=== PATIENT | male | born 1955 | race Caucasian/White ===

== ENCOUNTER 2022-07-10 10:56 | Inpatient (IN) | payer OTHER ==
--- OUTSIDE RECORDS SUMMARY | 2022-07-10 11:11 | XMS REPORT | Continuity of Care Document ---
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 mouth in [place] 00 :00 the Medical morning. Branch predniSONE 2021-02- No [id number] 2.5mg Take 1 [facility] 2.5 mg 0-07 12-13 tablet by ity of tablet 00:00: 00:00 mouth in [place] 00 :00 the Medical morning. Branch predniSONE 2021-02- No [id number] 2.5mg Take 1 [facility] 2.5 mg 0-07 12-13 tablet by ity of tablet 00:00: 00:00 mouth in [place] 00 :00 the Medical morning. Branch predniSONE 2021-02- No [id number] 2.5mg Take 1 [facility] 2.5 mg 0-07 12-13 tablet by ity of tablet 00:00: 00:00 mouth in [place] 00 :00 the Medical morning. Branch tiotropium 2021-02- No [id number] 2.5ug Inhale 2.5 [facility] bromide 0-07 10-07 mcg daily. ity o f (SPIRIVA 00:00: 00:00 [place] RESPIMAT) 00 :00 Medical 2.5 Branch mcg/actuati on Mist tiotropium 2021-02- No [id number] 2.5ug Inhale 2.5 [facility] bromide 0-07 10-07 mcg daily. ity o f (SPIRIVA 00:00: 00:00 [place] RESPIMAT) 00 :00 Medical 2.5 Branch mcg/actuati on Mist tiotropium 2021-02- No [id number] 2.5ug Inhale 2.5 [facility] bromide 0-07 10-07 mcg daily. ity o f (SPIRIVA 00:00: 00:00 [place] RESPIMAT) 00 :00 Medical 2.5 Branch mcg/actuati on Mist tiotropium 2021-02- No [id number] 2.5ug Inhale 2.5 [facility] bromide 0-07 10-07 mcg daily. ity o f (SPIRIVA 00:00: 00:00 [place] RESPIMAT) 00 :00 Medical 2.5 Branch mcg/actuati on Mist pantoprazol 2021- No [id number] 40mg Take 1 [facility] e 40 mg EC 7- 08- tablet by ity of tablet 00:00: 04:59 mouth in [place] 00 :00 the Medical morning Branch for 30 days. pantoprazol 2021- No [id number] 40mg Take 1 [facility] e 40 mg EC 7- 08- tablet by ity of tablet 00:00: 04:59 mouth in [place] 00 :00 the [facility] morning Branch for 30 days. pantoprazol 2021- No [id number] 40mg Take 1 [facility] e 40 mg EC 7- 08-27 tablet by ity of tablet 00:00: 04:59 mouth in [place] 00 :00 the [facility] morning Branch for 30 days. acetaminoph Yes [id number] 650mg Take 2 [facility] en 325 mg 7-26 tablets by ity of tablet 00:00: mouth [place] 00 every 6 Medical (six) Branch hours as needed for Pain (scale 4-6). acetaminoph 2022-0 Yes [id number] 650mg Take 2 [facility] en 325 mg 7-26 tablets by ity of tablet 00:00: mouth [place] 00 every 6 Medical (six) Branch hours as needed for Pain (scale 4-6). acetaminoph 2-0 Yes [id number] 650mg Take 2 [facility] en 325 mg 7-26 tablets by ity of tablet 00:00: mouth [place] 00 every 6 Medical (six) Branch hours as needed for Pain (scale 4-6). acetaminoph 2-0 Yes [id number] 650mg Take 2 [facility] en 325 mg 7-26 tablets by ity of tablet 00:00: mouth [place] 00 every 6 Medical (six) Branch hours as needed for Pain (scale 4-6). acetaminoph 2021-0 Yes [id number] 650mg Take 2 [facility] en 325 mg 7-26 tablets by ity of tablet 00:00: mouth [place] 00 every 6 Medical (six) Branch hours as needed for Pain (scale 4-6). acetaminoph 2021-0 Yes [id number] 650mg Take 2 [facility] en 325 mg 7-26 tablets by ity of tablet 00:00: mouth [place] 00 every 6 Medical (six) Branch hours as needed for Pain (scale 4-6). acetaminoph 2-0 Yes [id number] 650mg Take 2 [facility] en 325 mg 7-26 tablets by ity of tablet 00:00: mouth [place] 00 every 6 Medical (six) Branch hours as needed for Pain (scale 4-6). acetaminoph 2-0 Yes [id number] 650mg Take 2 [facility] en 325 mg 7-26 tablets by ity of tablet 00:00: mouth [place] 00 every 6 Medical (six) Branch hours as needed for Pain (scale 4-6). acetaminoph 2-0 Yes [id number] 650mg Take 2 [facility] en 325 mg 7-26 tablets by ity of tablet 00:00: mouth [place] 00 every 6 Medical (six) Branch hours as needed for Pain (scale 4-6). acetaminoph 2-0 Yes [id number] 650mg Take 2 [facility] en 325 mg 7-26 tablets by ity of tablet 00:00: mouth [place] 00 every 6 Medical (six) Branch hours as needed for Pain (scale 4-6). acetaminoph 2022-0 Yes [id number] 650mg Take 2 [facility] en 325 mg 7-26 tablets by ity of tablet 00:00: mouth [place] 00 every 6 Medical (six) Branch hours as needed for Pain (scale 4-6). acetaminoph 2-0 Yes [id number] 650mg Take 2 [facility] en 325 mg 7-26 tablets by ity of tablet 00:00: mouth [place] 00 every 6 Medical (six) Branch hours as needed for Pain (scale 4-6). acetaminoph 2021-0 Yes [id number] 650mg Take 2 [facility] en 325 mg 7-26 tablets by ity of tablet 00:00: mouth [place] 00 every 6 Medical (six) Branch hours as needed for Pain (scale 4-6). acetaminoph 2021-0 Yes [id number] 650mg Take 2 [facility] en 325 mg 7-26 tablets by ity of tablet 00:00: mouth [place] 00 every 6 Medical (six) Branch hours as needed for Pain (scale 4-6). acetaminoph 2021-0 Yes [id number] 650mg Take 2 [facility] en 325 mg 7-26 tablets by ity of tablet 00:00: mouth [place] 00 every 6 Medical (six) Branch hours as needed for Pain (scale 4-6). acetaminoph 2021-0 Yes [id number] 650mg Take 2 [facility] en 325 mg 7-26 tablets by ity of tablet 00:00: mouth [place] 00 every 6 Medical (six) Branch hours as needed for Pain (scale 4-6). acetaminoph 2021-0 Yes [id number] 650mg Take 2 [facility] en 325 mg 7-26 tablets by ity of tablet 00:00: mouth [place] 00 every 6 Medical (six) Branch hours as needed for Pain (scale 4-6). acetaminoph 2021-0 Yes [id number] 650mg Take 2 [facility] en 325 mg 7-26 tablets by ity of tablet 00:00: mouth [place] 00 every 6 Medical (six) Branch hours as needed for Pain (scale 4-6). acetaminoph 2-0 Yes [id number] 650mg Take 2 [facility] en 325 mg 7-26 tablets by ity of tablet 00:00: mouth [place] 00 every 6 Medical (six) Branch hours as needed for Pain (scale 4-6). acetaminoph 2-0 Yes [id number] 650mg Take 2 [facility] en 325 mg 7-26 tablets by ity of tablet 00:00: mouth [place] 00 every 6 Medical (six) Branch hours as needed for Pain (scale 4-6). acetaminoph 2021-0 Yes [id number] 650mg Take 2 [facility] en 325 mg 7-26 tablets by ity of tablet 00:00: mouth [place] 00 every 6 Medical (six) Branch hours as needed for Pain (scale 4-6). acetaminoph 2021-0 Yes [id number] 650mg Take 2 [facility] en 325 mg 7-26 tablets by ity of tablet 00:00: mouth [place] 00 every 6 Medical (six) Branch hours as needed for Pain (scale 4-6). acetaminoph 2021-2022- No [id number] 650mg Take 2 [facility] en 325 mg 7-26 01-06 tablets by ity of tablet 00:00: 00:00 mouth [place] 00 :00 every 6 Medical (six) Branch hours as needed for Pain (scale 4-6). acetaminoph 2022- No [id number] 650mg Take 2 [facility] en 325 mg 7-26 01-06 tablets by ity of tablet 00:00: 00:00 mouth [place] 00 :00 every 6 Medical (six) Branch hours as needed for Pain (scale 4-6). acetaminoph 2021-2022- No [id number] 650mg Take 2 [facility] en 325 mg 7-26 01-06 tablets by ity of tablet 00:00: 00:00 mouth [place] 00 :00 every 6 Medical (six) Branch hours as needed for Pain (scale 4-6). acetaminoph 2021-2022- No [id number] 650mg Take 2 [facility] en 325 mg 7-26 01-06 tablets by ity of tablet 00:00: 00:00 mouth [place] 00 :00 every 6 Medical (six) Branch hours as needed for Pain (scale 4-6). aspirin 81 2022-0 Yes 81mg Take 1 [facility] rs mg chewable 7-14 tablet by ity of tablet 00:00: mouth in [place] 00 the Medical morning. Branch aspirin 81 2022-0 Yes 81mg Take 1 [facility] rs mg chewable 7-14 tablet by ity of tablet 00:00: mouth in [place] 00 the Medical morning. Branch aspirin 81 2022-0 Yes 81mg Take 1 [facility] rs mg chewable 7-14 tablet by ity of tablet 00:00: mouth in [place] 00 the Medical morning. Branch aspirin 81 2022-0 Yes 81mg Take 1 Unive rs mg chewable 7-14 tablet by ity of tablet 00:00: mouth in [place] 00 the Medical morning. Branch aspirin 81 2022-0 Yes 81mg Take 1 [facility]ive rs mg chewable 7-14 tablet by ity of tablet 00:00: mouth in [place] 00 the Medical morning. Branch aspirin 81 2022-0 Yes 81mg Take 1 [facility] rs mg chewable 7-14 tablet by ity of tablet 00:00: mouth in [place] 00 the Medical morning. Branch aspirin 81 2022-0 Yes 81mg Take 1 [facility] rs mg chewable 7-14 tablet by ity of tablet 00:00: mouth in [place] 00 the Medical morning. Branch aspirin 81 2022-0 Yes 81mg Take 1 [facility] rs mg chewable 7-14 tablet by ity of tablet 00:00: mouth in [place] 00 the Medical morning. Branch aspirin 81 2022-0 Yes 81mg Take 1 [facility] rs mg chewable 7-14 tablet by ity of tablet 00:00: mouth in [place] 00 the Medical morning. Branch aspirin 81 2022-0 Yes 81mg Take 1 [facility] rs mg chewable 7-14 tablet by ity of tablet 00:00: mouth in [place] 00 the Medical morning. Branch aspirin 81 2022-0 Yes 81mg Take 1 [facility] rs mg chewable 7-14 tablet by ity of tablet 00:00: mouth in [place] 00 the Medical morning. Branch aspirin 81 2022-0 Yes 81mg Take 1 [facility] rs mg chewable 7-14 tablet by ity of tablet 00:00: mouth in [place] 00 the Medical morning. Branch aspirin 81 2022-0 Yes 81mg Take 1 [facility] rs mg chewable 7-14 tablet by ity of tablet 00:00: mouth in [place] 00 the Medical morning. Branch aspirin 81 2022-0 Yes 81mg Take 1 [facility] rs mg chewable 7-14 tablet by ity of tablet 00:00: mouth in [place] 00 the Medical morning. Branch aspirin 81 2022-0 Yes 81mg Take 1 [facility] rs mg chewable 7-14 tablet by ity of tablet 00:00: mouth in [place] 00 the Medical morning. Branch aspirin 81 2022-0 Yes 81mg Take 1 [facility] rs mg chewable 7-14 tablet by ity of tablet 00:00: mouth in [place] 00 the Medical morning. Branch aspirin 81 2022-0 Yes 81mg Take 1 [facility] rs mg chewable 7-14 tablet by ity of tablet 00:00: mouth in [place] 00 the Medical morning. Branch aspirin 81 2022-0 Yes 81mg Take 1 [facility] rs mg chewable 7-14 tablet by ity of tablet 00:00: mouth in [place] 00 the Medical morning. Branch aspirin 81 2022-0 Yes 81mg Take 1 [facility] rs mg chewable 7-14 tablet by ity of tablet 00:00: mouth in [place] 00 the Medical morning. Branch aspirin 81 2022-0 Yes 81mg Take 1 [facility] rs mg chewable 7-14 tablet by ity of tablet 00:00: mouth in [place] 00 the Medical morning. Branch aspirin 81 2022-0 Yes 81mg Take 1 [facility] rs mg chewable 7-14 tablet by ity of tablet 00:00: mouth in [place] 00 the Medical morning. Branch aspirin 81 2022-0 Yes 81mg Take 1 [facility] rs mg chewable 7-14 tablet by ity of tablet 00:00: mouth in [place] 00 the Medical morning. Branch aspirin 81 2022-0 Yes 81mg Take 1 [facility] rs mg chewable 7-14 tablet by ity of tablet 00:00: mouth in [place] 00 the Medical morning. Branch aspirin 81 2022-0 Yes 81mg Take 1 [facility] rs mg chewable 7-14 tablet by ity of tablet 00:00: mouth in [place] 00 the Medical morning. Branch aspirin 81 2022-0 Yes 81mg Take 1 [facility] rs mg chewable 7-14 tablet by ity of tablet 00:00: mouth in [place] 00 the Medical morning. Branch aspirin 81 2022-0 Yes 81mg Take 1 [facility] rs mg chewable 7-14 tablet by ity of tablet 00:00: mouth in [place] 00 the Medical morning. Branch aspirin 81 2022-0 Yes 81mg Take 1 [facility] rs mg chewable 7-14 tablet by ity of tablet 00:00: mouth in [place] 00 the Medical morning. Branch aspirin 81 2022-0 Yes 81mg Take 1 [facility] rs mg chewable 7-14 tablet by ity of tablet 00:00: mouth in [place] 00 the Medical morning. Branch aspirin 81 2-0 Yes 81mg Take 1 [facility] rs mg chewable 7-14 tablet by ity of tablet 00:00: mouth in [place] 00 the Medical morning. Branch aspirin 81 2022-0 Yes 81mg Take 1 [facility] rs mg chewable 7-14 tablet by ity of tablet 00:00: mouth in [place] 00 the Medical morning. Branch aspirin 81 2022-0 Yes 81mg Take 1 [facility] rs mg chewable 7-14 tablet by ity of tablet 00:00: mouth in [place] 00 the Medical morning. Branch aspirin 81 2-0 Yes 81mg Take 1 [facility] rs mg chewable 7-14 tablet by ity of tablet 00:00: mouth in [place] 00 the Medical morning. Branch atorvastati 2-0 Yes 40mg Take 1 [facility] ers n 40 mg 7-13 tablet by ity of tablet 00:00: mouth at [place] [id number] bedtime. Medical Branch metoprolol 2-0 Yes 12.5mg Take 0.5 U nivers tartrate 25 7-13 tablets by it y of mg tablet 00:00: mouth [place] 00 every 12 Medical (twelve) Branch hours. atorvastati 2-0 Yes 40mg Take 1 [facility] ers n 40 mg 7-13 tablet by ity of tablet 00:00: mouth at [place] [id number] bedtime. Medical Branch metoprolol 2-0 Yes 12.5mg Take 0.5 U nivers tartrate 25 7-13 tablets by it y of mg tablet 00:00: mouth [place] 00 every 12 Medical (twelve) Branch hours. atorvastati 2022-0 Yes 40mg Take 1 [facility] ers n 40 mg 7-13 tablet by ity of tablet 00:00: mouth at [place] [id number] bedtime. Medical Branch metoprolol 2-0 Yes 12.5mg Take 0.5 U nivers tartrate 25 7-13 tablets by it y of mg tablet 00:00: mouth [place] [id number] every 12 Medical (twelve) Branch hours. atorvastati 2022-0 Yes 40mg Take 1 [facility] ers n 40 mg 7-13 tablet by ity of tablet 00:00: mouth at [place] [id number] bedtime. Medical Branch metoprolol 2022-0 Yes 12.5mg Take 0.5 U nivers tartrate 25 7-13 tablets by it y of mg tablet 00:00: mouth [place] 00 every 12 Medical (twelve) Branch hours. atorvastati 2022-0 Yes 40mg Take 1 [facility] ers n 40 mg 7-13 tablet by ity of tablet 00:00: mouth at [place] 00 bedtime. Medical Branch metoprolol 2022-0 Yes 12.5mg Take 0.5 U nivers tartrate 25 7-13 tablets by it y of mg tablet 00:00: mouth [place] 00 every 12 Medical (twelve) Branch hours. atorvastati 2022-0 Yes 40mg Take 1 [facility] ers n 40 mg 7-13 tablet by ity of tablet 00:00: mouth at [place] 00 bedtime. Medical Branch metoprolol 2022-0 Yes 12.5mg Take 0.5 U nivers tartrate 25 7-13 tablets by it y of mg tablet 00:00: mouth [place] 00 every 12 Medical (twelve) Branch hours. atorvastati 2022-0 Yes 40mg Take 1 [facility] ers n 40 mg 7-13 tablet by ity of tablet 00:00: mouth at [place] 00 bedtime. Medical Branch metoprolol 2022-0 Yes 12.5mg Take 0.5 U nivers tartrate 25 7-13 tablets by it y of mg tablet 00:00: mouth [place] 00 every 12 Medical (twelve) Branch hours. metoprolol 2022-0 Yes 12.5mg Take 0.5 U nivers tartrate 25 7-13 tablets by it y of mg tablet 00:00: mouth [place] 00 every 12 Medical (twelve) Branch hours. metoprolol 2022-0 Yes 12.5mg Take 0.5 U nivers tartrate 25 7-13 tablets by it y of mg tablet 00:00: mouth [place] 00 every 12 Medical (twelve) Branch hours. metoprolol 2022-0 Yes 12.5mg Take 0.5 U nivers tartrate 25 7-13 tablets by it y of mg tablet 00:00: mouth [place] 00 every 12 Medical (twelve) Branch hours. metoprolol 2022-0 Yes 12.5mg Take 0.5 U nivers tartrate 25 7-13 tablets by it y of mg tablet 00:00: mouth [place] 00 every 12 Medical (twelve) Branch hours. metoprolol 2022-0 Yes 12.5mg Take 0.5 U nivers tartrate 25 7-13 tablets by it y of mg tablet 00:00: mouth [place] 00 every 12 Medical (twelve) Branch hours. metoprolol 2022-0 Yes 12.5mg Take 0.5 U nivers tartrate 25 7-13 tablets by it y of mg tablet 00:00: mouth [place] 00 every 12 Medical (twelve) Branch hours. metoprolol 2022-0 Yes 12.5mg Take 0.5 U nivers tartrate 25 7-13 tablets by it y of mg tablet 00:00: mouth [place] 00 every 12 Medical (twelve) Branch hours. metoprolol 2022-0 Yes 12.5mg Take 0.5 U nivers tartrate 25 7-13 tablets by it y of mg tablet 00:00: mouth [place] 00 every 12 Medical (twelve) Branch hours. metoprolol 2022-0 Yes 12.5mg Take 0.5 U nivers tartrate 25 7-13 tablets by it y of mg tablet 00:00: mouth [place] 00 every 12 Medical (twelve) Branch hours. metoprolol 2-0 2022- No 12.5mg Take 0.5 [facility] tartrate 25 7-13 12-13 tablets by i ty of mg tablet 00:00: 00:00 mouth [place] 00 :00 every 12 Medical (twelve) Branch hours. metoprolol 2-0 2022- No 12.5mg Take 0.5 [facility] tartrate 25 7-13 12-13 tablets by i ty of mg tablet 00:00: 00:00 mouth [place] 00 :00 every 12 Medical (twelve) Branch hours. metoprolol 2022-0 2022- No 12.5mg Take 0.5 [facility] tartrate 25 7-13 12-13 tablets by i ty of mg tablet 00:00: 00:00 mouth [place] 00 :00 every 12 Medical (twelve) Branch hours. metoprolol 2022-0 2022- No 12.5mg Take 0.5 [facility] tartrate 25 7-13 12-13 tablets by i ty of mg tablet 00:00: 00:00 mouth [place] 00 :00 every 12 Medical (twelve) Branch hours. atorvastati 2022-0 2022- No 40mg Take 1 [facility] vers n 40 mg 7-13 10-07 tablet by ity of tablet 00:00: 00:00 mouth at [place] 00 :00 bedtime. Medical Branch atorvastati 2022-0 2022- No 40mg Take 1 [facility] vers n 40 mg 09-03 tablet by ity of tablet 00:00: 00:00 mouth at [place] 00 :00 bedtime. Medical Branch ferrous 2021-0 2021- No 325mg Take 1 Un[facility] s sulfate 325 09-03 tablet by it y of mg (65 mg 00:00: 04:59 [place] 00 :00 (two) Medical tablet times Branch daily before breakfast and dinner for 30 days. ferrous 2021-0 2021- No 325mg Take 1 [facility] s sulfate 325 09-03 tablet by it y of mg (65 mg 00:00: 04:59 [place] iron[place] 00 :00 (two) Medical tablet times Branch daily before breakfast and dinner for 30 days. B Complex Yes Take by Unive rs Vitamins 6-13 mouth. ity of tablet 00:00: [place] 00 Medical Branch B Complex Yes Take by Un[facility] rs Vitamins 6-13 mouth. ity of tablet 00:00: [place] Medical Branch B Complex Yes Take by Un[facility] rs Vitamins 6-13 mouth. ity of tablet 00:00: [place] Medical Branch B Complex Yes Take by Un[facility] rs Vitamins 6-13 mouth. ity of tablet 00:00: [place] Medical Branch B Complex Yes Take by Un[facility] rs Vitamins 6-13 mouth. ity of tablet 00:00: [place] 00 Medical Branch metoprolol Yes 25mg 25 mg. Unive rs succinate 6-13 ity of XL 25 mg 24 00:00: [place] hr tablet 00 Medical Branch B Complex 0 Yes Take by Unive rs Vitamins 6-13 mouth. ity of tablet 00:00: [place] 00 Medical Branch metoprolol 0 Yes 25mg 25 mg. Unive rs succinate 6-13 ity of XL 25 mg 24 00:00: [place] hr tablet 00 Medical Branch B Complex Yes Take by Un[facility] rs Vitamins 6-13 mouth. ity of tablet 00:00: [place] 00 Medical Branch metoprolol 0 Yes 25mg 25 mg. Unive rs succinate 6-13 ity of XL 25 mg 24 00:00: [place] hr tablet 00 Medical Branch B Complex 2022-0 Yes Take by [facility] rs Vitamins 6-13 mouth. ity of tablet 00:00: [place] 00 Medical Branch metoprolol 2021-0 Yes 25mg 25 mg. Unive rs succinate 6-13 ity of XL 25 mg 24 00:00: [place] hr tablet 00 Medical Branch B Complex 2021-0 Yes Take by Un[facility] rs Vitamins 6-13 mouth. ity of tablet 00:00: [place] 00 Medical Branch metoprolol 2021-0 Yes 25mg 25 mg. Unive rs succinate 6-13 ity of XL 25 mg 24 00:00: [place] hr tablet 00 Medical Branch B Complex 2021-0 Yes Take by Un[facility] rs Vitamins 6-13 mouth. ity of tablet 00:00: [place] Medical Branch metoprolol 2021-0 Yes 25mg 25 mg. Unive rs succinate 6-13 ity of XL 25 mg 24 00:00: [place] hr tablet 00 Medical Branch B Complex 2021-0 Yes Take by [facility] rs Vitamins 6-13 mouth. ity of tablet 00:00: [place] Medical Branch metoprolol 0 Yes 25mg 25 mg. Unive rs succinate 6-13 ity of XL 25 mg 24 00:00: [place] hr tablet 00 Medical Branch B Complex 2021-0 Yes Take by Un[facility] rs Vitamins 6-13 mouth. ity of tablet 00:00: [place] [facility] Branch metoprolol 0 Yes 25mg 25 mg. Unive rs succinate 6-13 ity of XL 25 mg 24 00:00: [place] hr tablet 00 Medical Branch B Complex 2021-0 Yes Take by Unive rs Vitamins 6-13 mouth. ity of tablet 00:00: [place] Medical Branch metoprolol 2021-0 Yes 25mg 25 mg. Unive rs succinate 6-13 ity of XL 25 mg 24 00:00: [place] hr tablet 00 Medical Branch B Complex 2021-0 Yes Take by Unive rs Vitamins 6-13 mouth. ity of tablet 00:00: [place] [facility] Branch metoprolol 2021-0 Yes 25mg 25 mg. Unive rs succinate 6-13 ity of XL 25 mg 24 00:00: [place] hr tablet 00 Medical Branch B Complex 2021-0 Yes Take by Unive rs Vitamins 6-13 mouth. ity of tablet 00:00: [place] 00 Medical Branch metoprolol 2022-0 Yes 25mg 25 mg. Unive rs succinate 6-13 ity of XL 25 mg 24 00:00: [place] hr tablet 00 Medical Branch B Complex 2021-0 Yes Take by [facility] rs Vitamins 6-13 mouth. ity of tablet 00:00: [place] 00 Medical Branch metoprolol 2021-0 Yes 25mg 25 mg. Unive rs succinate 6-13 ity of XL 25 mg 24 00:00: [place] hr tablet 00 Medical Branch B Complex 2021-0 Yes Take by Un[facility] rs Vitamins 6-13 mouth. ity of tablet 00:00: [place] 00 Medical Branch metoprolol 2021-0 Yes 25mg 25 mg. Unive rs succinate 6-13 ity of XL 25 mg 24 00:00: [place] hr tablet 00 Medical Branch B Complex 2021-0 Yes Take by [facility] rs Vitamins 6-13 mouth. ity of tablet 00:00: [place] 00 Medical Branch metoprolol 2021-0 Yes 25mg 25 mg. Unive rs succinate 6-13 ity of XL 25 mg 24 00:00: [place] hr tablet 00 Medical Branch B Complex 2021-0 Yes Take by [facility] rs Vitamins 6-13 mouth. ity of tablet 00:00: [place] 00 Medical Branch metoprolol 2021-0 Yes 25mg 25 mg. Unive rs succinate 6-13 ity of XL 25 mg 24 00:00: [place] hr tablet 00 Medical Branch B Complex 2021-0 Yes Take by [facility] rs Vitamins 6-13 mouth. ity of tablet 00:00: [place] 00 Medical Branch metoprolol 2021-0 Yes 25mg 25 mg. Unive rs succinate 6-13 ity of XL 25 mg 24 00:00: [place] hr tablet 00 Medical Branch B Complex 2021-0 Yes Take by [facility] rs Vitamins 6-13 mouth. ity of tablet 00:00: [place] 00 Medical Branch metoprolol 2021-0 Yes 25mg 25 mg. Unive rs succinate 6-13 ity of XL 25 mg 24 00:00: [place] hr tablet 00 Medical Branch B Complex 2021-0 Yes Take by [facility] rs Vitamins 6-13 mouth. ity of tablet 00:00: [place] 00 Medical Branch metoprolol 2021-0 Yes 25mg 25 mg. Unive rs succinate 6-13 ity of XL 25 mg 24 00:00: [place] hr tablet 00 Medical Branch B Complex 2021-0 Yes Take by [facility] rs Vitamins 6-13 mouth. ity of tablet 00:00: [place] 00 Medical Branch metoprolol 2021-0 Yes 25mg 25 mg. Unive rs succinate 6-13 ity of XL 25 mg 24 00:00: [place] hr tablet 00 Medical Branch B Complex 2021-0 Yes Take by [facility] rs Vitamins 6-13 mouth. ity of tablet 00:00: [place] [facility] Branch metoprolol 2021-0 Yes 25mg 25 mg. Unive rs succinate 6-13 ity of XL 25 mg 24 00:00: [place] hr tablet 00 Medical Branch B Complex 2021-0 Yes Take by [facility] rs Vitamins 6-13 mouth. ity of tablet 00:00: [place] [facility] Branch metoprolol 2021-0 Yes 25mg 25 mg. Unive rs succinate 6-13 ity of XL 25 mg 24 00:00: [place] hr tablet 00 Medical Branch B Complex 2021-0 Yes Take by Un[facility] rs Vitamins 6-13 mouth. ity of tablet 00:00: [place] [facility] Branch metoprolol 2021-0 Yes 25mg 25 mg. Unive rs succinate 6-13 ity of XL 25 mg 24 00:00: [place] hr tablet 00 Medical Branch B Complex 2021-0 Yes Take by Un[facility] rs Vitamins 6-13 mouth. ity of tablet 00:00: [place] [facility] Branch metoprolol 2021-0 Yes 25mg 25 mg. Unive rs succinate 6-13 ity of XL 25 mg 24 00:00: [place] hr tablet 00 Medical Branch B Complex 2021-0 Yes Take by [facility] rs Vitamins 6-13 mouth. ity of tablet 00:00: [place] [facility] Branch metoprolol 2021-0 Yes 25mg 25 mg. Unive rs succinate 6-13 ity of XL 25 mg 24 00:00: [place] hr tablet 00 Medical Branch B Complex 2021-0 Yes Take by [facility] rs Vitamins 6-13 mouth. ity of tablet 00:00: [place] [facility] Branch metoprolol 2021-0 Yes 25mg 25 mg. Unive rs succinate 6-13 ity of XL 25 mg 24 00:00: [place] hr tablet 00 Medical Branch B Complex 2021-0 Yes Take by [facility] rs Vitamins 6-13 mouth. ity of tablet 00:00: [place] 00 Medical Branch metoprolol 2022-0 Yes 25mg 25 mg. Unive rs succinate 6-13 ity of XL 25 mg 24 00:00: [place] hr tablet 00 Medical Branch B Complex 2021-0 Yes Take by [facility] rs Vitamins 6-13 mouth. ity of tablet 00:00: [place] 00 Medical Branch metoprolol 2021-0 Yes 25mg 25 mg. Unive rs succinate 6-13 ity of XL 25 mg 24 00:00: [place] hr tablet 00 Medical Branch B Complex 2021-0 Yes Take by [facility] rs Vitamins 6-13 mouth. ity of tablet 00:00: [place] 00 Medical Branch metoprolol 2021-0 Yes 25mg 25 mg. Unive rs succinate 6-13 ity of XL 25 mg 24 00:00: [place] hr tablet 00 Medical Branch ethambutoL 2021-2022- No [id number] 2000mg Take 5 [facility] 400 mg 07-23 tablets by ity of tablet 00:00: 05:59 mouth [place] 00 :00 every Medical Wednesday, Branch Wednesday and Wednesday for 252 days. azithromyci 2022- No [id number] 500mg Take 1 [facility] n 500 mg 07-23 tablet by ity o f tablet 00:00: 05:59 mouth [place] 00 :00 every Medical Wednesday, Branch Wednesday and Wednesday for 252 days. rifAMPin 2022- No [id number] 600mg Take 2 [facility] 300 mg 07-23 capsules ity of capsule 00:00: 05:59 by mouth [place] 00 :00 every Medical Wednesday, Branch Wednesday and Wednesday for 252 days. ethambutoL 2022- No [id number] 2000mg Take 5 [facility] 400 mg 07-23 tablets by ity of tablet 00:00: 05:59 mouth [place] 00 :00 every Medical Wednesday, Branch Wednesday and Wednesday for 252 days. azithromyci 2022- No [id number] 500mg Take 1 [facility] n 500 mg 07-23 tablet by ity o f tablet 00:00: 05:59 mouth [place] 00 :00 every Medical Wednesday, Branch Wednesday and Wednesday for 252 days. rifAMPin 2022- No [id number] 600mg Take 2 [facility] 300 mg 07-23 capsules ity of capsule 00:00: 05:59 by mouth [place] 00 :00 every Medical Wednesday, Branch Wednesday and Wednesday for 252 days. ethambutoL No [id number] 2000mg Take 5 [facility] 400 mg 07-23 tablets by ity of tablet 00:00: 05:59 mouth [place] 00 :00 every Medical Wednesday, Branch Wednesday and Wednesday for 252 days. azithromyci No [id number] 500mg Take 1 [facility] n 500 mg 07-23 tablet by ity o f tablet 00:00: 05:59 mouth [place] 00 :00 every Medical Wednesday, Branch Wednesday and Wednesday for 252 days. rifAMPin 2022- No [id number] 600mg Take 2 [facility] 300 mg 07-23 capsules ity of capsule 00:00: 05:59 by mouth [place] 00 :00 every Medical Wednesday, Branch Wednesday and Wednesday for 252 days. ethambutoL 2022- No [id number] 2000mg Take 5 [facility] 400 mg 07-23 tablets by ity of tablet 00:00: 05:59 mouth [place] 00 :00 every Medical Wednesday, Branch Wednesday and Wednesday for 252 days. azithromyci 2022- No [id number] 500mg Take 1 [facility] n 500 mg 07-23 tablet by ity o f tablet 00:00: 05:59 mouth [place] 00 :00 every Medical Wednesday, Branch Wednesday and Wednesday for 252 days. rifAMPin 2022- No [id number] 600mg Take 2 [facility] 300 mg 07-23 capsules ity of capsule 00:00: 05:59 by mouth [place] 00 :00 every Medical Wednesday, Branch Wednesday and Wednesday for 252 days. ethambutoL 2022- No [id number] 2000mg Take 5 [facility] 400 mg -09 tablets by ity of tablet 00:00: 05:59 mouth [place] 00 :00 every Medical Wednesday, Branch Wednesday and Wednesday for 252 days. azithromyci 2022- No [id number] 500mg Take 1 [facility] n 500 mg 07-23 tablet by ity o f tablet 00:00: 05:59 mouth [place] 00 :00 every Medical Wednesday, Branch Wednesday and Wednesday for 252 days. rifAMPin 2022- No [id number] 600mg Take 2 [facility] 300 mg 6-04-02 capsules ity of capsule 00:00: 05:59 by mouth [place] 00 :00 every Medical Wednesday, Branch Wednesday and Wednesday for 252 days. ethambutoL 2022- No [id number] 2000mg Take 5 [facility] 400 mg 07-23 tablets by ity of tablet 00:00: 05:59 mouth [place] 00 :00 every Medical Wednesday, Branch Wednesday and Wednesday for 252 days. azithromyci 2022- No [id number] 500mg Take 1 [facility] n 500 mg 07-23 tablet by ity o f tablet 00:00: 05:59 mouth [place] 00 :00 every Medical Wednesday, Branch Wednesday and Wednesday for 252 days. rifAMPin 2022- No [id number] 600mg Take 2 [facility] 300 mg 07-23 capsules ity of capsule 00:00: 05:59 by mouth [place] 00 :00 every Medical Wednesday, Branch Wednesday and Wednesday for 252 days. ethambutoL 2022- No [id number] 2000mg Take 5 [facility] 400 mg 07-23 tablets by ity of tablet 00:00: 05:59 mouth [place] 00 :00 every Medical Wednesday, Branch Wednesday and Wednesday for 252 days. azithromyci 2022- No [id number] 500mg Take 1 [facility] n 500 mg 07-23 tablet by ity o f tablet 00:00: 05:59 mouth [place] 00 :00 every Medical Wednesday, Branch Wednesday and Wednesday for 252 days. rifAMPin 2022- No [id number] 600mg Take 2 [facility] 300 mg -04-02 capsules ity of capsule 00:00: 05:59 by mouth [place] 00 :00 every Medical Wednesday, Branch Wednesday and Wednesday for 252 days. ethambutoL 2022- No [id number] 2000mg Take 5 [facility] 400 mg 6-02 23- tablets by ity of tablet 00:00: 05:59 mouth [place] 00 :00 every Medical Wednesday, Branch Wednesday and Wednesday for 252 days. azithromyci 2022- No [id number] 500mg Take 1 [facility] n 500 mg 6-04-02 tablet by ity o f tablet 00:00: 05:59 mouth [place] 00 :00 every Medical Wednesday, Branch Wednesday and Wednesday for 252 days. ethambutoL 2022- No [id number] 2000mg Take 5 [facility] 400 mg 6-04-02 tablets by ity of tablet 00:00: 05:59 mouth [place] 00 :00 every Medical Wednesday, Branch Wednesday and Wednesday for 252 days. azithromyci 2022- No [id number] 500mg Take 1 [facility] n 500 mg 6-04-02 tablet by ity o f tablet 00:00: 05:59 mouth [place] 00 :00 every Medical Wednesday, Branch Wednesday and Wednesday for 252 days. ethambutoL 2022- No [id number] 2000mg Take 5 [facility] 400 mg 6-04-02 tablets by ity of tablet 00:00: 05:59 mouth [place] 00 :00 every Medical Wednesday, Branch Wednesday and Wednesday for 252 days. azithromyci 2022- No [id number] 500mg Take 1 [facility] n 500 mg 6-04-02 tablet by ity o f tablet 00:00: 05:59 mouth [place] 00 :00 every Medical Wednesday, Branch Wednesday and Wednesday for 252 days. ethambutoL 2022- No [id number] 2000mg Take 5 [facility] 400 mg 6-04-02 tablets by ity of tablet 00:00: 05:59 mouth [place] 00 :00 every Medical Wednesday, Branch Wednesday and Wednesday for 252 days. azithromyci 2022- No [id number] 500mg Take 1 [facility] n 500 mg 6-04-02 tablet by ity o f tablet 00:00: 05:59 mouth [place] 00 :00 every Medical Wednesday, Branch Wednesday and Wednesday for 252 days. ethambutoL 2022- No [id number] 2000mg Take 5 [facility] 400 mg 6-04-02 tablets by ity of tablet 00:00: 05:59 mouth [place] 00 :00 every Medical Wednesday, Branch Wednesday and Wednesday for 252 days. azithromyci 2022- No [id number] 500mg Take 1 [facility] n 500 mg 6-04-02 tablet by ity o f tablet 00:00: 05:59 mouth [place] 00 :00 every Medical Wednesday, Branch Wednesday and Wednesday for 252 days. ethambutoL 2022- No [id number] 2000mg Take 5 [facility] 400 mg 6-04-02 tablets by ity of tablet 00:00: 05:59 mouth [place] 00 :00 every Medical Wednesday, Branch Wednesday and Wednesday for 252 days. azithromyci 2022- No [id number] 500mg Take 1 [facility] n 500 mg 6-04-02 tablet by ity o f tablet 00:00: 05:59 mouth [place] 00 :00 every Medical Wednesday, Branch Wednesday and Wednesday for 252 days. ethambutoL 2022- No [id number] 2000mg Take 5 [facility] 400 mg 6-04-02 tablets by ity of tablet 00:00: 05:59 mouth [place] 00 :00 every Medical Wednesday, Branch Wednesday and Wednesday for 252 days. azithromyci 2022- No [id number] 500mg Take 1 [facility] n 500 mg 6-04-02 tablet by ity o f tablet 00:00: 05:59 mouth [place] 00 :00 every Medical Wednesday, Branch Wednesday and Wednesday for 252 days. ethambutoL 2022- No [id number] 2000mg Take 5 [facility] 400 mg 6-04-02 tablets by ity of tablet 00:00: 05:59 mouth [place] 00 :00 every Medical Wednesday, Branch Wednesday and Wednesday for 252 days. azithromyci 2022- No [id number] 500mg Take 1 [facility] n 500 mg 6-04-02 tablet by ity o f tablet 00:00: 05:59 mouth [place] 00 :00 every Medical Wednesday, Branch Wednesday and Wednesday for 252 days. ethambutoL 2022- No [id number] 2000mg Take 5 [facility] 400 mg 6-04-02 tablets by ity of tablet 00:00: 05:59 mouth [place] 00 :00 every Medical Wednesday, Branch Wednesday and Wednesday for 252 days. azithromyci 2022- No [id number] 500mg Take 1 [facility] n 500 mg 07-23 tablet by ity o f tablet 00:00: 05:59 mouth [place] 00 :00 every Medical Wednesday, Branch Wednesday and Wednesday for 252 days. ethambutoL 2022- No [id number] 2000mg Take 5 [facility] 400 mg 07-23 tablets by ity of tablet 00:00: 05:59 mouth [place] 00 :00 every Medical Wednesday, Branch Wednesday and Wednesday for 252 days. azithromyci No [id number] 500mg Take 1 [facility] n 500 mg 07-23 tablet by ity o f tablet 00:00: 05:59 mouth [place] 00 :00 every Medical Wednesday, Branch Wednesday and Wednesday for 252 days. ethambutoL 2022- No [id number] 2000mg Take 5 [facility] 400 mg 07-23 tablets by ity of tablet 00:00: 05:59 mouth [place] 00 :00 every Medical Wednesday, Branch Wednesday and Wednesday for 252 days. azithromyci 2022- No [id number] 500mg Take 1 [facility] n 500 mg 07-23 tablet by ity o f tablet 00:00: 05:59 mouth [place] 00 :00 every Medical Wednesday, Branch Wednesday and Wednesday for 252 days. ethambutoL 2022- No [id number] 2000mg Take 5 [facility] 400 mg 07-23 tablets by ity of tablet 00:00: 05:59 mouth [place] 00 :00 every Medical Wednesday, Branch Wednesday and Wednesday for 252 days. azithromyci 2022- No [id number] 500mg Take 1 [facility] n 500 mg 6-04-02 tablet by ity o f tablet 00:00: 05:59 mouth [place] 00 :00 every Medical Wednesday, Branch Wednesday and Wednesday for 252 days. ethambutoL 2022- No [id number] 2000mg Take 5 [facility] 400 mg 6-02 23- tablets by ity of tablet 00:00: 05:59 mouth [place] 00 :00 every Medical Wednesday, Branch Wednesday and Wednesday for 252 days. azithromyci 2022- No [id number] 500mg Take 1 [facility] n 500 mg 6-04-02 tablet by ity o f tablet 00:00: 05:59 mouth [place] 00 :00 every Medical Wednesday, Branch Wednesday and Wednesday for 252 days. ethambutoL 2022- No [id number] 2000mg Take 5 [facility] 400 mg 6-04-02 tablets by ity of tablet 00:00: 05:59 mouth [place] 00 :00 every Medical Wednesday, Branch Wednesday and Wednesday for 252 days. azithromyci 2022- No [id number] 500mg Take 1 [facility] n 500 mg 07-23 tablet by ity o f tablet 00:00: 05:59 mouth [place] 00 :00 every Medical Wednesday, Branch Wednesday and Wednesday for 252 days. ethambutoL 2022- No [id number] 2000mg Take 5 [facility] 400 mg 6-04-02 tablets by ity of tablet 00:00: 05:59 mouth [place] 00 :00 every Medical Wednesday, Branch Wednesday and Wednesday for 252 days. azithromyci 2022- No [id number] 500mg Take 1 [facility] n 500 mg 6-04-02 tablet by ity o f tablet 00:00: 05:59 mouth [place] 00 :00 every Medical Wednesday, Branch Wednesday and Wednesday for 252 days. ethambutoL 2022- No [id number] 2000mg Take 5 [facility] 400 mg 6-04-02 tablets by ity of tablet 00:00: 05:59 mouth [place] 00 :00 every Medical Wednesday, Branch Wednesday and Wednesday for 252 days. azithromyci 2022- No [id number] 500mg Take 1 [facility] n 500 mg 07-23 tablet by ity o f tablet 00:00: 05:59 mouth [place] 00 :00 every Medical Wednesday, Branch Wednesday and Wednesday for 252 days. ethambutoL 2022- No [id number] 2000mg Take 5 [facility] 400 mg -04-02 tablets by ity of tablet 00:00: 05:59 mouth [place] 00 :00 every Medical Wednesday, Branch Wednesday and Wednesday for 252 days. azithromyci 2022- No [id number] 500mg Take 1 [facility] n 500 mg 07-23 tablet by ity o f tablet 00:00: 05:59 mouth [place] 00 :00 every Medical Wednesday, Branch Wednesday and Wednesday for 252 days. ethambutoL 2022- No [id number] 2000mg Take 5 [facility] 400 mg 07-23 tablets by ity of tablet 00:00: 05:59 mouth [place] 00 :00 every Medical Wednesday, Branch Wednesday and Wednesday for 252 days. azithromyci 2022- No [id number] 500mg Take 1 [facility] n 500 mg 07-23 tablet by ity o f tablet 00:00: 05:59 mouth [place] 00 :00 every Medical Wednesday, Branch Wednesday and Wednesday for 252 days. ethambutoL 2022- No [id number] 2000mg Take 5 [facility] 400 mg 07-23 tablets by ity of tablet 00:00: 05:59 mouth [place] 00 :00 every Medical Wednesday, Branch Wednesday and Wednesday for 252 days. azithromyci 2022- No [id number] 500mg Take 1 [facility] n 500 mg 07-23 tablet by ity o f tablet 00:00: 05:59 mouth [place] 00 :00 every Medical Wednesday, Branch Wednesday and Wednesday for 252 days. rifAMPin 2021- No [id number] 600mg Take 2 [facility] 300 mg 07-23 capsules ity of capsule 00:00: 00:00 by mouth [place] 00 :00 every Medical Wednesday, Wednesday and Wednesday for days. rifAMPin 2021- No [id number] 600mg Take 2 [facility] 300 mg 07-23 capsules ity of capsule 00:00: 00:00 by mouth [place] 00 :00 every Medical Wednesday, Branch Wednesday and Wednesday for days. montelukast Yes [id number] 10mg Take 1 [facility] 10 mg 5-02 tablet by ity of tablet 00:00: mouth [place] 00 daily. [facility] montelukast 0 Yes [id number] 10mg Take 1 [facility] 10 mg 5-02 tablet by ity of tablet 00:00: mouth [place] 00 daily. [facility] montelukast Yes [id number] 10mg Take 1 [facility] 10 mg 5-02 tablet by ity of tablet 00:00: mouth [place] 00 daily. [facility] montelukast Yes [id number] 10mg Take 1 [facility] 10 mg 5-02 tablet by ity of tablet 00:00: mouth [place] 00 daily. [facility] montelukast Yes [id number] 10mg Take 1 [facility] 10 mg 5-02 tablet by ity of tablet 00:00: mouth [place] 00 daily. [facility] montelukast Yes [id number] 10mg Take 1 [facility] 10 mg 5-02 tablet by ity of tablet 00:00: mouth [place] 00 daily. [facility] montelukast Yes [id number] 10mg Take 1 [facility] 10 mg 5-02 tablet by ity of tablet 00:00: mouth [place] 00 daily. [facility] montelukast 0 Yes [id number] 10mg Take 1 [facility] 10 mg 5-02 tablet by ity of tablet 00:00: mouth [place] 00 daily. [facility] montelukast 0 Yes [id number] 10mg Take 1 [facility] 10 mg 5-02 tablet by ity of tablet 00:00: mouth [place] 00 daily. [facility] montelukast 0 Yes [id number] 10mg Take 1 [facility] 10 mg 5-02 tablet by ity of tablet 00:00: mouth [place] 00 daily. [facility] montelukast Yes [id number] 10mg Take 1 [facility] 10 mg 5-02 tablet by ity of tablet 00:00: mouth [place] 00 daily. Medical Branch montelukast Yes [id number] 10mg Take 1 [facility] 10 mg 5-02 tablet by ity of tablet 00:00: mouth [place] 00 daily. Medical Branch montelukast 2021- No [id number] 10mg Take 1 [facility] 10 mg 5-02 11-09 tablet by ity of tablet 00:00: 00:00 mouth [place] 00 :00 daily. Medical Branch montelukast 2021- No [id number] 10mg Take 1 [facility] 10 mg 5-02 -09 tablet by ity of tablet 00:00: 00:00 mouth [place] 00 :00 daily. Medical Branch predniSONE 2020-02 Yes [id number] 5mg Take 1 [facility] 5 mg tablet 2-31 tablet by ity of 00:00: mouth [place] 00 daily. Medical Branch predniSONE 2020-02 Yes [id number] 5mg Take 1 [facility] 5 mg tablet 2-31 tablet by ity of 00:00: mouth [place] 00 daily. Medical Branch predniSONE 2020-02 Yes [id number] 5mg Take 1 [facility] 5 mg tablet 2-31 tablet by ity of 00:00: mouth [place] 00 daily. Medical Branch predniSONE 2020-02 Yes [id number] 5mg Take 1 [facility] 5 mg tablet 2-31 tablet by ity of 00:00: mouth [place] 00 daily. Medical Branch predniSONE 2020-02 Yes [id number] 5mg Take 1 [facility] 5 mg tablet 2-31 tablet by ity of 00:00: mouth [place] 00 daily. Medical Branch predniSONE 2020- Yes [id number] 5mg Take 1 [facility] 5 mg tablet 2-31 tablet by ity of 00:00: mouth [place] 00 daily. Medical Branch predniSONE 2020-02 Yes [id number] 5mg Take 1 [facility] 5 mg tablet 2-31 tablet by ity of 00:00: mouth [place] 00 daily. Medical Branch predniSONE 2020-2021- No [id number] 5mg Take 1 [facility] 5 mg tablet 2-31 10-07 tablet by it y of 00:00: 00:00 mouth [place] 00 :00 daily. Medical Branch predniSONE 2020-2021- No [id number] 5mg Take 1 [facility] 5 mg tablet 2-31 10-07 tablet by it y of 00:00: 00:00 mouth [place] 00 :00 daily. Medical Branch meloxicam 2020-02 Yes [id number] TAKE ONE [facility] (Mobic) 15 1-12 TABLET BY [facility] tablet 00:00: MOUTH ONCE 00 DAILY WITH FOOD fluticasone 2020-02 Yes 1{spray Use 1 Un dharmesh propionate 0-07 } [place] in ity o f 50 00:00: each [place] mcg/actuati 00 nostril Medic al on nasal daily. Branch spray fluticasone 2020-02 Yes 1{spray Use 1 Un dharmesh propionate 0-07 } [place] in ity o f 50 00:00: each [place] mcg/actuati 00 nostril Medic al on nasal daily. Branch spray fluticasone 2020-02 Yes 1{spray Use 1 Un dharmesh propionate 0-07 } [place] in ity o f 50 00:00: each [place] mcg/actuati 00 nostril Medic al on nasal daily. Branch spray fluticasone 2020-02 Yes 1{spray Use 1 Un dharmesh propionate 0-07 } [place] in ity o f 50 00:00: each [place] mcg/actuati 00 nostril Medic al on nasal daily. Branch spray fluticasone 2020-02 Yes 1{spray Use 1 Un dharmesh propionate 0-07 } [place] in ity o f 50 00:00: each [place] mcg/actuati 00 nostril Medic al on nasal daily. Branch spray fluticasone 2020-02 Yes 1{spray Use 1 Un dharmesh propionate 0-07 } [place] in ity o f 50 00:00: each [place] mcg/actuati 00 nostril Medic al on nasal daily. Branch spray fluticasone 2020-02 Yes 1{spray Use 1 Un dharmesh propionate 0-07 } [place] in ity o f 50 00:00: each [place] mcg/actuati 00 nostril Medic al on nasal daily. Branch spray fluticasone 2020-02 Yes 1{spray Use 1 Un dharmesh propionate 0-07 } [place] in ity o f 50 00:00: each [place] mcg/actuati 00 nostril Medic al on nasal daily. Branch spray fluticasone 2020-02 Yes 1{spray Use 1 Un dharmesh propionate 0-07 } [place] in ity o f 50 00:00: each [place] mcg/actuati 00 nostril Medic al on nasal daily. Branch spray fluticasone 2020-02 Yes 1{spray Use 1 Un dharmesh propionate 0-07 } [place] in ity o f 50 00:00: each [place] mcg/actuati 00 nostril Medic al on nasal daily. Branch spray fluticasone 2020-02 Yes 1{spray Use 1 Un dharmesh propionate 0-07 } [place] in ity o f 50 00:00: each [place] mcg/actuati 00 nostril Medic al on nasal daily. Branch spray fluticasone 2020-02 Yes 1{spray Use 1 Un dharmesh propionate 0-07 } [place] in ity o f 50 00:00: each [place] mcg/actuati 00 nostril Medic al on nasal daily. Branch spray fluticasone 2020-02 Yes 1{spray Use 1 Un dharmesh propionate 0-07 } [place] in ity o f 50 00:00: each [place] mcg/actuati 00 nostril Medic al on nasal daily. Branch spray fluticasone 2020-02 Yes 1{spray Use 1 Un dharmesh propionate 0-07 } [place] in ity o f 50 00:00: each [place] mcg/actuati 00 nostril Medic al on nasal daily. Branch spray fluticasone 2020-02 Yes 1{spray Use 1 Un dharmesh propionate 0-07 } [place] in ity o f 50 00:00: each [place] mcg/actuati 00 nostril Medic al on nasal daily. Branch spray fluticasone 2020-02 Yes 1{spray Use 1 Un dharmesh propionate 0-07 } [place] in ity o f 50 00:00: each [place] mcg/actuati 00 nostril Medic al on nasal daily. Branch spray fluticasone 2020-02 Yes 1{spray Use 1 Un dharmesh propionate 0-07 } [place] in ity o f 50 00:00: each [place] mcg/actuati 00 nostril Medic al on nasal daily. Branch spray fluticasone 2020-02 Yes 1{spray Use 1 Un dharmesh propionate 0-07 } [place] in ity o f 50 00:00: each [place] mcg/actuati 00 nostril Medic al on nasal daily. Branch spray fluticasone 2020-02 Yes 1{spray Use 1 Un dharmesh propionate 0-07 } [place] in ity o f 50 00:00: each [place] mcg/actuati 00 nostril Medic al on nasal daily. Branch spray fluticasone 2020-02 Yes 1{spray Use 1 Un dharmesh propionate 0-07 } [place] in ity o f 50 00:00: each [place] mcg/actuati 00 nostril Medic al on nasal daily. Branch spray fluticasone 2020-02 Yes 1{spray Use 1 Un dharmesh propionate 0-07 } [place] in ity o f 50 00:00: each [place] mcg/actuati 00 nostril Medic al on nasal daily. Branch spray fluticasone 2020-02 Yes 1{spray Use 1 Un dharmesh propionate 0-07 } [place] in ity o f 50 00:00: each [place] mcg/actuati 00 nostril Medic al on nasal daily. Branch spray fluticasone 2020-02 Yes 1{spray Use 1 Un dharmesh propionate 0-07 } [place] in ity o f 50 00:00: each [place] mcg/actuati 00 nostril Medic al on nasal daily. Branch spray fluticasone 2020-02 Yes 1{spray Use 1 Un dharmesh propionate 0-07 } [place] in ity o f 50 00:00: each [place] mcg/actuati 00 nostril Medic al on nasal daily. Branch spray fluticasone 2020-02 Yes 1{spray Use 1 Un dharmesh propionate 0-07 } [place] in ity o f 50 00:00: each [place] mcg/actuati 00 nostril Medic al on nasal daily. Branch spray fluticasone 2020-02 Yes 1{spray Use 1 Un dharmesh propionate 0-07 } [place] in ity o f 50 00:00: each [place] mcg/actuati 00 nostril Medic al on nasal daily. Branch spray fluticasone 2020-02 Yes 1{spray Use 1 Un dharmesh propionate 0-07 } [place] in ity o f 50 00:00: each [place] mcg/actuati 00 nostril Medic al on nasal daily. Branch spray fluticasone 2020-02 Yes 1{spray Use 1 Un dharmesh propionate 0-07 } [place] in ity o f 50 00:00: each [place] mcg/actuati 00 nostril Medic al on nasal daily. Branch spray fluticasone 2020-02 Yes 1{spray Use 1 Un dharmesh propionate 0-07 } [place] in ity o f 50 00:00: each [place] mcg/actuati 00 nostril Medic al on nasal daily. Branch spray fluticasone 2020-02 Yes 1{spray Use 1 Un dharmesh propionate 0-07 } [place] in ity o f 50 00:00: each [place] mcg/actuati 00 nostril Medic al on nasal daily. Branch spray fluticasone 2020-02 Yes 1{spray Use 1 Un dharmesh propionate 0-07 } [place] in ity o f 50 00:00: each [place] mcg/actuati 00 nostril Medic al on nasal daily. Branch spray fluticasone 2020-02 Yes 1{spray Use 1 Un dharmesh propionate 0-07 } [place] in ity o f 50 00:00: each [place] mcg/actuati 00 nostril Medic al on nasal daily. Branch spray fluticasone 2020-02 Yes 1{puff} Inhale 1 [facility] propion-arianne 0-01 Puff ity of meteroL 00:00: daily. [place] ([facility] 00 Medical INHUB) Branch 250-50 mcg/dose inhalation disk fluticasone 2020-02 Yes 1{puff} Inhale 1 [facility] propion-arianne 0-01 Puff ity of meteroL 00:00: daily. [place] ([facility] 00 Medical INHUB) Branch 250-50 mcg/dose inhalation disk fluticasone 2020-02 Yes 1{puff} Inhale 1 [facility] propion-arianne 0-01 Puff ity of meteroL 00:00: daily. [place] ([facility] 00 Medical INHUB) Branch 250-50 mcg/dose inhalation disk fluticasone 2020-02 Yes 1{puff} Inhale 1 [facility] propion-arianne 0-01 Puff ity of meteroL 00:00: daily. [place] ([facility] 00 Medical INHUB) Branch 250-50 mcg/dose inhalation disk fluticasone 2020-02 Yes 1{puff} Inhale 1 [facility] propion-arianne 0-01 Puff ity of meteroL 00:00: daily. [place] ([facility] 00 Medical INHUB) Branch 250-50 mcg/dose inhalation disk fluticasone 2020-02 Yes 1{puff} Inhale 1 [facility] propion-arianne 0-01 Puff ity of meteroL 00:00: daily. [place] ([facility] 00 Medical INHUB) Branch 250-50 mcg/dose inhalation disk fluticasone 2020-02 Yes 1{puff} Inhale 1 [facility] propion-arianne 0-01 Puff ity of meteroL 00:00: daily. [place] [facility] 250-50 mcg/dose inhalation disk fluticasone 2020-02 Yes 1{puff} Inhale 1 [facility] propion-arianne 0-01 Puff ity of meteroL 00:00: daily. [place] [facility] Branch 250-50 mcg/dose inhalation disk fluticasone 2020-02 Yes 1{puff} Inhale 1 [facility] propion-arianne 0-01 Puff ity of meteroL 00:00: daily. [place] [facility] Branch 250-50 mcg/dose inhalation disk fluticasone 2020-02 Yes 1{puff} Inhale 1 [facility] propion-arianne 0-01 Puff ity of meteroL 00:00: daily. [place] [facility] Branch 250-50 mcg/dose inhalation disk fluticasone 2020-02 Yes 1{puff} Inhale 1 [facility] propion-arianne 0-01 Puff ity of meteroL 00:00: daily. [place] ([facility] Branch 250-50 mcg/dose inhalation disk fluticasone 2020-02 Yes 1{puff} Inhale 1 [facility] propion-arianne 0-01 Puff ity of meteroL 00:00: daily. [place] [facility] Branch 250-50 mcg/dose inhalation disk fluticasone 2020-02 Yes 1{puff} Inhale 1 [facility] propion-arianne 0-01 Puff ity of meteroL 00:00: daily. [place] [facility] Branch 250-50 mcg/dose inhalation disk fluticasone 2020-02 Yes 1{puff} Inhale 1 [facility] propion-arianne 0-01 Puff ity of meteroL 00:00: daily. [place] [facility] Branch 250-50 mcg/dose inhalation disk fluticasone 2020-02 Yes 1{puff} Inhale 1 [facility] propion-arianne 0-01 Puff ity of meteroL 00:00: daily. [place] ([facility] 00 Medical INHUB) Branch 250-50 mcg/dose inhalation disk fluticasone 2020-02 Yes 1{puff} Inhale 1 [facility] propion-arianne 0-01 Puff ity of meteroL 00:00: daily. [place] ([facility] 00 Medical INHUB) Branch 250-50 mcg/dose inhalation disk fluticasone 2020-02 Yes 1{puff} Inhale 1 [facility] propion-arianne 0-01 Puff ity of meteroL 00:00: daily. [place] 250-50 00 Medical mcg/dose Branch inhalation disk fluticasone 2020-02 Yes 1{puff} Inhale 1 [facility] propion-arianne 0-01 Puff ity of meteroL 00:00: daily. [place] [address] 00 Medical mcg/dose Branch inhalation disk fluticasone 2020-02 Yes 1{puff} Inhale 1 [facility] propion-arianne 0-01 Puff ity of meteroL 00:00: daily. [place] [address] 00 Medical mcg/dose Branch inhalation disk fluticasone 2020-02 Yes 1{puff} Inhale 1 [facility] propion-arianne 0-01 Puff ity of meteroL 00:00: daily. [place] [address] 00 Medical mcg/dose Branch inhalation disk fluticasone 2020-02 Yes 1{puff} Inhale 1 [facility] propion-arianne 0-01 Puff ity of meteroL 00:00: daily. [place] 250-50 00 Medical mcg/dose Branch inhalation disk fluticasone 2020-02 Yes 1{puff} Inhale 1 [facility] propion-arianne 0-01 Puff ity of meteroL 00:00: daily. [place] 250-50 00 Medical mcg/dose Branch inhalation disk fluticasone 2020-023- No 1{puff} Inhale 1 [facility] propion-arianne 0-01 01-06 Puff ity of meteroL 00:00: 00:00 daily. [place] 250-50 00 :00 Medical mcg/dose Branch inhalation disk fluticasone 2020-023- No 1{puff} Inhale 1 [facility] propion-arianne 0-01 01-06 Puff ity of meteroL 00:00: 00:00 daily. [place] 250-50 00 :00 Medical mcg/dose Branch inhalation disk fluticasone 2020-02- No 1{puff} Inhale 1 [facility] propion-arianne 0- 01-06 Puff ity of meteroL 00:00: 00:00 daily. [place] 250-50 00 :00 Medical mcg/dose Branch inhalation disk fluticasone 2020-02- No 1{puff} Inhale 1 [facility] propion-arianne 0- 01-06 Puff ity of meteroL 00:00: 00:00 daily. [place] [address] 00 :00 Medical mcg/dose Branch inhalation disk meloxicam 2020- No [id number] TAKE 1 UT (Mobic) 15 11-19 11-12 TABLET BY [facility] MG tablet 00:00: 00:00 MOUTH ONCE 00 :00 DAILY WITH A MEAL tiotropium Yes [id number] 2.5ug Inhale 2.5 Univers bromide 9-27 mcg daily. ity of (SPIRIVA 00:00: [place] RESPIMAT) Medical 2.5 Branch mcg/actuati on Mist tiotropium Yes [id number] 2.5ug Inhale 2.5 Univers bromide 9-27 mcg daily. ity of (SPIRIVA 00:00: [place] RESPIMAT) Medical 2.5 Branch mcg/actuati on Mist tiotropium Yes [id number] 2.5ug Inhale 2.5 Univers bromide 9-27 mcg daily. ity of (SPIRIVA 00:00: [place] RESPIMAT) Medical 2.5 Branch mcg/actuati on Mist tiotropium Yes [id number] 2.5ug Inhale 2.5 Univers bromide 9-27 mcg daily. ity of (SPIRIVA 00:00: [place] RESPIMAT) Medical 2.5 Branch mcg/actuati on Mist tiotropium Yes [id number] 2.5ug Inhale 2.5 Univers bromide 9-27 mcg daily. ity of (SPIRIVA 00:00: [place] RESPIMAT) 00 Medical 2.5 Branch mcg/actuati on Mist tiotropium Yes [id number] 2.5ug Inhale 2.5 Univers bromide 9-27 mcg daily. ity of (SPIRIVA 00:00: [place] RESPIMAT) 00 Medical 2.5 Branch mcg/actuati on Mist tiotropium Yes [id number] 2.5ug Inhale 2.5 Univers bromide 9-27 mcg daily. ity of (SPIRIVA 00:00: [place] RESPIMAT) 00 Medical 2.5 Branch mcg/actuati on Mist tiotropium 2021- No [id number] 2.5ug Inhale 2.5 Univers bromide 9-27 10-07 mcg daily. ity o f (SPIRIVA 00:00: 00:00 [place] RESPIMAT) 00 :00 Medical 2.5 Branch mcg/actuati on Mist tiotropium 2021- No [id number] 2.5ug Inhale 2.5 Univers bromide 9-27 10-07 mcg daily. ity o f (SPIRIVA 00:00: 00:00 [place] RESPIMAT) 00 :00 Medical 2.5 Branch mcg/actuati on Mist HYDROcodone HYDROcodone 2018-02 Yes LUPILLO TAKE 1 UT -Acetaminop -Acetaminop 1-22 ROCKY TABLET [facility] hen 10-325 hen 10-325 00:00: M.D. EVERY 4 TO ans MG Oral MG Oral 00 6 HOURS Tablet Tablet NEEDED FOR PAIN. Meloxicam Meloxicam 2018-02 Yes LUPILLO TAKE 1 U T 15 MG Oral 15 MG Oral 1-15 ROCKY TABLET Physici Tablet Tablet 00:00: M.D. DAILY ans 00 NEEDED. Aspirin 81 2018-02 Yes 81 mg = 1 Me moria MG Enteric 1-14 tab, PO, l Coated 15:12: Daily, # Mukesh Tablet 00 90 tab, 3 Refill(s), Pharmacy: [facility] #[id number] Acetaminoph 2018-02 Yes 1 tab, PO, Memoria en 325 MG / 1-14 Q4H, PRN l Hydrocodone 15:12: for pain, H ermann Bitartrate 00 X 7 day, # 5 MG Oral 30 tab, 0 Tablet Refill(s), [Red Jacket given to 325] patient pregabalin 2018-02 Yes 100 mg = 1 M emoria 100 mg oral 1-14 cap, PO, l capsule 15:12: Q8Hnow, # Su nn 00 60 cap, 0 Refill(s) meloxicam 2018-02 Yes 15 mg = 1 Mem oria 15 mg oral 1-14 tab, PO, l tablet 15:12: Daily, # [place] 00 30 tab, 0 Refill(s), Pharmacy: [facility] #[id number] Aspirin 81 2018-02 Yes 81 mg = 1 Me moria MG Enteric 1-14 tab, PO, l Coated 15:12: Daily, # Mukesh Tablet 00 90 tab, 3 Refill(s), Pharmacy: [facility] #[id number] Acetaminoph 2018-02 Yes 1 tab, PO, Memoria en 325 MG / -14 Q4H, PRN l Hydrocodone 15:12: for pain, H ermann Bitartrate 00 X 7 day, # 5 MG Oral 30 tab, 0 Tablet Refill(s), [Red [place]et given to 5/325] patient pregabalin 2018-02 Yes 100 mg = 1 M emoria 100 mg oral 1-14 cap, PO, l capsule 15:12: Q8Hnow, # Su nn 00 60 cap, 0 Refill(s) meloxicam 2018-02 Yes 15 mg = 1 Mem oria 15 mg oral 1-14 tab, PO, l tablet 15:12: Daily, # Mukesh 00 30 tab, 0 Refill(s), Pharmacy: [facility] #[id number] Aspirin 81 2018-02 Yes 81 mg = 1 Me moria MG Enteric 1-14 tab, PO, l Coated 15:12: Daily, # [place] Tablet 00 90 tab, 3 Refill(s), Pharmacy: [facility] #[id number] Acetaminoph 2018-02 Yes 1 tab, PO, Memoria en 325 MG / -14 Q4H, PRN l Hydrocodone 15:12: for pain, H ermann Bitartrate 00 X 7 day, # 5 MG Oral 30 tab, 0 Tablet Refill(s), [Red [place]et given to 5/325] patient pregabalin 2018-02 Yes 100 mg = 1 M emoria 100 mg oral 1-14 cap, PO, l capsule 15:12: Q8Hnow, # Su nn 00 60 cap, 0 Refill(s) meloxicam 2018-02 Yes 15 mg = 1 Mem oria 15 mg oral 1-14 tab, PO, l tablet 15:12: Daily, # [place] 00 30 tab, 0 Refill(s), Pharmacy: [facility] #[id number] Aspirin 81 2018-02 Yes 81 mg = 1 Me moria MG Enteric 1-14 tab, PO, l Coated 15:12: Daily, # [place] Tablet 00 90 tab, 3 Refill(s), Pharmacy: [facility] cy #[id number] Acetaminoph 2018-02 Yes 1 tab, PO, Memoria en 325 MG / 1-14 Q4H, PRN l Hydrocodone 15:12: for pain, H ermann Bitartrate 00 X 7 day, # 5 MG Oral 30 tab, 0 Tablet Refill(s), [Red [place]et given to 5/325] patient pregabalin 2018-02 Yes 100 mg = 1 M emoria 100 mg oral 1-14 cap, PO, l capsule 15:12: Q8Hnow, # Su nn 00 60 cap, 0 Refill(s) meloxicam 2018-02 Yes 15 mg = 1 Mem oria 15 mg oral 1-14 tab, PO, l tablet 15:12: Daily, # [place] 00 30 tab, 0 Refill(s), Pharmacy: [facility] cy #[id number] Aspirin 81 2018-02 Yes 81 mg = 1 Me moria MG Enteric 1-14 tab, PO, l Coated 15:12: Daily, # Mukesh Tablet 00 90 tab, 3 Refill(s), Pharmacy: [facility] cy #[id number] Acetaminoph 2018-02 Yes 1 tab, PO, Memoria en 325 MG / 1-14 Q4H, PRN l Hydrocodone 15:12: for pain, H ermann Bitartrate 00 X 7 day, # 5 MG Oral 30 tab, 0 Tablet Refill(s), [Red Jacket given to 5325] patient pregabalin 2018-02 Yes 100 mg = 1 M emoria 100 mg oral 1-14 cap, PO, l capsule 15:12: Q8Hnow, # Su nn 00 60 cap, 0 Refill(s) meloxicam 2018-02 Yes 15 mg = 1 Mem oria 15 mg oral 1-14 tab, PO, l tablet 15:12: Daily, # Mukesh 00 30 tab, 0 Refill(s), Pharmacy: [facility] cy #[id number] remove 2018-02 No Notes: Memoria patch 1-14 Remove old l 15:00: patch [place] 00 before applicatio n of new patch. Fluticasone 2018-02 No Notes: Angelo igor propionate 1-14 (Same as: l 0.05 15:00: Flonase) Mukesh MG/ACTUAT 00 Metered Dose Nasal [place] [Flonase] Prednisone 2018-02 No Notes: Memor ia 1-14 Take with l 15:00: food. Mukesh 00 remove 2018-02 No Notes: Memoria patch 1-14 Remove old l 15:00: patch [place] 00 before applicatio n of new patch. Fluticasone 2018-02 No Notes: Angelo igor propionate 1-14 (Same as: l 0.05 15:00: Flonase) Mukesh MG/ACTUAT 00 Metered Dose Nasal [place] [Flonase] Prednisone 2018-02 No Notes: Memor ia 1-14 Take with l 15:00: food. Mukesh 00 remove 2018-02 No Notes: Memoria patch 1-14 Remove old l 15:00: patch Mukesh 00 before applicatio n of new patch. Fluticasone 2018-02 No Notes: Angelo igor propionate 1-14 (Same as: l 0.05 15:00: Flonase) [place] MG/ACTUAT 00 Metered Dose Nasal [place] [Flonase] Prednisone 2018-02 No Notes: Memor ia 1-14 Take with l 15:00: food. Mukesh 00 remove 2018-02 No Notes: Memoria patch 1-14 Remove old l 15:00: patch [place] 00 before applicatio n of new patch. Fluticasone 2018-02 No Notes: Angelo igor propionate 1-14 (Same as: l 0.05 15:00: Flonase) [place] MG/ACTUAT 00 Metered Dose Nasal [place] [Flonase] Prednisone 2018-02 No Notes: Memor ia 1-14 Take with l 15:00: food. Mukesh 00 remove 2018-02 No Notes: Memoria patch 1-14 Remove old l 15:00: patch Muk[place] 00 before applicatio n of new patch. Fluticasone 2018-02 No Notes: Angelo igor propionate 1-14 (Same as: l 0.05 15:00: Flonase) [place] MG/ACTUAT 00 Metered Dose Nasal [place] [Flonase] Prednisone 2018-02 No Notes: Memor ia 1-14 Take with l 15:00: food. Mukesh 00 Singulair 2018-02 No Notes: Memori a 1-14 (Same l 03:00: as:Singula [place] 00 ir) Singulair 2018-02 No Notes: Memori a 1-14 (Same l 03:00: as:Singula Mukesh 00 ir) Singulair 2018-02 No Notes: Memori a 1-14 (Same l 03:00: as:Singula [place] 00 ir) Singulair 2018-02 No Notes: Memori a 1-14 (Same l 03:00: as:Singula [place] 00 ir) Singulair 2018-02 No Notes: Memori a 1-14 (Same l 03:00: as:Singula Mukesh 00 ir) Dulera 200 2018-02 No 2 puff, Angelo igor mcg-5 03-06 Route: l mcg/inh 23:00: INHALER, Martin n inhalation 00 Drug Form: aerosol AERO, Dosing Weight 86.364, kg, BID, Start date: 01/04/19 17:00:00 REHABILITATOR, Duration: 30 day, Stop date: 02/03/19 9:00:00 REHABILITATOR mometasone/ 2018-02 No mometasone Memoria formoterol 03-06 /formotero l (Dulera) 23:00: l (Dulera) Her villarreal 200/5 mcg 00 200/5 mcg, 2 puff, Drug form: MISC, Route: INHALER, BID, 01/04/19 17:00:00 REHABILITATOR, Duration: 30 day, Stop date: 02/03/19 9:00:00 REHABILITATOR, 0 Aspirin 325 2018-02 No 325 mg, Mem oria MG Enteric 03-06 Route: PO, l Coated 23:00: Drug form: Su nn Tablet 00 ECTAB, BID, Dosing Weight 86.364, kg, Start date: 01/04/19 17:00:00 REHABILITATOR, Duration: 30 day, Stop date: 02/03/19 9:00:00 REHABILITATOR Dulera 200 2018-02 No 2 puff, Angelo igor mcg-5 03-06 Route: l mcg/inh 23:00: INHALER, Martin n inhalation 00 Drug Form: aerosol AERO, Dosing Weight 86.364, kg, BID, Start date: 01/04/19 17:00:00 REHABILITATOR, Duration: 30 day, Stop date: 02/03/19 9:00:00 REHABILITATOR mometasone/ 2018- No mometasone Memoria formoterol 1-13 /formotero l (Dulera) 23:00: l (Dulera) Her villarreal 200/5 mcg 00 200/5 mcg, 2 puff, Drug form: MISC, Route: INHALER, BID, 01/04/19 17:00:00 REHABILITATOR, Duration: 30 day, Stop date: 02/03/19 9:00:00 REHABILITATOR, 0 Aspirin 325 2018- No 325 mg, Mem oria MG Enteric 03-06 Route: PO, l Coated 23:00: Drug form: Su nn Tablet 00 ECTAB, BID, Dosing Weight 86.364, kg, Start date: 01/04/19 17:00:00 REHABILITATOR, Duration: 30 day, Stop date: 02/03/19 9:00:00 REHABILITATOR Dulera 200 2018-02 No 2 puff, Angelo igor mcg-5 03-06 Route: l mcg/inh 23:00: INHALER, [place] n inhalation 00 Drug Form: aerosol AERO, Dosing Weight 86.364, kg, BID, Start date: 01/04/19 17:00:00 REHABILITATOR, Duration: 30 day, Stop date: 02/03/19 9:00:00 REHABILITATOR mometasone/ 2018-02 No mometasone Memoria formoterol 1-13 /formotero l (Dulera) 23:00: l (Dulera) Her villarreal 200/5 mcg 00 200/5 mcg, 2 puff, Drug form: MISC, Route: INHALER, BID, 01/04/19 17:00:00 REHABILITATOR, Duration: 30 day, Stop date: 02/03/19 9:00:00 REHABILITATOR, 0 Aspirin 325 2018- No 325 mg, Mem oria MG Enteric 03-06 Route: PO, l Coated 23:00: Drug form: Su nn Tablet 00 ECTAB, BID, Dosing Weight 86.364, kg, Start date: 01/04/19 17:00:00 REHABILITATOR, Duration: 30 day, Stop date: 02/03/19 9:00:00 REHABILITATOR Dulera 200 2018- No 2 puff, Angelo igor mcg-5 - Route: l mcg/inh 23:00: INHALER, [place] n inhalation 00 Drug Form: aerosol AERO, Dosing Weight 86.364, kg, BID, Start date: 01/04/19 17:00:00 REHABILITATOR, Duration: 30 day, Stop date: 02/03/19 9:00:00 REHABILITATOR mometasone/ 2018- No mometasone Memoria formoterol 1-13 /formotero l (Dulera) 23:00: l (Dulera) Her villarreal 200/5 mcg 00 200/5 mcg, 2 puff, Drug form: MISC, Route: INHALER, BID, 01/04/19 17:00:00 REHABILITATOR, Duration: 30 day, Stop date: 02/03/19 9:00:00 REHABILITATOR, 0 Aspirin 325 2018- No 325 mg, Mem oria MG Enteric 03-06 Route: PO, l Coated 23:00: Drug form: Su nn Tablet 00 ECTAB, BID, Dosing Weight 86.364, kg, Start date: 01/04/19 17:00:00 REHABILITATOR, Duration: 30 day, Stop date: 02/03/19 9:00:00 REHABILITATOR Dulera 200 2018- No 2 puff, Angelo igor mcg-5 03-06 Route: l mcg/inh 23:00: INHALER, [place] n inhalation 00 Drug Form: aerosol AERO, Dosing Weight 86.364, kg, BID, Start date: 01/04/19 17:00:00 REHABILITATOR, Duration: 30 day, Stop date: 02/03/19 9:00:00 REHABILITATOR mometasone/ 2018-02 No mometasone Memoria formoterol 1-13 /formotero l (Dulera) 23:00: l (Dulera) Her villarreal 200/5 mcg 00 200/5 mcg, 2 puff, Drug form: MISC, Route: INHALER, BID, 01/04/19 17:00:00 REHABILITATOR, Duration: 30 day, Stop date: 02/03/19 9:00:00 REHABILITATOR, 0 Aspirin 325 2018- No 325 mg, Mem oria MG Enteric 03-06 Route: PO, l Coated 23:00: Drug form: Su nn Tablet 00 ECTAB, BID, Dosing Weight 86.364, kg, Start date: 01/04/19 17:00:00 REHABILITATOR, Duration: 30 day, Stop date: 02/03/19 9:00:00 REHABILITATOR Clindamycin 2019-1 No 600 mg, 50 Memoria 1-13 mL, Route: l 20:30: IVPB, Drug Mukesh 00 form: INJ, Q6H, Dosing Weight 86.364, kg, Start date: 01/04/19 14:30:00 REHABILITATOR, Duration: 3 doses or times, Stop date: 01/05/19 2:30:00 REHABILITATOR, ABX Indication : Surgical Prophylaxi s, 0 Clindamycin 2019-1 No 600 mg, 50 Memoria 1-13 mL, Route: l 20:30: IVPB, Drug Mukesh 00 form: INJ, Q6H, Dosing Weight 86.364, kg, Start date: 01/04/19 14:30:00 REHABILITATOR, Duration: 3 doses or times, Stop date: 01/05/19 2:30:00 REHABILITATOR, ABX Indication : Surgical Prophylaxi s, 0 Clindamycin 2019-1 No 600 mg, 50 Memoria 1-13 mL, Route: l 20:30: IVPB, Drug [place] 00 form: INJ, Q6H, Dosing Weight 86.364, kg, Start date: 01/04/19 14:30:00 REHABILITATOR, Duration: 3 doses or times, Stop date: 01/05/19 2:30:00 REHABILITATOR, ABX Indication : Surgical Prophylaxi s, 0 Clindamycin 2019-1 No 600 mg, 50 Memoria 1-13 mL, Route: l 20:30: IVPB, Drug [place] 00 form: INJ, Q6H, Dosing Weight 86.364, kg, Start date: 01/04/19 14:30:00 REHABILITATOR, Duration: 3 doses or times, Stop date: 01/05/19 2:30:00 REHABILITATOR, ABX Indication : Surgical Prophylaxi s, 0 Clindamycin 2019-1 No 600 mg, 50 Memoria 1-13 mL, Route: l 20:30: IVPB, Drug [place] 00 form: INJ, Q6H, Dosing Weight 86.364, kg, Start date: 01/04/19 14:30:00 REHABILITATOR, Duration: 3 doses or times, Stop date: 01/05/19 2:30:00 REHABILITATOR, ABX Indication : Surgical Prophylaxi s, 0 Aspirin 2018-02 No Notes: (Do Angelo igor 1-13 Not Crush) l 20:00: Do not [place] 00 crush or chew. Acetaminoph 2018-02 No Notes: Max Memoria en 1-13 acetaminop l 20:00: hen 4000 [place] 00 mg/day (4 gm/day). (Same as: Tylenol Extra Strength) pregabalin 2018-02 No Notes: Memor ia 1-13 (Same as: l 20:00: Lyrica) [place] 00 Aspirin 2018-02 No Notes: (Do Angelo igor 1-13 Not Crush) l 20:00: Do not Mukesh 00 crush or chew. Acetaminoph 2018-02 No Notes: Max Memoria en 1-13 acetaminop l 20:00: hen 4000 Mukesh 00 mg/day (4 gm/day). (Same as: Tylenol Extra Strength) pregabalin 2018-02 No Notes: Memor ia 1-13 (Same as: l 20:00: Lyrica) [place] 00 Aspirin 2018-02 No Notes: (Do Angelo igor 1-13 Not Crush) l 20:00: Do not Mukesh 00 crush or chew. Acetaminoph 2018-02 No Notes: Max Memoria en 1-13 acetaminop l 20:00: hen 4000 [place] 00 mg/day (4 gm/day). (Same as: Tylenol Extra Strength) pregabalin 2018-02 No Notes: Memor ia 1-13 (Same as: l 20:00: Lyrica) Mukesh 00 Aspirin 2018-02 No Notes: (Do Angelo igor 1-13 Not Crush) l 20:00: Do not Mukesh 00 crush or chew. Acetaminoph 2018-02 No Notes: Max Memoria en 1-13 acetaminop l 20:00: hen 4000 Mukesh 00 mg/day (4 gm/day). (Same as: Tylenol Extra Strength) pregabalin 2018-02 No Notes: Memor ia 1-13 (Same as: l 20:00: Lyrica) Mukesh 00 Aspirin 2018-02 No Notes: (Do Angelo igor 1-13 Not Crush) l 20:00: Do not Mukesh 00 crush or chew. Acetaminoph 2018-02 No Notes: Max Memoria en - acetaminop l 20:00: hen 4000 Mukesh 00 mg/day (4 gm/day). (Same as: Tylenol Extra Strength) pregabalin 2018-02 No Notes: Memor ia 1-13 (Same as: l 20:00: Lyrica) [place] Oxycodone 2018-02 No Notes: Memori a Hydrochlori 1-13 (Same as: l de 5 MG 17:46: Roxicodone Herm nicolas Oral Tablet 00 ) Morphine 2018-02 No Notes: Memoria -13 (Same l 17:46: as:MORPhin Mukesh 00 e Sulfate) Methocarbam 2018-02 No Notes: Angelo igor ol -13 (Same l 17:46: as:Robaxin [place] 00 ) Ondansetron 2018-02 No Notes: Angelo igor 1-13 (Same as: l 17:46: Zofran) [place] 00 MEDICATION WASTE Product Size: 4 mg Product Wasted: ___ mg Diphenhydra 2018-02 No Notes: Angelo igor mine 1-13 (Same as: l 17:46: Benadryl) [place] Oxycodone 2018-02 No Notes: Memori a Hydrochlori 1-13 (Same as: l de 5 MG 17:46: Roxicodone Herm nicolas Oral Tablet 00 ) Morphine 2018-02 No Notes: Memoria -13 (Same l 17:46: as:MORPhin [place] 00 e Sulfate) Methocarbam 2018-02 No Notes: Angelo igor ol 1-13 (Same l 17:46: as:Robaxin Mukesh 00 ) Ondansetron 2018-02 No Notes: Angelo igor 1-13 (Same as: l 17:46: Zofran) Mukesh 00 MEDICATION WASTE Product Size: 4 mg Product Wasted: ___ mg Diphenhydra 2018-02 No Notes: Angelo igor mine 1-13 (Same as: l 17:46: Benadryl) Mukesh 00 Oxycodone 2018-02 No Notes: Memori a Hydrochlori 1-13 (Same as: l de 5 MG 17:46: Roxicodone Herm nicolas Oral Tablet 00 ) Morphine 2018-02 No Notes: Memoria 1-13 (Same l 17:46: as:MORPhin Mukesh 00 e Sulfate) Methocarbam 2018-02 No Notes: Angelo igor ol 1-13 (Same l 17:46: as:Robaxin [place] 00 ) Ondansetron 2018-02 No Notes: Angelo igor 1-13 (Same as: l 17:46: Zofran) Mukesh 00 MEDICATION WASTE Product Size: 4 mg Product Wasted: ___ mg Diphenhydra 2018-02 No Notes: Angelo igor mine 1-13 (Same as: l 17:46: Benadryl) Mukesh 00 Oxycodone 2018-02 No Notes: Memori a Hydrochlori 1-13 (Same as: l de 5 MG 17:46: Roxicodone Herm nicolas Oral Tablet ) Morphine 2018-02 No Notes: Memoria 1-13 (Same l 17:46: as:MORPhin Mukesh 00 e Sulfate) Methocarbam 2018-02 No Notes: Angelo igor ol 1-13 (Same l 17:46: as:Robaxin [place] 00 ) Ondansetron 2018-02 No Notes: Angelo igor 1-13 (Same as: l 17:46: Zofran) Mukesh 00 MEDICATION WASTE Product Size: 4 mg Product Wasted: ___ mg Diphenhydra 2018-02 No Notes: Angelo igor mine 1-13 (Same as: l 17:46: Benadryl) Mukesh 00 Oxycodone 2018-02 No Notes: Memori a Hydrochlori 1-13 (Same as: l de 5 MG 17:46: Roxicodone Herm nicolas Oral Tablet ) Morphine 2018-02 No Notes: Memoria 1-13 (Same l 17:46: as:MORPhin Mukesh 00 e Sulfate) Methocarbam 2018-02 No Notes: Angelo igor ol 1-13 (Same l 17:46: as:Robaxin [place] 00 ) Ondansetron 2018-02 No Notes: Angelo igor 1-13 (Same as: l 17:46: Zofran) [place] 00 MEDICATION WASTE Product Size: 4 mg Product Wasted: ___ mg Diphenhydra 2018-02 No Notes: Angelo igor mine 1-13 (Same as: l 17:46: Benadryl) ondansetron 2018-02 No Route: IV, Memoria (ANES) 1- Drug form: l 16:38: INJ, ONCE, Stop date: 01/04/19 10:38:00 REHABILITATOR ondansetron 2018-02 No Route: IV, Memoria (ANES) 1- Drug form: l 16:38: INJ, ONCE, Stop date: 01/04/19 10:38:00 REHABILITATOR ondansetron 2018-02 No Route: IV, Memoria (ANES) 1- Drug form: l 16:38: INJ, ONCE, Stop date: 01/04/19 10:38:00 REHABILITATOR ondansetron 2018-02 No Route: IV, Memoria (ANES) 1- Drug form: l 16:38: INJ, ONCE, Stop date: 01/04/19 10:38:00 REHABILITATOR ondansetron 2018-02 No Route: IV, Memoria (ANES) 1- Drug form: l 16:38: INJ, ONCE, Stop date: 01/04/19 10:38:00 REHABILITATOR 02/23 NS 2018-02 No 1,000 mL, Memori a 1,000 mL 03-06 Rate: 75 l 16:07: ml/hr, Infuse over: 13.3 hr, Route: IV, Dosing Weight 86.364 kg, Total Volume: 1,000, Start date: 01/04/19 10:07:00 REHABILITATOR, Duration: 30 day, Stop date: 02/03/19 10:06:00 REHABILITATOR, 2.09, m2, 0 02/23 NS 2018-02 No 1,000 mL, Memori a 1,000 mL 03-06 Rate: 75 l 16:07: ml/hr, [place] 00 Infuse over: 13.3 hr, Route: IV, Dosing Weight 86.364 kg, Total Volume: 1,000, Start date: 01/04/19 10:07:00 REHABILITATOR, Duration: 30 day, Stop date: 02/03/19 10:06:00 REHABILITATOR, 2.09, m2, 0 2 NS 2018-02 No 1,000 mL, Memori a 1,000 mL 1-13 Rate: 75 l 16:07: ml/hr, Mukesh 00 Infuse over: 13.3 hr, Route: IV, Dosing Weight 86.364 kg, Total Volume: 1,000, Start date: 01/04/19 10:07:00 REHABILITATOR, Duration: 30 day, Stop date: 02/03/19 10:06:00 REHABILITATOR, 2.09, m2, 0 1/2 NS 2018-02 No 1,000 mL, Memori a 1,000 mL 1-13 Rate: 75 l 16:07: ml/hr, [place] 00 Infuse over: 13.3 hr, Route: IV, Dosing Weight 86.364 kg, Total Volume: 1,000, Start date: 01/04/19 10:07:00 REHABILITATOR, Duration: 30 day, Stop date: 02/03/19 10:06:00 REHABILITATOR, 2.09, m2, 0 1/2 NS 2018-02 No 1,000 mL, Memori a 1,000 mL 1-13 Rate: 75 l 16:07: ml/hr, Mukesh 00 Infuse over: 13.3 hr, Route: IV, Dosing Weight 86.364 kg, Total Volume: 1,000, Start date: 01/04/19 10:07:00 REHABILITATOR, Duration: 30 day, Stop date: 02/03/19 10:06:00 REHABILITATOR, 2.09, m2, 0 lidocaine 2018-02 No Route: IV, Me moria (ANES) 1-13 Drug form: l 15:10: INJ, ONCE, Stop date: 01/04/19 9:10:00 REHABILITATOR fentaNYL 2018- No Route: IV, Mem oria (ANES) 1-13 Drug form: l 15:10: INJ, ONCE, Stop date: 01/04/19 9:10:00 REHABILITATOR propofol 2019- No Route: IV, Mem oria (ANES) 1-13 Drug form: l 15:10: INJ, ONCE, Stop date: 01/04/19 9:10:00 REHABILITATOR lidocaine 2018- No Route: IV, Me moria (ANES) 1-13 Drug form: l 15:10: INJ, ONCE, Stop date: 01/04/19 9:10:00 REHABILITATOR fentaNYL 2018 No Route: IV, Mem oria (ANES) 1-13 Drug form: l 15:10: INJ, ONCE, Stop date: 01/04/19 9:10:00 REHABILITATOR propofol 2018-02 No Route: IV, Mem oria (ANES) 1-13 Drug form: l 15:10: INJ, ONCE, Stop date: 01/04/19 9:10:00 REHABILITATOR lidocaine 2018- No Route: IV, Me moria (ANES) 1-13 Drug form: l 15:10: INJ, ONCE, Stop date: 01/04/19 9:10:00 REHABILITATOR fentaNYL 2018-02 No Route: IV, Mem oria (ANES) 1-13 Drug form: l 15:10: INJ, ONCE, Stop date: 01/04/19 9:10:00 REHABILITATOR propofol 2018-02 No Route: IV, Mem oria (ANES) 1-13 Drug form: l 15:10: INJ, ONCE, Stop date: 01/04/19 9:10:00 REHABILITATOR lidocaine 2018-02 No Route: IV, Me moria (ANES) 1-13 Drug form: l 15:10: INJ, ONCE, Stop date: 01/04/19 9:10:00 REHABILITATOR fentaNYL 2018- No Route: IV, Mem oria (ANES) 1-13 Drug form: l 15:10: INJ, ONCE, Stop date: 01/04/19 9:10:00 REHABILITATOR propofol 2018- No Route: IV, Mem oria (ANES) 1-13 Drug form: l 15:10: INJ, ONCE, Stop date: 01/04/19 9:10:00 REHABILITATOR lidocaine 2018-02 No Route: IV, Me moria (ANES) 1-13 Drug form: l 15:10: INJ, ONCE, Stop date: 01/04/19 9:10:00 REHABILITATOR fentaNYL 2018- No Route: IV, Mem oria (ANES) 1-13 Drug form: l 15:10: INJ, ONCE, Stop date: 01/04/19 9:10:00 REHABILITATOR propofol 2018- No Route: IV, Mem oria (ANES) 1-13 Drug form: l 15:10: INJ, ONCE, Mukesh 00 Stop date: 01/04/19 9:10:00 REHABILITATOR dexamethaso 2018-02 No Route: IV, Memoria ne (ANES) 1-13 Drug form: l 15:00: INJ, ONCE, Mukesh Stop date: 01/04/19 9:00:00 REHABILITATOR dexamethaso 2018-02 No Route: IV, Memoria ne (ANES) 1-13 Drug form: l 15:00: INJ, ONCE, Mukesh 00 Stop date: 01/04/19 9:00:00 REHABILITATOR dexamethaso 2018-02 No Route: IV, Memoria ne (ANES) 1-13 Drug form: l 15:00: INJ, ONCE, Mukesh 00 Stop date: 01/04/19 9:00:00 REHABILITATOR dexamethaso 2018-02 No Route: IV, Memoria ne (ANES) 1-13 Drug form: l 15:00: INJ, ONCE, Stop date: 01/04/19 9:00:00 REHABILITATOR dexamethaso 2018-02 No Route: IV, Memoria ne (ANES) 1-13 Drug form: l 15:00: INJ, ONCE, [place] 00 Stop date: 01/04/19 9:00:00 REHABILITATOR Hydralazine 2018-02 No Notes: Angelo igor 1-13 (Same as: l 14:40: Apresoline ) Push over 5 minutes Morphine 2018-02 No Notes: Memoria 1-13 (Same l 14:40: as:MORPhin e Sulfate) Oxycodone 2018-02 No Notes: Memori a Hydrochlori -13 (Same as: l de 5 MG 14:40: Roxicodone Herm nicolas Oral Tablet ) Hydromorpho 2018-02 No Notes: Angelo igor ne 1-13 Same as l 14:40: Dilaudid Flumazenil 2018-02 No Notes: Memor ia 1-13 (Same as: l 14:40: Romazicon) Naloxone 2018-02 No Notes: Memoria 1-13 Same as l 14:40: Narcan Albuterol 2018-02 No Notes: SEE Me moria 0.83 MG/ML -13 RT l Inhalant 14:40: DOCUMENTAT Her villarreal Solution 00 ION (Same as: Proventil) Diphenhydra 2018-02 No Notes: Angelo igor mine 1-13 (Same as: l 14:40: Benadryl) [place] 00 Ondansetron 2018-02 No Notes: Angelo igor 1-13 (Same as: l 14:40: Zofran) Mukesh 00 MEDICATION WASTE Product Size: 4 mg Product Wasted: ___ mg Hydralazine 2018-02 No Notes: Angelo igor 1-13 (Same as: l 14:40: Apresoline [place] 00 ) Push over 5 minutes Morphine 2018-02 No Notes: Memoria 1-13 (Same l 14:40: as:MORPhin Mukesh 00 e Sulfate) Oxycodone 2018-02 No Notes: Memori a Hydrochlori -13 (Same as: l de 5 MG 14:40: Roxicodone Herm nicolas Oral Tablet 00 ) Hydromorpho 2018-02 No Notes: Angelo igor ne 1- Same as l 14:40: Dilaudid Mukesh 00 Flumazenil 2018-02 No Notes: Memor ia 1-13 (Same as: l 14:40: Romazicon) [place] 00 Naloxone 2018-02 No Notes: Memoria 1-13 Same as l 14:40: Narcan [place] 00 Albuterol 2018-02 No Notes: SEE Me moria 0.83 MG/ML -13 RT l Inhalant 14:40: DOCUMENTAT Her villarreal Solution 00 ION (Same as: Proventil) Diphenhydra 2018-02 No Notes: Angelo igor mine 1-13 (Same as: l 14:40: Benadryl) [place] 00 Ondansetron 2018-02 No Notes: Angelo igor 1-13 (Same as: l 14:40: Zofran) Mukesh 00 MEDICATION WASTE Product Size: 4 mg Product Wasted: ___ mg Hydralazine 2018-02 No Notes: Angelo igor 1-13 (Same as: l 14:40: Apresoline [place] 00 ) Push over 5 minutes Morphine 2018-02 No Notes: Memoria 1-13 (Same l 14:40: as:MORPhin Mukesh 00 e Sulfate) Oxycodone 2018-02 No Notes: Memori a Hydrochlori 1-13 (Same as: l de 5 MG 14:40: Roxicodone Herm nicolas Oral Tablet 00 ) Hydromorpho 2018-02 No Notes: Angelo igor ne 1-13 Same as l 14:40: Dilaudid Mukesh 00 Flumazenil 2018-02 No Notes: Memor ia 1-13 (Same as: l 14:40: Romazicon) [place] 00 Naloxone 2018-02 No Notes: Memoria 1-13 Same as l 14:40: Narcan Mukesh 00 Albuterol 2018-02 No Notes: SEE Me moria 0.83 MG/ML 1-13 RT l Inhalant 14:40: DOCUMENTAT Her villarreal Solution 00 ION (Same as: Proventil) Diphenhydra 2018-02 No Notes: Angelo igor mine 1-13 (Same as: l 14:40: Benadryl) [place] 00 Ondansetron 2018-02 No Notes: Angelo igor 1-13 (Same as: l 14:40: Zofran) [place] 00 MEDICATION WASTE Product Size: 4 mg Product Wasted: ___ mg Hydralazine 2018-02 No Notes: Angelo igor 1-13 (Same as: l 14:40: Apresoline [place] 00 ) Push over 5 minutes Morphine 2018-02 No Notes: Memoria 1-13 (Same l 14:40: as:MORPhin Mukesh 00 e Sulfate) Oxycodone 2018-02 No Notes: Memori a Hydrochlori 1-13 (Same as: l de 5 MG 14:40: Roxicodone Herm nicolas Oral Tablet 00 ) Hydromorpho 2018-02 No Notes: Angelo igor ne 1-13 Same as l 14:40: Dilaudid [place] 00 Flumazenil 2018-02 No Notes: Memor ia 1-13 (Same as: l 14:40: Romazicon) [place] 00 Naloxone 2018-02 No Notes: Memoria 1-13 Same as l 14:40: Narcan [place] 00 Albuterol 2018-02 No Notes: SEE Me moria 0.83 MG/ML 1-13 RT l Inhalant 14:40: DOCUMENTAT Her villarreal Solution 00 ION (Same as: Proventil) Diphenhydra 2018-02 No Notes: Angelo igor mine 1-13 (Same as: l 14:40: Benadryl) Mukesh Ondansetron 2018-02 No Notes: Angelo igor 1-13 (Same as: l 14:40: Zofran) [place] MEDICATION WASTE Product Size: 4 mg Product Wasted: ___ mg Hydralazine 2018-02 No Notes: Angelo igor 1-13 (Same as: l 14:40: Apresoline [place] ) Push over 5 minutes Morphine 2018-02 No Notes: Memoria 1-13 (Same l 14:40: as:MORPhin [place] e Sulfate) Oxycodone 2018-02 No Notes: Memori a Hydrochlori - (Same as: l de 5 MG 14:40: Roxicodone Herm nicolas Oral Tablet ) Hydromorpho 2018-02 No Notes: Angelo igor ne 1- Same as l 14:40: Dilaudid [place] Flumazenil 2018-02 No Notes: Memor ia -13 (Same as: l 14:40: Romazicon) [place] 00 Naloxone 2018-02 No Notes: Memoria 1-13 Same as l 14:40: Narcan [place] Albuterol 2018-02 No Notes: SEE Me moria 0.83 MG/ML - RT l Inhalant 14:40: DOCUMENTAT Her villarreal Solution 00 ION (Same as: Proventil) Diphenhydra 2018-02 No Notes: Angelo gior mine 1-13 (Same as: l 14:40: Benadryl) Mukesh 00 Ondansetron 2018-02 No Notes: Angelo igor 1-13 (Same as: l 14:40: Zofran) [place] MEDICATION WASTE Product Size: 4 mg Product Wasted: ___ mg clindamycin 2018-02 No Route: IV, Memoria (ANES) 150 1-13 Drug form: l mg 14:27: INJ, Start date: 01/04/19 8:27:00 REHABILITATOR, Stop date: 01/04/19 9:27:00 REHABILITATOR clindamycin 2018-02 No Route: IV, Memoria (ANES) 150 1-13 Drug form: l mg 14:27: INJ, Start date: 01/04/19 8:27:00 REHABILITATOR, Stop date: 01/04/19 9:27:00 REHABILITATOR clindamycin 2019 No Route: IV, Memoria (ANES) 150 1-13 Drug form: l mg 14:27: INJ, Start [place] date: 01/04/19 8:27:00 REHABILITATOR, Stop date: 01/04/19 9:27:00 REHABILITATOR clindamycin 2019 No Route: IV, Memoria (ANES) 150 1-13 Drug form: l mg 14:27: INJ, Start [place] date: 01/04/19 8:27:00 REHABILITATOR, Stop date: 01/04/19 9:27:00 REHABILITATOR clindamycin 2019 No Route: IV, Memoria (ANES) 150 1-13 Drug form: l mg 14:27: INJ, Start Mukesh date: 01/04/19 8:27:00 REHABILITATOR, Stop date: 01/04/19 9:27:00 REHABILITATOR tranexamic 2018-02 No Route: IV, M emoria acid (ANES) 1-13 Drug form: l 100 mg 14:26: INJ, Start Su date: 01/04/19 8:26:00 REHABILITATOR, Stop date: 01/04/19 9:26:00 REHABILITATOR tranexamic 2018-02 No Route: IV, M emoria acid (ANES) 1-13 Drug form: l 100 mg 14:26: INJ, Start Su date: 01/04/19 8:26:00 REHABILITATOR, Stop date: 01/04/19 9:26:00 REHABILITATOR tranexamic 2018-02 No Route: IV, M emoria acid (ANES) 1-13 Drug form: l 100 mg 14:26: INJ, Start Su date: 01/04/19 8:26:00 REHABILITATOR, Stop date: 01/04/19 9:26:00 REHABILITATOR tranexamic 2018-02 No Route: IV, M emoria acid (ANES) 1-13 Drug form: l 100 mg 14:26: INJ, Start Su date: 01/04/19 8:26:00 REHABILITATOR, Stop date: 01/04/19 9:26:00 REHABILITATOR tranexamic 2018-02 No Route: IV, M emoria acid (ANES) 1-13 Drug form: l 100 mg 14:26: INJ, Start Su date: 01/04/19 8:26:00 REHABILITATOR, Stop date: 01/04/19 9:26:00 REHABILITATOR propofol 2019 No Route: IV, Mem oria (ANES) 10 03-06 Drug form: l mg 14:23: INJ, Start date: 01/04/19 8:23:00 REHABILITATOR, Stop date: 01/04/19 9:23:00 REHABILITATOR propofol 2018-02 No Route: IV, Mem oria (ANES) 10 03-06 Drug form: l mg 14:23: INJ, Start date: 01/04/19 8:23:00 REHABILITATOR, Stop date: 01/04/19 9:23:00 REHABILITATOR propofol 2019 No Route: IV, Mem oria (ANES) 10 03-06 Drug form: l mg 14:23: INJ, Start date: 01/04/19 8:23:00 REHABILITATOR, Stop date: 01/04/19 9:23:00 REHABILITATOR propofol 2019 No Route: IV, Mem oria (ANES) 10 03-06 Drug form: l mg 14:23: INJ, Start date: 01/04/19 8:23:00 REHABILITATOR, Stop date: 01/04/19 9:23:00 REHABILITATOR propofol 2019- No Route: IV, Mem oria (ANES) 10 03-06 Drug form: l mg 14:23: INJ, Start date: 01/04/19 8:23:00 REHABILITATOR, Stop date: 01/04/19 9:23:00 REHABILITATOR Lactated 2018-02 No Route: IV, Mem oria Ringers 1-13 Total l Injection 14:15: Volume: Su nn IV (ANES) 00 1,000, 1000 mL Start date: 01/04/19 8:15:00 REHABILITATOR, Stop date: 01/04/19 9:15:00 REHABILITATOR Lactated 2018-02 No Route: IV, Mem oria Ringers 1-13 Total l Injection 14:15: Volume: Su nn IV (ANES) 00 1,000, 1000 mL Start date: 01/04/19 8:15:00 REHABILITATOR, Stop date: 01/04/19 9:15:00 REHABILITATOR Lactated 2018-02 No Route: IV, Mem oria Ringers 1-13 Total l Injection 14:15: Volume: Su nn IV (ANES) 00 1,000, 1000 mL Start date: 01/04/19 8:15:00 REHABILITATOR, Stop date: 01/04/19 9:15:00 REHABILITATOR Lactated 2018-02 No Route: IV, Mem oria Ringers 1-13 Total l Injection 14:15: Volume: Su nn IV (ANES) 00 1,000, 1000 mL Start date: 01/04/19 8:15:00 REHABILITATOR, Stop date: 01/04/19 9:15:00 REHABILITATOR Lactated 2018-02 No Route: IV, Mem oria Ringers 1-13 Total l Injection 14:15: Volume: Su nn IV (ANES) 00 1,000, 1000 mL Start date: 01/04/19 8:15:00 REHABILITATOR, Stop date: 01/04/19 9:15:00 REHABILITATOR Acetaminoph 2018-02 No Notes: Angelo igor en 1-13 Infuse l 14:00: over 15 Mukesh 00 minutes Do not exceed 4gm/day of acetaminop hen MEDICATION WASTE Product Size: 1000 mg Product Wasted: ___ mg 72 HR 2018-02 No Notes: Memoria Scopolamine 1-13 Change l 0.0139 14:00: patch [place] MG/HR 00 every 72 Transdermal hours Patch (Same as: Transderm- Scop) celecoxib 2018-02 No Notes: Memori a 1-13 NSAID. l 14:00: Please Mukesh check indication . Not for seizure. (Same As: CeleBREX) oxyCODONE 2018-02 No Notes: Do Mem oria 10 mg 1-13 not crush l extended 14:00: or chew. Su nn release 00 (Same as: OxyContin) Clindamycin 2018-02 No 900 mg, 50 Memoria 1-13 mL, Route: l 14:00: IVPB, Drug [place] 00 form: INJ, ONCALL, Dosing Weight 85.938, kg, Start date: 01/04/19 8:00:00 REHABILITATOR, Duration: 1 doses or times, Stop date: 01/04/19 15:00:00 REHABILITATOR, ABX Indication : Surgical Prophylaxi s, 0 Acetaminoph 2018-02 No Notes: Angelo igor en 1-13 Infuse l 14:00: over 15 [place] 00 minutes Do not exceed 4gm/day of acetaminop hen MEDICATION WASTE Product Size: 1000 mg Product Wasted: ___ mg 72 HR 2018-02 No Notes: Memoria Scopolamine 1-13 Change l 0.0139 14:00: patch Mukesh MG/HR 00 every 72 Transdermal hours Patch (Same as: Transderm- Scop) celecoxib 2018-02 No Notes: Memori a 1-13 NSAID. l 14:00: Please [place] 00 check indication . Not for seizure. (Same As: CeleBREX) oxyCODONE 2018-02 No Notes: Do Mem oria 10 mg 1-13 not crush l extended 14:00: or chew. Su nn release 00 (Same as: OxyContin) Clindamycin 2018-02 No 900 mg, 50 Memoria 1-13 mL, Route: l 14:00: IVPB, Drug form: INJ, ONCALL, Dosing Weight 85.938, kg, Start date: 01/04/19 8:00:00 REHABILITATOR, Duration: 1 doses or times, Stop date: 01/04/19 15:00:00 REHABILITATOR, ABX Indication : Surgical Prophylaxi s, 0 Acetaminoph 2018-02 No Notes: Angelo igor en 1-13 Infuse l 14:00: over 15 Mukesh 00 minutes Do not exceed 4gm/day of acetaminop hen MEDICATION WASTE Product Size: 1000 mg Product Wasted: ___ mg 72 HR 2018-02 No Notes: Memoria Scopolamine 1-13 Change l 0.0139 14:00: patch Mukesh MG/HR 00 every 72 Transdermal hours Patch (Same as: Transderm- Scop) celecoxib 2018-02 No Notes: Memori a 1-13 NSAID. l 14:00: Please [place] 00 check indication . Not for seizure. (Same As: CeleBREX) oxyCODONE 2018-02 No Notes: Do Mem oria 10 mg 1-13 not crush l extended 14:00: or chew. Su nn release 00 (Same as: OxyContin) Clindamycin 2018-02 No 900 mg, 50 Memoria 1-13 mL, Route: l 14:00: IVPB, Drug [place] 00 form: INJ, ONCALL, Dosing Weight 85.938, kg, Start date: 01/04/19 8:00:00 REHABILITATOR, Duration: 1 doses or times, Stop date: 01/04/19 15:00:00 REHABILITATOR, ABX Indication : Surgical Prophylaxi s, 0 Acetaminoph 2018-02 No Notes: Angelo igor en 1-13 Infuse l 14:00: over 15 [place] 00 minutes Do not exceed 4gm/day of acetaminop hen MEDICATION WASTE Product Size: 1000 mg Product Wasted: ___ mg 72 HR 2018-02 No Notes: Memoria Scopolamine 1-13 Change l 0.0139 14:00: patch Mukesh MG/HR 00 every 72 Transdermal hours Patch (Same as: Transderm- Scop) celecoxib 2018-02 No Notes: Memori a 1-13 NSAID. l 14:00: Please Mukesh 00 check indication . Not for seizure. (Same As: CeleBREX) oxyCODONE 2018-02 No Notes: Do Mem oria 10 mg 1-13 not crush l extended 14:00: or chew. Su nn release 00 (Same as: OxyContin) Clindamycin 2018-02 No 900 mg, 50 Memoria 1-13 mL, Route: l 14:00: IVPB, Drug form: INJ, ONCALL, Dosing Weight 85.938, kg, Start date: 01/04/19 8:00:00 REHABILITATOR, Duration: 1 doses or times, Stop date: 01/04/19 15:00:00 REHABILITATOR, ABX Indication : Surgical Prophylaxi s, 0 Acetaminoph 2018-02 No Notes: Angelo igor en 1-13 Infuse l 14:00: over 15 Mukesh 00 minutes Do not exceed 4gm/day of acetaminop hen MEDICATION WASTE Product Size: 1000 mg Product Wasted: ___ mg 72 HR 2018-02 No Notes: Memoria Scopolamine 1-13 Change l 0.0139 14:00: patch Mukesh MG/HR 00 every 72 Transdermal hours Patch (Same as: Transderm- Scop) celecoxib 2018-02 No Notes: Memori a 1-13 NSAID. l 14:00: Please [place] 00 check indication . Not for seizure. (Same As: CeleBREX) oxyCODONE 2018-02 No Notes: Do Mem oria 10 mg -13 not crush l extended 14:00: or chew. Su nn release (Same as: OxyContin) Clindamycin 2018-02 No 900 mg, 50 Memoria 1-13 mL, Route: l 14:00: IVPB, Drug form: INJ, ONCALL, Dosing Weight 85.938, kg, Start date: 01/04/19 8:00:00 REHABILITATOR, Duration: 1 doses or times, Stop date: 01/04/19 15:00:00 REHABILITATOR, ABX Indication : Surgical Prophylaxi s, 0 Lactated 2018-02 No 1,000 mL, Angelo igor Ringers IV 1-13 Rate: 40 l 1,000 mL 13:14: ml/hr, Mukesh 00 Infuse over: 25 hr, Route: IV, Dosing Weight 85.938 kg, Total Volume: 1,000, Start date: 01/04/19 7:14:00 REHABILITATOR, Duration: 30 day, Stop date: 02/03/19 7:13:00 REHABILITATOR, 2.07, m2, 0 Lactated 2018-02 No 1,000 mL, Angelo igor Ringers IV 1-13 Rate: 40 l 1,000 mL 13:14: ml/hr, Mukesh 00 Infuse over: 25 hr, Route: IV, Dosing Weight 85.938 kg, Total Volume: 1,000, Start date: 01/04/19 7:14:00 REHABILITATOR, Duration: 30 day, Stop date: 02/03/19 7:13:00 REHABILITATOR, 2.07, m2, 0 Lactated 2018-02 No 1,000 mL, Angelo igor Ringers IV 1-13 Rate: 40 l 1,000 mL 13:14: ml/hr, [place] 00 Infuse over: 25 hr, Route: IV, Dosing Weight 85.938 kg, Total Volume: 1,000, Start date: 01/04/19 7:14:00 REHABILITATOR, Duration: 30 day, Stop date: 02/03/19 7:13:00 REHABILITATOR, 2.07, m2, 0 Lactated 2018-02 No 1,000 mL, Angelo igor Ringers IV 1-13 Rate: 40 l 1,000 mL 13:14: ml/hr, [place] 00 Infuse over: 25 hr, Route: IV, Dosing Weight 85.938 kg, Total Volume: 1,000, Start date: 01/04/19 7:14:00 REHABILITATOR, Duration: 30 day, Stop date: 02/03/19 7:13:00 REHABILITATOR, 2.07, m2, 0 Lactated 2018-02 No 1,000 mL, Angelo igor Ringers IV 1-13 Rate: 40 l 1,000 mL 13:14: ml/hr, Mukesh 00 Infuse over: 25 hr, Route: IV, Dosing Weight 85.938 kg, Total Volume: 1,000, Start date: 01/04/19 7:14:00 REHABILITATOR, Duration: 30 day, Stop date: 02/03/19 7:13:00 REHABILITATOR, 2.07, m2, 0 Hydroxyzine 2018-02 No Notes: Angelo igor 1-13 (Same as: l 13:13: Vistaril) [place] Dexamethaso 2018-02 No Notes: Angelo igor ne - Concentrat l 13:13: ion: Mukesh 00 4mg/ml Hydroxyzine 2018-02 No Notes: Angelo igor 1-13 (Same as: l 13:13: Vistaril) Mukesh Dexamethaso 2018-02 No Notes: Angelo igor ne - Concentrat l 13:13: ion: [place] 00 4mg/ml Hydroxyzine 2018-02 No Notes: Angelo igor 1-13 (Same as: l 13:13: Vistaril) [place]esh Dexamethaso 2018-02 No Notes: Angelo igor ne 1-13 Concentrat l 13:13: ion: [place] 00 4mg/ml Hydroxyzine 2018-02 No Notes: Angelo igor 1-13 (Same as: l 13:13: Vistaril) [place] Dexamethaso 2018-02 No Notes: Angelo igor ne 1-13 Concentrat l 13:13: ion: Mukesh 00 4mg/ml Hydroxyzine 2018-02 No Notes: Angelo igor 1-13 (Same as: l 13:13: Vistaril) [place] Dexamethaso 2018-02 No Notes: Angelo igor ne 1-13 Concentrat l 13:13: ion: [place] 00 4mg/ml ropivacaine 2018-02 No Notes: Angelo igor 1-13 NOT FOR l 12:00: IV use Mukesh 00 Each mL contains: Ropivacain e 2.46 mg, Epinephrin e 0.005 mg, Clonidine 0.0008 mg and Ketorolac 0.3 mg in Sodium Chloride vancomycin 2018-02 No Notes: Memor ia + Sodium 1-13 TIME l Chloride 12:00: CRITICAL Su nn 0.9% IV 250 00 MEDICATION mL (Same As: Vancocin) For adult patients only: Round to nearest 250 mg per Medical Staff approval polymyxin B 2018-02 No Notes: Angelo igor sulfate + -13 (Same as: l Sodium 12:00: Polymyxin Martin n Chloride 00 B Sulfate) 0.9% IV 250 mL ropivacaine 2018-02 No Notes: Angelo igor 03-06 NOT FOR l 12:00: IV use [place] 00 Each mL contains: Ropivacain e 2.46 mg, Epinephrin e 0.005 mg, Clonidine 0.0008 mg and Ketorolac 0.3 mg in Sodium Chloride vancomycin 2018-02 No Notes: Memor ia + Sodium -13 TIME l Chloride 12:00: CRITICAL Su nn 0.9% IV 250 00 MEDICATION mL (Same As: Vancocin) For adult patients only: Round to nearest 250 mg per Medical Staff approval polymyxin B 2018-02 No Notes: Angelo igor sulfate + -13 (Same as: l Sodium 12:00: Polymyxin [place] n Chloride 00 B Sulfate) 0.9% IV 250 mL ropivacaine 2018-02 No Notes: Angelo igor -13 NOT FOR l 12:00: IV use [place] 00 Each mL contains: Ropivacain e 2.46 mg, Epinephrin e 0.005 mg, Clonidine 0.0008 mg and Ketorolac 0.3 mg in Sodium Chloride vancomycin 2018-02 No Notes: Memor ia + Sodium 1-13 TIME l Chloride 12:00: CRITICAL Su nn 0.9% IV 250 00 MEDICATION mL (Same As: Vancocin) For adult patients only: Round to nearest 250 mg per Medical Staff approval polymyxin B 2018-02 No Notes: Angelo igor sulfate + 1-13 (Same as: l Sodium 12:00: Polymyxin [place] n Chloride 00 B Sulfate) 0.9% IV 250 mL ropivacaine 2018-02 No Notes: Angelo igor 1-13 NOT FOR l 12:00: IV use Mukesh 00 Each mL contains: Ropivacain e 2.46 mg, Epinephrin e 0.005 mg, Clonidine 0.0008 mg and Ketorolac 0.3 mg in Sodium Chloride vancomycin 2018-02 No Notes: Memor ia + Sodium 1-13 TIME l Chloride 12:00: CRITICAL Su nn 0.9% IV 250 00 MEDICATION mL (Same As: Vancocin) For adult patients only: Round to nearest 250 mg per Medical Staff approval polymyxin B 2018-02 No Notes: Angelo igor sulfate + -13 (Same as: l Sodium 12:00: Polymyxin [place] Chloride 00 B Sulfate) 0.9% IV 250 mL ropivacaine 2018-02 No Notes: Angelo igor 03-06 NOT FOR l 12:00: IV use [place] 00 Each mL contains: Ropivacain e 2.46 mg, Epinephrin e 0.005 mg, Clonidine 0.0008 mg and Ketorolac 0.3 mg in Sodium Chloride vancomycin 2018-02 No Notes: Memor ia + Sodium -13 TIME l Chloride 12:00: CRITICAL Su nn 0.9% IV 250 00 MEDICATION mL (Same As: Vancocin) For adult patients only: Round to nearest 250 mg per Medical Staff approval polymyxin B 2018-02 No Notes: Angelo igor sulfate + -13 (Same as: l Sodium 12:00: Polymyxin [place] n Chloride 00 B Sulfate) 0.9% IV 250 mL meloxicam 2018-02 No 15 mg = 1 Mem oria 15 mg oral 1-04 tab, PO, l tablet 18:56: Daily, # Mukesh 00 30 tab, 0 Refill(s) meloxicam 2018-02 No 15 mg = 1 Mem oria 15 mg oral 1-04 tab, PO, l tablet 18:56: Daily, # [place] 00 30 tab, 0 Refill(s) meloxicam 2018-02 No 15 mg = 1 Mem oria 15 mg oral 1-04 tab, PO, l tablet 18:56: Daily, # [place] 00 30 tab, 0 Refill(s) meloxicam 2018-02 No 15 mg = 1 Mem oria 15 mg oral 1-04 tab, PO, l tablet 18:56: Daily, # Mukesh 00 30 tab, 0 Refill(s) meloxicam 2018-02 No 15 mg = 1 Mem oria 15 mg oral 1-04 tab, PO, l tablet 18:56: Daily, # [place] 00 30 tab, 0 Refill(s) Acetaminoph 2018-02 No 325 mg = 1 Memoria en 325 MG 1-04 tab, PO, l Oral Tablet 18:55: Q4H, PRN [place] [Tylenol] 00 Pain, # 60 tab, 0 Refill(s) Acetaminoph 2018-02 No 325 mg = 1 Memoria en 325 MG 1-04 tab, PO, l Oral Tablet 18:55: Q4H, PRN [place] [Tylenol] 00 Pain, # 60 tab, 0 Refill(s) Acetaminoph 2018-02 No 325 mg = 1 Memoria en 325 MG 1-04 tab, PO, l Oral Tablet 18:55: Q4H, PRN [place] [Tylenol] 00 Pain, # 60 tab, 0 Refill(s) Acetaminoph 2018-02 No 325 mg = 1 Memoria en 325 MG 1-04 tab, PO, l Oral Tablet 18:55: Q4H, PRN [place] [Tylenol] 00 Pain, # 60 tab, 0 Refill(s) Acetaminoph 2018-02 No 325 mg = 1 Memoria en 325 MG 1-04 tab, PO, l Oral Tablet 18:55: Q4H, PRN [place] [Tylenol] 00 Pain, # 60 tab, 0 Refill(s) Budesonide 2018-02 Yes NASAL Memori a 1-04 RINSE l 18:54: 1MG/2ML Mukesh 00 (SALT/DIST ILLED WATER), 0 Refill(s) Budesonide 2018-02 Yes NASAL Memori a 1-04 RINSE l 18:54: 1MG/2ML [place] 00 (SALT/DIST ILLED WATER), 0 Refill(s) Budesonide 2018-02 Yes NASAL Memori a 1-04 RINSE l 18:54: 1MG/2ML [place] 00 (SALT/DIST ILLED WATER), 0 Refill(s) Budesonide 2018-02 Yes NASAL Memori a 1-04 RINSE l 18:54: 1MG/2ML [place] 00 (SALT/DIST ILLED WATER), 0 Refill(s) Budesonide 2018-02 Yes NASAL Memori a 1-04 RINSE l 18:54: 1MG/2ML [place] 00 (SALT/DIST ILLED WATER), 0 Refill(s) 1 ML 2018-02 Yes SUB-Q, Memoria benralizuma 1-04 q4wk, 0 l b 30 MG/ML 18:52: Refill(s) [place] Prefilled 00 Syringe [Fasenra] 1 ML 2018-02 Yes SUB-Q, Memoria benralizuma 1-04 q4wk, 0 l b 30 MG/ML 18:52: Refill(s) [place] Prefilled 00 Syringe [Fasenra] 1 ML 2018-02 Yes SUB-Q, Memoria benralizuma 1-04 q4wk, 0 l b 30 MG/ML 18:52: Refill(s) [place] Prefilled 00 Syringe [Fasenra] 1 ML 2018-02 Yes SUB-Q, Memoria benralizuma 1-04 q4wk, 0 l b 30 MG/ML 18:52: Refill(s) He r[place] Prefilled 00 Syringe [Fasenra] 1 ML 2018-02 Yes SUB-Q, Memoria benralizuma 1-04 q4wk, 0 l b 30 MG/ML 18:52: Refill(s) [place] Prefilled 00 Syringe [Fasenra] predniSONE 2018-02 Yes 10 mg = 1 Me moria 10 mg oral 1-04 tab, PO, l tablet 18:51: Daily, # [place] 00 30 tab, 0 Refill(s) predniSONE 2018-02 Yes 10 mg = 1 Me moria 10 mg oral 1-04 tab, PO, l tablet 18:51: Daily, # [place] 00 30 tab, 0 Refill(s) predniSONE 2018-02 Yes 10 mg = 1 Me moria 10 mg oral 1-04 tab, PO, l tablet 18:51: Daily, # [place] 00 30 tab, 0 Refill(s) predniSONE 2018-02 Yes 10 mg = 1 Me moria 10 mg oral 1-04 tab, PO, l tablet 18:51: Daily, # Mukesh 00 30 tab, 0 Refill(s) predniSONE 2018-02 Yes 10 mg = 1 Me moria 10 mg oral 1-04 tab, PO, l tablet 18:51: Daily, # [place] 00 30 tab, 0 Refill(s) Pennsaid 2 Pennsaid 2 Yes LUPILLO Apply 2 UT % SOLN % SOLN 9-24 ROCKY pumps to [facility] 00:00: M.D. affected ans 00 area BID.: [id number] GM pump BTL.; refill 2 Meloxicam Meloxicam Yes ELMER QD TAKE 1 UT 15 MG Oral 15 MG Oral 9-05 SIRMAN TABLET [facility] Tablet Tablet 00:00: P.A. DAILY WITH ans 00 FOOD. traMADol traMADol Yes LUPILLO Q6H TAKE 1 UT HCl - 50 MG HCl - 50 MG 7-24 ROCKY TABLET [facility] Oral Tablet Oral Tablet 00:00: M.D. EVERY 6 ans 00 HOURS NEEDED. traMADol traMADol Yes ELMER 1 TAKE 1 UT HCl - 50 MG HCl - 50 MG 7-09 SIRMAN TABLET [facility] Oral Tablet Oral Tablet 00:00: P.A. EVERY 6 ans 00 HOURS NEEDED FOR PAIN. Cyclobenzap Cyclobenzap Yes LUPILLO TAKE 1 UT rine HCl - rine HCl - 7-03 ROCKY TABLET AT [facility] 5 MG Oral 5 MG Oral 00:00: M.D. BEDTIME ans Tablet Tablet 00 NEEDED. remove No Notes: Memoria patch 6- Remove old l 19:07: patch [place] 00 before applicatio n of new patch. remove No Notes: Memoria patch 6-27 Remove old l 19:07: patch [place] 00 before applicatio n of new patch. remove No Notes: Memoria patch 6-27 Remove old l 19:07: patch [place] 00 before applicatio n of new patch. remove No Notes: Memoria patch 6-27 Remove old l 19:07: patch [place] 00 before applicatio n of new patch. remove No Notes: Memoria patch 6-27 Remove old l 19:07: patch [place] 00 before applicatio n of new patch. Prednisone No Notes: Memor ia 6-27 Take with l 14:00: food. [place] 00 Fluticasone No Notes: Angelo igor propionate 6-27 (Same as: l 0.05 14:00: Flonase) Mukesh MG/ACTUAT 00 Metered Dose Nasal [place] [Flonase] Prednisone No Notes: Memor ia 6-27 Take with l 14:00: food. Mukesh 00 Fluticasone No Notes: Angelo igor propionate 6-27 (Same as: l 0.05 14:00: Flonase) Mukesh MG/ACTUAT 00 Metered Dose Nasal [place] [Flonase] Prednisone No Notes: Memor ia 6-27 Take with l 14:00: food. [place] 00 Fluticasone No Notes: Angelo igor propionate 6-27 (Same as: l 0.05 14:00: Flonase) Mukesh MG/ACTUAT 00 Metered Dose Nasal [place] [Flonase] Prednisone No Notes: Memor ia 6-27 Take with l 14:00: food. [place] Fluticasone No Notes: Angelo igor propionate 6-27 (Same as: l 0.05 14:00: Flonase) [place] MG/ACTUAT 00 Metered Dose Nasal [place] [Flonase] Prednisone No Notes: Memor ia 6-27 Take with l 14:00: food. [place] 00 Fluticasone No Notes: Angelo igor propionate 6-27 (Same as: l 0.05 14:00: Flonase) [place] MG/ACTUAT 00 Metered Dose Nasal [place] [Flonase] Vancomycin No 2001 mg: Me moria 6-27 infuse l 04:00: over 2.5 [place]esh 00 hours For adult patients only: Round to nearest 250 mg per Medical Staff approval MEDICATION WASTE Product Size: 1000 mg Product Wasted: ___ mg Vancomycin No 2001 mg: Me moria 6-27 infuse l 04:00: over 2.5 [place] 00 hours For adult patients only: Round to nearest 250 mg per Medical Staff approval MEDICATION WASTE Product Size: 1000 mg Product Wasted: ___ mg Vancomycin 2019-0 No 2001 mg: Me moria 6-27 infuse l 04:00: over 2.5 [place] 00 hours For adult patients only: Round to nearest 250 mg per Medical Staff approval MEDICATION WASTE Product Size: 1000 mg Product Wasted: ___ mg Vancomycin 2019- No 2001 mg: Me moria 6-27 infuse l 04:00: over 2.5 [place] 00 hours For adult patients only: Round to nearest 250 mg per Medical Staff approval MEDICATION WASTE Product Size: 1000 mg Product Wasted: ___ mg Vancomycin 2019- No 2001 mg: Me moria 6-27 infuse l 04:00: over 2.5 [place] 00 hours For adult patients only: Round to nearest 250 mg per Medical Staff approval MEDICATION WASTE Product Size: 1000 mg Product Wasted: ___ mg Singulair No Notes: Memori a 6-27 (Same l 02:00: as: ir) celecoxib No Notes: Memori a 6-27 NSAID. l 02:00: Please [place] 00 check indication . Not for seizure. (Same As: CeleBREX) Singulair No Notes: Memori a 6-27 (Same l 02:00: as: [place] 00 ir) celecoxib No Notes: Memori a 6-27 NSAID. l 02:00: Please [place] 00 check indication . Not for seizure. (Same As: CeleBREX) Singulair No Notes: Memori a 6-27 (Same l 02:00: as:Singula [place] 00 ir) celecoxib No Notes: Memori a 6-27 NSAID. l 02:00: Please [place] 00 check indication . Not for seizure. (Same As: CeleBREX) Singulair No Notes: Memori a 6-27 (Same l 02:00: as:Singula [place] 00 ir) celecoxib 0 No Notes: Memori a 6-27 NSAID. l 02:00: Please [place] 00 check indication . Not for seizure. (Same As: CeleBREX) Singulair No Notes: Memori a 6-27 (Same l 02:00: as:Singula [place] 00 ir) celecoxib 0 No Notes: Memori a 6-27 NSAID. l 02:00: Please Mukesh 00 check indication . Not for seizure. (Same As: CeleBREX) Pulmicort No Notes: Memori a Respules 6-27 (Same As: l 01:00: Pulmicort) [place] 00 Aspirin 325 No Notes: (Do Memoria MG Enteric 6-27 Not Crush) l Coated 01:00: Do not [place] Tablet 00 crush or chew. Pulmicort No Notes: Memori a Respules 6-27 (Same As: l 01:00: Pulmicort) Mukesh 00 Aspirin 325 No Notes: (Do Memoria MG Enteric 6-27 Not Crush) l Coated 01:00: Do not Mukesh Tablet 00 crush or chew. Pulmicort No Notes: Memori a Respules 6-27 (Same As: l 01:00: Pulmicort) [place] 00 Aspirin 325 No Notes: (Do Memoria MG Enteric 6-27 Not Crush) l Coated 01:00: Do not Mukesh Tablet 00 crush or chew. Pulmicort No Notes: Memori a Respules 6-27 (Same As: l 01:00: Pulmicort) Mukesh 00 Aspirin 325 No Notes: (Do Memoria MG Enteric 6-27 Not Crush) l Coated 01:00: Do not [place] Tablet 00 crush or chew. Pulmicort No Notes: Memori a Respules 6-27 (Same As: l 01:00: Pulmicort) [place] 00 Aspirin 325 No Notes: (Do Memoria MG Enteric 6-27 Not Crush) l Coated 01:00: Do not [place] Tablet 00 crush or chew. albuterol No Notes: SEE Me moria 6-27 RT l 00:00: DOCUMENTAT [place] 00 ION (Same as: Proventil) albuterol No Notes: SEE Me moria 6-27 RT l 00:00: DOCUMENTAT [place] 00 ION (Same as: Proventil) albuterol No Notes: SEE Me moria 6-27 RT l 00:00: DOCUMENTAT Mukesh 00 ION (Same as: Proventil) albuterol No Notes: SEE Me moria 6-27 RT l 00:00: DOCUMENTAT Mukesh 00 ION (Same as: Proventil) albuterol No Notes: SEE Me moria 6-27 RT l 00:00: DOCUMENTAT Mukesh 00 ION (Same as: Proventil) Acetaminoph No Notes: Max Memoria en 6-26 acetaminop l 23:00: hen 4000 Mukesh 00 mg/day (4 gm/day). (Same as: Tylenol Extra Strength) Acetaminoph No Notes: Max Memoria en 6-26 acetaminop l 23:00: hen 4000 Mukesh 00 mg/day (4 gm/day). (Same as: Tylenol Extra Strength) Acetaminoph No Notes: Max Memoria en 6-26 acetaminop l 23:00: hen 4000 Mukesh 00 mg/day (4 gm/day). (Same as: Tylenol Extra Strength) Acetaminoph No Notes: Max Memoria en 6-26 acetaminop l 23:00: hen 4000 [place] 00 mg/day (4 gm/day). (Same as: Tylenol Extra Strength) Acetaminoph No Notes: Max Memoria en 6-26 acetaminop l 23:00: hen 4000 [place] 00 mg/day (4 gm/day). (Same as: Tylenol Extra Strength) Dulera 200 No 2 puff, Angelo igor mcg-5 - Route: l mcg/inh 22:00: INHALER, Martin n inhalation 00 Drug Form: aerosol AERO, Dosing Weight 91.08, kg, BID, Start date: 08/17/18 17:00:00 CDT, Duration: 30 day, Stop date: 09/16/18 9:00:00 CDT pregabalin No Notes: Memor ia 6-26 (Same as: l 22:00: Lyrica) Mukesh 00 Dulera 200 No 2 puff, Angelo igor mcg-5 -26 Route: l mcg/inh 22:00: INHALER, Martin n inhalation 00 Drug Form: aerosol AERO, Dosing Weight 91.08, kg, BID, Start date: 08/17/18 17:00:00 CDT, Duration: 30 day, Stop date: 09/16/18 9:00:00 CDT pregabalin 2018-0 No Notes: Memor ia 6-26 (Same as: l 22:00: Lyrica) Dulera 200 No 2 puff, Angelo igor mcg-5 6- Route: l mcg/inh 22:00: INHALER, Martin n inhalation 00 Drug Form: aerosol AERO, Dosing Weight 91.08, kg, BID, Start date: 08/17/18 17:00:00 CDT, Duration: 30 day, Stop date: 09/16/18 9:00:00 CDT pregabalin 0 No Notes: Memor ia 6-26 (Same as: l 22:00: Lyrica) Dulera 200 No 2 puff, Angelo igor mcg-5 6- Route: l mcg/inh 22:00: INHALER, Martin n inhalation 00 Drug Form: aerosol AERO, Dosing Weight 91.08, kg, BID, Start date: 08/17/18 17:00:00 CDT, Duration: 30 day, Stop date: 09/16/18 9:00:00 CDT pregabalin 0 No Notes: Memor ia 6-26 (Same as: l 22:00: Lyrica) Dul[place] 200 No 2 puff, Angelo igor mcg-5 - Route: l mcg/inh 22:00: INHALER, Martin n inhalation 00 Drug Form: aerosol AERO, Dosing Weight 91.08, kg, BID, Start date: 08/17/18 17:00:00 CDT, Duration: 30 day, Stop date: 09/16/18 9:00:00 CDT pregabalin 0 No Notes: Memor ia 6-26 (Same as: l 22:00: Lyrica) Diphenhydra No Notes: Angelo igor mine 6-26 (Same as: l 21:37: Benadryl) Morphine No Notes: Memoria 6-26 (Same l 21:37: as:MORPhin e Sulfate) Ondansetron No Notes: Angelo igor 6-26 (Same as: l 21:37: Zofran) Mukesh 00 MEDICATION WASTE Product Size: 4 mg Product Wasted: ___ mg Methocarbam No Notes: Angelo igor ol 6-26 (Same l 21:37: as:Robaxin Mukesh 00 ) Oxycodone No Notes: Memori a Hydrochlori 6-26 (Same as: l de 5 MG 21:37: Roxicodone Herm nicolas Oral Tablet ) Diphenhydra No Notes: Angelo igor mine 6-26 (Same as: l 21:37: Benadryl) [place] Morphine No Notes: Memoria 6-26 (Same l 21:37: as:MORPhin [place] 00 e Sulfate) Ondansetron No Notes: Angelo igor 6-26 (Same as: l 21:37: Zofran) Mukesh 00 MEDICATION WASTE Product Size: 4 mg Product Wasted: ___ mg Methocarbam No Notes: Angelo igor ol 6-26 (Same l 21:37: as:Robaxin Mukesh ) Oxycodone No Notes: Memori a Hydrochlori 6-26 (Same as: l de 5 MG 21:37: Roxicodone Herm nicolas Oral Tablet ) Diphenhydra No Notes: Angelo igor mine 6-26 (Same as: l 21:37: Benadryl) [place] Morphine No Notes: Memoria 6-26 (Same l 21:37: as:MORPhin Mukesh 00 e Sulfate) Ondansetron No Notes: Angelo igor 6-26 (Same as: l 21:37: Zofran) Mukesh 00 MEDICATION WASTE Product Size: 4 mg Product Wasted: ___ mg Methocarbam No Notes: Angelo igor ol 6-26 (Same l 21:37: as:Robaxin Mukesh 00 ) Oxycodone No Notes: Memori a Hydrochlori 6-26 (Same as: l de 5 MG 21:37: Roxicodone Herm nicolas Oral Tablet ) Diphenhydra No Notes: Angelo igor mine 6-26 (Same as: l 21:37: Benadryl) [place] 00 Morphine No Notes: Memoria 6-26 (Same l 21:37: as:MORPhin [place] 00 e Sulfate) Ondansetron No Notes: Angelo igor 6-26 (Same as: l 21:37: Zofran) Mukesh 00 MEDICATION WASTE Product Size: 4 mg Product Wasted: ___ mg Methocarbam No Notes: Angelo igor ol 6-26 (Same l 21:37: as:Robaxin [place] ) Oxycodone No Notes: Memori a Hydrochlori 6-26 (Same as: l de 5 MG 21:37: Roxicodone Herm nicolas Oral Tablet ) Diphenhydra No Notes: Angelo igor mine 6-26 (Same as: l 21:37: Benadryl) [place] Morphine No Notes: Memoria 6-26 (Same l 21:37: as:MORPhin Mukesh 00 e Sulfate) Ondansetron No Notes: Angelo igor 6-26 (Same as: l 21:37: Zofran) Mukesh 00 MEDICATION WASTE Product Size: 4 mg Product Wasted: ___ mg Methocarbam No Notes: Angelo igor ol 6-26 (Same l 21:37: as:Robaxin Mukesh ) Oxycodone No Notes: Memori a Hydrochlori 6-26 (Same as: l de 5 MG 21:37: Roxicodone Herm nicolas Oral Tablet ) 02/23 NS No 1,000 mL, Memori a 1,000 mL 6-26 Rate: 75 l 20:09: ml/hr, Mukesh 00 Infuse over: 13.3 hr, Route: IV, Dosing Weight 91.08 kg, Total Volume: 1,000, Start date: 08/17/18 15:09:00 CDT, Duration: 30 day, Stop date: 09/16/18 15:08:00 CDT, 2.14, m2, 0 02/23 NS No 1,000 mL, Memori a 1,000 mL 6-26 Rate: 75 l 20:09: ml/hr, Infuse over: 13.3 hr, Route: IV, Dosing Weight 91.08 kg, Total Volume: 1,000, Start date: 08/17/18 15:09:00 CDT, Duration: 30 day, Stop date: 09/16/18 15:08:00 CDT, 2.14, m2, 0 1/2 NS 2019-0 No 1,000 mL, Memori a 1,000 mL 6-26 Rate: 75 l 20:09: ml/hr, [place] 00 Infuse over: 13.3 hr, Route: IV, Dosing Weight 91.08 kg, Total Volume: 1,000, Start date: 08/17/18 15:09:00 CDT, Duration: 30 day, Stop date: 09/16/18 15:08:00 CDT, 2.14, m2, 0 1/2 NS 2019-0 No 1,000 mL, Memori a 1,000 mL 6-26 Rate: 75 l 20:09: ml/hr, Mukesh 00 Infuse over: 13.3 hr, Route: IV, Dosing Weight 91.08 kg, Total Volume: 1,000, Start date: 08/17/18 15:09:00 CDT, Duration: 30 day, Stop date: 09/16/18 15:08:00 CDT, 2.14, m2, 0 1/2 NS 2019-0 No 1,000 mL, Memori a 1,000 mL 6-26 Rate: 75 l 20:09: ml/hr, Infuse over: 13.3 hr, Route: IV, Dosing Weight 91.08 kg, Total Volume: 1,000, Start date: 08/17/18 15:09:00 CDT, Duration: 30 day, Stop date: 09/16/18 15:08:00 CDT, 2.14, m2, 0 Ondansetron No Notes: Angelo igor 08-17 (Same as: l 19:55: Zofran) MEDICATION WASTE Product Size: 4 mg Product Wasted: ___ mg Hydromorpho No Notes: Angelo igor ne 08-17 Same as l 19:55: Dilaudid Flumazenil 0 No Notes: Memor ia 6- (Same as: l 19:55: Romazicon) Mukesh Naloxone 2018- No Notes: Memoria 6- Same as l 19:55: Narcan Mukesh Ondansetron No Notes: Angelo igor 6- (Same as: l 19:55: Zofran) Mueksh 00 MEDICATION WASTE Product Size: 4 mg Product Wasted: ___ mg Hydromorpho 2019- No Notes: Angelo igor ne 6- Same as l 19:55: Dilaudid [place] Flumazenil No Notes: Memor ia 6- (Same as: l 19:55: Romazicon) [place] Naloxone No Notes: Memoria 6 Same as l 19:55: Narcan Mukesh Ondansetron No Notes: Angelo igor 6- (Same as: l 19:55: Zofran) Mukesh 00 MEDICATION WASTE Product Size: 4 mg Product Wasted: ___ mg Hydromorpho 2019- No Notes: Angelo igor ne 6- Same as l 19:55: Dilaudid Mukesh Flumazenil No Notes: Memor ia 6- (Same as: l 19:55: Romazicon) Mukesh Naloxone 2018- No Notes: Memoria 6 Same as l 19:55: Narcan [place] Ondansetron No Notes: Angelo igor 6-26 (Same as: l 19:55: Zofran) [place] 00 MEDICATION WASTE Product Size: 4 mg Product Wasted: ___ mg Hydromorpho 2019- No Notes: Angelo igor ne 6- Same as l 19:55: Dilaudid [place] Flumazenil 2019- No Notes: Memor ia 6- (Same as: l 19:55: Romazicon) Mukesh Naloxone No Notes: Memoria 6- Same as l 19:55: Narcan [place] Ondansetron No Notes: Angelo igor 6-26 (Same as: l 19:55: Zofran) [place] 00 MEDICATION WASTE Product Size: 4 mg Product Wasted: ___ mg Hydromorpho No Notes: Angelo igor ne 08-17 Same as l 19:55: Dilaudid Flumazenil No Notes: Memor ia 08-17 (Same as: l 19:55: Romazicon) Naloxone No Notes: Memoria 08-17 Same as l 19:55: Narcan ondansetron No Route: IV, Memoria (ANES) 08-17 Drug form: l 19:31: INJ, ONCE, Stop date: 08/17/18 14:31:00 CDT fentaNYL No Route: IV, Mem oria (ANES) 08-17 Drug form: l 19:31: INJ, ONCE, Stop date: 08/17/18 14:31:00 CDT ondansetron No Route: IV, Memoria (ANES) 08-17 Drug form: l 19:31: INJ, ONCE, Stop date: 08/17/18 14:31:00 CDT fentaNYL 0 No Route: IV, Mem oria (ANES) 08-17 Drug form: l 19:31: INJ, ONCE, Stop date: 08/17/18 14:31:00 CDT ondansetron 0 No Route: IV, Memoria (ANES) 08-17 Drug form: l 19:31: INJ, ONCE, Stop date: 08/17/18 14:31:00 CDT fentaNYL 0 No Route: IV, Mem oria (ANES) 08-17 Drug form: l 19:31: INJ, ONCE, Stop date: 08/17/18 14:31:00 CDT ondansetron 0 No Route: IV, Memoria (ANES) 08-17 Drug form: l 19:31: INJ, ONCE, Stop date: 08/17/18 14:31:00 CDT fentaNYL 0 No Route: IV, Mem oria (ANES) 08-17 Drug form: l 19:31: INJ, ONCE, Stop date: 08/17/18 14:31:00 CDT ondansetron 2018-0 No Route: IV, Memoria (ANES) 08-17 Drug form: l 19:31: INJ, ONCE, [place] Stop date: 08/17/18 14:31:00 CDT fentaNYL 2018-0 No Route: IV, Mem oria (ANES) 08-17 Drug form: l 19:31: INJ, ONCE, Mukesh 00 Stop date: 08/17/18 14:31:00 CDT midazolam 2019-0 No Route: IV, Me moria (ANES) 08-17 Drug form: l 17:56: SOLN, Mukesh ONCE, Stop date: 08/17/18 12:56:00 CDT dexamethaso 2018-0 No Route: IV, Memoria ne (ANES) 08-17 Drug form: l 17:56: INJ, ONCE, [place] 00 Stop date: 08/17/18 12:56:00 CDT propofol 2019-0 No Route: IV, Mem oria (ANES) 08-17 Drug form: l 17:56: INJ, ONCE, Stop date: 08/17/18 12:56:00 CDT lidocaine 2019-0 No Route: IV, Me moria (ANES) 08-17 Drug form: l 17:56: INJ, ONCE, Mukesh 00 Stop date: 08/17/18 12:56:00 CDT midazolam 2019-0 No Route: IV, Me moria (ANES) 08-17 Drug form: l 17:56: SOLN, [place] ONCE, Stop date: 08/17/18 12:56:00 CDT dexamethaso 2018-0 No Route: IV, Memoria ne (ANES) 08-17 Drug form: l 17:56: INJ, ONCE, Mukesh 00 Stop date: 08/17/18 12:56:00 CDT propofol 2019-0 No Route: IV, Mem oria (ANES) - Drug form: l 17:56: INJ, ONCE, [place] 00 Stop date: 08/17/18 12:56:00 CDT lidocaine 2019-0 No Route: IV, Me moria (ANES) 08-17 Drug form: l 17:56: INJ, ONCE, Mukesh 00 Stop date: 08/17/18 12:56:00 CDT midazolam 2019-0 No Route: IV, Me moria (ANES) 6- Drug form: l 17:56: SOLN, Mukesh ONCE, Stop date: 08/17/18 12:56:00 CDT dexamethaso 2019-0 No Route: IV, Memoria ne (ANES) 08-17 Drug form: l 17:56: INJ, ONCE, Mukesh 00 Stop date: 08/17/18 12:56:00 CDT propofol 2019-0 No Route: IV, Mem oria (ANES) 08-17 Drug form: l 17:56: INJ, ONCE, Stop date: 08/17/18 12:56:00 CDT lidocaine 2019-0 No Route: IV, Me moria (ANES) 6- Drug form: l 17:56: INJ, ONCE, Stop date: 08/17/18 12:56:00 CDT midazolam 2019-0 No Route: IV, Me moria (ANES) 08-17 Drug form: l 17:56: SOLN, Mukesh ONCE, Stop date: 08/17/18 12:56:00 CDT dexamethaso 2019-0 No Route: IV, Memoria ne (ANES) - Drug form: l 17:56: INJ, ONCE, Stop date: 08/17/18 12:56:00 CDT propofol 2019-0 No Route: IV, Mem oria (ANES) 08-17 Drug form: l 17:56: INJ, ONCE, Stop date: 08/17/18 12:56:00 CDT lidocaine 2019-0 No Route: IV, Me moria (ANES) 08-17 Drug form: l 17:56: INJ, ONCE, Mukesh 00 Stop date: 08/17/18 12:56:00 CDT midazolam 2019-0 No Route: IV, Me moria (ANES) 6- Drug form: l 17:56: SOLN, [place] ONCE, Stop date: 08/17/18 12:56:00 CDT dexamethaso 2019-0 No Route: IV, Memoria ne (ANES) - Drug form: l 17:56: INJ, ONCE, Mukesh 00 Stop date: 08/17/18 12:56:00 CDT propofol 2019-0 No Route: IV, Mem oria (ANES) 6-26 Drug form: l 17:56: INJ, ONCE, Stop date: 08/17/18 12:56:00 CDT lidocaine 2019-0 No Route: IV, Me moria (ANES) 6-26 Drug form: l 17:56: INJ, ONCE, Stop date: 08/17/18 12:56:00 CDT tranexamic 2019-0 No Route: IV, M emoria acid (ANES) 6-26 Drug form: l 100 mg 17:20: INJ, Start date: 08/17/18 12:20:00 CDT, Stop date: 08/17/18 13:20:00 CDT tranexamic 2019-0 No Route: IV, M emoria acid (ANES) 6-26 Drug form: l 100 mg 17:20: INJ, date: 08/17/18 12:20:00 CDT, Stop date: 08/17/18 13:20:00 CDT tranexamic 2019-0 No Route: IV, M emoria acid (ANES) 6-26 Drug form: l 100 mg 17:20: INJ, Start date: 08/17/18 12:20:00 CDT, Stop date: 08/17/18 13:20:00 CDT tranexamic 2019-0 No Route: IV, M emoria acid (ANES) 6-26 Drug form: l 100 mg 17:20: INJ, Start date: 08/17/18 12:20:00 CDT, Stop date: 08/17/18 13:20:00 CDT tranexamic 2019-0 No Route: IV, M emoria acid (ANES) 6-26 Drug form: l 100 mg 17:20: INJ, Start date: 08/17/18 12:20:00 CDT, Stop date: 08/17/18 13:20:00 CDT propofol 2019-0 No Route: IV, Mem oria (ANES) 10 - Drug form: l mg 17:13: INJ, Start date: 08/17/18 12:13:00 CDT, Stop date: 08/17/18 13:13:00 CDT propofol 2019-0 No Route: IV, Mem oria (ANES) 10 08-17 Drug form: l mg 17:13: INJ, date: 08/17/18 12:13:00 CDT, Stop date: 08/17/18 13:13:00 CDT propofol 2019-0 No Route: IV, Mem oria (ANES) 10 08-17 Drug form: l mg 17:13: INJ, date: 08/17/18 12:13:00 CDT, Stop date: 08/17/18 13:13:00 CDT propofol 2019-0 No Route: IV, Mem oria (ANES) 10 08-17 Drug form: l mg 17:13: INJ, date: 08/17/18 12:13:00 CDT, Stop date: 08/17/18 13:13:00 CDT propofol 2019-0 No Route: IV, Mem oria (ANES) 10 08-17 Drug form: l mg 17:13: INJ, date: 08/17/18 12:13:00 CDT, Stop date: 08/17/18 13:13:00 CDT clindamycin 2018-0 No Route: IV, Memoria (ANES) 150 08-17 Drug form: l mg 17:12: INJ, date: 08/17/18 12:12:00 CDT, Stop date: 08/17/18 13:12:00 CDT clindamycin 2019-0 No Route: IV, Memoria (ANES) 150 08-17 Drug form: l mg 17:12: INJ, date: 08/17/18 12:12:00 CDT, Stop date: 08/17/18 13:12:00 CDT clindamycin 2018-0 No Route: IV, Memoria (ANES) 150 08-17 Drug form: l mg 17:12: INJ, date: 08/17/18 12:12:00 CDT, Stop date: 08/17/18 13:12:00 CDT clindamycin 2019-0 No Route: IV, Memoria (ANES) 150 08-17 Drug form: l mg 17:12: INJ, Start date: 08/17/18 12:12:00 CDT, Stop date: 08/17/18 13:12:00 CDT clindamycin 2019-0 No Route: IV, Memoria (ANES) 150 08-17 Drug form: l mg 17:12: INJ, Start date: 08/17/18 12:12:00 CDT, Stop date: 08/17/18 13:12:00 CDT Lactated 2019-0 No Route: IV, Mem oria Ringers 6-26 Total l Injection 17:07: Volume: Su nn IV (ANES) 00 1,000, 1000 mL Start date: 08/17/18 12:07:00 CDT, Stop date: 08/17/18 13:07:00 CDT Lactated 2019-0 No Route: IV, Mem oria Ringers 6-26 Total l Injection 17:07: Volume: Su nn IV (ANES) 00 1,000, 1000 mL Start date: 08/17/18 12:07:00 CDT, Stop date: 08/17/18 13:07:00 CDT Lactated 2019-0 No Route: IV, Mem oria Ringers 6-26 Total l Injection 17:07: Volume: Su nn IV (ANES) 00 1,000, 1000 mL Start date: 08/17/18 12:07:00 CDT, Stop date: 08/17/18 13:07:00 CDT Lactated 2019-0 No Route: IV, Mem oria Ringers 6-26 Total l Injection 17:07: Volume: Su nn IV (ANES) 00 1,000, 1000 mL Start date: 08/17/18 12:07:00 CDT, Stop date: 08/17/18 13:07:00 CDT Lactated 2019-0 No Route: IV, Mem oria Ringers 6-26 Total l Injection 17:07: Volume: Su nn IV (ANES) 00 1,000, 1000 mL Start date: 08/17/18 12:07:00 CDT, Stop date: 08/17/18 13:07:00 CDT Zofran 2018-0 No Notes: Memoria 6-26 (Same as: l 14:00: Zofran Mukesh 00 ODT) Zofran No Notes: Memoria 6- (Same as: l 14:00: Zofran [place] 00 ODT) Zofran No Notes: Memoria 6-26 (Same as: l 14:00: Zofran Mukesh 00 ODT) Zofran No Notes: Memoria 6- (Same as: l 14:00: Zofran [place] 00 ODT) Zofran No Notes: Memoria 6- (Same as: l 14:00: Zofran [place] 00 ODT) Lactated 2018-0 No 1,000 mL, Angelo igor Ringers IV 08-17 Rate: 40 l 1,000 mL 13:20: ml/hr, Mukesh 00 Infuse over: 25 hr, Route: IV, Dosing Weight 90.625 kg, Total Volume: 1,000, Start date: 08/17/18 8:20:00 CDT, Duration: 30 day, Stop date: 09/16/18 8:19:00 CDT, 2.13, m2, 0 Lactated 2018-0 No 1,000 mL, Angelo igor Ringers IV 08-17 Rate: 40 l 1,000 mL 13:20: ml/hr, Mukesh 00 Infuse over: 25 hr, Route: IV, Dosing Weight 90.625 kg, Total Volume: 1,000, Start date: 08/17/18 8:20:00 CDT, Duration: 30 day, Stop date: 09/16/18 8:19:00 CDT, 2.13, m2, 0 Lactated 2018-0 No 1,000 mL, Angelo igor Ringers IV 08-17 Rate: 40 l 1,000 mL 13:20: ml/hr, [place] 00 Infuse over: 25 hr, Route: IV, Dosing Weight 90.625 kg, Total Volume: 1,000, Start date: 08/17/18 8:20:00 CDT, Duration: 30 day, Stop date: 09/16/18 8:19:00 CDT, 2.13, m2, 0 Lactated 2018-0 No 1,000 mL, Angelo igor Ringers IV 08-17 Rate: 40 l 1,000 mL 13:20: ml/hr, [place] 00 Infuse over: 25 hr, Route: IV, Dosing Weight 90.625 kg, Total Volume: 1,000, Start date: 08/17/18 8:20:00 CDT, Duration: 30 day, Stop date: 09/16/18 8:19:00 CDT, 2.13, m2, 0 Lactated No 1,000 mL, Angelo igor Ringers IV 08-17 Rate: 40 l 1,000 mL 13:20: ml/hr, [place] Infuse over: 25 hr, Route: IV, Dosing Weight 90.625 kg, Total Volume: 1,000, Start date: 08/17/18 8:20:00 CDT, Duration: 30 day, Stop date: 09/16/18 8:19:00 CDT, 2.13, m2, 0 polymyxin B No Notes: Angelo igor sulfate + 6-26 (Same as: l Sodium 11:00: Polymyxin Martin n Chloride 00 B Sulfate) 0.9% IV 250 mL vancomycin No Notes: Memor ia + Sodium 6-26 TIME l Chloride 11:00: CRITICAL Su nn 0.9% IV 250 00 MEDICATION mL (Same As: Vancocin) For adult patients only: Round to nearest 250 mg per Medical Staff approval ropivacaine No Notes: Angelo igor 6-26 NOT FOR l 11:00: IV use [place] 00 Each mL contains: Ropivacain e 2.46 mg, Epinephrin e 0.005 mg, Clonidine 0.0008 mg and Ketorolac 0.3 mg in Sodium Chloride polymyxin B No Notes: Angelo igor sulfate + 6-26 (Same as: l Sodium 11:00: Polymyxin Martin n Chloride 00 B Sulfate) 0.9% IV 250 mL vancomycin No Notes: Memor ia + Sodium 6-26 TIME l Chloride 11:00: CRITICAL Su nn 0.9% IV 250 00 MEDICATION mL (Same As: Vancocin) For adult patients only: Round to nearest 250 mg per Medical Staff approval ropivacaine No Notes: Angelo igor 6-26 NOT FOR l 11:00: IV use [place] 00 Each mL contains: Ropivacain e 2.46 mg, Epinephrin e 0.005 mg, Clonidine 0.0008 mg and Ketorolac 0.3 mg in Sodium Chloride polymyxin B No Notes: Angelo igor sulfate + 6-26 (Same as: l Sodium 11:00: Polymyxin Martin n Chloride 00 B Sulfate) 0.9% IV 250 mL vancomycin No Notes: Memor ia + Sodium 6-26 TIME l Chloride 11:00: CRITICAL Su nn 0.9% IV 250 00 MEDICATION mL (Same As: Vancocin) For adult patients only: Round to nearest 250 mg per Medical Staff approval ropivacaine No Notes: Angelo igor 6-26 NOT FOR l 11:00: IV use Mukesh 00 Each mL contains: Ropivacain e 2.46 mg, Epinephrin e 0.005 mg, Clonidine 0.0008 mg and Ketorolac 0.3 mg in Sodium Chloride polymyxin B No Notes: Angelo igor sulfate + 6-26 (Same as: l Sodium 11:00: Polymyxin [place] n Chloride 00 B Sulfate) 0.9% IV 250 mL vancomycin No Notes: Memor ia + Sodium 6-26 TIME l Chloride 11:00: CRITICAL Su nn 0.9% IV 250 00 MEDICATION mL (Same As: Vancocin) For adult patients only: Round to nearest 250 mg per Medical Staff approval ropivacaine No Notes: Angelo igor 6-26 NOT FOR l 11:00: IV use Mukesh 00 Each mL contains: Ropivacain e 2.46 mg, Epinephrin e 0.005 mg, Clonidine 0.0008 mg and Ketorolac 0.3 mg in Sodium Chloride polymyxin B No Notes: Angelo igor sulfate + 6-26 (Same as: l Sodium 11:00: Polymyxin [place] n Chloride 00 B Sulfate) 0.9% IV 250 mL vancomycin No Notes: Memor ia + Sodium 6-26 TIME l Chloride 11:00: CRITICAL Su nn 0.9% IV 250 00 MEDICATION mL (Same As: Vancocin) For adult patients only: Round to nearest 250 mg per Medical Staff approval ropivacaine No Notes: Angelo igor 6-26 NOT FOR l 11:00: IV use [place] 00 Each mL contains: Ropivacain e 2.46 mg, Epinephrin e 0.005 mg, Clonidine 0.0008 mg and Ketorolac 0.3 mg in Sodium Chloride OxyCONTIN 0 No Notes: Do Mem oria 6-25 not crush l 20:00: or chew. [place] 00 (Same as: OxyContin) clindamycin No 900 mg, 50 Memoria 6-25 mL, Route: l 20:00: IVPB, Drug form: INJ, ONCALL, Dosing Weight 90.625, kg, Start date: 08/16/18 15:00:00 CDT, Duration: 1 doses or times, Stop date: 08/18/18 0:00:00 CDT, ABX Indication : Surgical Prophylaxi s CeleBREX No Notes: Memoria 6-25 NSAID. l 20:00: Please Mukesh 00 check indication . Not for seizure. (Same As: CeleBREX) OxyCONTIN No Notes: Do Mem oria 6-25 not crush l 20:00: or chew. Mukesh 00 (Same as: OxyContin) clindamycin No 900 mg, 50 Memoria 6-25 mL, Route: l 20:00: IVPB, Drug form: INJ, ONCALL, Dosing Weight 90.625, kg, Start date: 08/16/18 15:00:00 CDT, Duration: 1 doses or times, Stop date: 08/18/18 0:00:00 CDT, ABX Indication : Surgical Prophylaxi s CeleBREX 0 No Notes: [facility] 6-25 NSAID. l 20:00: Please [place] 00 check indication . Not for seizure. (Same As: CeleBREX) OxyCONTIN 0 No Notes: Do Mem oria 6-25 not crush l 20:00: or chew. Mukesh 00 (Same as: OxyContin) clindamycin 0 No 900 mg, 50 Memoria 6-25 mL, Route: l 20:00: IVPB, Drug Mukesh 00 form: INJ, ONCALL, Dosing Weight 90.625, kg, Start date: 08/16/18 15:00:00 CDT, Duration: 1 doses or times, Stop date: 08/18/18 0:00:00 CDT, ABX Indication : Surgical Prophylaxi s CeleBREX No Notes: [facility] 6-25 NSAID. l 20:00: Please Mukesh 00 check indication . Not for seizure. (Same As: CeleBREX) OxyCONTIN No Notes: Do Mem oria 6-25 not crush l 20:00: or chew. (Same as: OxyContin) clindamycin No 900 mg, 50 Memoria 6-25 mL, Route: l 20:00: IVPB, Drug [place] 00 form: INJ, ONCALL, Dosing Weight 90.625, kg, Start date: 08/16/18 15:00:00 CDT, Duration: 1 doses or times, Stop date: 08/18/18 0:00:00 CDT, ABX Indication : Surgical Prophylaxi s CeleBREX No Notes: [facility] 6-25 NSAID. l 20:00: Please [place] 00 check indication . Not for seizure. (Same As: CeleBREX) OxyCONTIN No Notes: Do Mem oria 6-25 not crush l 20:00: or chew. (Same as: OxyContin) clindamycin No 900 mg, 50 Mem[facility] 6-25 mL, Route: l 20:00: IVPB, Drug form: INJ, ONCALL, Dosing Weight 90.625, kg, Start date: 08/16/18 15:00:00 CDT, Duration: 1 doses or times, Stop date: 08/18/18 0:00:00 CDT, ABX Indication : Surgical Prophylaxi s CeleBREX No Notes: [facility] 6-25 NSAID. l 20:00: Please [place] 00 check indication . Not for seizure. (Same As: CeleBREX) remove No Notes: [facility] patch 6-25 Remove old l 16:10: patch [place] 00 before applicatio n of new patch. remove No Notes: [facility] patch 6-25 Remove old l 16:10: patch [place] 00 before applicatio n of new patch. remove No Notes: [facility] patch 6-25 Remove old l 16:10: patch [place] 00 before applicatio n of new patch. remove No Notes: [facility] patch 6-25 Remove old l 16:10: patch [place] 00 before applicatio n of new patch. remove No Notes: [facility] patch 6-25 Remove old l 16:10: patch [place] 00 before applicatio n of new patch. Aspirin 81 Aspirin 81 Yes [place] 1 TAB PO UT MG Oral MG Oral 6-25 SIRMAN BID FOR 4 Ph ysici Tablet Tablet 00:00: P.A. WEEKS ans Delayed Delayed 00 AFTER Release Release SURGERY; QTY:56 X TABLET DELAYED RELEASE; QTY: 56 TABLET DELAYED RELEASE Gabapentin Gabapentin Yes [place] Q0.3333D TAKE 1 UT 100 MG Oral 100 MG Oral 6-25 SIRMAN CAPSULE 3 Physici Capsule Capsule 00:00: P.A. TIMES ans 00 DAILY. HYDROcodone HYDROcodone Yes [place]O 1 TAKE 1 UT -Acetaminop -Acetaminop 6-25 ROCKY TABLET Physici hen 10-325 hen 10-325 00:00: M.D. EVERY 6 ans MG Oral MG Oral 00 HOURS Tablet Tablet NEEDED FOR PAIN. HYDROcodone HYDROcodone Yes [place] 1 TAKE 1 UT -Acetaminop -Acetaminop 6-25 ROCKY TABLET Physici hen 10-325 hen 10-325 00:00: M.D. EVERY 6 ans MG Oral MG Oral 00 HOURS Tablet Tablet NEEDED FOR PAIN. Aspirin 81 Aspirin 81 Yes LUPILLO 1 TAB PO UT MG Oral MG Oral 6-25 ROCKY BID FOR 4 P hysici Tablet Tablet 00:00: M.D. WEEKS ans Delayed Delayed 00 AFTER Release Release SURGERY; QTY:56 X TABLET DELAYED RELEASE; QTY: 56 TABLET DELAYED RELEASE Gabapentin Gabapentin Yes LUPILLO Q0.5D TAKE 1 UT 100 MG Oral 100 MG Oral 6-25 ROCKY CAPSULE Physici Capsule Capsule 00:00: M.D. TWICE ans 00 DAILY. Clindamycin No 900 mg, 50 Memoria 6-24 mL, Route: l 16:00: IVPB, Drug form: INJ, ONCALL, Dosing Weight 90.625, kg, Start date: 08/15/18 11:00:00 CDT, Duration: 1 doses or times, Stop date: 08/15/18 16:00:00 CDT, ABX Indication : Surgical Prophylaxi s 72 HR No Notes: Memoria Scopolamine 6-24 Change l 0.0139 16:00: patch Mukesh MG/HR 00 every 72 Transdermal hours Patch (Same as: Transderm- Scop) celecoxib No Notes: Memori a 6-24 NSAID. l 16:00: Please [place] 00 check indication . Not for seizure. (Same As: CeleBREX) Oxycodone No Notes: Do Mem oria 6-24 not crush l 16:00: or chew. Mukesh 00 (Same as: OxyContin) Clindamycin No 900 mg, 50 Memoria 6-24 mL, Route: l 16:00: IVPB, Drug Mukesh 00 form: INJ, ONCALL, Dosing Weight 90.625, kg, Start date: 08/15/18 11:00:00 CDT, Duration: 1 doses or times, Stop date: 08/15/18 16:00:00 CDT, ABX Indication : Surgical Prophylaxi s 72 HR No Notes: Memoria Scopolamine 6-24 Change l 0.0139 16:00: patch [place] MG/HR 00 every 72 Transdermal hours Patch (Same as: Transderm- Scop) celecoxib No Notes: Memori a 6-24 NSAID. l 16:00: Please Mukesh 00 check indication . Not for seizure. (Same As: CeleBREX) Oxycodone No Notes: Do Mem oria 6-24 not crush l 16:00: or chew. Mukesh 00 (Same as: OxyContin) Clindamycin No 900 mg, 50 Memoria 6-24 mL, Route: l 16:00: IVPB, Drug Mukesh 00 form: INJ, ONCALL, Dosing Weight 90.625, kg, Start date: 08/15/18 11:00:00 CDT, Duration: 1 doses or times, Stop date: 08/15/18 16:00:00 CDT, ABX Indication : Surgical Prophylaxi s 72 HR No Notes: Memoria Scopolamine 6-24 Change l 0.0139 16:00: patch [place] MG/HR 00 every 72 Transdermal hours Patch (Same as: Transderm- Scop) celecoxib No Notes: Memori a 6-24 NSAID. l 16:00: Please Mukesh 00 check indication . Not for seizure. (Same As: CeleBREX) Oxycodone No Notes: Do Mem oria 6-24 not crush l 16:00: or chew. [place] 00 (Same as: OxyContin) Clindamycin No 900 mg, 50 Memoria 6-24 mL, Route: l 16:00: IVPB, Drug form: INJ, ONCALL, Dosing Weight 90.625, kg, Start date: 08/15/18 11:00:00 CDT, Duration: 1 doses or times, Stop date: 08/15/18 16:00:00 CDT, ABX Indication : Surgical Prophylaxi s 72 HR No Notes: Memoria Scopolamine 6-24 Change l 0.0139 16:00: patch Mukesh MG/HR 00 every 72 Transdermal hours Patch (Same as: Transderm- Scop) celecoxib No Notes: Memori a 6-24 NSAID. l 16:00: Please Mukesh 00 check indication . Not for seizure. (Same As: CeleBREX) Oxycodone No Notes: Do Mem oria 6-24 not crush l 16:00: or chew. (Same as: OxyContin) Clindamycin No 900 mg, 50 Memoria 6-24 mL, Route: l 16:00: IVPB, Drug form: INJ, ONCALL, Dosing Weight 90.625, kg, Start date: 08/15/18 11:00:00 CDT, Duration: 1 doses or times, Stop date: 08/15/18 16:00:00 CDT, ABX Indication : Surgical Prophylaxi s 72 HR No Notes: Memoria Scopolamine 6-24 Change l 0.0139 16:00: patch Mukesh MG/HR 00 every 72 Transdermal hours Patch (Same as: Transderm- Scop) celecoxib No Notes: Memori a 6-24 NSAID. l 16:00: Please [place] 00 check indication . Not for seizure. (Same As: CeleBREX) Oxycodone No Notes: Do Mem oria 6-24 not crush l 16:00: or chew. Mukesh 00 (Same as: OxyContin) Hydroxyzine No Notes: Angelo igor 6-24 (Same as: l 15:57: Vistaril) [place] 00 Zofran No Notes: Memoria 6-24 (Same as: l 15:57: Zofran) [place] 00 MEDICATION WASTE Product Size: 4 mg Product Wasted: ___ mg Dexamethaso No Notes: Angelo igor ne 6-24 Concentrat l 15:57: ion: [place] 00 4mg/ml Ofirmev No Notes: Memoria 6-24 Infuse l 15:57: over 15 [place] 00 minutes Do not exceed 4gm/day of acetaminop hen MEDICATION WASTE Product Size: 1000 mg Product Wasted: ___ mg Hydroxyzine No Notes: Angelo igor 6-24 (Same as: l 15:57: Vistaril) [place] 00 Zofran No Notes: Memoria 6-24 (Same as: l 15:57: Zofran) Mukesh 00 MEDICATION WASTE Product Size: 4 mg Product Wasted: ___ mg Dexamethaso No Notes: Angelo igor ne 6-24 Concentrat l 15:57: ion: Mukesh 00 4mg/ml Ofirmev No Notes: Memoria 6-24 Infuse l 15:57: over 15 Mukesh 00 minutes Do not exceed 4gm/day of acetaminop hen MEDICATION WASTE Product Size: 1000 mg Product Wasted: ___ mg Hydroxyzine No Notes: Angelo igor 6-24 (Same as: l 15:57: Vistaril) Mukesh Zofran No Notes: Memoria 6-24 (Same as: l 15:57: Zofran) [place] 00 MEDICATION WASTE Product Size: 4 mg Product Wasted: ___ mg Dexamethaso 2018- No Notes: Angelo igor ne 6-24 Concentrat l 15:57: ion: Mukesh 00 4mg/ml Ofirmev No Notes: Memoria 6-24 Infuse l 15:57: over 15 Mukesh 00 minutes Do not exceed 4gm/day of acetaminop hen MEDICATION WASTE Product Size: 1000 mg Product Wasted: ___ mg Hydroxyzine No Notes: Angelo igor 6-24 (Same as: l 15:57: Vistaril) [place] Zofran No Notes: Memoria 6-24 (Same as: l 15:57: Zofran) [place] 00 MEDICATION WASTE Product Size: 4 mg Product Wasted: ___ mg Dexamethaso No Notes: Angelo igor ne 6-24 Concentrat l 15:57: ion: Mukesh 00 4mg/ml Ofirmev No Notes: Memoria 6-24 Infuse l 15:57: over 15 [place] 00 minutes Do not exceed 4gm/day of acetaminop hen MEDICATION WASTE Product Size: 1000 mg Product Wasted: ___ mg Hydroxyzine No Notes: Angelo igor 6-24 (Same as: l 15:57: Vistaril) [place] Zofran No Notes: Memoria 6-24 (Same as: l 15:57: Zofran) [place] 00 MEDICATION WASTE Product Size: 4 mg Product Wasted: ___ mg Dexamethaso No Notes: Angelo igor ne 6-24 Concentrat l 15:57: ion: Mukesh 00 4mg/ml Ofirmev No Notes: Memoria 6-24 Infuse l 15:57: over 15 [place] 00 minutes Do not exceed 4gm/day of acetaminop hen MEDICATION WASTE Product Size: 1000 mg Product Wasted: ___ mg 1 ML No SUB-Q, Memoria benralizuma 6-17 q4wk, 0 l b 30 MG/ML 15:27: Refill(s) [place] r[place] Prefilled 00 Syringe [Fasenra] 1 ML No SUB-Q, Memoria benralizuma 6-17 q4wk, 0 l b 30 MG/ML 15:27: Refill(s) [place] Prefilled 00 Syringe [Fasenra] 1 ML No SUB-Q, Memoria benralizuma 6-17 q4wk, 0 l b 30 MG/ML 15:27: Refill(s) [place] r[place] Prefilled 00 Syringe [Fasenra] 1 ML No SUB-Q, Memoria benralizuma 6-17 q4wk, 0 l b 30 MG/ML 15:27: Refill(s) [place] [facility] Prefilled 00 Syringe [Fasenra] 1 ML No SUB-Q, Memoria benralizuma 6-17 q4wk, 0 l b 30 MG/ML 15:27: Refill(s) [place] Prefilled 00 Syringe [Fasenra] predniSONE No 10 mg = 1 Me moria 10 mg oral 6-17 tab, PO, l tablet 15:26: Daily, # [place] 00 30 tab, 3 Refill(s) Fluticasone Yes 1 spray, Me moria propionate 6-17 NASAL, l 0.05 15:26: Daily, # [place] MG/ACTUAT 00 16 gm, 0 Metered Refill(s) Dose Nasal [place] [Flonase] predniSONE No 10 mg = 1 Me moria 10 mg oral 6-17 tab, PO, l tablet 15:26: Daily, # Mukesh 00 30 tab, 3 Refill(s) Fluticasone Yes 1 spray, Me moria propionate 6-17 NASAL, l 0.05 15:26: Daily, # [place] MG/ACTUAT 00 16 gm, 0 Metered Refill(s) Dose Nasal [place] [Flonase] predniSONE No 10 mg = 1 Me moria 10 mg oral 6-17 tab, PO, l tablet 15:26: Daily, # Mukesh 00 30 tab, 3 Refill(s) Fluticasone Yes 1 spray, Me moria propionate 6-17 NASAL, l 0.05 15:26: Daily, # [place] MG/ACTUAT 00 16 gm, 0 Metered Refill(s) Dose Nasal [place] [Flonase] predniSONE No 10 mg = 1 Me moria 10 mg oral 6-17 tab, PO, l tablet 15:26: Daily, # Mukesh 00 30 tab, 3 Refill(s) Fluticasone 2019 Yes 1 spray, Me moria propionate 6-17 NASAL, l 0.05 15:26: Daily, # [place] MG/ACTUAT 00 16 gm, 0 Metered Refill(s) Dose Nasal [place] [Flonase] predniSONE No 10 mg = 1 Me moria 10 mg oral 6-17 tab, PO, l tablet 15:26: Daily, # [place] 00 30 tab, 3 Refill(s) Fluticasone Yes 1 spray, Me moria propionate 6-17 NASAL, l 0.05 15:26: Daily, # Mukesh MG/ACTUAT 00 16 gm, 0 Metered Refill(s) Dose Nasal [place] [Flonase] montelukast Yes See Memori a 10 MG Oral 6-17 Instructio l Tablet 15:25: ns, 1 tab [place] n [Singulair] 00 PO Bedtime, 0 Refill(s) Dulera 200 Yes 2 puff, Angelo igor mcg-5 6-17 INHALER, l mcg/inh 15:25: BID, # 1 Martin n inhalation 00 ea, 3 aerosol Refill(s) montelukast Yes See Memori a 10 MG Oral 6-17 Instructio l Tablet 15:25: ns, 1 tab [place] [Singulair] 00 PO Bedtime, 0 Refill(s) Dulera 200 Yes 2 puff, Angelo igor mcg-5 6-17 INHALER, l mcg/inh 15:25: BID, # 1 [place] n inhalation 00 ea, 3 aerosol Refill(s) montelukast Yes See Memori a 10 MG Oral 6-17 Instructio l Tablet 15:25: ns, 1 tab [place] [Singulair] 00 PO Bedtime, 0 Refill(s) Dulera 200 Yes 2 puff, Angelo igor mcg-5 6-17 INHALER, l mcg/inh 15:25: BID, # 1 [place] n inhalation 00 ea, 3 aerosol Refill(s) montelukast Yes See Memori a 10 MG Oral 6-17 Instructio l Tablet 15:25: ns, 1 tab [place] [Singulair] 00 PO Bedtime, 0 Refill(s) Dulera 200 Yes 2 puff, Angelo igor mcg-5 6-17 INHALER, l mcg/inh 15:25: BID, # 1 [place] n inhalation 00 ea, 3 aerosol Refill(s) montelukast Yes See Memori a 10 MG Oral 6-17 Instructio l Tablet 15:25: ns, 1 tab [place] n [Singulair] 00 PO Bedtime, 0 Refill(s) Dulera 200 Yes 2 puff, Angelo igor mcg-5 6-17 INHALER, l mcg/inh 15:25: BID, # 1 [place] n inhalation 00 ea, 3 aerosol Refill(s) Dulera Dulera Yes [place] 200-5 200-5 Physici MCG/ACT MCG/ACT ans Inhalation Inhalation Aerosol Aerosol Singulair Singulair Yes [place] 10 MG Oral 10 MG Oral Phy sici Tablet Tablet ans predniSONE predniSONE Yes UT 2.5 MG Oral 2.5 MG Oral P hysici Tablet Tablet ans Flonase Flonase Yes [place] Allergy Allergy Physici Relief 50 Relief 50 ans MCG/ACT MCG/ACT Nasal Nasal Suspension Suspension Budesonide Budesonide Yes [place] 0.5 MG/2ML 0.5 MG/2ML Phy sici Inhalation Inhalation ans Suspension Suspension Fasenra 30 Fasenra 30 Yes [place] MG/ML MG/ML Physici Subcutaneou Subcutaneou a ns s Solution s Solution Prefilled Prefilled Syringe Syringe Vitamin Vitamin Yes [place] B-12 1000 B-12 1000 Physi ci MCG Oral MCG Oral ans Tablet Tablet Immunizations Ordered Immunization Filled Immunization Date Status Commen ts Source Name Name SARS-COV-2 COVID-19 2021-02-03 Completed [facility] PFIZER VACCINE 00:00:00 [facility] SARS-COV-2 COVID-19 2021-02-03 Completed [facility] of PFIZER VACCINE 00:00:00 [facility] SARS-COV-2 COVID-19 2021-02-03 Completed [facility] of PFIZER VACCINE 00:00:00 [facility] SARS-COV-2 COVID-19 2021-02-03 Completed [facility] of PFIZER VACCINE 00:00:00 [facility] SARS-COV-2 COVID-19 2021-02-03 Completed [facility] of PFIZER VACCINE 00:00:00 [facility] SARS-COV-2 COVID-19 2021-02-03 Completed [facility] of PFIZER VACCINE 00:00:00 [facility] SARS-COV-2 COVID-19 2021-02-03 Completed [facility] of PFIZER VACCINE 00:00:00 [facility] SARS-COV-2 COVID-19 2021-02-03 Completed [facility] of PFIZER VACCINE 00:00:00 [facility] SARS-COV-2 COVID-19 2021-02-03 Completed [facility]ive [facility] of PFIZER VACCINE 00:00:00 [facility] SARS-COV-2 COVID-19 2021-02-03 Completed [facility] of PFIZER VACCINE 00:00:00 [facility] SARS-COV-2 COVID-19 2021-02-03 Completed [facility] of PFIZER VACCINE 00:00:00 [facility] SARS-COV-2 COVID-19 2021-02-03 Completed [facility] of PFIZER VACCINE 00:00:00 [facility] SARS-COV-2 COVID-19 2021-02-03 Completed [facility] of PFIZER VACCINE 00:00:00 [facility] SARS-COV-2 COVID-19 2021-02-03 Completed [facility]ive [facility] of PFIZER VACCINE 00:00:00 [facility] SARS-COV-2 COVID-19 2021-02-03 Completed [facility] of PFIZER VACCINE 00:00:00 [facility] SARS-COV-2 COVID-19 2021-02-03 Completed [facility] of PFIZER VACCINE 00:00:00 [facility] SARS-COV-2 COVID-19 2021-02-03 Completed [facility] of PFIZER VACCINE 00:00:00 [facility] SARS-COV-2 COVID-19 2021-02-03 Completed [facility] of PFIZER VACCINE 00:00:00 [facility] SARS-COV-2 COVID-19 2021-02-03 Completed [facility] of PFIZER VACCINE 00:00:00 [facility] SARS-COV-2 COVID-19 2021-02-03 Completed [facility]ive [facility] of PFIZER VACCINE 00:00:00 [facility] SARS-COV-2 COVID-19 2021-02-03 Completed [facility] of PFIZER VACCINE 00:00:00 [facility] SARS-COV-2 COVID-19 2021-02-03 Completed [facility] of PFIZER VACCINE 00:00:00 [facility] SARS-COV-2 COVID-19 2021-02-03 Completed [facility] of PFIZER VACCINE 00:00:00 [facility] SARS-COV-2 COVID-19 2021-02-03 Completed [facility] of PFIZER VACCINE 00:00:00 [facility] SARS-COV-2 COVID-19 2021-02-03 Completed [facility] of PFIZER VACCINE 00:00:00 [facility] SARS-COV-2 COVID-19 2021-02-03 Completed [facility] of PFIZER VACCINE 00:00:00 [facility] SARS-COV-2 COVID-19 2021-02-03 Completed [facility]ive [facility] of PFIZER VACCINE 00:00:00 [facility] SARS-COV-2 COVID-19 2021-02-03 Completed [facility] of PFIZER VACCINE 00:00:00 [facility] SARS-COV-2 COVID-19 2021-02-03 Completed [facility]ive [facility] of PFIZER VACCINE 00:00:00 [facility] SARS-COV-2 COVID-19 2021-02-03 Completed [facility] of PFIZER VACCINE 00:00:00 [facility] SARS-COV-2 COVID-19 2021-02-03 Completed [facility] of PFIZER VACCINE 00:00:00 [facility] SARS-COV-2 COVID-19 2021-02-03 Completed [facility] of PFIZER VACCINE 00:00:00 [facility] Pfizer-BioNTech 2020-05-01 Completed [facility] COVID-19 Vacc 30 18:40:00 MCG/0.3ML Intramuscular Suspension SARS-COV-2 COVID-19 2020-05-01 Completed [facility] of PFIZER VACCINE 00:00:00 [facility] SARS-COV-2 COVID-19 2020-05-01 Completed [facility] of PFIZER VACCINE 00:00:00 [facility] SARS-COV-2 COVID-19 2020-05-01 Completed [facility] PFIZER VACCINE 00:00:00 [facility] SARS-COV-2 COVID-19 2020-05-01 Completed [facility] of PFIZER VACCINE 00:00:00 [facility] SARS-COV-2 COVID-19 2020-05-01 Completed [facility] of PFIZER VACCINE 00:00:00 [facility] SARS-COV-2 COVID-19 2020-05-01 Completed [facility]ive [facility] of PFIZER VACCINE 00:00:00 [facility] SARS-COV-2 COVID-19 2020-05-01 Completed [facility] of PFIZER VACCINE 00:00:00 [facility] SARS-COV-2 COVID-19 2020-05-01 Completed [facility] of PFIZER VACCINE 00:00:00 [facility] SARS-COV-2 COVID-19 2020-05-01 Completed [facility] of PFIZER VACCINE 00:00:00 [facility] SARS-COV-2 COVID-19 2020-05-01 Completed [facility]ive [facility] of PFIZER VACCINE 00:00:00 [facility] SARS-COV-2 COVID-19 2020-05-01 Completed [facility] of PFIZER VACCINE 00:00:00 [facility] SARS-COV-2 COVID-19 2020-05-01 Completed [facility] of PFIZER VACCINE 00:00:00 [facility] SARS-COV-2 COVID-19 2020-05-01 Completed [facility] of PFIZER VACCINE 00:00:00 [facility] SARS-COV-2 COVID-19 2020-05-01 Completed [facility] of PFIZER VACCINE 00:00:00 [facility] SARS-COV-2 COVID-19 2020-05-01 Completed [facility] of PFIZER VACCINE 00:00:00 [facility] SARS-COV-2 COVID-19 2020-05-01 Completed [facility] of PFIZER VACCINE 00:00:00 [facility] SARS-COV-2 COVID-19 2020-05-01 Completed [facility] of PFIZER VACCINE 00:00:00 [facility] SARS-COV-2 COVID-19 2020-05-01 Completed [facility] of PFIZER VACCINE 00:00:00 [facility] SARS-COV-2 COVID-19 2020-05-01 Completed [facility] of PFIZER VACCINE 00:00:00 [facility] SARS-COV-2 COVID-19 2020-05-01 Completed [facility]ive [facility] of PFIZER VACCINE 00:00:00 [facility] SARS-COV-2 COVID-19 2020-05-01 Completed [facility] of PFIZER VACCINE 00:00:00 [facility] SARS-COV-2 COVID-19 2020-05-01 Completed [facility] of PFIZER VACCINE 00:00:00 [facility] SARS-COV-2 COVID-19 2020-05-01 Completed [facility] of PFIZER VACCINE 00:00:00 [facility] SARS-COV-2 COVID-19 2020-05-01 Completed [facility] of PFIZER VACCINE 00:00:00 [facility] SARS-COV-2 COVID-19 2020-05-01 Completed [facility] of PFIZER VACCINE 00:00:00 [facility] SARS-COV-2 COVID-19 2020-05-01 Completed [facility] of PFIZER VACCINE 00:00:00 [facility] SARS-COV-2 COVID-19 2020-05-01 Completed [facility] of PFIZER VACCINE 00:00:00 [facility] SARS-COV-2 COVID-19 2020-05-01 Completed [facility] of PFIZER VACCINE 00:00:00 [facility] SARS-COV-2 COVID-19 2020-05-01 Completed [facility]ive [facility] of PFIZER VACCINE 00:00:00 [facility] SARS-COV-2 COVID-19 2020-05-01 Completed [facility] of PFIZER VACCINE 00:00:00 [facility] SARS-COV-2 COVID-19 2020-05-01 Completed [facility] of PFIZER VACCINE 00:00:00 [facility] SARS-COV-2 COVID-19 2020-05-01 Completed [facility] of PFIZER VACCINE 00:00:00 [facility] Pfizer-BioNTech 2020-04-04 Completed [facility] COVID-19 Vacc 30 11:30:00 MCG/0.3ML Intramuscular Suspension SARS-COV-2 COVID-19 2020-04-04 Completed [facility] PFIZER VACCINE 00:00:00 [facility] SARS-COV-2 COVID-19 2020-04-04 Completed [facility] of PFIZER VACCINE 00:00:00 [facility] SARS-COV-2 COVID-19 2020-04-04 Completed [facility] of PFIZER VACCINE 00:00:00 [facility] SARS-COV-2 COVID-19 2020-04-04 Completed [facility] of PFIZER VACCINE 00:00:00 [facility] SARS-COV-2 COVID-19 2020-04-04 Completed [facility] of PFIZER VACCINE 00:00:00 [facility] SARS-COV-2 COVID-19 2020-04-04 Completed [facility] of PFIZER VACCINE 00:00:00 [facility] SARS-COV-2 COVID-19 2020-04-04 Completed [facility] of PFIZER VACCINE 00:00:00 [facility] SARS-COV-2 COVID-19 2020-04-04 Completed [facility] of PFIZER VACCINE 00:00:00 [facility] SARS-COV-2 COVID-19 2020-04-04 Completed [facility] of PFIZER VACCINE 00:00:00 [facility] SARS-COV-2 COVID-19 2020-04-04 Completed [facility] of PFIZER VACCINE 00:00:00 [facility] SARS-COV-2 COVID-19 2020-04-04 Completed [facility] of PFIZER VACCINE 00:00:00 [facility] SARS-COV-2 COVID-19 2020-04-04 Completed [facility] of PFIZER VACCINE 00:00:00 [facility] SARS-COV-2 COVID-19 2020-04-04 Completed [facility] of PFIZER VACCINE 00:00:00 [facility] SARS-COV-2 COVID-19 2020-04-04 Completed [facility] of PFIZER VACCINE 00:00:00 [facility] SARS-COV-2 COVID-19 2020-04-04 Completed [facility] of PFIZER VACCINE 00:00:00 [facility] SARS-COV-2 COVID-19 2020-04-04 Completed [facility] of PFIZER VACCINE 00:00:00 [facility] SARS-COV-2 COVID-19 2020-04-04 Completed [facility] of PFIZER VACCINE 00:00:00 [facility] SARS-COV-2 COVID-19 2020-04-04 Completed [facility]ive [facility] of PFIZER VACCINE 00:00:00 [facility] SARS-COV-2 COVID-19 2020-04-04 Completed [facility] of PFIZER VACCINE 00:00:00 [facility] SARS-COV-2 COVID-19 2020-04-04 Completed [facility] of PFIZER VACCINE 00:00:00 [facility] SARS-COV-2 COVID-19 2020-04-04 Completed [facility]ive [facility] of PFIZER VACCINE 00:00:00 [facility] SARS-COV-2 COVID-19 2020-04-04 Completed [facility]ive [facility] of PFIZER VACCINE 00:00:00 [facility] SARS-COV-2 COVID-19 2020-04-04 Completed [facility]ive [facility] of PFIZER VACCINE 00:00:00 [facility] SARS-COV-2 COVID-19 2020-04-04 Completed [facility] of PFIZER VACCINE 00:00:00 [facility] SARS-COV-2 COVID-19 2020-04-04 Completed Unive [facility] of PFIZER VACCINE 00:00:00 [facility] SARS-COV-2 COVID-19 2020-04-04 Completed Unive [facility] of PFIZER VACCINE 00:00:00 [facility] SARS-COV-2 COVID-19 2020-04-04 Completed [facility]ive [facility] of PFIZER VACCINE 00:00:00 [facility] SARS-COV-2 COVID-19 2020-04-04 Completed [facility]ive [facility] of PFIZER VACCINE 00:00:00 [facility] SARS-COV-2 COVID-19 2020-04-04 Completed [facility] of PFIZER VACCINE 00:00:00 [facility] SARS-COV-2 COVID-19 2020-04-04 Completed [facility] of PFIZER VACCINE 00:00:00 [facility] SARS-COV-2 COVID-19 2020-04-04 Completed [facility] of PFIZER VACCINE 00:00:00 [facility] SARS-COV-2 COVID-19 2020-04-04 Completed [facility] of PFIZER VACCINE 00:00:00 [facility] Vital Signs Vital Name Observation Time Observation Value Comments Source Systolic blood 2022-05-05 124 mm[Hg] [facility] pressure 18:13:00 [facility] Diastolic blood 2022-05-05 69 mm[Hg] [facility] f pressure 18:13:00 [facility] Heart rate 2022-05-05 70 /min University [facility] 18:13:00 [facility] Body temperature 2022-05-05 36.61 Sylvia University of 18:13:00 [facility] Respiratory rate 2022-05-05 18 /min [facility] 18:13:00 [facility] Body height 2022-05-05 177.8 cm University of 18:13:00 [facility] Body weight 2022-05-05 76.522 kg University of 18:13:00 [facility] BMI 2022-05-05 24.21 kg/m2 University of 18:13:00 [facility] Oxygen saturation 2022-05-05 96 /min [facility] in Arterial blood 18:13:00 [place] [facility] Systolic blood 2022-02-27 125 mm[Hg] [facility] pressure 14:12:00 [facility] Diastolic blood 2022-02-27 73 mm[Hg] University o f pressure 14:12:00 [facility] Heart rate 2022-02-27 64 /min [facility] 14:12:00 [facility] Body temperature 2022-02-27 36.28 Sylvia University [facility] 14:12:00 [facility] Respiratory rate 2022-02-27 18 /min [facility] 14:12:00 [facility] Body height 2022-02-27 177.8 cm University [facility] 14:12:00 [facility] Body weight 2022-02-27 75.297 kg University of 14:12:00 [facility] BMI 2022-02-27 23.82 kg/m2 University [facility] 14:12:00 [facility] Oxygen saturation 2022-02-27 98 /min [facility] in Arterial blood 14:12:00 [place] [facility] Systolic blood 2022-02-03 132 mm[Hg] [facility] pressure 19:23:00 [facility] Diastolic blood 2022-02-03 72 mm[Hg] University o f pressure 19:23:00 [facility] Heart rate 2022-02-03 65 /min [facility] 19:23:00 [facility] Body temperature 2022-02-03 36.33 Sylvia [facility] 19:23:00 [facility] Respiratory rate 2022-02-03 18 /min [facility] 19:23:00 [facility] Body height 2022-02-03 177.8 cm [facility] 19:23:00 [facility] Body weight 2022-02-03 72.576 kg University of 19:23:00 [facility] BMI 2022-02-03 22.96 kg/m2 University of 19:23:00 [facility] Oxygen saturation 2022-02-03 98 /min University of in Arterial blood 19:23:00 [facility] Alice christiano by Pulse oximetry Branch Systolic blood 2021-11-28 119 mm[Hg] University of pressure 13:48:00 [facility] Diastolic blood 2021-11-28 73 mm[Hg] University o f pressure 13:48:00 [facility] Heart rate 2021-11-28 77 /min University of 13:48:00 [facility] Body temperature 2021-11-28 37.11 Sylvia University of 13:48:00 [facility] Respiratory rate 2021-11-28 18 /min University of 13:48:00 [facility] Body height 2021-11-28 177.8 cm University of 13:48:00 [facility] Body weight 2021-11-28 75.297 kg University of 13:48:00 [facility] BMI 2021-11-28 23.82 kg/m2 University of 13:48:00 [facility] Oxygen saturation 2021-11-28 97 /min University of in Arterial blood 13:48:00 [facility] Alice christiano by Pulse oximetry Branch Systolic blood 2021-11-25 132 mm[Hg] University of pressure 18:31:00 [place] [facility] Diastolic blood 2021-11-25 74 mm[Hg] University o f pressure 18:31:00 [facility] Heart rate 2021-11-25 78 /min University of 18:31:00 [facility] Body temperature 2021-11-25 36.78 Sylvia University of 18:31:00 [facility] Respiratory rate 2021-11-25 18 /min University of 18:31:00 [facility] Body height 2021-11-25 177.8 cm University of 18:31:00 [facility] Body weight 2021-11-25 75.569 kg University of 18:31:00 [facility] BMI 2021-11-25 23.90 kg/m2 University of 18:31:00 [facility] Oxygen saturation 2021-11-25 97 /min [facility] in Arterial blood 18:31:00 [facility] by Pulse oximetry [place] Systolic blood 2021-09-25 109 mm[Hg] University of pressure 19:36:00 [facility] Diastolic blood 2021-09-25 68 mm[Hg] University o f pressure 19:36:00 [facility] Heart rate 2021-09-25 90 /min University 19:36:00 [facility] Body temperature 2021-09-25 36.5 Sylvia University of 19:36:00 [facility] Respiratory rate 2021-09-25 18 /min University 19:36:00 [facility] Body height 2021-09-25 177.8 cm [facility] 19:36:00 [facility] Body weight 2021-09-25 73.165 kg University 19:36:00 [facility] BMI 2021-09-25 23.14 kg/m2 University 19:36:00 [facility] Temperature Oral 2019-01-05 98.5 F [facility]mann (F) 13:10:00 Heart Rate 2019-01-05 [facility] 13:10:00 Respitory Rate 2019-01-05 [facility]olas 13:10:00 Systolic (mm Hg) 2019-01-05 [facility] rmann 13:10:00 Diastolic (mm Hg) 2019-01-05 [facility] ermann 13:10:00 Temperature Oral 2019-01-05 97.9 F [facility] rmann (F) 09:55:00 Heart Rate 2019-01-05 [facility] 09:55:00 Respitory Rate 2019-01-05 [facility] nicolas 09:55:00 Temperature Oral 2019-01-05 98 F [facility] rmann (F) 05:30:00 Heart Rate 2019-01-05 [facility] 05:30:00 Respitory Rate 2019-01-05 [facility] nicolas 05:30:00 Systolic (mm Hg) 2019-01-05 [facility] rmann 05:30:00 Diastolic (mm Hg) 2019-01-05 [facility] ermann 05:30:00 Systolic (mm Hg) 2019-01-05 [facility] rmann 01:35:00 Diastolic (mm Hg) 2019-01-05 [facility] ermann 01:35:00 Height 2019-01-04 179.07 cm [facility] 13:19:00 Weight 2019-01-04 [facility] 13:19:00 BMI Calculated 2019-01-04 [facility]olas 13:19:00 Heart Rate 2018-08-18 [facility] 16:59:00 Respitory Rate 2018-08-18 [facility] nicolas 16:59:00 Systolic (mm Hg) 2018-08-18 [facility] 16:59:00 Diastolic (mm Hg) 2018-08-18 [facility] ermann 16:59:00 Temperature Oral 2018-08-18 97.8 F [facility] (F) 16:59:00 Respitory Rate 2018-08-18 [facility] nicolas 13:07:00 Temperature Oral 2018-08-18 98 F [facility] Larry rmann (F) 13:07:00 Heart Rate 2018-08-18 Julian Mckeonan n 13:07:00 Systolic (mm Hg) 2018-08-18 [facility] 13:07:00 Diastolic (mm Hg) 2018-08-18 [facility] H ermann 13:07:00 Temperature Oral 2018-08-18 97.6 F [facility] Larry rmann (F) 09:25:00 Systolic (mm Hg) 2018-08-18 [facility] 09:25:00 Diastolic (mm Hg) 2018-08-18 [facility] ermann 09:25:00 Respitory Rate 2018-08-18 [facility] nicolas 09:25:00 Heart Rate 2018-08-18 Julian Mckeonan n 09:25:00 Height 2018-08-17 177.8 cm [facility] 13:40:00 Weight 2018-08-17 [facility] 13:40:00 BMI Calculated 2018-08-17 [facility] 13:40:00 Height 2018-07-20 70 [in_us] [facility] 10:50:00 Weight 2018-07-20 195 [lb_av] [facility] 10:50:00 Body Mass Index 2018-07-20 27.98 kg/m2 [facility] Calculated 10:50:00 BP Systolic 2017-05-27 135 mm[Hg] Location: LUE; [facility] 07:58:00 Position: Sitting BP Diastolic 2017-05-27 79 mm[Hg] Location: LUE; [facility] 07:58:00 Position: Sitting Height 2017-05-27 70 [in_us] [facility] 07:58:00 Weight 2017-05-27 193.4 [lb_av] [facility] 07:58:00 Body Mass Index 2017-05-27 27.75 kg/m2 [facility] Calculated 07:58:00 Temperature 2017-05-27 97.4 [degF] Method: Oral [facility] 07:58:00 Heart Rate 2017-05-27 64 /min [facility] 07:58:00 Respiration Rate 2017-05-27 14 /min [facility] 07:58:00 Procedures Procedure Date / Time Performing Clinician Source Performed REFERRAL- 2022-06-25 05:01:00 Doctor Unassigned, No [facility] REQUEST/RESPONSE Name Medical Branch US PELVIS LIMITED 2022-06-05 19:26:37 Obi-Yair Cloud [facility] Medical Branch REFERRAL- 2022-01-09 06:01:00 Doctor Unassigned, No [facility] REQUEST/RESPONSE Name Medical Branch AUTHORIZATION FOR 2021-10-16 05:01:00 Doctor Unassigned, No [facility] RELEASE OF PHI Name Medical Branch DIRECTIVE TO PHYSICIAN 2021-09-30 05:01:00 Doctor Unassigned, No [facility] Name Medical Branch [U] [facility] KNEE [facility] 2019-04-28 00:00:00 [facility] [id number] [U] X[facility] KNEE [facility] 2019-02-27 00:00:00 [facility] 79535 [U] XRAY KNEE [facility] 2019-02-23 00:00:00 [facility] 12219 [U] XRAY KNEE [facility] 2019-01-17 00:00:00 [facility] [id number] Post Op Promis 29 Survey 2019-01-11 00:00:00 [facility] MR Knee wo contrast 2018-12-14 00:00:00 [facility] 05379 Post Op Promis 29 Survey 2018-09-22 00:00:00 [facility] [U] XRAY KNEE 3 [facility] LEFT 2018-08-30 00:00:00 [facility] 86049 [U] XRAY KNEE [facility] LEFT 2018-08-26 00:00:00 [facility] 12220 Total knee replacement 2018-08-17 05:00:00 Lynette Mayorga MR Knee wo contrast 2018-07-27 00:00:00 [facility] 50663 [U] XRAY KNEE 3 VWS LEFT 2018-07-19 00:00:00 [facility] 10560 MRI Spine thoracic w/wo 2017-05-27 00:00:00 [facility] contrast 77112 MRI Spine lumbar w/wo 2017-05-27 00:00:00 [facility] contrast 45248 Polypectomy 2011-02-22 00:00:00 [facility] Her villarreal Hernia repair 1972-02-23 00:00:00 [facility] Arthroscopy of knee [facility] Her villarreal History of Tonsillectomy [facility] History of Ventral [facility] hernia repair History of Sinus surgery [facility] Plan of Care Planned Activity Planned Date Details Comments Source Diagnostic Test Pending 2019-02-24 00:00:00 [U] XRAY KNEE 3 VWS [facility] RIGHT 08307 [code = 29906] Diagnostic Test Pending 2018-12-14 00:00:00 MR Knee wo contrast [facility] 78658 [code = 65478] Encounters Start End Encounter Admission Attending Care Care Encounter Source Date/Time Date/Time Type Type Clinicians Facility Department ID 2021-08-27 Inpatient R LICK, [facility] [id number] Univers 06:38:00 ity [facility] 2021-08-11 Inpatient R LICK, [facility] [id number] Univers 10:09:18 ity [facility] 2021-07-25 Inpatient R LICK, [facility] [id number] Univers 14:15:29 ity [facility] 2021 Inpatient R LICK, [facility] [id number] Univers 09:33:35 ity [facility] 2021-06-02 Inpatient LICK, [facility] [id number] Univers 17:18:11 ity [facility] 2022-06-25 2022-06-25 Orders Doctor MAN 1.2.840.114 [id number] Univers 00:00:00 00:00:00 Only Unassigned, JACE 350.1.13.10 ity of [place] [facility] 4.2.7.2.686 [place] [id number] [address] 2022-06-05 2022-06-05 Outpatient R RADIOLOGY [facility] [id number] Univers 13:09:34 23:59:00 ity of [facility] 2022-06-05 2022-06-05 Hospital Radiology UNIVERSIT 1.2.840.114 [id number] Univers 13:09:34 23:59:00 Encounter Y HEALTH 350.1.13.10 it[place] of [place] [id number] [facility] [address] [place] 2022-05-11 2022-05-11 Telephone Candie Cannon UNIVERSIT 1.2.840.11 [id number] Univers 00:00:00 00:00:00 Y HEALTH 350.1.13.10 i ty [place] [id number] [facility] [address] [place] 2022-05-05 2022-05-05 Office Candie Cannon UNIVERSIT 1.2.840.114 [id number] Univers 13:30:00 14:00:00 Visit Darcy Mike Y HEALTH 350.1.13.10 ity of [place] [id number] [place] 852509 [place] 2022-05-05 2022-05-05 Outpatient R RASHID [facility] [id number] Univers 13:30:00 13:30:00 MAY ity of [facility] 2022-04-28 2022-04-28 Outpatient R JEFF CABEZAS [facility] [id number] Univers 10:00:00 10:00:00 [facility]22-[facility]-27 2022-02-27 Office Fellow, Pulmonary UNIVERSIT 1.2.84 0.114 [id number] Univers 08:00:00 08:30:00 Visit Carosn Hutson P Y HEALTH 350.1.13.10 ity of [place] [id number] [place] 852504 [place] 2022-02-27 2022-02-27 Outpatient R CARSON HUTSON [facility] [id number] Univers 08:00:00 08:00:00 CARSON HUTSON i ty [facility] 2022-02-18 2022-02-18 Refill Brandi, [facility] 1.2.814.503 [id number] Univers 00:00:00 00:00:00 [facility] 350.1.13.10 ity of [facility] [place] [id number] [address] 2022-02-18 2022-02-[address] [facility] 1.2.067.856 [id number] Univers 00:00:00 00:00:00 [facility] HEALTH 350.1.13.10 ity of [facility] [place] [id number] [address] 2022-02-06 2022-02-06 Patient Candie Cannon UNIVERSIT 1.2.840.114 [id number] Univers 00:00:00 00:00:00 [facility] 350.1.13.10 ity [place] [id number] [address] 2022-02-03 2022-02-03 Office Candie Cannon UNIVERS 1.2.840.114 [id number] Univers 13:30:00 14:00:00 Visit Uriel Raygoza [facility] 350.1.13.10 ity of [place] [id number] [address] 2022-02-03 2022-02-03 Outpatient Tong RAYGOZA [facility] [id number] Univers 13:30:00 13:30:00 URIEL corona [facility] 2022-01-13 2022-01-13 Harvest Manager Carie, [facility] 1.2.8 40.114 [id number] Univers 10:30:00 10:45:00 Visit Tom Smalls 350.1.13.10 ity of [facility] [place] [phone] [address] 2022-01-13 2022-01-13 Outpatient Tong SMALLS [facility] [id number] Univers 10:30:00 10:30:00 TOM ity of [facility] 2022-01-12 2022-01-12 Hospital OSCAR Smalls 1.2.840.114 [id number] Univers 08:26:00 23:59:00 Encounter Tom Hooker 350.1.13.10 ity of BUILDING 4.2.7.2.686 [place] [id number] [place] [address] Branch 2022-01-12 2022-01-12 [facility] [id number] Univers 00:00:00 23:59:00 TOM ity [facility] 2022-01-09 2022-01-09 Orders Doctor MAGDA 1.2.840.114 [id number] Univers 00:00:00 00:00:00 Only Unassigned, JACE 350.1.13.10 ity of [place] [facility] 4.2.7.2.686 [place] [id number] [place] [address] Branch 2021-12-31 2021-12-31 Refill SAM PazIT 1.2.849.771 [id number] Univers 00:00:00 00:00:00 Liang Y HEALTH 350.1.13.10 ity of [place] [id number] [place] 852504 [place] 2021-12-16 2021-12-16 Patient Brandi [facility] 1.2.840.114 [id number] Univers 00:00:00 00:00:00 [facility] 350.1.13.10 ity of [place] [id number] [place] [address] Branch OFFICE BUILDING 2021-12-11 2021-12-11 Patient Rashid UNIVERSIT 1.2.840.114 [id number] Univers 00:00:00 00:00:00 Secure Msg Darcy Y HEALTH 350.1.13.10 ity of CL[place] [id number] [place] 852509 [place] 2021-12-05 2021-12-05 Telephone SAM PazIT 1.2.840.114 [id number] Univers 00:00:00 00:00:00 [facility] HEALTH 350.1.13.10 ity of [place] [id number] [place] 852504 [place] 2021-12-02 2021-12-02 Outpatient R JEFF CABEZAS [facility] [id number] Univers 10:24:35 23:59:00 JEFF CABEZAS ity [facility] 2021-12-02 2021-12-02 [facility] Jocelynn, UNIVERSIT 1.2.840.114 [id number] Univers 10:24:35 23:59:00 Encounter [facility] HEALTH 350.1.13.10 ity of CL[place] [id number] [facility] [address] [place] 2021-11-28 2021-11-28 Office Fellow, Pulmonary UNIVERSIT 1.2.84 0.114 [id number] Univers 09:00:00 09:00:00 Visit Carson Hutson HEALTH 350.1.13.10 ity of [place] [id number] [place] 852504 [place] 2021-11-28 2021-11-28 Outpatient R CARSON HUTSON [facility] [id number] Univers 09:00:00 08:52:41 CARSON HUTSON i ty [facility] 2021-11-25 2021-11-25 Office Candie Cannon UNIVERSIT 1.2.840.114 [id number] Univers 13:30:00 14:00:00 Visit Caio Amado [facility] 350.1.13.10 ity of CL[place] [id number] [facility] [address] [place] 2021-11-25 2021-11-25 Outpatient R [facility] [id number] Univers 13:30:00 13:30:00 ity of [facility] 2021-11-25 2021-11-25 [facility] [id number] Univers 13:30:00 13:30:00 [facility] 2021-10-16 2021-10-16 Orders Doctor MAGDA 1.2.840.114 [id number] Univers 00:00:00 00:00:00 Only Unassigned, JACE 350.1.13.10 ity of [place] [facility] 4.2.7.2.686 [place] [phone] [facility] [address] [place] 2021-10-07 2021-10-07 Telephone MAGDA [place] 1.2.840.114 [id number] Univers 00:00:00 00:00:00 Tamela JACE 350.1.13.10 it y of [facility] [place].2.[place] [id number] [facility] 037 Branch 2021-09-30 2021-09-30 Orders Doctor MAGDA 1.2.840.114 [id number] Univers 00:00:00 00:00:00 Only Unassigned, JACE 350.1.13.10 ity of [place] [facility] 4.2.7.2.686 [place] [phone] [facility] [address] [place] 2021-09-25 2021-09-25 Outpatient R BUDDY HAYWARD [facility] [id number] Univers 14:45:00 15:01:03 ity of [facility] 2021-09-25 2021-09-25 Office Buddy Hayward 1.2.840.114 [id number] Univers 14:45:00 15:01:03 Visit Y HEALTH 350.1.13.10 i ty of [place] [id number] [facility] 185 Branch 2021-09-25 2021-09-25 Outpatient R BUDDY HAYWARD [facility] [id number] Univers 14:45:00 15:01:03 ity of [facility] 2021-09-17 2021-09-17 Transition JOE Scott 1.2.840.114 [id number] Univers 00:00:00 00:00:00 of Care Ashleyangela YAO 350.1.13.10 i ty of [place] [id number] [facility] [address] Branch 2021-09-05 2021-09-16 Inpatient X BUDDY HAYWARD [facility] [place] [id number] Univers 21:52:00 17:15:00 ity of [facility] 2021-09-05 2021-09-16 [facility] Yoel Law 1.2.8 40.114 [id number] Univers 21:52:00 17:15:00 Encounter Buddy Hayward 350.1.13.10 ity of [facility] 4.2.7.2.686 [place] [id number] [facility] [address] [place] 2021-09-05 2021-09-16 Inpatient X BUDDY HAYWARD [facility] [place] [id number] Univers 21:52:00 17:15:00 ity of [facility] 2021-09-12 2021-09-12 Travel 1.2.840.1 1.2.060.912 [id number] Univers 00:00:00 00:00:00 65259.1.1 350.1.13.10 ity of 3.104.2.7 4.[place].3.698 [place] .3.563885 084.8 Medica l .8 [place] 2021-09-05 2021-09-05 Inpatient X BUDDY HAYWARD [facility] [place] [id number] Univers 21:52:00 21:52:00 ity of [facility] 2021-09-05 2021-09-05 Travel 1.2.840.1 1.2.752.230 [id number] Univers 00:00:00 00:00:00 39310.1.1 350.1.13.10 ity of 3.104.2.7 4.2.7.3.698 [place] .3.136948 084.8 Medica l .8 Branch 2021-09-04 2021-09-04 Transition JOE Barajas 1.2.840.114 [id number] Univers 00:00:00 00:00:00 of Care Rose YAO 350.1.13.10 it y of [place].2.[place] [id number] [facility] 403 Branch 2021-09-04 2021-09-04 Transition Karl, 1.2.840.4 [id number] Univers 00:00:00 00:00:00 of Care Rose B 36302.1.1 ity of 3.104.2.7 [place] .3.871904 Medica l .8 Branch 2021-08-27 2021-09-03 Inpatient R BUDDY HAYWARD [facility] [id number] Univers 06:38:00 18:25:00 ity of [facility] 2021-08-27 2021-09-03 Hospital Almaz Buddy SOLANO 1.2.840.114 [id number] Univers 06:38:00 18:25:00 Encounter JACE 350.1.13.10 ity of HOSPITAL 4.2.7.2.686 [place] [id number] [facility] [address] [place] 2021-08-27 2021-09-03 [facility] Almaz Buddy 1.2.840.9 [id number] Univers 06:38:00 18:25:00 Encounter 44754.1.1 it y of 3.104.2.7 [place] .3.945046 Medica l .8 [place] 2021-08-27 2021-09-03 Inpatient R BUDDY HAYWARD [facility] [id number] Univers 06:38:00 18:25:00 ity of [facility] 2021-09-03 2021-09-03 Travel 1.2.840.1 1.2.731.663 [id number] Univers 00:00:00 00:00:00 83759.1.1 350.1.13.10 ity of 3.104.2.7 4.2.7.3.698 [place] .3.930910 084.8 Medica l .8 Branch 2021-08-27 2021-08-27 Anesthesia Caryl Lowe 1.2.840.1 [id number] Univers 09:16:00 16:15:00 Event Silvina Scott 29048.1.1 ity of 3.104.2.7 [place] .3.033420 Medica l .8 Branch 2021-08-27 2021-08-27 Surgery Romeallyssa Buddy SOLANO 1.2.840.114 [id number] Univers 08:00:00 15:00:00 JACE 350.1.13.10 it y of HOSPITAL 4.2.7.2.686 [place] [id number] [facility] 103 Branch 2021-08-27 2021-08-27 Surgery Buddy Hayward 1.2.840.9 [id number] Univers 08:00:00 15:00:00 90814.1.1 ity of 3.104.2.7 [place] .3.244821 Medica l .8 Branch 2021-08-27 2021-08-27 Orders Doctor MAGDA 1.2.840.114 [id number] Univers 00:00:00 00:00:00 Only Unassigned, JACE 350.1.13.10 ity of [place] HOSPITAL 4.2.7.2.686 [place] [id number] [facility] 009 Branch 2021-08-27 2021-08-27 Orders Doctor 1.2.840.5 [id number] [facility] Univers 00:00:00 00:00:00 Only Unassigned, 71625.1.1 ity of [place] 3.104.2.7 [place] .3.489797 Medica l .8 Branch 2021-08-20 2021-08-20 Travel 1.2.840.1 1.2.571.828 [id number] Univers 00:00:00 00:00:00 76298.1.1 350.1.13.10 ity of 3.104.2.7 4.2.7.3.698 [place] .3.935560 084.8 Medica l .8 Branch 2021-08-19 2021-08-19 Office Candie Cannon UNIVERSIT 1.2.840.114 [id number] Univers 14:00:00 14:30:00 Visit Jeff Cabezas [facility] 350.1.13.10 ity of CLIN[place] 4[place] [id number] [facility] 089 Branch 2021-08-19 2021-08-19 Outpatient R JEFF CABEZAS [facility] [id number] Univers 14:00:00 14:00:00 JEFF CABEZAS ity [facility] 2021-08-19 2021-08-19 Outpatient R JEFF CABEZAS [facility] [id number] Univers 14:00:00 14:00:00 JEFF CABEZAS [facility] 2021-08-19 2021-08-19 Candie Lopez UNIVERSIT 1.2.840.114 [id number] Univers 00:00:00 00:00:00 (Out) Y HEALTH 350.1.13.10 i ty of [facility] 4.2.7.2.[place] [id number] [facility] christiano [address] [place] 2021-08-19 2021-08-19 Candie Lopez 1.2.840.4 [id number] Univers 00:00:00 00:00:00 (Out) 68291.1.1 ity of 3.104.2.7 [place] .3.228656 Medica l .8 [place] 2021-08-17 2021-08-17 Travel 1.2.840.1 1.2.620.270 [id number] Univers 00:00:00 00:00:00 21066.1.1 350.1.13.10 ity of 3.104.2.7 4.2.7.3.698 [place] .3.125433 084.8 Medica l .8 [place] 2021-08-13 2021-08-13 Office [place], UNIVERSIT 1.2.352.556 [id number] Univers 10:00:00 12:53:55 Visit Donte Y 350.1.13.10 i ty of [facility] 4.2.7.2.686 [place] BANK [id number] [facility] christiano BLDG. 136 Branch 2021-08-13 2021-08-13 Outpatient R [place] [facility] [id number] Univers 10:00:00 12:53:55 DONTE ity o f [facility] 2021-08-13 2021-08-13 Office [place], 1.2.840.8 [id number] Univers 10:00:00 12:53:55 Visit Donte 29329.1.1 ity of 3.104.2.7 [place] .3.567406 Medica l .8 Branch 2021-08-13 2021-08-13 Outpatient Tong GOLDEN, [facility] [id number] Univers 10:00:00 10:00:00 DONTE itdesean o f [facility] 2021-08-13 2021-08-13 Travel 1.2.840.1 1.2.171.961 [id number] Univers 00:00:00 00:00:00 34522.1.1 350.1.13.10 ity of 3.104.2.7 4.2.7.3.698 [place] .3.883704 084.8 Medica l .8 [place] 2021-08-12 2021-08-12 Telephone [facility] 1.2.840.114 [id number] Univers 00:00:00 00:00:00 [facility] 350.1.13.10 i ty of CLINICS 4[place] [id number] [facility] [address] 2021-08-12 2021-08-12 Telephone [place], 1.2.840.1 [id number] Univers 00:00:00 00:00:00 Adrian 88527.1.1 ity of 3.104.2.7 [place] .3.092115 Medica l .8 [place] 2021-08-11 2021-08-11 Travel 1.2.840.1 1.2.819.792 [id number] Univers 00:00:00 00:00:00 81322.1.1 350.1.13.10 ity of 3.104.2.7 4.2.7.3.698 [place] .3.457098 084.8 Medica l .8 Branch 2021-08-05 2021-08-05 Travel 1.2.840.1 1.2.723.613 [id number] Univers 00:00:00 00:00:00 85915.1.1 350.1.13.10 ity of 3.104.2.7 4.[place]7.3.698 [place] .3.687317 084.8 Medica l .8 Branch 2021-07-27 2021-07-27 Anesthesia Shabot, 1.2.840.9 [id number] Univers 23:59:59 23:59:59 Event Olga 96466.1.1 ity of 3.104.2.7 [place] .3.763907 Medica l .8 Branch 2021-07-25 2021-07-25 Case MAGDA Love 1.2.840.114 [id number] Univers 00:00:00 00:00:00 Management Sandy MCCORMICK 350.1.13.10 ity of HOSPITAL 4.2.7.2.686 [place] as [phone] [facility] 037 Branch 2021-07-25 2021-07-25 Patient Douglas, 1.2.840.1 [id number] Univers 00:00:00 00:00:00 Secure Msg Sandy Chen 17729.1.1 ity of 3.104.2.7 [place] .3.670177 Medica l .8 Branch 2021-07-25 2021-07-25 Case Douglsa, 1.2.840.6 [id number] Univers 00:00:00 00:00:00 Management Sandy Chen 08809.1.1 ity of 3.104.2.7 [place] .3.628370 Medica l .8 Branch 2021-07-23 2021-07-23 Office Adrian Cartwright [facility] 1.2.840.1 14 [id number] Univers 09:30:00 10:30:00 Visit Sanjuana Olmstead [facility] 350.1.13.10 ity of [place] 4[place] [id number] [facility] [facility] 089 Branch 2021-07-23 2021-07-23 Office Sanjuana Olmstead 1.2.840.8 [id number] Univers 09:30:00 10:30:00 Visit Adrian Cartwright 06043.1.1 ity of 3.104.2.7 [place] .3.384811 Medica l .8 Branch 2021-07-23 2021-07-23 Outpatient R TANABE, [facility] [id number] Univers 09:30:00 09:30:00 SANJUANA corona [facility] 2021-07-23 2021-07-23 Outpatient Tong OLMSTEAD [facility] [id number] Univers 09:30:00 09:30:00 SANJUANA corona [facility] 2021-07-23 2021-07-23 Outpatient Tong OLMSTEAD [facility] [id number] Univers 09:30:00 09:30:00 SANJUANA corona [facility] 2021-07-23 2021-07-[address] [facility] 1.2.840.114 [id number] Univers 00:00:00 00:00:00 (Out) Adrian Y HEALTH 350.1.13.10 i ty of [place] [id number] 852509 [place] 2021-07-23 2021-07-23 Letter Chay, 1.2.840.7 [id number] Univers 00:00:00 00:00:00 (Out) Adrian 09808.1.1 ity of 3.104.2.7 [place] .3.055906 Medica l .8 [place] 2021-07-22 2021-07-22 Tony Camacho UNIVERSIT 1.2.840.114 [id number] Univers 00:00:00 00:00:00 Y HEALTH 350.1.13.10 i ty of [place] [id number] [place] 852504 [place] 2021-07-22 2021-07-22 Tony Camacho 1.2.840.3 [id number] Univers 00:00:00 00:00:00 99229.1.1 ity of 3.104.2.7 [place] .3.180355 Medica l .8 [place] 2021-07-22 2021-07-22 Travel 1.2.840.1 1.2.734.337 [id number] [id number] Univers 00:00:00 00:00:00 00092.1.1 350.1.13.10 ity of 3.104.2.7 4.2.7.3.698 [place] .3.295743 084.8 Medica l .8 Branch 2021-07-17 2021-07-17 Patient Dada, SAMIT 1.2.269.731 [id number] [id number] Univers 00:00:00 00:00:00 Secure g Samantha [facility] 350.1.13.10 ity of CL[place]ICS 4.[place] [id number] [facility] 084 Branch 2021-07-17 2021-07-17 Case MAGDA Love 1.2.840.114 [id number] Univers 00:00:00 00:00:00 Management Sandy Gustavo MCCORMICK 350.1.13.10 ity of HOSPITAL 4.2.7.2.686 [place] [id number] [facility] 037 Branch 2021-07-17 2021-07-17 Patient Dada, 1.2.840.7 [id number] Univers 00:00:00 00:00:00 Secure Msg Singh 57248.1.1 i ty of 3.104.2.7 [place] .3.240223 Medica l .8 Branch 2021-07-17 2021-07-17 Case Douglas, 1.2.840.8 [id number] Univers 00:00:00 00:00:00 Management Sandy Gustavo 34322.1.1 ity of 3.104.2.7 [place] .3.386600 Medica l .8 Branch 2021-07-16 2021-07-16 Case MAGDA Perez 1.2.840.114 [id number] Univers 00:00:00 00:00:00 Management Alfredo JACE 350.1.13.10 ity of HOSPITAL 4.2.7.2.686 [place] [id number] [facility] 048 Branch 2021-07-16 2021-07-16 Case Ana 1.2.840.7 [id number] Univers 00:00:00 00:00:00 Management Lisanh 94527.1.1 i ty of 3.104.2.7 [place] .3.173375 Medica l .8 Branch 2021-07-15 2021-07-15 Patient [place], 1.2.840.4 [id number] 959 Univers 00:00:00 00:00:00 Secure Msg Sandy Chen 85397.1.1 ity of 3.104.2.7 [place] .3.673040 Medica l .8 [place] 2021-07-11 2021-07-11 Outpatient R [facility] [id number] Univers 14:14:08 23:59:00 LISSETH ity [facility] 2021-07-11 2021-07-11 [facility], UNIVERSIT 1.2.840.114 [id number] Univers 13:30:00 23:59:00 Encounter Lisseth HEALTH 350.1.13.10 ity of [place] [id number] [facility] 807 [place] 2021-07-11 2021-07-11 [facility], 1.2.840.5 [id number] Univers 13:30:00 23:59:00 Encounter Lisseth 52314.1.1 it y of 3.104.2.7 [place] .3.013474 Medica l .8 [place] 2021-07-11 2021-07-11 Outpatient R [facility] [id number] Univers 09:48:56 13:29:00 SANDY corona [facility] 2021-07-11 2021-07-11 Outpatient R [facility] [id number] Univers 09:48:56 13:29:00 SANDY itdesean [facility] 2021-07-11 2021-07-11 [facility], UNIVERSIT 1.2.840.114 [id number] Univers 08:00:00 13:29:00 Encounter Sandy Chen HEALTH 350.1.13.10 ity of [place] 4.[place] [id number] [facility] 803 [place] 2021-07-11 2021-07-11 [facility], 1.2.840.5 [id number] Univers 08:00:00 13:29:00 Encounter Sandy Chen 05483.1.1 ity of 3.104.2.7 [place] .3.716949 Medica l .8 [place] 2021-07-11 2021-07-11 Travel 1.2.840.1 1.2.828.495 [id number] Univers 00:00:00 00:00:00 87164.1.1 350.1.13.10 ity of 3.104.2.7 4.2.7.3.698 [place] .3.500237 084.8 Medica l .8 [place] 2021-07-08 2021-07-08 Telemedici Zahida Cisneros 1.2.840.1 [id number] Univers 14:00:00 15:00:00 ne Visit 05377.1.1 ity of 3.104.2.7 [place] .3.681240 Medica l .8 [place] 2021-07-08 2021-07-08 Outpatient ZAHIDA YOUNG [facility] [id number] Univers 14:00:00 14:00:00 ity of [facility] 2021-07-08 2021-07-08 Outpatient ZAHIDA YOUNG [facility] [id number] Univers 14:00:00 14:00:00 ity of [facility] 2021-07-08 2021-07-08 Travel 1.2.840.1 1.2.845.750 [id number] Univers 00:00:00 00:00:00 42451.1.1 350.1.13.10 ity of 3.104.2.7 4.2.7.3.698 [place] .3.855620 084.8 Medica l .8 [place] 2021-07-03 2021-07-03 MAGDA Tsang 1.2.840.114 [id number] Univers 00:00:00 00:00:00 Management Sandy MCCORMICK 350.1.13.10 ity of [facility] 4.2.7.2.686 [place] [id number] [address] 2021-07-03 2021-07-03 Pedro Love 1.2.840.5 [id number] Univers 00:00:00 00:00:00 Management Sandy Gustavo 95385.1.1 ity of 3.104.2.7 [place] .3.984747 Medica l .8 Branch 2021-07-02 2021-07-02 Outpatient R [facility]ADELYN [facility] [id number] Univers 06:49:00 12:02:00 DERICK ity of [facility] 2021-07-02 2021-07-02 [facility] RUSS Joshi 1.2.840.114 [id number] Univers 06:49:00 12:02:00 Encounter Derick JACE 350.1.13.[address] [facility] 4.2.7.2.686 [place] [id number] [facility] 840 [place] 2021-07-02 2021-07-02 [facility], 1.2.840.2 [id number] Univers 06:49:00 12:02:00 Encounter Derick 12700.1.[address] [facility] 3.104.2.7 [place] .3.834226 Medica l .8 Branch 2021-07-02 2021-07-02 Surgery RUSS Joshi 1.2.840.114 [id number] Univers 09:00:00 10:00:00 Derick JACE 350.1.13.[address] [facility] 4.2.7.2.686 [place] [id number] [facility] 840 [place] 2021-07-02 2021-07-02 Surgery [facility] 1.2.840.8 [id number] 905 Univers 09:00:00 10:00:[address] [facility] 3.104.2.7 [place] .3.528951 Medica l .8 Branch 2021-07-02 2021-07-02 Orders Doctor MAGDA 1.2.840.114 [id number] Univers 00:00:00 00:00:00 Only Unassigned, JACE 350.1.13.10 ity of [place] [facility] 4.2.7.2.686 [place] as 136.7607493 [facility] 009 Branch 2021-07-02 2021-07-02 Orders Doctor 1.2.840.4 [id number] Univers 00:00:00 00:00:00 Only Unassigned, 44671.1.1 ity of [place] 3.104.2.7 [place] .3.870468 Medica l .8 Branch 2021-07-02 2021-07-02 Travel 1.2.840.1 1.2.892.658 [id number] [id number] Univers 00:00:00 00:00:00 29408.1.1 350.1.13.10 ity of 3.104.2.7 4.2.7.3.698 [place] .3.663911 084.8 Medica l .8 Branch 2021-06-30 2021-06-30 Multidisci OSCAR Jones 1.2.840.114 [id number] Univers 00:00:00 00:00:00 plinary Omar H 350.1.13.10 it y of Conference BUILDING 4.2.7.2.686 [place] [id number] [facility] 080 Branch 2021-06-30 2021-06-30 Multidisci Rischadiane, 1.2.840.3 [id number] Univers 00:00:00 00:00:00 plalban Nelson 13241.1.1 ity of Conference 3.104.2.7 [place] .3.372954 Medica l .8 Branch 2021-06-30 2021-06-30 Patient Parish, 1.2.840.4 [id number] Univers 00:00:00 00:00:00 Secure Msg Sandy Chen 09953.1.1 ity of 3.104.2.7 [place] .3.640200 Medica l .8 Branch 2021-06-27 2021-06-27 Outpatient R [facility] [id number] Univers 11:00:00 11:00:00 ity of [facility] 2021-06-25 2021-06-25 Harvest Manager Derick Joshi 1.2.840.0 [id number] Univers 10:15:00 11:14:[address] [facility] 56599.1.1 ity of 3.104.2.7 [place] .3.981689 Medica l .8 [place] 2021-06-25 2021-06-[address] [facility] UNIVERSIT 1.2.840.114 [id number] Univers 10:15:00 10:30:00 Visit RavinderstuartDerick [facility] 350.1.13 .10 ity of CL[place] [id number] [address] 2021-06-25 2021-06-25 Outpatient R MADELYN, [facility] [id number] Univers 10:15:00 10:15:00 DERICK ity of [facility] 2021-06-25 2021-06-25 Letter Madelyn UNIVERSIT 1.2.372.978 [id number] Univers 00:00:00 00:00:00 (Out) [facility] 350.1.13.[address] [facility] CL[place]ICS 4.2.[place] 138.5306096 [address] 2021-06-25 2021-06-25 Letter Madelyn UNIVERSIT 1.2.840.495 [id number] Univers 00:00:00 00:00:00 (Out) [facility] HEALTH 350.1.13.[address] [facility] CL[place]ICS 4.2.7.2.[place] [id number] [address] 2021-06-25 2021-06-25 Lakisha Joshi 1.2.840.9 [id number] 956 Univers 00:00:00 00:00:00 (Out) Derick 74128.1.1 ity of [place] 3.104.2.7 [place] .3.734646 Medica l .8 Branch 2021-06-25 2021-06-25 Lakisha Joshi 1.2.840.6 [id number] 865 Univers 00:00:00 00:00:00 (Out) Derick 15724.1.1 ity of [place] 3.104.2.7 [place] .3.483296 Medica l .8 Branch 2021-06-23 2021-06-23 Refill Dada, UNIVERSIT 1.2.873.759 [id number] Univers 00:00:00 00:00:00 Salik Y HEALTH 350.1.13.10 i ty of CL[place] 4.2.[place].2.[place] [id number] [place] [address] Branch 2021-06-23 2021-06-23 Refill Dada, 1.2.840.6 [id number] 913 Univers 00:00:00 00:00:00 Salik 11790.1.1 ity of 3.104.2.7 [place] .3.969334 Medica l .8 Branch 2021-06-22 2021-06-22 Anesthesia Charanjitshaiwilliam, 1.2.840.3 [id number] Univers 23:59:59 23:59:59 Event Olga 99281.1.1 ity of 3.104.2.7 [place] .3.711296 Medica l .8 [place] 2021-06-21 2021-06-21 Patient Brandi, UNIVERSIT 1.2.019.058 [id number] 0755 Univers 00:00:00 00:00:00 Secure Msg Liang Y HEALTH 350.1.13.10 ity of [facility] CL[place]ICS 4.2.[place].2.[place] 301.5243250 [address] 2021-06-21 2021-06-21 Patient Sima, UNIVERSIT 1.2.425.965 [id number] 2988 Univers 00:00:00 00:00:00 Secure Msg Caryl Y HEALTH 350.1.13.10 ity of [place] 4[place] [id number] [address] 2021-06-21 2021-06-21 Patient Sima, 1.2.840.8 [id number] 988 Univers 00:00:00 00:00:00 Secure Msg Caryl 55995.1.1 i ty of 3.104.2.7 [place] .3.737297 Medica l .8 [place] 2021-06-21 2021-06-21 Patient Brandi, 1.2.840.7 [id number] 755 Univers 00:00:00 00:00:00 Secure Msg Liang 18517.1.1 ity of [place] 3.104.2.7 [place] .3.698951 Medica l .8 [place] 2021-06-20 2021-06-20 Case MAGDA Perez 1.2.840.114 [id number] Univers 00:00:00 00:00:00 Management Alfredo MCCORMICK 350.1.13.10 ity of HOSPITAL 4.2.7.2.686 [place] [id number] [facility] 048 [place] 2021-06-20 2021-06-20 Orders Doctor MAGDA 1.2.840.114 [id number] Univers 00:00:00 00:00:00 Only Unassigned, JACE 350.1.13.10 ity of [place] [facility] 4.2.7.2.686 [place] [id number] [facility] 009 [place] 2021-06-20 2021-06-20 Orders Doctor 1.2.840.4 [id number] Univers 00:00:00 00:00:00 Only Unassigned, 49015.1.1 ity of [place] 3.104.2.7 [place] .3.346603 Medica l .8 [place] 2021-06-20 2021-06-20 Case Ana, 1.2.840.0 [id number] 691 Univers 00:00:00 00:00:00 Management Alfredo 72538.1.1 i ty of 3.104.2.7 [place] .3.978908 Medica l .8 [place] 2021-06-16 2021-06-16 Telephone MAGDA Love 1.2.157.701 [id number] [id number] Univers 00:00:00 00:00:00 Sandy MCCORMICK 350.1.13.10 ity of HOSPITAL 4.2.7.2.686 [place] [phone] [facility] 037 [place] 2021-06-16 2021-06-16 Telephone Shantal .2.840.6 [id number] Univers 00:00:00 00:00:00 Sandy Chen 06363.1.1 it y of 3.104.2.7 [place] .3.525117 Medica l .8 Branch 2021-06-11 2021-06-11 [facility], UNIVERSIT 1.2.840.114 [id number] Univers 08:30:34 23:59:00 Encounter [facility] Y HEALTH 350.1.13.10 ity of [place] 4.2.[place] [id number] [address] 2021-06-11 2021-06-11 Outpatient R [facility] [id number] Univers 08:30:18 23:59:00 [facility] o f [facility] 2021-06-11 2021-06-11 [facility] 1.2.840.114 [id number] Univers 08:30:18 23:59:00 Encounter [facility] HEALTH 350.1.13.10 ity of [place] CL[place] 4.2.[place].2.[place] [id number] [address] 2021-06-11 2021-06-11 Outpatient R [facility] [id number] Univers 00:00:00 00:00:00 [facility] f [facility] 2021-06-09 2021-06-09 Orders Doctor MAGDA 1.2.840.114 [id number] Univers 00:00:00 00:00:00 Only Unassigned, JACE 350.1.13.10 ity of [place] [facility] 4.2.7.2.686 [place] as [phone] [facility] 009 Branch 2021-06-03 2021-06-03 Telephone Health system 1.2.193.545 [id number] [id number] Univers 00:00:00 00:00:00 Derick HEALTH 350.1.13.10 it y of [place]2.[place].2.[place] [phone] [facility] [place] 059 Branch OFFICE BUILDING 2021-06-03 2021-06-03 Orders Doctor MAGDA 1.2.840.114 [id number] Univers 00:00:00 00:00:00 Only Unassigned, JACE 350.1.13.10 ity of [place] [facility] 4.2.7.2.686 [place] as [id number] [facility] 009 Branch 2021-06-02 2021-06-02 MAGDA Tsang 1.2.840.114 [id number] Univers 00:00:00 00:00:00 Management Sandy MCCORMICK 350.1.13.10 ity of HOSPITAL 4.2.7.2.686 [place] [phone] [facility] 037 Branch 2021-05-30 2021-05-30 Office Fellow, Pulmonary UNIVERSIT 1.2.84 0.114 [id number] Univers 10:00:00 10:30:00 Visit Liang Paz [facility] Y HEALTH 350.1. 13.10 ity of CL[place] 4.2.7.2.[place] [id number] [facility] 084 Branch 2021-05-30 2021-05-30 Outpatient R BRANDI [facility] [id number] Univers 10:00:00 10:00:00 [facility] narinderdesean o [facility] 2021-05-30 2021-05-30 Outpatient R BRANDI [facility] [id number] Univers 10:00:00 10:00:00 [facility] cj o [facility] 2021-05-30 2021-05-30 Outpatient R BRANDI [facility] [id number] Univers 10:00:00 10:00:00 [facility] corona o [facility] 2021-05-30 2021-05-30 Letter Fellow, UNIVERSIT 1.2.402.164 [id number] Univers 00:00:00 00:00:00 (Out) Pulmonary Y HEALTH 350.1.13.10 ity of CL[place] 4.2.[place].2.[place] 103.7522610 [facility] 084 Branch 2021-05-29 2021-05-29 Office Buddy Hayward UNIVERSIT 1.2.840.114 [id number] Univers 13:15:00 13:30:00 Visit Y HEALTH 350.1.13.10 i ty of CL[place] 4[place].2.[place] [id number] [facility] 185 Branch 2021-05-29 2021-05-29 Outpatient R BUDDY HAYWARD [facility] [id number] Univers 13:15:00 13:15:00 ity of [facility] 2021-05-28 2021-05-28 Patient Dada, UNIVERSIT 1.2.321.815 [id number] Univers 00:00:00 00:00:00 Secure Msg Saliallyssa Y HEALTH 350.1.13.10 ity of [place] 4[place] [id number] [address] 2021-05-28 2021-05-28 Patient Dada, UNIVERSIT 1.2.582.759 [id number] 7525 Univers 00:00:00 00:00:00 Secure Msg Samantha Y HEALTH 350.1.13.10 ity of [place] [id number] [address] 2021-05-27 2021-05-27 Out[facility] 10 [id number] Univers 11:14:00 17:45:00 ABDIAZIZ SWANSON i [facility] 2021-05-27 2021-05-27 Outpatient R KELSI SWANSONMNClarice [facility] 10 [id number] Univers 11:14:00 17:45:00 ABDIAZIZ SWANSON i [facility] 2021-05-27 2021-05-27 [facility] RUSS Swanson 1.2.840.114 [id number] Univers 11:14:00 17:45:00 Encounter Abdiaziz MCCORMICK 350.1.13.10 ity [facility] 4.2.7.2.686 [place] [phone] [facility] 104 Branch 2021-05-27 2021-05-27 Surgery RUSS Swanson 1.2.840.114 [id number] Univers 13:32:00 15:21:00 Shiwan JACE 350.1.13.10 it y of [facility] 4.2.7.2.686 [place] 669.2102215 [facility] 103 Branch 2021-05-27 2021-05-27 Orders Doctor MAN 1.2.840.114 [id number] Univers 00:00:00 00:00:00 Only Unassigned, JACE 350.1.13.10 ity of [place] [facility] 4.2.7.2.686 [place] as [id number] [facility] 009 Branch 2021-05-23 2021-05-23 Outpatient R RADIOLOGY [facility] [id number] Univers 12:32:26 23:59:00 ity of [facility] 2021-05-23 2021-05-23 Outpatient R RADIOLOGY [facility] [id number] Univers 12:32:26 23:59:00 ity of [facility] 2021-05-23 2021-05-23 Hospital Radiology UNIVERSIT 1.2.840.114 [id number] Univers 12:32:26 23:59:00 Encounter Y HEALTH 350.1.13.10 ity of CL[place] 4[place] [id number] [facility] 800 Branch 2021-05-23 2021-05-23 Telephone [facility] 1.2.840.114 [id number] Univers 00:00:00 00:00:00 Eea HEALTH 350.1.13.10 it y of [place].2.[place] [phone] [facility] 059 Branch OFFICE BUILDING 2021-05-22 2021-05-22 Patient Brandi, UNIVERSIT 1.2.224.679 [id number] Univers 00:00:00 00:00:00 Secure Msg Liang Y HEALTH 350.1.13.10 ity of [place] CLINICS 4.2.7.2.[place] [id number] [facility] 084 Branch 2021-05-21 2021-05-21 Outpatient R [facility] [id number] Univers 09:40:28 23:59:00 EESHA ity of [facility] 2021-05-21 2021-05-21 [facility] 1.2.904.188 [id number] 7316 Univers 09:40:28 23:59:00 Encounter Eea HEALTH 350.1.13.10 ity of [place] [id number] [facility] [place] 842 Branch OFFICE BUILDING 2021-05-21 2021-05-21 [facility] 1.2.840.114 [id number] Univers 00:00:00 00:00:00 (Out) Eesha HEALTH 350.1.13.10 it y of [place].2.[place] [phone] [facility] [place] 842 Branch OFFICE BUILDING 2021-05-19 2021-05-19 Case MAGDA Garland 1.2.840.114 [id number] Univers 00:00:00 00:00:00 Management Samantha DOWELLY 350.1.13.10 ity of [facility] 4.2.7.2.686 [place] [id number] [facility] 048 Branch 2021-05-17 2021-05-[address] [facility] 1.2.109.517 [id number] [id number] Univers 00:00:00 00:00:00 Mohamed Y HEALTH 350.1.13.10 i ty of CLINICS 4.2.7.2.[place] [id number] [facility] 084 Branch 2021-05-15 2021-05-15 Out[facility] [id number] Univers 09:48:14 23:59:00 EESHA ity of [facility] 2021-05-15 2021-05-15 [facility] Anette [facility] 1.2.840.114 [id number] Univers 09:48:14 23:59:00 Encounter Eegianluca Esparza HEALTH 350.1.13.10 ity of [facility] 4.2.7.2.[place] [id number] [facility] 801 Branch 2021-05-14 2021-05-14 [facility] 1.2.840.114 [id number] Univers 00:00:00 00:00:00 Secure Msg Jerry GARCÍA 350.1.13.10 ity of [facility] 4.2.7.2.[place] [id number] [facility] 144 Branch 2021-05-13 2021-05-13 Patient Dada [facility] 1.2.840.114 [id number] Univers 00:00:00 00:00:00 Secure Msg Salik MULTISPEC 350.1.13.10 ity of [place].2.[place].2.[place] CENTER [id number] [address] DIABETES CLINIC 2021-05-13 2021-05-13 Patient Dada [facility] 1.2.840.114 [id number] Univers 00:00:00 00:00:00 Secure Msg Samantha MULTISPEC 350.1.13.10 ity of [place]2.7.2.[place] C[place] [id number] [address] DIABETES CLINIC 2021-05-13 2021-05-13 Patient Anette [facility] 1.2.840.114 [id number] Univers 00:00:00 00:00:00 Secure Msg Eesha HEALTH 350.1.13.10 ity of [place].2.[place] [id number] [place] [address] [place] OFFICE BUILDING 2021-05-12 2021-05-12 Outpatient R ALEKSANDR [facility] [id number] Univers 09:30:00 09:30:00 [facility] 2021-05-12 2021-05-12 [facility] [id number] Univers 09:30:00 09:30:00 [facility] 2021-05-08 2021-05-08 Harvest Manager Draw, [facility] [id number] Univers 10:15:00 10:30:00 Visit Gulshan Cheemacharanjit HEALTH 350.1.13.10 [place] [phone] [facility] [place] [address] OFFICE BUILDING 2021-05-08 2021-05-08 Outpatient R ANETTE [facility] [id number] Univers 09:00:00 09:39:43 EEA ity [facility] 2021-05-08 2021-05-08 Outpatient R ANETTE [facility] [id number] Univers 09:00:00 09:39:43 [facility] 2021-05-08 2021-05-08 Office Anette [facility] [id number] Univers 09:00:00 09:39:43 Visit [facility] HEALTH 350.1.13.10 it [place] [phone] [place] [id number] OFFICE BUILDING 2021-05-08 2021-05-08 [facility] [id number] Univers 09:00:00 09:39:43 EEA ity [facility] 2021-04-25 2021-04-25 Harvest Manager Testing, [facility] Pulmonary Func tion UNIVERSIT [id number] Univers 08:00:00 09:00:00 Visit DejahrubyLis parhamLiangxiomara Drewstephanie HEALTH 350.1. 13.10 it[place] [phone] [address] 2021-04-25 2021-04-25 Outpatient R BRANDI [facility] [id number] Univers 08:00:00 08:00:00 [facility] barcenasy o f [facility] 2021-04-25 2021-04-25 Orders Ana UNIVERSIT [id number] Univers 00:00:00 00:00:00 [facility] HEALTH 350.1.13.10 i ty [place] [phone] [address] 2021-04-21 2021-04-21 Outpatient R YINKA KISER [facility] [id number] Univers 14:30:00 14:30:00 YINKA KISER ity [facility] 2021-04-20 2021-04-20 Case Ana UNIVERSIT [id number] Univers 00:00:00 00:00:00 Management Mohanh Esparza HEALTH 350.1.13.10 [place] [phone] [address] 2021-04-18 2021-04-18 Office Fellow, Pulmonary UNIVERSIT 1.2.84 [id number] [id number] Univers 09:30:00 10:00:00 Visit Liang Paz [facility] Y HEALTH 350.1. 13.10 it[place] [id number] [facility] [address] 2021-04-18 2021-04-18 Outpatient R BRANDI [facility] [id number] Univers 09:30:00 09:30:00 [facility] moy [facility] 2021-04-18 2021-04-18 [facility] [id number] Univers 09:30:00 09:30:00 [facility] 2021-04-18 2021-04-18 [facility] [id number] Univers 09:30:00 09:30:00 [facility] 2021-04-16 2021-04-16 Patient Dada UNIVERSIT [id number] Univers 00:00:00 00:00:00 [facility] 350.1.13.10 [place] [phone] [address] 2021-04-14 2021-04-14 [facility] [id number] Univers 10:17:41 23:59:00 [facility] conde [facility] 2021-04-14 2021-04-14 [facility] [id number] Univers 10:17:41 23:59:00 [facility] it[facility] o [facility] 2021-04-14 2021-04-14 Hospital Brandi, UNIVERSIT 1.2.840.114 [id number] Univers 10:17:41 23:59:00 Encounter Liang Y HEALTH 350.1.13.10 ity of [place] [id number] [facility] [address] 2021-04-14 2021-04-14 Tony Yun UNIVERSIT 1.2.840.114 [id number] Univers 00:00:00 00:00:00 Management Y HEALTH 350.1.13.10 [place] [id number] [facility] [address] 2021-04-08 2021-04-08 Patient SAM PazIT 1.2.223.335 [id number] Univers 00:00:00 00:00:00 Secure Msg Liang Y HEALTH 350.1.13.10 it[place] [id number] [address] 2021-03-31 2021-03-31 [facility] [id number] Univers 13:35:21 23:59:00 [facility] o [facility] 2021-03-31 2021-03-31 Outpatient R DEJAHRUBYClariceUN[facility] [id number] Univers 13:35:21 23:59:00 [facility] itdesean o f [facility] 2021-03-31 2021-03-31 Hospital Brandi, UNIVERSIT 1.2.840.114 [id number] Univers 13:35:21 23:59:00 Encounter Liang Y HEALTH 350.1.13.10 it[place] [phone] [facility] [address] 2021-03-24 2021-03-24 Orders Doctor MAGDA 1.2.840.114 [id number] Univers 00:00:00 00:00:00 Only Unassigned, JACE 350.1.13.10 ity of [place] [facility] 4.2.7.2.686 [place] [id number] [facility] [address] 2021-03-21 2021-03-21 Telephone Tony Echavarria UNIVERSIT 1.2.840.11 [id number] Univers 00:00:00 00:00:00 Y HEALTH 350.1.13.10 i [id number] [place] [id number] [place] 2021-02-21 2021-02-21 Outpatient R [facility]HR[facility]ARD[facility] [id number] Univers 09:00:00 09:32:10 LISAMMED ity o f [facility] 2021-02-21 2021-02-21 Office Tony Echavarria [facility] 1.2.840.114 [id number] Univers 09:00:00 09:32:10 Visit Liang Paz Y HEALTH 350.1. 13.10 it[place] [phone] [facility] [address] 2021-02-07 2021-02-07 Orders Doctor MAGDA 1.2.840.114 [id number] Univers 00:00:00 00:00:00 Only Unassigned, JACE 350.1.13.10 ity of [place] [facility] 4.2.7.2.686 [place] [id number] [facility] [address] 2021-01-02 2021-01-02 Refill KAVON Hidalgo [facility] 1.2.840.114 [id number] [place] 00:00:00 00:00:00 Lupillo ORTHO AND 350.1.13.58 Health SPINE 9.2.7.2.686 MEDICAL [id number] [address] [address] 2020-12-10 2020-12-10 Office SAM Thomas 1.2.840.114 [id number] Univers 14:15:00 14:30:00 Visit Jerry Esparza 350.1.13.10 it y of NATIONAL 4.2.7.2.686 [place] BANK [phone] [facility] BLDG. [address] 2020-12-10 2020-12-10 Outpatient R MARTHA [facility] [id number] Univers 14:15:00 14:15:00 JERRY ity of [facility] 2020-12-10 2020-12-10 Outpatient [facility] [id number] Univers 14:15:00 14:15:00 JERRY ity [facility] 2020-12-10 2020-12-10 Office SAM Thomas 1.2.840.114 [id number] Univers 13:43:58 13:58:58 Visit Jerry Y 350.1.13.10 it y of NATIONAL 4.2.7.2.686 [place] BANK [id number] [facility] BLDG. [address] 2020-11-28 2020-11-[address] [facility] 1.2.541.909 [id number] Univers 00:00:00 00:00:00 [facility] HEALTH 350.1.13.10 i [place] [id number] [address] 2020-11-28 2020-11-[address] [facility] 1.2.840.114 [id number] Univers 00:00:00 00:00:00 [facility] 350.1.13.10 i [place] [id number] [address] 2020-11-28 2020-11-[address] [facility] 1.2.733.786 [id number] Univers 00:00:00 00:00:00 Secure Msg [facility] HEALTH 350.1.13.10 ity [place] [id number] [address] 2020-11-22 2020-11-22 Outpatient Tong PAZ [facility] [id number] Univers 00:00:00 00:00:00 [facility] 2020-11-22 2020-11-22 Outpatient Tong PAZ [facility] [id number] Univers 00:00:00 00:00:00 [facility] o [facility] 2020-11-22 2020-11-22 Outpatient Tong PAZ [facility] [id number] Univers 00:00:00 00:00:00 [facility] 2020-11-22 2020-11-22 Outpatient Tong PAZ [facility] [id number] Univers 00:00:00 00:00:00 [facility] o [facility] 2020-11-19 2020-11-19 Patient Doctor MAN 1.2.840.114 [id number] Univers 00:00:00 00:00:00 Secure Msg Unassigned, JACE 350.1.13.10 ity of [place] [facility] 4.2.7.2.686 [place] [id number] [facility] [address] 2020-11-18 2020-11-18 [facility] 1.2.401.674 [id number] Univers 00:00:00 00:00:00 Salik Y HEALTH 350.1.13.10 i ty [place] [id number] [facility] [address] 2020-11-18 2020-11-18 [facility] 1.2.479.725 [id number] Univers 00:00:00 00:00:00 Salik Y HEALTH 350.1.13.10 i ty [place] [id number] [facility] [address] 2020-11-15 2020-11-15 [facility] 1.2.840.114 [id number] Univers 10:55:45 23:59:00 Encounter Liang Y HEALTH 350.1.13.10 ity of [place] [id number] [facility] [address] 2020-11-15 2020-11-[address] [facility] UNIVERSIT 1.2.840.114 [id number] Univers 10:34:21 10:49:21 Visit Lis Pazammed [place] Y HEALTH 350.1. 13.10 ity of CL[place] [id number] [facility] [address] 2020-11-15 2020-11-15 Office Dada [facility] 1.2.840.114 [id number] Univers 08:56:17 09:56:17 Visit Liang Paz [place] Y HEALTH 350.1. 13.10 ity of [place] [id number] [facility] [address] 2020-11-15 2020-11-15 Outpatient R BRANDI [facility] [id number] Univers 09:30:00 09:30:00 LIANG conde f [facility] 2020-11-15 2020-11-15 Outpatient R BRANDI, [facility] [id number] Univers 09:30:00 09:30:00 LIANG moy [facility] 2020-05-01 2020-05-01 Appointmen CO19, [facility] [id number] [place] 10:30:00 10:30:00 t; CO19, NURSE-COOLE P hysici NURSE-COOL Y ans EY 2020-04-04 2020-04-04 Appointmen CO19, [facility] [id number] [place] 11:30:00 11:30:00 t; CO19, NURSE-COOLE P hysici NURSE-COOL Y ans EY 2019-08-04 2019-08-04 Alanis HIDALGO [facility] Orthopedics [id number] [place] 11:45:00 11:45:00 t; Paulie WESLEY [facility] Mukesh HIDALGO M.D. [facility] 2019-07-28 2019-07-28 Alanis HIDALGO [facility] [id number] [place] 11:45:00 11:45:00 t; Paulie WESLEY dre Adams M.D. 2019-04-28 2019-04-28 Alanis HIDALGO [facility] Orthopedics [id number] [place] 11:45:00 11:45:00 t; Paulie WESLEY Trauma Erasto Adams dre WESLEY M.D. [facility] 2019-02-27 2019-02-27 Alanis HIDALGO [facility] Orthopedics 61 [id number] [place] 12:45:00 12:45:00 t; Paulie WESLEY - [facility] dre HIDALGO M.D. 2019-01-17 2019-01-17 Alanis CARD [facility] Orthopedics [id number] [place] 09:00:00 09:00:00 t; ELMER CARD, Trauma P junior PAYNE [facility] ans P.ASania [facility] 2019-01-04 2019-01-05 [facility] [id number] [facility] 17:04:00 16:52:00 Outpatient r [place] 01 l Orthopedic [facility] nn and Spine [facility] 2019-01-04 2019-01-04 Outpatient [facility] [id number] 11:04:00 11:04:00 Orthop e dic and [facility]ine Hospita l 2019-01-04 2019-01-04 KAVON Peters [facility] [id number] [place] 10:00:00 10:00:00 t; Paulie WESLEY ans ERIC, M.D. 2018-12-09 2018-12-09 Alanis HIDALGO [facility] Orthopedics 57 [id number] [place] 11:15:00 11:15:00 t; Paulie WESLEY Trauma Erasto Sinha M.D. [facility] 2018-11-24 2018-11-25 [facility] [id number] Mem[place] 15:23:00 04:59:00 Services r Outpatient 00 l Imaging [facility] 2018-11-15 2018-11-15 Alanis HIDALGO [facility] Orthopedics [id number] [place] 13:00:00 13:00:00 t; [facility] SEWELL [facility] 2018-10-27 2018-10-27 KAVON Elkins [facility] [id number] [place] 13:00:00 13:00:00 t; ELMER CARD, Trauma P hysici ELMER, P[facility] P.ASania [facility] 2018-09-27 2018-09-27 Alanis HIDALGO [facility] Orthopedics 55 [id number] [place] 15:30:00 15:30:00 t; [facility] 2018-08-30 2018-08-30 KAVON Elkins [facility] [id number] [place] 09:45:00 09:45:00 t; ELMER CARD, Trauma P hysici ELMER, P.A. [facility] P.ASania [facility] 2018-08-17 2018-08-18 [facility] [id number] [place] 09:55:00 18:50:00 Outpatient [facility] 00 l Orthopedic [facility] nn [facility] 2018-08-17 2018-08-17 Alanis HIDALGO [facility] Orthopedics 54 [id number] [place] 10:00:00 10:00:00 t; [facility] 2018-08-17 2018-08-17 Outpatient [facility] [id number] 04:55:00 04:55:00 Orthop e dic and Spine Hospita l 2018-07-19 2018-07-19 Alanis HIDALGO [facility] Orthopedics 53 [id number] [place] 15:00:00 15:00:00 t; [facility] 2017-05-27 2017-05-27 KAVON Koroma [facility] 38 [id number] [place] 08:00:00 08:00:00 t; Paulie ZIEGLER dre Prasad M.D. Results Test Description Test Time Test Comments Results Result Sourc e Comments [U] XRAY KNEE 3 2019-08-04 [facility] VWS RIGHT [id number] 11:17:00 acquired, not reported on this accession number. [U] XRAY KNEE 3 2019-02-27 [facility] [place] [facility] VWS RIGHT [id number] 12:19:00 acquired, not reported on this accession number. Post Op Promis 29 Survey 2019-02-07 09:46:10 Test Item Value Reference Range Interpretation Comme nts Pain Interference: (test code = Pain Interference:) 61.4 1 N Pain Intensity: (test code = Pain Intensity:) 45.7 1 N Physical Function: (test code = Physical Function:) 34.1 1 N Satisfaction Role: (test code = Satisfaction Role:) 41.2 1 N [facility]BfxqzvbllbRTSFJNCWIS2927-90-91 16:48:00 Test Item Value Reference Range Interpretation Comments Segs (test code = Segs) 74.7 45.0-75.0 [facility] HospitalIaeuuehAQSACBSKCK6363-91-59 16:48:00 Test Item Value Reference Range Interpretation Comments Lymphocytes (test code = Lymphocytes) 19.4 20.0-40.0 [facility] HospitalMikdhgaPNLEHDZGJU1491-53-16 16:48:00 Test Item Value Reference Range Interpretation Comments Monocytes (test code = Monocytes) 5.8 2.0-12.0 [facility] HospitalSezfjfuAHDDAEVYTT0822-20-84 16:48:00 Test Item Value Reference Range Interpretation Comments Basophils (test code = 0.1 See_Comment [Aut omated message] The Basophils) system which ge nerated this result tra nsmitted reference range : <=1.0. The reference r paddy was not used to int erpret this result as normal/abnormal . [facility] HospitalCnimsbtVEHWNRUKPC5556-10-98 16:48:00 Test Item Value Reference Range Interpretation Comments Neutrophils # (test code = Neutrophils 3.5 1.5-8.1 #) [facility] HospitalGwzbkklHNMIDKOUNX5532-93-04 16:48:00 Test Item Value Reference Range Interpretation Comments Lymphocytes # (test code = Lymphocytes 0.9 1.0-5.5 #) [facility] HospitalOddivnbCJKZXQRNFB5540-84-70 16:48:00 Test Item Value Reference Range Interpretation Comments Monocytes # (test code 0.3 See_Comment [Aut omated message] The = Monocytes #) system which generated this result tra nsmitted reference range : <=0.8. The reference r paddy was not used to int erpret this result as normal/abnormal . [facility] HospitalRhopnyaCJGLVBEVAI6646-96-18 16:48:00 Test Item Value Reference Range Interpretation Comments WBC (test code = WBC) 4.7 3.7-10.4 [facility] HospitalGwcfilaVWNKCTHTMZ2657-48-42 16:48:00 Test Item Value Reference Range Interpretation Comments RBC (test code = RBC) 5.24 4.70-6.10 [facility] HospitalQywwxheCSCEMWOCAK3772-22-06 16:48:00 Test Item Value Reference Range Interpretation Comments Hgb (test code = Hgb) 15.1 14.0-18.0 [facility] HospitalZhsppepNYPWRURVWM8912-00-94 16:48:00 Test Item Value Reference Range Interpretation Comments Hct (test code = Hct) 46.0 42.0-54.0 [facility] HospitalJxvafeiFQJOMMYISY3711-93-32 16:48:00 Test Item Value Reference Range Interpretation Comments MCV (test code = MCV) 87.7 80.0-94.0 [facility] HospitalQnaycopEAMDXAMHTW0104-84-40 16:48:00 Test Item Value Reference Range Interpretation Comments MCH (test code = MCH) 28.8 pg 27.0-31.0 [facility] HospitalOhztqibEMWMRDCETW6039-99-20 16:48:00 Test Item Value Reference Range Interpretation Comments MCHC (test code = MCHC) 32.9 32.0-36.0 [facility] HospitalYhakuabDNYMHUAXBU5320-87-74 16:48:00 Test Item Value Reference Range Interpretation Comments RDW (test code = RDW) 16.2 11.5-14.5 [facility] HospitalDqscbadYPRKNXJNNV7581-09-35 16:48:00 Test Item Value Reference Range Interpretation Comments Platelet (test code = Platelet) 227 133-450 [facility] HospitalTyppcukYKVBXDKRZR3584-43-34 16:48:00 Test Item Value Reference Range Interpretation Comments MPV (test code = MPV) 9.7 7.4-10.4 [facility]2019-11-07 16:48:00 Test Item Value Reference Range Interpretation Comments Albumin Lvl (test code = Albumin Lvl) 3.9 3.5-5.0 [facility]2019-11-07 16:48:00 Test Item Value Reference Range Interpretation Comments Glucose Lvl (test code = Glucose Lvl) 101 70-99 [facility]2019-11-07 16:48:00 Test Item Value Reference Range Interpretation Comments BUN (test code = BUN) 12 7-22 [facility]2019-11-07 16:48:00 Test Item Value Reference Range Interpretation Comments Creatinine Lvl (test code = Creatinine 1.07 0.50-1.40 Lvl) [facility]2019-11-07 16:48:00 Test Item Value Reference Range Interpretation Comments Sodium Lvl (test code = Sodium Lvl) 141 135-145 [facility]2019-11-07 16:48:00 Test Item Value Reference Range Interpretation Comments Potassium Lvl (test code = Potassium 4.5 3.5-5.1 Lvl) [facility]2019-11-07 16:48:00 Test Item Value Reference Range Interpretation Comments Chloride Lvl (test code = Chloride Lvl) 105 95-109 [facility]2019-11-07 16:48:00 Test Item Value Reference Range Interpretation Comments CO2 (test code = CO2) 28 24-32 [facility]2019-11-07 16:48:00 Test Item Value Reference Range Interpretation Comments Calcium Lvl (test code = Calcium Lvl) 9.5 8.5-10.5 [facility]2019-11-07 16:48:00 Test Item Value Reference Range Interpretation Comments eGFR (test code = eGFR) 73 [facility]2019-11-07 16:48:00 Test Item Value Reference Range Interpretation Comments AGAP (test code = AGAP) 12.5 10.0-20.0 [facility] HospitalVfjhexrOESPILYQUD3478-14-58 16:48:00 Test Item Value Reference Range Interpretation Comments Segs (test code = Segs) 74.7 45.0-75.0 [facility] HospitalLsmrxjjQJDLDNSCFU0701-05-86 16:48:00 Test Item Value Reference Range Interpretation Comments Lymphocytes (test code = Lymphocytes) 19.4 20.0-40.0 [facility] HospitalDjppjwcICFQJNYCFG7251-61-17 16:48:00 Test Item Value Reference Range Interpretation Comments Monocytes (test code = Monocytes) 5.8 2.0-12.0 [facility] HospitalFdmtjojQYEXTDRQPB2827-42-11 16:48:00 Test Item Value Reference Range Interpretation Comments Basophils (test code = 0.1 See_Comment [Aut omated message] The Basophils) system which ge nerated this result tra nsmitted reference range : <=1.0. The reference r paddy was not used to int erpret this result as normal/abnormal . [facility] HospitalEwqfuioLVZLXOMDYZ0537-91-01 16:48:00 Test Item Value Reference Range Interpretation Comments Neutrophils # (test code = Neutrophils 3.5 1.5-8.1 #) [facility] HospitalXocnbukGUCQHNWZKR2865-36-18 16:48:00 Test Item Value Reference Range Interpretation Comments Lymphocytes # (test code = Lymphocytes 0.9 1.0-5.5 #) [facility] HospitalCijstolLTAVSGAKNF5969-39-82 16:48:00 Test Item Value Reference Range Interpretation Comments Monocytes # (test code 0.3 See_Comment [Aut omated message] The = Monocytes #) system which generated this result tra nsmitted reference range : <=0.8. The reference r paddy was not used to int erpret this result as normal/abnormal . [address]11-07 16:48:00 Test Item Value Reference Range Interpretation Comments WBC (test code = WBC) 4.7 3.7-10.4 [facility] HospitalWzsvntkRSSETTOLAF1167-08-58 16:48:00 Test Item Value Reference Range Interpretation Comments RBC (test code = RBC) 5.24 4.70-6.10 [facility] HospitalTceoyyhKCDLQABKMU7591-41-11 16:48:00 Test Item Value Reference Range Interpretation Comments Hgb (test code = Hgb) 15.1 14.0-18.0 [facility] HospitalIuwopabGNMWGUZFQX1877-66-49 16:48:00 Test Item Value Reference Range Interpretation Comments Hct (test code = Hct) 46.0 42.0-54.0 [facility] HospitalFtdcqkxAJCJWKNROS4891-58-53 16:48:00 Test Item Value Reference Range Interpretation Comments MCV (test code = MCV) 87.7 80.0-94.0 [facility] HospitalWdrthjmVQESMGRDDR1211-33-83 16:48:00 Test Item Value Reference Range Interpretation Comments MCH (test code = MCH) 28.8 pg 27.0-31.0 [facility] HospitalXhcrvrsERNUJYHCID8659-44-52 16:48:00 Test Item Value Reference Range Interpretation Comments MCHC (test code = MCHC) 32.9 32.0-36.0 [facility] HospitalCacpccgMPRQDQDMYA5076-57-21 16:48:00 Test Item Value Reference Range Interpretation Comments RDW (test code = RDW) 16.2 11.5-14.5 [facility] HospitalLpyhdirIKFMTXNLCK1941-40-96 16:48:00 Test Item Value Reference Range Interpretation Comments Platelet (test code = Platelet) 227 133-450 [facility] HospitalQolcqqvPQSNSPDWAD2477-28-68 16:48:00 Test Item Value Reference Range Interpretation Comments MPV (test code = MPV) 9.7 7.4-10.4 [facility]2019-11-07 16:48:00 Test Item Value Reference Range Interpretation Comments Albumin Lvl (test code = Albumin Lvl) 3.9 3.5-5.0 [facility]2019-11-07 16:48:00 Test Item Value Reference Range Interpretation Comments Glucose Lvl (test code = Glucose Lvl) 101 70-99 [facility]2019-11-07 16:48:00 Test Item Value Reference Range Interpretation Comments BUN (test code = BUN) 12 7-22 [facility]2019-11-07 16:48:00 Test Item Value Reference Range Interpretation Comments Creatinine Lvl (test code = Creatinine 1.07 0.50-1.40 Lvl) [facility]2019-11-07 16:48:00 Test Item Value Reference Range Interpretation Comments Sodium Lvl (test code = Sodium Lvl) 141 135-145 [facility]2019-11-07 16:48:00 Test Item Value Reference Range Interpretation Comments Potassium Lvl (test code = Potassium 4.5 3.5-5.1 Lvl) [facility]2019-11-07 16:48:00 Test Item Value Reference Range Interpretation Comments Chloride Lvl (test code = Chloride Lvl) 105 95-109 [facility]2019-11-07 16:48:00 Test Item Value Reference Range Interpretation Comments CO2 (test code = CO2) 28 24-32 [facility]2019-11-07 16:48:00 Test Item Value Reference Range Interpretation Comments Calcium Lvl (test code = Calcium Lvl) 9.5 8.5-10.5 [facility]2019-11-07 16:48:00 Test Item Value Reference Range Interpretation Comments eGFR (test code = eGFR) 73 [facility]2019-11-07 16:48:00 Test Item Value Reference Range Interpretation Comments AGAP (test code = AGAP) 12.5 10.0-20.0 [facility] HospitalBtwpszrBDZHVLJFEG7079-72-42 16:48:00 Test Item Value Reference Range Interpretation Comments Segs (test code = Segs) 74.7 45.0-75.0 [facility] HospitalExmufdbATTRBQEIYQ9485-23-07 16:48:00 Test Item Value Reference Range Interpretation Comments Lymphocytes (test code = Lymphocytes) 19.4 20.0-40.0 [facility] HospitalYkgmttuLDRGXNEETL8546-66-26 16:48:00 Test Item Value Reference Range Interpretation Comments Monocytes (test code = Monocytes) 5.8 2.0-12.0 [place] 441999-11-07 16:48:00 Test Item Value Reference Range Interpretation Comments Basophils (test code = 0.1 See_Comment [Aut omated message] The Basophils) system which ge nerated this result tra nsmitted reference range : <=1.0. The reference r paddy was not used to int erpret this result as normal/abnormal . [facility] HospitalNuwmghdCLEQYZMGBS7554-88-51 16:48:00 Test Item Value Reference Range Interpretation Comments Neutrophils # (test code = Neutrophils 3.5 1.5-8.1 #) [facility] HospitalPopsxhsUNWBYQCBIO9382-61-69 16:48:00 Test Item Value Reference Range Interpretation Comments Lymphocytes # (test code = Lymphocytes 0.9 1.0-5.5 #) [facility] HospitalBmflxwqMRJPZKOAGP7902-90-98 16:48:00 Test Item Value Reference Range Interpretation Comments Monocytes # (test code 0.3 See_Comment [Aut omated message] The = Monocytes #) system which generated this result tra nsmitted reference range : <=0.8. The reference r paddy was not used to int erpret this result as normal/abnormal . [facility] HospitalIfuvoejZZRAATPFTH8856-02-33 16:48:00 Test Item Value Reference Range Interpretation Comments WBC (test code = WBC) 4.7 3.7-10.4 [facility] HospitalEsqwfejHUYDQMYXUB5225-61-74 16:48:00 Test Item Value Reference Range Interpretation Comments RBC (test code = RBC) 5.24 4.70-6.10 [facility] HospitalVnjiypbRYYUMIKMDX9074-21-81 16:48:00 Test Item Value Reference Range Interpretation Comments Hgb (test code = Hgb) 15.1 14.0-18.0 [facility] HospitalNaugwzvNFZZZFOFHY3523-81-53 16:48:00 Test Item Value Reference Range Interpretation Comments Hct (test code = Hct) 46.0 42.0-54.0 [facility] HospitalSrysfmtZTLEVSWADB0306-11-65 16:48:00 Test Item Value Reference Range Interpretation Comments MCV (test code = MCV) 87.7 80.0-94.0 [facility] HospitalUiatcjvQTMEFHYRVQ2687-16-19 16:48:00 Test Item Value Reference Range Interpretation Comments MCH (test code = MCH) 28.8 pg 27.0-31.0 [facility] HospitalYtdgiywEROKDQTNJJ1045-88-57 16:48:00 Test Item Value Reference Range Interpretation Comments MCHC (test code = MCHC) 32.9 32.0-36.0 [facility] HospitalXkwhmcrVUGDQIGZZC2310-84-15 16:48:00 Test Item Value Reference Range Interpretation Comments RDW (test code = RDW) 16.2 11.5-14.5 [facility] HospitalHajcpnpCAYRNLXRZL8281-85-62 16:48:00 Test Item Value Reference Range Interpretation Comments Platelet (test code = Platelet) 227 133-450 [facility] HospitalJpoxtemKWRUAWLRHK2685-99-43 16:48:00 Test Item Value Reference Range Interpretation Comments MPV (test code = MPV) 9.7 7.4-10.4 [facility]2019-11-07 16:48:00 Test Item Value Reference Range Interpretation Comments Albumin Lvl (test code = Albumin Lvl) 3.9 3.5-5.0 [facility]2019-11-07 16:48:00 Test Item Value Reference Range Interpretation Comments Glucose Lvl (test code = Glucose Lvl) 101 70-99 [facility]2019-11-07 16:48:00 Test Item Value Reference Range Interpretation Comments BUN (test code = BUN) 12 7-22 [facility]2019-11-07 16:48:00 Test Item Value Reference Range Interpretation Comments Creatinine Lvl (test code = Creatinine 1.07 0.50-1.40 Lvl) [facility]2019-11-07 16:48:00 Test Item Value Reference Range Interpretation Comments Sodium Lvl (test code = Sodium Lvl) 141 135-145 [facility]2019-11-07 16:48:00 Test Item Value Reference Range Interpretation Comments Potassium Lvl (test code = Potassium 4.5 3.5-5.1 Lvl) [facility]2019-11-07 16:48:00 Test Item Value Reference Range Interpretation Comments Chloride Lvl (test code = Chloride Lvl) 105 95-109 [facility]2019-11-07 16:48:00 Test Item Value Reference Range Interpretation Comments CO2 (test code = CO2) 28 24-32 [facility]2019-11-07 16:48:00 Test Item Value Reference Range Interpretation Comments Calcium Lvl (test code = Calcium Lvl) 9.5 8.5-10.5 [facility]2019-11-07 16:48:00 Test Item Value Reference Range Interpretation Comments eGFR (test code = eGFR) 73 [facility]2019-11-07 16:48:00 Test Item Value Reference Range Interpretation Comments AGAP (test code = AGAP) 12.5 10.0-20.0 [facility]jpfmzGAJYCSCADL3692-15-65 16:48:00 Test Item Value Reference Range Interpretation Comments Segs (test code = Segs) 74.7 45.0-75.0 [facility] HospitalHjftbddSLFCOIHNMC0378-28-45 16:48:00 Test Item Value Reference Range Interpretation Comments Lymphocytes (test code = Lymphocytes) 19.4 20.0-40.0 [facility] HospitalAzdlhjoIXIWXFELJE3612-34-31 16:48:00 Test Item Value Reference Range Interpretation Comments Monocytes (test code = Monocytes) 5.8 2.0-12.0 [facility] HospitalNgthzyjIDBQGAXYLU9949-42-04 16:48:00 Test Item Value Reference Range Interpretation Comments Basophils (test code = 0.1 See_Comment [Aut omated message] The Basophils) system which ge nerated this result tra nsmitted reference range : <=1.0. The reference r paddy was not used to int erpret this result as normal/abnormal . [facility] HospitalBidafyvCWTWPOQYRE8244-66-09 16:48:00 Test Item Value Reference Range Interpretation Comments Neutrophils # (test code = Neutrophils 3.5 1.5-8.1 #) [facility] HospitalZoppnyyEICLQBGVLD3973-54-76 16:48:00 Test Item Value Reference Range Interpretation Comments Lymphocytes # (test code = Lymphocytes 0.9 1.0-5.5 #) [facility] HospitalCzafgbpULDHEWDEXT0625-97-72 16:48:00 Test Item Value Reference Range Interpretation Comments Monocytes # (test code 0.3 See_Comment [Aut omated message] The = Monocytes #) system which generated this result tra nsmitted reference range : <=0.8. The reference r paddy was not used to int erpret this result as normal/abnormal . [facility] HospitalOprqxxgNXJIOMBQVZ1910-79-98 16:48:00 Test Item Value Reference Range Interpretation Comments WBC (test code = WBC) 4.7 3.7-10.4 [facility] HospitalJcoqppgYKICJGCPNK0230-45-03 16:48:00 Test Item Value Reference Range Interpretation Comments RBC (test code = RBC) 5.24 4.70-6.10 [facility] HospitalWbjfqokEMTGHVUVHA8450-83-65 16:48:00 Test Item Value Reference Range Interpretation Comments Hgb (test code = Hgb) 15.1 14.0-18.0 [facility] HospitalHjtkcerMCCNHKYNQP1968-34-56 16:48:00 Test Item Value Reference Range Interpretation Comments Hct (test code = Hct) 46.0 42.0-54.0 [facility] HospitalPzsifelQBOFWXDHNO2946-56-98 16:48:00 Test Item Value Reference Range Interpretation Comments MCV (test code = MCV) 87.7 80.0-94.0 [facility] HospitalNkctybjKRBDANTPUF5647-95-11 16:48:00 Test Item Value Reference Range Interpretation Comments MCH (test code = MCH) 28.8 pg 27.0-31.0 [facility] HospitalKrugsdhQCAWGZCHPL8486-86-46 16:48:00 Test Item Value Reference Range Interpretation Comments MCHC (test code = MCHC) 32.9 32.0-36.0 [facility] HospitalYfhsgggGKSISXUXEY1706-54-65 16:48:00 Test Item Value Reference Range Interpretation Comments RDW (test code = RDW) 16.2 11.5-14.5 [facility] HospitalKnvjwtwHTTQKZOFQU4505-65-17 16:48:00 Test Item Value Reference Range Interpretation Comments Platelet (test code = Platelet) 227 133-450 [facility] HospitalUwalfbbSJQANSHUJE9014-08-45 16:48:00 Test Item Value Reference Range Interpretation Comments MPV (test code = MPV) 9.7 7.4-10.4 [facility]2019-11-07 16:48:00 Test Item Value Reference Range Interpretation Comments Albumin Lvl (test code = Albumin Lvl) 3.9 3.5-5.0 [facility]2019-11-07 16:48:00 Test Item Value Reference Range Interpretation Comments Glucose Lvl (test code = Glucose Lvl) 101 70-99 [facility]2019-11-07 16:48:00 Test Item Value Reference Range Interpretation Comments BUN (test code = BUN) 12 7-22 [facility]2019-11-07 16:48:00 Test Item Value Reference Range Interpretation Comments Creatinine Lvl (test code = Creatinine 1.07 0.50-1.40 Lvl) [facility]2019-11-07 16:48:00 Test Item Value Reference Range Interpretation Comments Sodium Lvl (test code = Sodium Lvl) 141 135-145 [facility]2019-11-07 16:48:00 Test Item Value Reference Range Interpretation Comments Potassium Lvl (test code = Potassium 4.5 3.5-5.1 Lvl) [facility]2019-11-07 16:48:00 Test Item Value Reference Range Interpretation Comments Chloride Lvl (test code = Chloride Lvl) 105 95-109 [place] 192509-11-07 16:48:00 Test Item Value Reference Range Interpretation Comments CO2 (test code = CO2) 28 24-32 [place] 192509-11-07 16:48:00 Test Item Value Reference Range Interpretation Comments Calcium Lvl (test code = Calcium Lvl) 9.5 8.5-10.5 [facility]2019-11-07 16:48:00 Test Item Value Reference Range Interpretation Comments eGFR (test code = eGFR) 73 [facility]2019-11-07 16:48:00 Test Item Value Reference Range Interpretation Comments AGAP (test code = AGAP) 12.5 10.0-20.0 [place] [address]1999-11-07 16:48:00 Test Item Value Reference Range Interpretation Comments Segs (test code = Segs) 74.7 45.0-75.0 [facility] HospitalLseotuqYMPIKNTOIL2217-22-49 16:48:00 Test Item Value Reference Range Interpretation Comments Lymphocytes (test code = Lymphocytes) 19.4 20.0-40.0 [place] [address]1999-11-07 16:48:00 Test Item Value Reference Range Interpretation Comments Monocytes (test code = Monocytes) 5.8 2.0-12.0 [place] [address]1999-11-07 16:48:00 Test Item Value Reference Range Interpretation Comments Basophils (test code = 0.1 See_Comment [Aut omated message] The Basophils) system which ge nerated this result tra nsmitted reference range : <=1.0. The reference r paddy was not used to int erpret this result as normal/abnormal . [place] [address]1999-11-07 16:48:00 Test Item Value Reference Range Interpretation Comments Neutrophils # (test code = Neutrophils 3.5 1.5-8.1 #) [facility] HospitalSgdbkjlWNLHZSJWXE0428-94-03 16:48:00 Test Item Value Reference Range Interpretation Comments Lymphocytes # (test code = Lymphocytes 0.9 1.0-5.5 #) [facility] HospitalYvotudvZLFETUTYOR4759-73-35 16:48:00 Test Item Value Reference Range Interpretation Comments Monocytes # (test code 0.3 See_Comment [Aut omated message] The = Monocytes #) system which generated this result tra nsmitted reference range : <=0.8. The reference r paddy was not used to int erpret this result as normal/abnormal . [facility] HospitalIjpquyqMXXTFCPNFF7829-49-65 16:48:00 Test Item Value Reference Range Interpretation Comments WBC (test code = WBC) 4.7 3.7-10.4 [facility] HospitalQprovojBCSRTECATV1681-87-21 16:48:00 Test Item Value Reference Range Interpretation Comments RBC (test code = RBC) 5.24 4.70-6.10 [facility] HospitalYxebjqdILCPCQXAZC3039-21-27 16:48:00 Test Item Value Reference Range Interpretation Comments Hgb (test code = Hgb) 15.1 14.0-18.0 [facility] HospitalZhhovedTBXDKHFPND1207-97-15 16:48:00 Test Item Value Reference Range Interpretation Comments Hct (test code = Hct) 46.0 42.0-54.0 [facility] HospitalUvtxhjyIBTIHBOQMS8924-52-65 16:48:00 Test Item Value Reference Range Interpretation Comments MCV (test code = MCV) 87.7 80.0-94.0 [facility] HospitalXxbxsjwCTWUIVMVHU7847-19-31 16:48:00 Test Item Value Reference Range Interpretation Comments MCH (test code = MCH) 28.8 pg 27.0-31.0 [facility] HospitalOovnareLTXPDXUDOV1691-50-54 16:48:00 Test Item Value Reference Range Interpretation Comments MCHC (test code = MCHC) 32.9 32.0-36.0 [facility] HospitalKvvjnflTIPALJSDVO3176-67-39 16:48:00 Test Item Value Reference Range Interpretation Comments RDW (test code = RDW) 16.2 11.5-14.5 [facility] HospitalYffoioxSUNUFJFMML2850-67-55 16:48:00 Test Item Value Reference Range Interpretation Comments Platelet (test code = Platelet) 227 133-450 [facility] HospitalWyvzoavXEBDEOFEPL6013-77-94 16:48:00 Test Item Value Reference Range Interpretation Comments MPV (test code = MPV) 9.7 7.4-10.4 [facility]2019-11-07 16:48:00 Test Item Value Reference Range Interpretation Comments Albumin Lvl (test code = Albumin Lvl) 3.9 3.5-5.0 [facility]2019-11-07 16:48:00 Test Item Value Reference Range Interpretation Comments Glucose Lvl (test code = Glucose Lvl) 101 70-99 [facility]2019-11-07 16:48:00 Test Item Value Reference Range Interpretation Comments BUN (test code = BUN) 12 7-22 [facility]2019-11-07 16:48:00 Test Item Value Reference Range Interpretation Comments Creatinine Lvl (test code = Creatinine 1.07 0.50-1.40 Lvl) [facility]2019-11-07 16:48:00 Test Item Value Reference Range Interpretation Comments Sodium Lvl (test code = Sodium Lvl) 141 135-145 [facility]2019-11-07 16:48:00 Test Item Value Reference Range Interpretation Comments Potassium Lvl (test code = Potassium 4.5 3.5-5.1 Lvl) [facility]2019-11-07 16:48:00 Test Item Value Reference Range Interpretation Comments Chloride Lvl (test code = Chloride Lvl) 105 95-109 [facility]2019-11-07 16:48:00 Test Item Value Reference Range Interpretation Comments CO2 (test code = CO2) 28 24-32 [facility]2019-11-07 16:48:00 Test Item Value Reference Range Interpretation Comments Calcium Lvl (test code = Calcium Lvl) 9.5 8.5-10.5 [facility]2019-11-07 16:48:00 Test Item Value Reference Range Interpretation Comments eGFR (test code = eGFR) 73 [facility]2019-11-07 16:48:00 Test Item Value Reference Range Interpretation Comments AGAP (test code = AGAP) 12.5 10.0-20.0 [facility][U] XR KNEE 3 VWS [id number] 08:17:00Images acquired, not reported on this accession number.[facility][U] XRAY KNEE 3 VWS LEFT [id number] 12:52:00Images acquired, not reported on this accession number. [facility][U] XRAY KNEE 3 VWS LEFT [id number] 09:02:00Images acquired, not reported on this accession number.[facility] 2018-10-17 09:15:05 Test Item Value Reference Range Interpretation Comments Pain Interference: (test code = Pain 66.9 1 N Interference:) Pain Intensity: (test code = Pain 53.7 1 N Intensity:) Physical Function: (test code = 30.7 1 N Physical Function:) Satisfaction Role: (test code = 38.1 1 N Satisfaction Role:) [facility][U] XRAY KNEE 3 VWS LEFT [id number] 08:25:00Images acquired, not reported on this accession number.[facility]2019-06-18 13:31:00 Test Item Value Reference Range Interpretation Comments Albumin Lvl (test code = Albumin Lvl) 3.7 3.5-5.0 [facility]2019-06-18 13:31:00 Test Item Value Reference Range Interpretation Comments eGFR (test code = eGFR) 71 [facility]2019-06-18 13:31:00 Test Item Value Reference Range Interpretation Comments CO2 (test code = CO2) 28 24-32 [facility]2019-06-18 13:31:00 Test Item Value Reference Range Interpretation Comments Glucose Lvl (test code = Glucose Lvl) 87 70-99 [facility]2019-06-18 13:31:00 Test Item Value Reference Range Interpretation Comments BUN (test code = BUN) 14 7-22 [facility]2019-06-18 13:31:00 Test Item Value Reference Range Interpretation Comments Creatinine Lvl (test code = Creatinine 1.10 0.50-1.40 Lvl) [facility]2019-06-18 13:31:00 Test Item Value Reference Range Interpretation Comments Calcium Lvl (test code = Calcium Lvl) 8.9 8.5-10.5 [facility]2019-06-18 13:31:00 Test Item Value Reference Range Interpretation Comments Potassium Lvl (test code = Potassium 3.8 3.5-5.1 Lvl) [facility]2019-06-18 13:31:00 Test Item Value Reference Range Interpretation Comments Chloride Lvl (test code = Chloride Lvl) 105 95-109 [facility]2019-06-18 13:31:00 Test Item Value Reference Range Interpretation Comments Sodium Lvl (test code = Sodium Lvl) 139 135-145 [facility]2019-06-18 13:31:00 Test Item Value Reference Range Interpretation Comments AGAP (test code = AGAP) 9.8 10.0-20.0 [facility] HospitalCehnczvQWCGXZGYUL7702-04-02 13:31:00 Test Item Value Reference Range Interpretation Comments MPV (test code = MPV) 10.3 7.4-10.4 [facility] HospitalVaiovcoXIIHEOSGOJ9845-91-42 13:31:00 Test Item Value Reference Range Interpretation Comments RDW (test code = RDW) 13.8 11.5-14.5 [facility] HospitalEyozqokJSLUSNGKMV6553-30-88 13:31:00 Test Item Value Reference Range Interpretation Comments Platelet (test code = Platelet) 196 133-450 [facility] HospitalXctjewpDCQOQMXWGF9697-47-55 13:31:00 Test Item Value Reference Range Interpretation Comments MCHC (test code = MCHC) 33.5 32.0-36.0 [facility] HospitalLvlosqhHRIFDYRTLI9518-94-75 13:31:00 Test Item Value Reference Range Interpretation Comments MCV (test code = MCV) 91.9 80.0-94.0 [facility] HospitalQacvpefJMPRDHBMWN8787-15-64 13:31:00 Test Item Value Reference Range Interpretation Comments MCH (test code = MCH) 30.8 pg 27.0-31.0 [facility] HospitalKxdryuuLASXGFVYNH2097-64-58 13:31:00 Test Item Value Reference Range Interpretation Comments Hct (test code = Hct) 44.7 42.0-54.0 [facility] HospitalVquzelnCPDOICTXJH7513-95-35 13:31:00 Test Item Value Reference Range Interpretation Comments Hgb (test code = Hgb) 15.0 14.0-18.0 [facility] HospitalNcccexzRNZMXQDDTS5299-69-58 13:31:00 Test Item Value Reference Range Interpretation Comments RBC (test code = RBC) 4.87 4.70-6.10 [facility] HospitalEltqhjcEXQYHBDEFX7606-88-05 13:31:00 Test Item Value Reference Range Interpretation Comments WBC (test code = WBC) 6.6 3.7-10.4 [facility] HospitalFzhwcfrTRTPXDUDDS2869-88-33 13:31:00 Test Item Value Reference Range Interpretation Comments Monocytes # (test code 0.4 See_Comment [Aut omated message] The = Monocytes #) system which generated this result tra nsmitted reference range : <=0.8. The reference r paddy was not used to int erpret this result as normal/abnormal . [facility] HospitalQqdfypbBRGYEHUKHQ6656-72-50 13:31:00 Test Item Value Reference Range Interpretation Comments Monocytes (test code = Monocytes) 6.2 2.0-12.0 [facility] HospitalFcujktuITGCOCEFOI3086-56-72 13:31:00 Test Item Value Reference Range Interpretation Comments Lymphocytes (test code = Lymphocytes) 14.7 20.0-40.0 [facility] HospitalHuzodxyPRSFYKUZTH3083-05-55 13:31:00 Test Item Value Reference Range Interpretation Comments Segs (test code = Segs) 78.9 45.0-75.0 [facility] HospitalIxffinfQZJRYHJHOB9551-54-64 13:31:00 Test Item Value Reference Range Interpretation Comments Neutrophils # (test code = Neutrophils 5.2 1.5-8.1 #) [facility] HospitalNznmsjoMGBSCHGSYR6578-62-53 13:31:00 Test Item Value Reference Range Interpretation Comments Lymphocytes # (test code = Lymphocytes 1.0 1.0-5.5 #) [facility] HospitalYecixxuLSBMEGGNTC3983-17-29 13:31:00 Test Item Value Reference Range Interpretation Comments Basophils (test code = 0.2 See_Comment [Aut omated message] The Basophils) system which ge nerated this result tra nsmitted reference range : <=1.0. The reference r paddy was not used to int erpret this result as normal/abnormal . [facility]2019-06-18 13:31:00 Test Item Value Reference Range Interpretation Comments Albumin Lvl (test code = Albumin Lvl) 3.7 3.5-5.0 [facility]2019-06-18 13:31:00 Test Item Value Reference Range Interpretation Comments eGFR (test code = eGFR) 71 [facility]2019-06-18 13:31:00 Test Item Value Reference Range Interpretation Comments CO2 (test code = CO2) 28 24-32 [facility]2019-06-18 13:31:00 Test Item Value Reference Range Interpretation Comments Glucose Lvl (test code = Glucose Lvl) 87 70-99 [facility]2019-06-18 13:31:00 Test Item Value Reference Range Interpretation Comments BUN (test code = BUN) 14 7-22 [facility]2019-06-18 13:31:00 Test Item Value Reference Range Interpretation Comments Creatinine Lvl (test code = Creatinine 1.10 0.50-1.40 Lvl) [facility]2019-06-18 13:31:00 Test Item Value Reference Range Interpretation Comments Calcium Lvl (test code = Calcium Lvl) 8.9 8.5-10.5 [facility]2019-06-18 13:31:00 Test Item Value Reference Range Interpretation Comments Potassium Lvl (test code = Potassium 3.8 3.5-5.1 Lvl) [facility]2019-06-18 13:31:00 Test Item Value Reference Range Interpretation Comments Chloride Lvl (test code = Chloride Lvl) 105 95-109 [facility]2019-06-18 13:31:00 Test Item Value Reference Range Interpretation Comments Sodium Lvl (test code = Sodium Lvl) 139 135-145 [facility]2019-06-18 13:31:00 Test Item Value Reference Range Interpretation Comments AGAP (test code = AGAP) 9.8 10.0-20.0 [facility] HospitalXozjdotKAWXCYCELN1563-31-45 13:31:00 Test Item Value Reference Range Interpretation Comments MPV (test code = MPV) 10.3 7.4-10.4 [facility] HospitalTkzwjcmCBTTVZNTVT9690-33-68 13:31:00 Test Item Value Reference Range Interpretation Comments RDW (test code = RDW) 13.8 11.5-14.5 [facility] HospitalBbxuitkKUUDRUPSZK1343-26-10 13:31:00 Test Item Value Reference Range Interpretation Comments Platelet (test code = Platelet) 196 133-450 [facility] HospitalOczeodqYWWHABKYWO2251-09-55 13:31:00 Test Item Value Reference Range Interpretation Comments MCHC (test code = MCHC) 33.5 32.0-36.0 [facility] HospitalXtjipawRLBQBLSDAS5200-90-47 13:31:00 Test Item Value Reference Range Interpretation Comments MCV (test code = MCV) 91.9 80.0-94.0 [place] [address]1999-06-18 13:31:00 Test Item Value Reference Range Interpretation Comments MCH (test code = MCH) 30.8 pg 27.0-31.0 [facility] HospitalMnsjsdnIMBZHZRHPZ8769-70-24 13:31:00 Test Item Value Reference Range Interpretation Comments Hct (test code = Hct) 44.7 42.0-54.0 [facility] HospitalYdrqxarOWKDYMEAUY8851-62-63 13:31:00 Test Item Value Reference Range Interpretation Comments Hgb (test code = Hgb) 15.0 14.0-18.0 [facility] HospitalCocxbvgDEAJIRMNNG4441-93-13 13:31:00 Test Item Value Reference Range Interpretation Comments RBC (test code = RBC) 4.87 4.70-6.10 [facility] HospitalBwbmwluUHBMVGFWLY6163-39-08 13:31:00 Test Item Value Reference Range Interpretation Comments WBC (test code = WBC) 6.6 3.7-10.4 [facility] HospitalFfpyngmFADFSLCZRY3692-93-46 13:31:00 Test Item Value Reference Range Interpretation Comments Monocytes # (test code 0.4 See_Comment [Aut omated message] The = Monocytes #) system which generated this result tra nsmitted reference range : <=0.8. The reference r paddy was not used to int erpret this result as normal/abnormal . [facility] HospitalShmpwudETYNAMULPN1897-14-03 13:31:00 Test Item Value Reference Range Interpretation Comments Monocytes (test code = Monocytes) 6.2 2.0-12.0 [facility] HospitalRgwjdrnSCRCHZTYHJ5904-61-92 13:31:00 Test Item Value Reference Range Interpretation Comments Lymphocytes (test code = Lymphocytes) 14.7 20.0-40.0 [facility] HospitalJxjdwznZKCOFZXFDE4054-91-56 13:31:00 Test Item Value Reference Range Interpretation Comments Segs (test code = Segs) 78.9 45.0-75.0 [facility] HospitalFixqyyrEVNZIZTGSS7428-58-40 13:31:00 Test Item Value Reference Range Interpretation Comments Neutrophils # (test code = Neutrophils 5.2 1.5-8.1 #) [facility] HospitalXexnrkgALGNGMJAGI3183-58-38 13:31:00 Test Item Value Reference Range Interpretation Comments Lymphocytes # (test code = Lymphocytes 1.0 1.0-5.5 #) [facility] HospitalRixewixDROMHNZEZS8190-05-67 13:31:00 Test Item Value Reference Range Interpretation Comments Basophils (test code = 0.2 See_Comment [Aut omated message] The Basophils) system which ge nerated this result tra nsmitted reference range : <=1.0. The reference r paddy was not used to int erpret this result as normal/abnormal . [facility]2019-06-18 13:31:00 Test Item Value Reference Range Interpretation Comments Albumin Lvl (test code = Albumin Lvl) 3.7 3.5-5.0 [facility]2019-06-18 13:31:00 Test Item Value Reference Range Interpretation Comments eGFR (test code = eGFR) 71 [facility]2019-06-18 13:31:00 Test Item Value Reference Range Interpretation Comments CO2 (test code = CO2) 28 24-32 [facility]2019-06-18 13:31:00 Test Item Value Reference Range Interpretation Comments Glucose Lvl (test code = Glucose Lvl) 87 70-99 [facility]2019-06-18 13:31:00 Test Item Value Reference Range Interpretation Comments BUN (test code = BUN) 14 7-22 [facility]2019-06-18 13:31:00 Test Item Value Reference Range Interpretation Comments Creatinine Lvl (test code = Creatinine 1.10 0.50-1.40 Lvl) [facility]2019-06-18 13:31:00 Test Item Value Reference Range Interpretation Comments Calcium Lvl (test code = Calcium Lvl) 8.9 8.5-10.5 [facility]2019-06-18 13:31:00 Test Item Value Reference Range Interpretation Comments Potassium Lvl (test code = Potassium 3.8 3.5-5.1 Lvl) [facility]2019-06-18 13:31:00 Test Item Value Reference Range Interpretation Comments Chloride Lvl (test code = Chloride Lvl) 105 95-109 [facility]2019-06-18 13:31:00 Test Item Value Reference Range Interpretation Comments Sodium Lvl (test code = Sodium Lvl) 139 135-145 [facility]2019-06-18 13:31:00 Test Item Value Reference Range Interpretation Comments AGAP (test code = AGAP) 9.8 10.0-20.0 [facility] HospitalCnqafulVRNEHHZZNU4433-20-65 13:31:00 Test Item Value Reference Range Interpretation Comments MPV (test code = MPV) 10.3 7.4-10.4 [facility] HospitalQryjohnGOUGHFVJWV7477-27-23 13:31:00 Test Item Value Reference Range Interpretation Comments RDW (test code = RDW) 13.8 11.5-14.5 [facility] HospitalZarqlpgUBDDADPWZZ8076-12-56 13:31:00 Test Item Value Reference Range Interpretation Comments Platelet (test code = Platelet) 196 133-450 [facility] HospitalPaskrcwSFXZVJPYDL4590-41-63 13:31:00 Test Item Value Reference Range Interpretation Comments MCHC (test code = MCHC) 33.5 32.0-36.0 [facility] HospitalHupygtxBIHDMFCDZS5585-69-50 13:31:00 Test Item Value Reference Range Interpretation Comments MCV (test code = MCV) 91.9 80.0-94.0 [facility] HospitalDyejdrfPGSSVEWVRH8275-39-74 13:31:00 Test Item Value Reference Range Interpretation Comments MCH (test code = MCH) 30.8 pg 27.0-31.0 [facility] HospitalQlstzquGPLFWSQPQW4689-69-79 13:31:00 Test Item Value Reference Range Interpretation Comments Hct (test code = Hct) 44.7 42.0-54.0 [facility] HospitalPoxdzbsFJMNDGSSQA4270-29-44 13:31:00 Test Item Value Reference Range Interpretation Comments Hgb (test code = Hgb) 15.0 14.0-18.0 [facility] HospitalLugkklrPWOMQVTVEC8264-09-22 13:31:00 Test Item Value Reference Range Interpretation Comments RBC (test code = RBC) 4.87 4.70-6.10 [facility]AqchupzJMAJGJXSPE5756-21-05 13:31:00 Test Item Value Reference Range Interpretation Comments WBC (test code = WBC) 6.6 3.7-10.4 [facility] HospitalZcmwjlbZQBUNQPJQI6480-45-48 13:31:00 Test Item Value Reference Range Interpretation Comments Monocytes # (test code 0.4 See_Comment [Aut omated message] The = Monocytes #) system which generated this result tra nsmitted reference range : <=0.8. The reference r paddy was not used to int erpret this result as normal/abnormal . [facility] HospitalCdagdleNFSCPRFJTS1802-18-26 13:31:00 Test Item Value Reference Range Interpretation Comments Monocytes (test code = Monocytes) 6.2 2.0-12.0 [facility] HospitalYjnvujhZTFMXVAWJX1768-68-98 13:31:00 Test Item Value Reference Range Interpretation Comments Lymphocytes (test code = Lymphocytes) 14.7 20.0-40.0 [facility] Hospit[id number] 13:31:00 Test Item Value Reference Range Interpretation Comments Segs (test code = Segs) 78.9 45.0-75.0 [facility] HospitalQbozobdOABICNKRST7050-62-26 13:31:00 Test Item Value Reference Range Interpretation Comments Neutrophils # (test code = Neutrophils 5.2 1.5-8.1 #) [facility] HospitalDleemyjAIGBIMQEHY7776-38-76 13:31:00 Test Item Value Reference Range Interpretation Comments Lymphocytes # (test code = Lymphocytes 1.0 1.0-5.5 #) [facility] HospitalJymoifjYXAFFRKPQB2052-29-06 13:31:00 Test Item Value Reference Range Interpretation Comments Basophils (test code = 0.2 See_Comment [Aut omated message] The Basophils) system which ge nerated this result tra nsmitted reference range : <=1.0. The reference r paddy was not used to int erpret this result as normal/abnormal . [facility]2019-06-18 13:31:00 Test Item Value Reference Range Interpretation Comments Albumin Lvl (test code = Albumin Lvl) 3.7 3.5-5.0 [facility]2019-06-18 13:31:00 Test Item Value Reference Range Interpretation Comments eGFR (test code = eGFR) 71 [facility]2019-06-18 13:31:00 Test Item Value Reference Range Interpretation Comments CO2 (test code = CO2) 28 24-32 [facility]2019-06-18 13:31:00 Test Item Value Reference Range Interpretation Comments Glucose Lvl (test code = Glucose Lvl) 87 70-99 [facility]2019-06-18 13:31:00 Test Item Value Reference Range Interpretation Comments BUN (test code = BUN) 14 7-22 [facility]2019-06-18 13:31:00 Test Item Value Reference Range Interpretation Comments Creatinine Lvl (test code = Creatinine 1.10 0.50-1.40 Lvl) [place] 192509-06-18 13:31:00 Test Item Value Reference Range Interpretation Comments Calcium Lvl (test code = Calcium Lvl) 8.9 8.5-10.5 [facility]2019-06-18 13:31:00 Test Item Value Reference Range Interpretation Comments Potassium Lvl (test code = Potassium 3.8 3.5-5.1 Lvl) [facility]2019-06-18 13:31:00 Test Item Value Reference Range Interpretation Comments Chloride Lvl (test code = Chloride Lvl) 105 95-109 [facility]2019-06-18 13:31:00 Test Item Value Reference Range Interpretation Comments Sodium Lvl (test code = Sodium Lvl) 139 135-145 [facility]2019-06-18 13:31:00 Test Item Value Reference Range Interpretation Comments AGAP (test code = AGAP) 9.8 10.0-20.0 [facility] HospitalWbdmvoaJEHMRAAQYS6109-53-50 13:31:00 Test Item Value Reference Range Interpretation Comments MPV (test code = MPV) 10.3 7.4-10.4 [facility] HospitalLzkzsrtZZZUAEHGSL4273-01-09 13:31:00 Test Item Value Reference Range Interpretation Comments RDW (test code = RDW) 13.8 11.5-14.5 [facility] HospitalUzjcgttEHZKBGMTNJ0321-35-18 13:31:00 Test Item Value Reference Range Interpretation Comments Platelet (test code = Platelet) 196 133-450 [facility] HospitalIgifcbcGTLYMEPEZO8426-90-86 13:31:00 Test Item Value Reference Range Interpretation Comments MCHC (test code = MCHC) 33.5 32.0-36.0 [facility] HospitalJneithpAJTAVEVEWR8715-12-93 13:31:00 Test Item Value Reference Range Interpretation Comments MCV (test code = MCV) 91.9 80.0-94.0 [facility] HospitalKhzrvspBEPAREVAVY7952-21-81 13:31:00 Test Item Value Reference Range Interpretation Comments MCH (test code = MCH) 30.8 pg 27.0-31.0 [facility] HospitalMclskoyIURXMHRQFZ5043-97-85 13:31:00 Test Item Value Reference Range Interpretation Comments Hct (test code = Hct) 44.7 42.0-54.0 [facility] HospitalZsxfipjUXCMIRSZYQ2809-69-25 13:31:00 Test Item Value Reference Range Interpretation Comments Hgb (test code = Hgb) 15.0 14.0-18.0 [facility] HospitalSfvnfnxGHNPYUUKMA4816-13-00 13:31:00 Test Item Value Reference Range Interpretation Comments RBC (test code = RBC) 4.87 4.70-6.10 [facility] HospitalToebwcjESFEXQYECA6705-97-27 13:31:00 Test Item Value Reference Range Interpretation Comments WBC (test code = WBC) 6.6 3.7-10.4 [facility] HospitalBpsvukaRBEKFLEBFR0127-55-38 13:31:00 Test Item Value Reference Range Interpretation Comments Monocytes # (test code 0.4 See_Comment [Aut omated message] The = Monocytes #) system which generated this result tra nsmitted reference range : <=0.8. The reference r paddy was not used to int erpret this result as normal/abnormal . [facility] HospitalSmewmyvQYARUOYLIG0546-62-20 13:31:00 Test Item Value Reference Range Interpretation Comments Monocytes (test code = Monocytes) 6.2 2.0-12.0 [facility] HospitalIsohijnGMRXNMVRJY1744-35-81 13:31:00 Test Item Value Reference Range Interpretation Comments Lymphocytes (test code = Lymphocytes) 14.7 20.0-40.0 [facility] HospitalRcgrziyOFQGBAMZQI9213-69-62 13:31:00 Test Item Value Reference Range Interpretation Comments Segs (test code = Segs) 78.9 45.0-75.0 [facility] HospitalUyzuvxeXJAKKHPRXS5371-92-86 13:31:00 Test Item Value Reference Range Interpretation Comments Neutrophils # (test code = Neutrophils 5.2 1.5-8.1 #) [facility] HospitalBbxbleoJVGJTRYFHM9039-64-21 13:31:00 Test Item Value Reference Range Interpretation Comments Lymphocytes # (test code = Lymphocytes 1.0 1.0-5.5 #) [facility] HospitalKskjqfzDCOQBWFXWN2837-10-67 13:31:00 Test Item Value Reference Range Interpretation Comments Basophils (test code = 0.2 See_Comment [Aut omated message] The Basophils) system which ge nerated this result tra nsmitted reference range : <=1.0. The reference r paddy was not used to int erpret this result as normal/abnormal . [facility]2019-06-18 13:31:00 Test Item Value Reference Range Interpretation Comments Albumin Lvl (test code = Albumin Lvl) 3.7 3.5-5.0 [facility]2019-06-18 13:31:00 Test Item Value Reference Range Interpretation Comments eGFR (test code = eGFR) 71 [facility]2019-06-18 13:31:00 Test Item Value Reference Range Interpretation Comments CO2 (test code = CO2) 28 24-32 [facility]2019-06-18 13:31:00 Test Item Value Reference Range Interpretation Comments Glucose Lvl (test code = Glucose Lvl) 87 70-99 [facility]2019-06-18 13:31:00 Test Item Value Reference Range Interpretation Comments BUN (test code = BUN) 14 7-22 [facility]2019-06-18 13:31:00 Test Item Value Reference Range Interpretation Comments Creatinine Lvl (test code = Creatinine 1.10 0.50-1.40 Lvl) [facility]2019-06-18 13:31:00 Test Item Value Reference Range Interpretation Comments Calcium Lvl (test code = Calcium Lvl) 8.9 8.5-10.5 [facility]2019-06-18 13:31:00 Test Item Value Reference Range Interpretation Comments Potassium Lvl (test code = Potassium 3.8 3.5-5.1 Lvl) [facility]2019-06-18 13:31:00 Test Item Value Reference Range Interpretation Comments Chloride Lvl (test code = Chloride Lvl) 105 95-109 [facility]2019-06-18 13:31:00 Test Item Value Reference Range Interpretation Comments Sodium Lvl (test code = Sodium Lvl) 139 135-145 [facility]2019-06-18 13:31:00 Test Item Value Reference Range Interpretation Comments AGAP (test code = AGAP) 9.8 10.0-20.0 [facility] HospitalEzyqphcITIFFVAPBB2002-79-35 13:31:00 Test Item Value Reference Range Interpretation Comments MPV (test code = MPV) 10.3 7.4-10.4 [facility] HospitalJrclfawAYZIUBWNFX9627-60-91 13:31:00 Test Item Value Reference Range Interpretation Comments RDW (test code = RDW) 13.8 11.5-14.5 [facility] HospitalYapwftjLFQXSPLFNP3263-53-22 13:31:00 Test Item Value Reference Range Interpretation Comments Platelet (test code = Platelet) 196 133-450 [facility] HospitalIbtxgubXABALLPDIX4388-94-78 13:31:00 Test Item Value Reference Range Interpretation Comments MCHC (test code = MCHC) 33.5 32.0-36.0 [facility] HospitalXdyfvhdMUKQMLXLRV8093-10-75 13:31:00 Test Item Value Reference Range Interpretation Comments MCV (test code = MCV) 91.9 80.0-94.0 [facility] HospitalTchxgfdHVERBGHKAX7516-71-31 13:31:00 Test Item Value Reference Range Interpretation Comments MCH (test code = MCH) 30.8 pg 27.0-31.0 [facility] HospitalGyjkidpHJEUDGZZYN7508-75-75 13:31:00 Test Item Value Reference Range Interpretation Comments Hct (test code = Hct) 44.7 42.0-54.0 [facility] HospitalAiwonrwITQAPITIGR7176-79-76 13:31:00 Test Item Value Reference Range Interpretation Comments Hgb (test code = Hgb) 15.0 14.0-18.0 [facility] HospitalUvvrknnIHARWLMFOC5418-39-61 13:31:00 Test Item Value Reference Range Interpretation Comments RBC (test code = RBC) 4.87 4.70-6.10 [facility] HospitalUdxywpcKEZTPNBIKQ3774-44-39 13:31:00 Test Item Value Reference Range Interpretation Comments WBC (test code = WBC) 6.6 3.7-10.4 [facility] HospitalPyjilgtFCUCTLCMRI2442-04-28 13:31:00 Test Item Value Reference Range Interpretation Comments Monocytes # (test code 0.4 See_Comment [Aut omated message] The = Monocytes #) system which generated this result tra nsmitted reference range : <=0.8. The reference r paddy was not used to int erpret this result as normal/abnormal . [facility] HospitalYeuzcofSMJLVOEHJJ5368-67-95 13:31:00 Test Item Value Reference Range Interpretation Comments Monocytes (test code = Monocytes) 6.2 2.0-12.0 [facility] HospitalXmhtwuiYRZGLTRDOD9004-05-23 13:31:00 Test Item Value Reference Range Interpretation Comments Lymphocytes (test code = Lymphocytes) 14.7 20.0-40.0 [facility] HospitalBibeclfIVAXVFCMKE4421-41-85 13:31:00 Test Item Value Reference Range Interpretation Comments Segs (test code = Segs) 78.9 45.0-75.0 [facility] HospitalYjkdhrjFTRPPMVMRI6510-21-43 13:31:00 Test Item Value Reference Range Interpretation Comments Neutrophils # (test code = Neutrophils 5.2 1.5-8.1 #) [facility] HospitalJrmkuouGESYOEFUPO9372-01-58 13:31:00 Test Item Value Reference Range Interpretation Comments Lymphocytes # (test code = Lymphocytes 1.0 1.0-5.5 #) [facility] HospitalLanacftOCAEELFJHI2341-29-85 13:31:00 Test Item Value Reference Range Interpretation Comments Basophils (test code = 0.2 See_Comment [Aut omated message] The Basophils) system which ge nerated this result tra nsmitted reference range : <=1.0. The reference r paddy was not used to int erpret this result as normal/abnormal . [facility] 2 views [[id number]]2018-07-30 09:42:59CLINICAL INDICATION: M25.562 Pain in left kneeFINDINGS:COMPARISON: NoneAP views of the left lower extremity were performed according to the [employer] protocol, for surgical planning.Technical examination only.MRI KNEE JNT LT WO CONTRAST 2018-07-28 17:41:11Addendum created at 08/01/2018 3:20:43 PM:Additional sequences of the left knee were performed according to the [employer] protocol, for surgical planning.Addendum by: Tong Sharma MDCLINICAL INDICATION: M25.562 Pain in left kneeMODALITY: Siemens Skyra 3.0 Lesley MRITECHNIQUE: Multiplanar multisequence MRI of the left knee was performed .IMPRESSION:1. Degeneration and tear of medial meniscus.2. Severe medial compartment osteoarthritis.3. 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 Small joint effusion.5. Popliteal cyst.6. Small fluid collection within the pes anserine bu rsa.7. Matter loose body.FINDINGS:COMPARISON: none MENISCI: The lateral meniscus is intact. Moderateto severe diffuse degeneration of the posterior horn and body segment of medial meniscus is present.The body segment is moderately attenuated. An ill-defined tear, fraying and fibrillation of the central third of the medial meniscus posterior horn is present.CRUCIATE LIGAMENTS: Anterior and posteriorcruciate ligaments are intact.COLLATERAL LIGAMENTS: Medial and lateral collateral ligaments are intact.OSSEOUS STRUCTURES AND CARTILAGINOUS SURFACES: No fractures or destructive osseous lesions are seen. Mild medial and minimal lateral osteophytosis is present. Full-thickness cartilage loss involves weightbearing and nonweightbearing aspects of the medial femoral condyle, with mild associated subchondral marrow edema. Full-thickness cartilage loss involves the medial tibial plateau, without associated pathological marrow signal alteration. High-grade chondral not seen.PATELLOFEMORAL COMPARTMENT: Pat ellofemoral alignment is normal. Grade 4 chondromalacia grade 3 to 4 chondromalacia involves the midsuperior patellar ridge. High-grade trochlear groove chondromalacia is not seen.MISCELLANEOUS FINDINGS: Small joint effusion is present. Popliteal cyst is present, 2.3 cm axial diameter and approximately 5 cm in craniocaudal dimension. Small fluid collection localizes to the pes anserine bursa. 11 mm diameter loose body is evident adjacent to the posterior margin of distal posterior cruciate ligament.[U] XRAY KNEE 3 VWS LEFT [id number] 2018-07-19 12:02:00Images acquired, not reported on this accession number.[facility] CERVICAL WO/WCLINICAL INDICATION: G37.9 Demyelinating disease of central nervous system, unspecified MODALITY: ACR accredited Cytoguidee II 1.5 Lesley MRITECHNIQUE: Multiplanar SE and FSE evaluation of the cervical region was performed without contrast enhancement. Multiplanar T1 sequences were then performed following intravenous administration of 9.0 ml gadolinium.IMPRESSION:1. Normal cervical lordosis and alignment.2. At C5-6 there is 3 mm spondylitic protrusion which effaces ventral cord. No significant cord compression. There is mild canal stenosis with moderate bilateral foraminal stenosis.3. At C4-5 and C6-7 there are 1 mm diffuse protrusions with patent canal and patent foramen.4. Multilevel facet arthrosis.5. Normal cervical spinal cord.6. No pathologic enhancement following contrast administration.FIND INGS:COMPARISON: noneThere is normal cervical lordosis and alignment.Vertebral heights are well maintained without fracture or destructive osseous lesion.Discs are mildly degenerated from C3-4 - C6-7.The prevertebral soft tissues are normal.The craniocervical junction is normal without mass or Chiari m alformation.The cervical spinal cord is intrinsically normal. There is no significant compression. There are no demyelinating lesions or myelitis. No pathologic enhancement seen following contrast administration.FINDINGS AT SPECIFIC LEVELS:C2-C3: No abnormalities.C3-C4: Central canal and foramen are pa tent. Facet joints are mildly degenerated. Minimal disc degeneration is present.C4-C5: Disc is minimally degenerated. 1 mm diffuse posterior protrusion is present. Patent canal and foramen noted with normal cord. Mild bilateral uncinate joint and facet joint arthrosis is seen.C5-C6: There is reductionof disc height with nuclear dehydration and spondylosis. There is 3 mm diffuse spondylitic protrusion which abuts ventral cord. There is no significant cord compression although there is mild central canal stenosis. There is moderate - moderately severe bilateral foraminal stenosis, relatively symmetric. Uncinate joints and facet joints are mildly degenerated.C6-C7: Disc height is mildly reduced. 1 mm diffuse protrusion is present. Canal and cord are normal. Foramen are patent. Uncinate joints and facet joints are mildly degenerated.C7-T1: No focal abnormalities.MRI BRAIN WO/WCLINICAL INDICATION: G37.9 Demyelinating disease of central nervous system, unspecifiedMODALITY: ACRaccredited Cytoguidee II 1.5 Lesley MRITECHNIQUE: Multiplanar SE, FSE and inversion recovery pulse sequ ences of the brain were performed without contrast enhancement. Diffusion weighted imaging was utilized. IV contrast, 9.0 ml gadolinium are injected IV and post-contrast T1 axial and coronal images obtained.IMPRESSION:1. There are no intracranial abnormalities prior to and following contrast administration.2. No evidence of intracranial demyelinating disease.3. Pansinusitis.FINDINGS:COMPARISON: noneThere are no significant intracranial white matter lesions. No evidence of intracranial demyelinatingdisease.There are no acute infarcts or hemorrhages. There is no acute restriction on diffusion sequences.There are no intracranial or extra-axial masses. There is no hydrocephalous.Sella and parasellarstructures are normal. Central skull base is intact. The craniocervical junction is normal without mass or Chiari malformation.The brainstem, midbrain and cerebellum are normal. Bilateral internal auditory canals are normal and symmetric.Normal flow voids are seen intracranially in carotid and vertebrobasilar arteries. The dural venous sinuses are patent.The calvarium is intact.There is moderate mucosal thickening throughout frontal, ethmoid, sphenoid and maxillary sinuses. CT of the sinuses may be useful for further evaluation.There is no pathologic intracranial enhancement.MRI LUMBAR WOCLINICAL INDICATION: M48.07 Spinal stenosis, lumbosacral region ,paresthesias from waist down.MODALITY: [facility] accredited Cytoguidee II 1.5 Lesley MRITECHNIQUE: Multiplanar multi sequence MRI examination of the lumbar spine was performed.IMPRESSION:1. Five lumbar vertebra present with mild mid lumbar dextroscoliosis.2. No destructive osseous lesions.3. Mild to moderate degeneration of all lumbar discs.4. At L3-4 there is 3 mm diffuse posterior protrusion with borderline canal size. There is moderate bilateral foraminal/lateral recess stenosis.5. At L4-5 there is 3-4 mm diffuse posterior spondylitic protrusion, eccentric to the right. In addition, 5 mm disc herniation extends inferior to the disc space into the right foramen/lateral recess. There is mild canal stenosis. There is severe right and moderately severe left foraminal/lateral recess stenosis.6. Mild right foraminal narrowing is present at L5-S1, especially proximally, predominately due to vertebral endplate spondylosis and right facet jointhypertrophy.7. Multilevel hypertrophic facet arthrosis.FINDINGS:COMPARISON: noneGeneral observations: There are five lumbar vertebra. Lordosis is intact. The numbering system is depicted below. There is mild mid lumbar dextroscoliosis.There is mild - moderate loss of disc height with nuclear dehydration and spondylosis at each visualized lumbar level.There are no fractures or destructive osseous lesions.Paraspinous and prevertebral soft tissues are normal.Conus medullaris and cauda equina are normal. Conus terminates at L1.FINDINGS AT SPECIFIC LEVELS:L5-S1: Disc height is mildly reduced. There is nuclear dehydration. Central canal is patent. Right foramen is mildly narrowed due to spondylosis of vertebral endplate and hypertrophic right facet joint. Left foramen is patent. Moderate facet arthrosis present bilaterally.L4-L5: There is moderate loss of disc height with nuclear dehydration and spondylosis. There is 3 mm - 4 mm diffuse posterior spondylitic protrusion, eccentric to the right. In addition there is a 5 mm right paracentral/lateral recess disc herniation with annular tear. There is mild central canal stenosis. There is severe right and moderately severe left foraminal and lateral recess stenosis. Facet joints are moderately severe with mild ligamentum flavum hypertrophy.L3-L4: Disc height is mildly reduced with nuclear dehydration. There is spondylosis. There is 3 mm diffuse posterior spondylitic protrusion borderline size of central canal. There is moderate bilateral foraminal/lateral recess stenosis. Moderate facet arthrosis is present bilaterally with mild ligamentum flavum hypertrophy.L2-L3: Disc height is mildly reduced with nuclear dehydration and spondylosis. There is 2 mm - 3 mm diffuse posterior spondylitic protrusion, extending into both neural foramen. Central canal is patent. There is mild right and moderate left foraminal/lateral recess stenosis. Facet joints are moderately hypertrophic and degenerated with mild ligamentum flavum.L1-L2: There is mild loss of discheight with nuclear dehydration and spondylosis. Posteriorly, there is 2 mm diffuse posterior protrusion with patent canal and mild symmetric foraminal narrowing. Facet joints are moderately degenerated. Lumbar numbering system is depicted above.MRI THORACIC WO/WCLINICAL INDICATION: M48.04 Spinal stenosis, thoracic region, paresthesias of lower extremities.MODALITY: ACR accredited Cytoguidee II 1.5 Lesley MRITECHNIQUE: Multiplanar SE and FSE evaluation of the thoracic region was performed without contrast enhancement. Postcontrast imaging was performed following 9.5 ml of intravenous Gadolinium.IMPRESSION:1. Normal thoracic spinal cord prior to and following contrast administration.2. Normal preservation of vertebral height and disc height throughout the thoracic column.3. At T8-9 there is a 4 mm left paracentral/foraminal disc herniation with annular tear. There is narrowed left neural foramen.4. Mild facet osteoarthritis from T8-9 - T12-L1.FINDINGS:COMPARISON: noneThere is normal thoracic kyphosis and alignment.Disc heights are well maintained. There areno focal abnormalities from T1-2 - T7-8At T8-9 there is a 4 mm left paracentral/left foraminal disc h erniation with annular tear, causing moderate narrowing of the left neural foramen. Central canal and right foramen are patent.No focal abnormalities at the levels of T9-10 through T12-L1.Vertebral body heights are well maintained. There are no fractures or destructive osseous lesions. There is no pathologic bone marrow signal intensity. There are no paraspinous or prevertebral soft tissue masses. There are no pleural effusions.The thoracic spinal cord is normal without intramedullary, intradural orextradural lesion. There is no pathologic signal intensity in the thoracic spinal cord. No evidence of syrinx. Conus medullaris and cauda equina are normal. Conus terminates at T12-L1 and has a normal appearance.Following intravenous contrast administration, there is no pathologic enhancement in the thoracic cord, meninges, bones or soft tissues.
[2022-07-10 11:29] LABS: Absolute Lymphocytes (CBC) 0.6 K/uL (0.7-4.9); Hematocrit 42.2 % (39.6-49.0); Lymphocytes % 5.1 % (15.3-44.8); MCV 89.2 fL (80-100); MPV 9.1 fL (7.6-11.3); RBC Red Blood Cell Count 4.74 M/uL (4.33-5.43)
[2022-07-10] MEDS ORDERED: FAMOTIDINE 20 MG/2 ML VIAL IV ONE (11:31)
[2022-07-10] MEDS ORDERED: ONDANSETRON 4 MG/2 ML VIAL ONE ×2 (11:31→15:44)
[2022-07-10] MEDS ORDERED: NA CHLORIDE 0.9% 500 ML ONE (11:31)
[2022-07-10] MEDS ORDERED: MORPHINE 4 MG/ML SYR ONE (11:31)
[2022-07-10 11:35] LABS: Protime INR 1.05
[2022-07-10 11:49] LABS: Albumin 4.1 g/dL (3.4-5.0); Bilirubin Direct 0.2 mg/dL (0-0.2); Bilirubin Indirect, Calculated 0.9 mg/dL (0.2-0.8); Bilirubin Total 1.1 mg/dL (0.2-1.0); Potassium 3.5 mEq/L (3.5-5.1); Protein, Total 7.8 g/dL (6.4-8.2); Troponin High Sensitivity 13.7 pg/mL (<58.9)
[2022-07-10 11:55] LABS: Specific Gravity 1.013 (1.005-1.030); Urine Bilirubin NEGATIVE (Negative); Urine Blood Negative (Negative); Urine Clarity Clear (Clear); Urine Color Light-Yellow (Yellow); Urine Glucose NEGATIVE (Negative); Urine Protein NEGATIVE (Negative); Urine Urobilinogen Normal (Normal); Urine pH 7.5 (5.0-7.0)
--- NOTE | 2022-07-10 12:02 | RAD REPORT ---
EXAM DESCRIPTION: Mauro Single View07/10/2022 11:47 am CLINICAL HISTORY: ABDOMINAL DISTENTION COMPARISON: No comparisons TECHNIQUE: Portable AP view of the chest. FINDINGS: The lungs are clear. Mild left basilar atelectasis. No pneumothorax or effusion. The cardi omediastinal contours are unremarkable. IMPRESSION: No acute cardiopulmonary process.
--- NOTE | 2022-07-10 12:30 | RAD REPORT ---
EXAM DESCRIPTION: CT - Abdomen Pelvis W Contrast - 07/10/2022 12:05 pm CLINICAL HISTORY: ABD PAIN COMPARISON: Abdomen Pelvis W Contrast dated 01/11/2020 TECHNIQUE: Thin cut axial CT imaging of the abdomen and pelvis was performed following intravenous a dministration of 100 mL Isovue 300. Multiplanar reformats were generated and reviewed. All CT scans are performed using dose optimization technique as appropriate and may include automated exposure control or mA/KV adjustment according to patient size. FINDINGS: Small airspace opacities bilaterally more confluent on the right, suggest atelectasis or e austin airspace disease. The liver, spleen, and pancreas show no suspicious findings. Gallbladder and biliary tree are also wi thout suspicious finding. Symmetric renal function is seen with no hydronephrosis or suspicious renal mass. Distension of the appendix with mucosal hyperenhancement and adjacent fat stranding. Inflammatory fat stranding extends to the insert the appendix and adjacent cecal wall, as well as short segments of t he adjacent distal ileum. No periappendiceal Left fluid collections. No evidence of free air or free fluid. No hernia, mass or bulky lymphadenopat hy. The urinary bladder is without significant finding. No suspicious bony findings. IMPRESSION: Findings no acute appendicitis, with adjacent inflammatory changes of the cecum and braydon cent distal ileal loops. No evidence of other complications. Small airspace opacities bilaterally more confluent on the right, suggest atelectasis or early airspa ce disease. The findings were communicated to Toni Kilgore on 07/10/2022 at 12:26 hours.
--- NOTE | 2022-07-10 13:04 | EDPHYS ---
Physician Documentation [facility] Name: Ran Morrow Age: 67 yrs Sex: Male : 1955 Arrival Date: 07/10/2022 Time: 10:56 Bed 6 Private MD: LEOBARDO Physician Paolo Vilchis HPI: 07/10 11:34 This 67 yrs old Male presents to ER via Ambulatory with complaints of matthew Abdominal Pain, Nausea/Vomiting. 11:34 The patient presents to the emergency department with nausea, vomiting, that is matthew intermittent. Onset: The symptoms/episode began/occurred just prior to arrival, this morning. 11:35 The patient presents with abdominal pain right lower quadrant. Onset: The matthew symptoms/episode began/occurred just prior to arrival, this morning. Possible causes: unknown. The symptoms are aggravated by nothing. The symptoms are alleviated by nothing. Associated signs and symptoms: The patient has no apparent associated signs or symptoms. The symptoms radiate to the right flank. Associated signs and symptoms: Pertinent positives: nausea and vomiting. Modifying factors: The symptoms are alleviated by nothing, the symptoms are aggravated by nothing. Historical: - Allergies: 11:08 PENICILLINS; hb - Home Meds: 11:08 fluticasone furoate 27.5 mcg/actuation intranasal spray, suspension daily [Active]; hb aspirin 81 mg Oral capsule daily [Active]; metoprolol succinate 25 mg oral Tablet, Extended Release 24 hr daily [Active]; sulindac 150 mg Oral tablet 2 tab 2 times per day [Active]; Advair Diskus 100-50 mcg/dose Inhl Blister, With Inhalation Device 2 times per day [Active]; montelukast 10 mg oral tablet every evening [Active]; Zithromax 500 mg oral tablet every Wednesday, Wednesday, and Wednesday [Active]; ethambutol 400 mg oral tablet 5 tabs Every MWF [Active]; - PMHx: 11:08 Hypertensive disorder; hb - PSHx: 11:08 Aortic Valve Replacement; Knee Replacement - Bilateral; Tonsillectomy; Hernia Repair x hb 2; - Immunization history:: Adult Immunizations up to date. - Social history:: Smoking status: Patient denies any tobacco usage or history of. - Family history:: not pertinent. ROS: 11:35 Constitutional: Negative for fever, chills, and weight loss, Eyes: Negative for injury, matthew pain, redness, and discharge, ENT: Negative for injury, pain, and discharge, Neck: Negative for injury, pain, and swelling, Cardiovascular: Negative for chest pain, palpitations, and edema, Respiratory: Negative for shortness of breath, cough, wheezing, and pleuritic chest pain, Back: Negative for injury and pain, : Negative for injury, bleeding, discharge, and swelling, MS/Extremity: Negative for injury and deformity, Skin: Negative for injury, rash, and discoloration, Neuro: Negative for headache, weakness, numbness, tingling, and seizure, Psych: Negative for depression, anxiety, suicide ideation, homicidal ideation, and hallucinations, Allergy/Immunology: Negative for hives, rash, and allergies, Endocrine: Negative for neck swelling, polydipsia, polyuria, polyphagia, and marked weight changes, Hematologic/Lymphatic: Negative for swollen nodes, abnormal bleeding, and unusual bruising. 11:35 Abdomen/GI: Positive for abdominal pain, nausea and vomiting, of the right lower quadrant. Exam: 11:35 Constitutional: This is a well developed, well nourished patient who is awake, alert, matthew and in no acute distress. Head/Face: Normocephalic, atraumatic. Eyes: Pupils equal round and reactive to light, extra-ocular motions intact. Lids and lashes normal. Conjunctiva and sclera are non-icteric and not injected. Cornea within normal limits. Periorbital areas with no swelling, redness, or edema. ENT: Nares patent. No nasal discharge, no septal abnormalities noted. Tympanic membranes are normal and external auditory canals are clear. Oropharynx with no redness, swelling, or masses, exudates, or evidence of obstruction, uvula midline. Mucous membranes moist. Neck: Trachea midline, no thyromegaly or masses palpated, and no cervical lymphadenopathy. Supple, full range of motion without nuchal rigidity, or vertebral point tenderness. No Meningismus. Chest/axilla: Normal chest wall appearance and motion. Nontender with no deformity. No lesions are appreciated. Cardiovascular: Regular rate and rhythm with a normal S1 and S2. No gallops, murmurs, or rubs. Normal PMI, no JVD. No pulse deficits. Respiratory: Lungs have equal breath sounds bilaterally, clear to auscultation and percussion. No rales, rhonchi or wheezes noted. No increased work of breathing, no retractions or nasal flaring. Back: No spinal tenderness. No costovertebral tenderness. Full range of motion. Male : Normal genitalia with no discharge or lesions. Skin: Warm, dry with normal turgor. Normal color with no rashes, no lesions, and no evidence of cellulitis. MS/ Extremity: Pulses equal, no cyanosis. Neurovascular intact. Full, normal range of motion. Neuro: Awake and alert, GCS 15, oriented to person, place, time, and situation. Cranial nerves II-XII grossly intact. Motor strength 5/5 in all extremities. Sensory grossly intact. Cerebellar exam normal. Normal gait. Psych: Awake, alert, with orientation to person, place and time. Behavior, mood, and affect are within normal limits. 11:35 Cardiovascular: Rate: normal, actual rate is 76 bpm, Rhythm: regular, Pulses: no pulse deficits are appreciated, Heart sounds: normal, Edema: is not appreciated, JVD: is not appreciated. 11:35 ECG was reviewed by the Attending Physician. 11:35 Abdomen/GI: Inspection: Bowel sounds: normal, Palpation: moderate abdominal tenderness, in the right lower quadrant, Liver: no appreciated palpable abnormalities, Hernia: not appreciated. Vital Signs: 11:07 BP 133 / 70; Pulse 80; Resp 16; Temp 98.9(O); Pulse Ox 97% on R/A; Weight 75.75 kg; hb Height 5 ft. 10 in. ; Pain 10/10; 13:00 BP 114 / 79; Pulse 87; Resp 18; Pulse Ox 100% on R/A; ph 14:03 BP 114 / 79; Pulse 86; Resp 18; Temp 101(O); Pulse Ox 100% on R/A; ph 14:58 BP 136 / 66; Pulse 84; Resp 18; Temp 101.8(O); Pulse Ox 98% on R/A; ph 11:07 Body Mass Index 23.96 (75.75 kg, 177.8 cm) hb 11:07 Pain Scale: Adult hb MDM: 11:02 Patient medically screened. matthew 11:40 Differential diagnosis: Nonspecific abd pain, pancreatitis, viral gastroenteritis, matthew gastroenteritis, diverticulitis, gastritis, non-specific abd pain, Pyelonephritis, Ureterolithiasis, urinary tract infection. Data reviewed: vital signs, nurses notes, lab test result(s), EKG, radiologic studies, CT scan, plain films. Consideration of Admission/Observation Escalation of care including admission/observation considered. I considered the following discharge prescriptions or medication management in the emergency department Medications were administered in the Emergency Department. See MAR. Test considered but Not performed: Ultrasound no renal usg. Care significantly affected by the following chronic conditions: Hypertension. 07/10 11:04 Order name: Basic Metabolic Panel; Complete Time: 12:54 [facility] 07/10 11:04 Order name: CBC with Diff; Complete Time: 11:49 [facility] 07/10 11:04 Order name: LFT's; Complete Time: 12:54 [facility] 07/10 11:04 Order name: Magnesium; Complete Time: 12:54 [facility] 07/10 11:04 Order name: NT PRO-BNP; Complete Time: 12:54 [facility] 07/10 11:04 Order name: PT-INR; Complete Time: 11:49 07/10 11:04 Order name: Troponin HS; Complete Time: 12:54 [facility] 07/10 11:04 Order name: Urinalysis w/ reflexes; Complete Time: 12:54 [facility] 07/10 11:04 Order name: Lipase; Complete Time: 12:54 [facility] 07/10 11:04 Order name: XRAY Chest (1 view); Complete Time: 12:54 [facility] 07/10 11:04 Order name: CT Abd/Pelvis - IV Contrast Only; Complete Time: 12:54 [facility] 07/10 11:04 Order name: EKG; Complete Time: 11:05 07/10 11:04 Order name: Cardiac monitoring; Complete Time: 11:04 [facility] 07/10 11:04 Order name: EKG - Nurse/Tech; Complete Time: 11:32 [facility] 07/10 11:04 Order name: IV Saline Lock; Complete Time: 11:32 07/10 11:04 Order name: Labs collected and sent; Complete Time: 11:32 [facility] 07/10 11:04 Order name: O2 Per Protocol; Complete Time: 11:04 07/10 11:04 Order name: O2 Sat Monitoring; Complete Time: 11:07/10 13:09 Order name: NPO; Complete Time: 13:38 [facility] EC:35 Rate is 76 beats/min. Rhythm is regular. QRS [place] is Normal. QRS interval is normal. QT matthew interval is normal. No Q waves. T waves are Normal. No ST changes noted. Clinical impression: NSR w/ Non-specific ST/T Changes and No evidence of ischemia. Interpreted by me. Reviewed by me. Administered Medications: 11:36 Drug: NS 0.9% IV 500 ml Route: IV; Rate: bolus; Site: right antecubital; ph 12:12 Follow up: Response: No adverse reaction; IV Status: Completed infusion; IV Intake: ph 500ml 11:36 Drug: Ondansetron IVP 4 mg Route: IVP; Site: right antecubital; ph 12:12 Follow up: Response: No adverse reaction ph 11:36 Drug: Famotidine IVP 20 mg Route: IVP; Site: right antecubital; ph 12:12 Follow up: Response: No adverse reaction ph 11:36 Drug: morphine IVP or IV 4 mg Route: IVP; Infused Over: 4 mins; Site: right antecubital;ph 12:12 Follow up: Response: No adverse reaction; Pain is decreased; RASS: Drowsy (-1) ph 14:03 Drug: NS 0.9% IV 1000 ml Route: IV; Rate: 125 ml/hr; Site: right antecubital; ph 14:21 Follow up: IV Status: Infusion continued upon admission ph 14:03 Drug: metroNIDAZOLE IVPB 500 mg Volume: 100 ml; Route: IVPB; Rate: 200 ml/hr; Infused ph Over: 30 mins; Site: left antecubital; 14:40 Follow up: Response: No adverse reaction; IV Status: Completed infusion ph 14:21 Drug: cefOXitin IVPB 2 grams Route: IVPB; Infused Over: 30 mins; Site: right ph antecubital; 14:59 Follow up: Response: No adverse reaction; IV Status: Completed infusion ph 14:21 Drug: Acetaminophen PO 1000 mg Route: PO; ph 14:58 Follow up: Response: No adverse reaction ph Disposition Summary: 07/10/22 13:04 Hospitalization Ordered Hospitalization Status: Observation matthew Provider: Sushil Amaya cha Location: Telemetry/MedSurg (observation) matthew Condition: Fair matthew Problem: new matthew Symptoms: have improved matthew Bed/Room Type: Standard matthew Room Assignment: matthew Diagnosis - Abdominal tenderness matthew - Vomiting matthew - Acute appendicitis with localized peritonitis matthew Forms: - Medication Reconciliation Form matthew - SBAR form matthew Signatures: Dispatcher [employer] EDPaolo Marcos MD MD cha Hall, Patricia, RN RN Coreen Ordonez RN RN
--- NOTE | 2022-07-10 13:04 | ER ---
Nurse's Notes [facility] Name: Ran Morrow Age: 67 yrs Sex: Male : 1955 Arrival Date: 07/10/2022 Time: 10:56 Bed 6 Private MD: Diagnosis: Abdominal tenderness;Vomiting;Acute appendicitis with localized peritonitis Presentation: 07/10 11:07 Chief complaint: RLQ pain and N/V since this morning. Coronavirus screen: Client hb presents with at least one sign or symptom that may indicate coronavirus-19. Provider contacted for isolation considerations. Ebola Screen: No symptoms or risks identified at this time. Initial Sepsis Screen: Does the patient meet any 2 criteria? No. Patient's initial sepsis screen is negative. Does the patient have a suspected source of infection? No. Patient's initial sepsis screen is negative. Risk Assessment: Do you want to hurt yourself or someone else? Patient reports no desire to harm self or others. Onset of symptoms was July 10, 2022. 11:07 Method Of Arrival: Ambulatory hb 11:07 Acuity: KINZA 3 hb Historical: - Allergies: 11:08 PENICILLINS; hb - Home Meds: 11:08 fluticasone furoate 27.5 mcg/actuation intranasal spray, suspension daily [Active]; hb aspirin 81 mg Oral capsule daily [Active]; metoprolol succinate 25 mg oral Tablet, Extended Release 24 hr daily [Active]; sulindac 150 mg Oral tablet 2 tab 2 times per day [Active]; Advair Diskus 100-50 mcg/dose Inhl Blister, With Inhalation Device 2 times per day [Active]; montelukast 10 mg oral tablet every evening [Active]; Zithromax 500 mg oral tablet every Wednesday, Wednesday, and Wednesday [Active]; ethambutol 400 mg oral tablet 5 tabs Every MWF [Active]; - PMHx: 11:08 Hypertensive disorder; hb - PSHx: 11:08 Aortic Valve Replacement; Knee Replacement - Bilateral; Tonsillectomy; Hernia Repair x hb 2; - Immunization history:: Adult Immunizations up to date. - Social history:: Smoking status: Patient denies any tobacco usage or history of. - Family history:: not pertinent. Screenin:32 [facility] ED Fall Risk Assessment (Adult) History of falling in the last 3 months, mb9 including since admission No falls in past 3 months (0 pts) Confusion or Disorientation No (0 pts) Intoxicated or Sedated No (0 pts) Impaired Gait No (0 pts) Mobility Assist Device Used No (0 pt) Altered Elimination No (0 pt) Score/Fall Risk Level 0 - 2 = Low Risk Oriented to surroundings, Maintained a safe environment, Educated pt \T\ family on fall prevention, incl call for assistance when getting out of bed. Abuse screen: Denies threats or abuse. Nutritional screening: No deficits noted. Tuberculosis screening: No symptoms or risk factors identified. Assessment: 11:24 General: Appears uncomfortable, Behavior is appropriate for age. Pain: Complains of mb9 pain in RLQ Pain does not radiate. Pain currently is 10 out of 10 on a pain scale. Quality of pain is described as throbbing. Neuro: Damon Agitation-Sedation Scale (RASS): 0 - Alert and Calm Level of Consciousness is awake, alert, obeys commands, Oriented to person, place, time, situation, Appropriate for age. Cardiovascular: Patient's skin is warm and dry. Rhythm is regular. Respiratory: Airway is patent Respiratory effort is even, unlabored, Respiratory pattern is regular, symmetrical. GI: Abdomen is flat, non-distended, Bowel sounds present X 4 quads. Abd is soft Abdomen is tender to palpation in right lower quadrant Reports nausea, vomiting, since this morning. Derm: Skin is pink, warm \T\ dry. Musculoskeletal: Range of motion: intact in all extremities. 14:57 Reassessment: Patient appears in no apparent distress at this time. Patient and/or ph family updated on plan of care and expected duration. Pain level reassessed. Patient is alert, oriented x 3, equal unlabored respirations, skin warm/dry/pink. Pt taken to OR via wheelchair. Vital Signs: 11:07 BP 133 / 70; Pulse 80; Resp 16; Temp 98.9(O); Pulse Ox 97% on R/A; Weight 75.75 kg; hb Height 5 ft. 10 in. ; Pain 10/10; 13:00 BP 114 / 79; Pulse 87; Resp 18; Pulse Ox 100% on R/A; ph 14:03 BP 114 / 79; Pulse 86; Resp 18; Temp 101(O); Pulse Ox 100% on R/A; ph 14:58 BP 136 / 66; Pulse 84; Resp 18; Temp 101.8(O); Pulse Ox 98% on R/A; ph 11:07 Body Mass Index 23.96 (75.75 kg, 177.8 cm) hb 11:07 Pain Scale: Adult hb ED Course: 10:58 Patient arrived in ED. rg4 11:02 Paolo Vilchis MD is Attending Physician. matthew 11:08 Triage completed. hb 11:20 EKG done, by ED staff, reviewed by Paolo Vilchis MD. mb9 11:22 Shana Menendez, RN is Primary Nurse. ph 11:24 Arm band placed on. mb9 11:30 Radiology exam delayed due to lab results not completed at this time. (BUN/Creatinine) [id number] IV insertion attempt and/or patient not having appropriate IV at this time. 11:33 Placed in gown. Bed in low position. Call light in reach. Side rails up X 1. Client mb9 placed on continuous cardiac and pulse oximetry monitoring. NIBP monitoring applied. air sampling and monitoring on. 11:37 Initial lab(s) drawn, by me, held in ED. Urine collected: clean catch specimen, clear. ph Inserted saline lock: 22 gauge in right antecubital area, using aseptic technique. Blood collected. 11:37 Urinalysis w/ reflexes Sent. ph 11:48 XRAY Chest (1 view) In Process Unspecified. EDMS 12:07 CT Abd/Pelvis - IV Contrast Only In Process Unspecified. EDMS 13:03 Sushil Amaya is Hospitalizing Provider. matthew 14:04 No provider procedures requiring assistance completed. Patient admitted, IV remains in ph place. Administered Medications: 11:36 Drug: NS 0.9% IV 500 ml Route: IV; Rate: bolus; Site: right antecubital; ph 12:12 Follow up: Response: No adverse reaction; IV Status: Completed infusion; IV Intake: ph 500ml 11:36 Drug: Ondansetron IVP 4 mg Route: IVP; Site: right antecubital; ph 12:12 Follow up: Response: No adverse reaction ph 11:36 Drug: Famotidine IVP 20 mg Route: IVP; Site: right antecubital; ph 12:12 Follow up: Response: No adverse reaction ph 11:36 Drug: morphine IVP or IV 4 mg Route: IVP; Infused Over: 4 mins; Site: right antecubital;ph 12:12 Follow up: Response: No adverse reaction; Pain is decreased; RASS: Drowsy (-1) ph 14:03 Drug: NS 0.9% IV 1000 ml Route: IV; Rate: 125 ml/hr; Site: right antecubital; ph 14:21 Follow up: IV Status: Infusion continued upon admission ph 14:03 Drug: metroNIDAZOLE IVPB 500 mg Volume: 100 ml; Route: IVPB; Rate: 200 ml/hr; Infused ph Over: 30 mins; Site: left antecubital; 14:40 Follow up: Response: No adverse reaction; IV Status: Completed infusion ph 14:21 Drug: cefOXitin IVPB 2 grams Route: IVPB; Infused Over: 30 mins; Site: right ph antecubital; 14:59 Follow up: Response: No adverse reaction; IV Status: Completed infusion ph 14:21 Drug: Acetaminophen PO 1000 mg Route: PO; ph 14:58 Follow up: Response: No adverse reaction ph Medication: 11:31 VIS not applicable for this client. mb9 Intake: 12:12 IV: 500ml; Total: 500ml. ph Outcome: 13:04 Decision to Hospitalize by Provider. [facility] 14:57 Admitted to OR accompanied by nurse, via wheelchair, with chart. jl7 14:57 Condition: stable 14:57 Discharge instructions given to patient, family, Instructed on the need for admit, Demonstrated understanding of instructions. 14:58 Patient left the ED. jl7 Signatures: Dispatcher [employer] EDPaolo Marcos MD MD cha Hall, Patricia RN JOVANNY Coreen Vicente, RN Isaura Hernandez rg4 Kenney Benavidez RN RN jl7 [facility] Prerna Saavedra RN RN mb9
[2022-07-10] MEDS ORDERED: CEFOXITIN SODIUM 1 GM/VIAL ONE (13:47)
[2022-07-10] MEDS ORDERED: NA CHLORIDE 0.9% 100 ML ONE (13:48)
[2022-07-10] MEDS ORDERED: METRONIDAZOLE 500mg IVPB 500 MG/100 ML BAG IV ONE (13:48)
[2022-07-10] MEDS ORDERED: ACETAMINOPHEN 500 MG TAB ONE (14:18)
[2022-07-10] MEDS ORDERED: Ringers Lactate 1,000 ML IV ONE (15:13)
[2022-07-10] MEDS ORDERED: ALBUTEROL 2.5 MG/3 ML NEB SOL ONE (15:39)
[2022-07-10] MEDS ORDERED: FENTANYL CITR 100 MCG/2 ML ONE (15:42)
[2022-07-10] MEDS ORDERED: MIDAZOLAM HCL 2 MG/2 ML INJ ONE (15:43)
[2022-07-10] MEDS ORDERED: LIDOCAINE 2% MPF 5 ML VIAL ONE (15:43)
[2022-07-10] MEDS ORDERED: propofoL 200 MG/20 ML VIAL IV ONE (15:43)
[2022-07-10] MEDS ORDERED: BUPIVACAINE 0.5% PF 10 ML VIAL ONE (15:47)
[2022-07-10] MEDS ORDERED: GLYCOPYRROLATE 0.2 MG/ML SYR ONE ×2 (15:48→15:49)
[2022-07-10] MEDS ORDERED: ROCURONIUM 50 MG/5 ML VIAL IV ONE (15:48)
[2022-07-10] MEDS ORDERED: NEOSTIGMINE 1 MG/ML -10 ML VIAL ONE (15:52)
[2022-07-10] MEDS ORDERED: Phenylephrine HCl 10 MG/ML 1 ML VIAL ONE (16:17)
[2022-07-10] MEDS ORDERED: EPHEDRINE SULF 50 MG/ML VIAL ONE (16:21)
[2022-07-10] MEDS ORDERED: MORPHINE 2 MG/ML SYR IV PRN (16:46)
--- NOTE | 2022-07-10 17:00 | P.OP ---
Date of Service: 07/10/22 Preop diagnosis: Acute appendicitis Postop diagnosis: Acute suppurative appendicitis Procedure performed: Laparoscopic appendectomy Surgeon: Micah Hu MD Drug Purchaser: None Estimated blood loss: Minimal Specimen: Appendix Findings: As above Anesthesia: General Complications: None Drains: None Fluids and blood products: Nonapplicable Disposition: Recovery room Operative note: Patient brought to the OR and placed in the supine position. General anesthesia begun. Patient prepped and draped in the usual sterile fashion. Marcaine 0.5% infiltrated locally. 15 blade used to make a 1 cm supraumbilical midline incision. Subcutaneous tissue divided. Fascia identified and divided. #1 Vicryl stay suture placed. Peritoneal cavity entered with sharp and blunt dissection. 12 mm trocar placed into the peritoneal cavity under direct vision. Pneumoperitoneum established. Two 5 mm trocars placed. 1 trocar placed in the suprapubic region and the other 1 in the left lower quadrant. Laparoscopy revealed acute suppurative appendicitis. There is secondary inflammation towards the cecum as well as the terminal ileum. There was some straw-colored fluid in the pelvis which was aspirated. Endo FEDERICO's stapling device was used sequentially to divide the mesoappendix as well as the base of the appendix on the cecum. Endo Catch bag used to retrieve the appendix via the umbilicus. Right lower quadrant irrigated effluent clear no evidence of bleeding or bowel injury appreciated. Pelvis irrigated as well. Clear effluent present. All trocars removed under direct vision. Stay sutures tied to each other to reapproximate the fascial defect. Subcutaneous wounds irrigated and bleeding controlled with cautery. 0 chromic used to approximate subcutaneous tissue. Monroe used to close skin. Sterile dressing applied and patient awakened. Patient taken to recovery room in good general condition. CC:
[2022-07-10] MEDS: HYDROMORPHONE HCL 1 MG/ML INJ IV PRN ×2 (17:18→17:28)
--- NOTE | 2022-07-10 17:56 | P.HP ---
Certification for Inpatient Patient admitted to: Inpatient With expected LOS: >2 Midnights Practitioner: I am a practitioner with admitting privileges, knowledge of patient current condition, hospital course, and medical plan of care. Services: Services provided to patient in accordance with Admission requirements found in Title 42 Section 412.3 of the Code of Federal Regulations Patient History Date of Service: 07/10/22 Reason for admission: Abdominal pain History of Present Illness: 67-year-old gentleman with a history of aortic valve replacement, asthma, history of pulmonary MAC presented to the emergency department due to sudden onset abdominal pain which started in the epigastrium and moved to the right lower quadrant, associated with vomiting. Patient vomited 4 times. No fever, no diarrhea. Pain became severe and patient presented to the ED where CT scan demonstrated acute appendicitis with inflamed cecum. General surgery Dr. Hu was contacted who recommended emergent surgery. Patient admitted for further management. Allergies Penicillins Allergy (Verified 07/10/22 15:25) Rash - Past Medical/Surgical History -: Asthma -: Pulmonary MAC -: Aortic valve replaced -: Knee surgeries - Family History Mother -: Stroke Father -: Heart disease - Social History Smoking Status: Never smoker Alcohol use: No CD- Drugs: No Place of Residence: Home Review of Systems Other: Except as documented, all other systems reviewed and negative. Physical Examination - Vital Signs Temperature: 99.4 F Blood Pressure: 108/51 Pulse: 80 Respirations: 16 - Physical Exam General: In no apparent distress, Other (Drowsy) HEENT: Atraumatic, PERRLA, Mucous membr. moist/pink, Sclerae nonicteric Neck: Supple, JVD not distended Respiratory: Clear to auscultation bilaterally, Normal air movement Cardiovascular: No edema, Normal pulses, Normal S1 S2, No murmurs Capillary refill: <2 Seconds Gastrointestinal: Normal bowel sounds, Soft and benign, Other (Dressed trocar wounds) Musculoskeletal: No swelling, No tenderness Integumentary: No rashes, No cyanosis Neurological: Normal speech, Normal strength at 5/5 x4 extr, Cranial nerves 3-12 intact Lymphatics: No axilla or inguinal lymphadenopathy - Studies Laboratory Data (last 24 hrs) 07/10/22 11:15: PT 11.5, INR 1.05 07/10/22 11:15: WBC 12.40 H, Hgb 13.7, Hct 42.2, Plt Count 212 07/10/22 11:15: Sodium 138, Potassium 3.5, BUN 12, Creatinine 1.06, Glucose 117 H, Magnesium 2.0, Total Bilirubin 1.1 H, AST 22, ALT 26, Alkaline Phosphatase 97, Lipase 36 Assessment and Plan - Problems (Diagnosis) (1) Acute appendicitis Current Visit: Yes Status: Acute (2) Asthma Current Visit: Yes Status: Acute (3) Pulmonary Mycobacterium avium complex (MAC) infection Current Visit: Yes Status: Acute - Plan Patient seen by surgery Dr. Hu and emergent laparoscopic appendectomy performed. Patient found to have acute suppurative appendicitis. Patient admitted to the medical floor after surgery. Noted allergy to penicillin. Blood cultures obtained. IV Cipro and Flagyl Pain medications as needed. Clear liquid diet per surgery Bronchodilators as needed. Continue Zithromax and ethambutol for pulmonary MAC. Continue Singulair for asthma. Monitor CBC to follow leukocytosis. Monitor and optimize electrolytes. - Advance Directives Does patient have a Living Will: No Does patient have a Durable POA for Healthcare: No
[2022-07-10] MEDS: AZITHROMYCIN 250 MG TAB PO SCH (19:56)
[2022-07-10] MEDS: NA CHLORIDE 0.9% 1,000 ML IV SCH (19:56)
[2022-07-10] MEDS: CIPROFLOXACIN 400mg IV 400 MG/200 ML BAG IV SCH (19:56)
--- NOTE | 2022-07-10 20:19 | PREOPCON ---
Date of Consultation: 07/10/2022 Reason For Consultation: Abdominal pain. History Of Present Illness: The patient is a 67-year-old gentleman who awoke with periumbilical abdo caitlin pain localizing to the right lower quadrant associated with nausea, vomiting, and subjective fe olena. The patient denies any diarrhea or constipation. No blood in his stool. No dysuria or hematur ia. No sore throat, runny nose, cough, headaches, or dizziness. No chest pain. Review of Systems: Otherwise unremarkable. Past Medical History: History of hypertension and aortic valve disease. Past Surgical History: Knee replacement, aortic valve replacement last year which was bovine. He is not on any blood thinners. Hernia surgeries. Allergies: INCLUDE PENICILLIN. Social History: The patient does not smoke or drink. Family History: Significant for heart disease and stroke. Physical Examination: Vital Signs: Stable. His temperature was 100.4. General: He is awake, alert, and oriented x3. Head and Neck: Cranial nerves 2 through 12 are grossly within normal limits. No neck masses. No JV D. Throat clear. Neck supple. Chest: Clear. Heart: S1 and S2. Abdomen: Soft, nondistended. Positive bowel sounds. Positive right lower quadrant tenderness with rebound. No rigidity. Extremities: Adequately perfused. Nontender. Neuro: Nonfocal. Diagnostic Data: White count is 12.4 with a left shift. INR is 1.05. Electrolytes reviewed essenti ally unremarkable. CT of the abdomen and pelvis is discussed with Dr. Del Castillo, radiologist. The patie nt has acute appendicitis with secondary inflammation to the ileum and cecum area near the inflamed a ppendix. Assessment: Acute appendicitis. Plan: Admit, n.p.o., IV fluid, IV antibiotics. To the OR for laparoscopic appendectomy, possible op en. The patient understands the risks, benefits, and alternatives and agrees to procedure. /MODL Voice ID: [id number] Report ID: [id number]
[2022-07-10] MEDS: DULERA 100/5 (MOMETASONE/FORMOTEROL) INHALER IH SCH (21:20)
[2022-07-10] MEDS: ETHAMBUTOL HCL 400 MG TAB PO SCH (21:20)
[2022-07-10] MEDS: MONTELUKAST 10 MG TAB PO SCH (21:20)
[2022-07-11] MEDS: METRONIDAZOLE 500mg IVPB 500 MG/100 ML BAG IV SCH ×3 (00:52→16:07)
[2022-07-11 03:08] LABS: Absolute Lymphocytes (CBC) 0.8 K/uL (0.7-4.9); Hematocrit 37.6 % (39.6-49.0); Lymphocytes % 7.5 % (15.3-44.8); MCV 88.5 fL (80-100); MPV 9.2 fL (7.6-11.3); RBC Red Blood Cell Count 4.25 M/uL (4.33-5.43)
[2022-07-11 03:30] LABS: Albumin 3.1 g/dL (3.4-5.0); Magnesium 1.8 mg/dL (1.6-2.4); Phosphorus 2.8 mg/dL (2.5-4.9); Potassium 3.5 mEq/L (3.5-5.1); Protein, Total 6.4 g/dL (6.4-8.2)
[2022-07-11 05:16] LABS: Renal Epithelial <5 /HPF (None Seen); Specific Gravity 1.027 (1.005-1.030); Urine Bacteria None Seen /HPF (<20); Urine Bilirubin NEGATIVE (Negative); Urine Blood Negative (Negative); Urine Clarity Clear (Clear); Urine Color Yellow (Yellow); Urine Glucose NEGATIVE (Negative); Urine Mucus Slight /HPF (None Seen); Urine Protein 1+ (Negative); Urine RBC None Seen /HPF (None Seen); Urine Urobilinogen Normal (Normal); Urine WBC Clump Rare /HPF (None Seen)
[2022-07-11] MEDS: METOPROLOL XL 25 MG TAB PO SCH (05:21)
[2022-07-11] MEDS: NA CHLORIDE 0.9% 1,000 ML IV SCH ×2 (05:21→15:43)
[2022-07-11] MEDS: HYDROCODONE/APAP 7.5/325 MG TAB PO PRN ×2 (05:28→13:10)
--- NOTE | 2022-07-11 08:52 | PN ---
Date of Progress Note: 07/11/2022 Subjective: Patient is awake and alert. Pain is well controlled. However, he is having trouble uri nating. Feels like he still has a full bladder. Objective: Vital Signs: Stable. His temperature is 100.2. Abdomen: Benign. Dressings clean, dry, and intact. Laboratory Data: Reviewed. White count is 10.4, however he still has the left shift. Assessment: Status post laparoscopic appendectomy for acute suppurative appendicitis. Recommendations: Continue IV antibiotics, bladder scan, and Oswald if indicated. Encourage ambulatio n, incentive spirometry, and IV antibiotics. Patient will prior be cleared for discharge in 24 to 48 hours. /MODL Voice ID: [id number] Report ID: [id number]
[2022-07-11] MEDS ORDERED: MAGNESIUM SULFATE 1 gm IVPB 1 GM/100 ML BAG IV ONE (09:00)
[2022-07-11] MEDS ORDERED: POTASSIUM CL SA 10 MEQ TAB PO ONE (09:00)
[2022-07-11] MEDS: DULERA 100/5 (MOMETASONE/FORMOTEROL) INHALER IH SCH ×2 (09:14→20:10)
[2022-07-11] MEDS: FLUTICASONE 50MCG NASAL SPRAY NAS SCH (09:15)
[2022-07-11] MEDS: CIPROFLOXACIN 400mg IV 400 MG/200 ML BAG IV SCH ×2 (10:17→20:10)
--- NOTE | 2022-07-11 12:47 | P.PN ---
Subjective Date of Service: 07/11/22 Chief Complaint: Abdominal pain Patient reports no bowel movement or flatus. He had a fever yesterday. He denies any abdominal pain. Patient also reports urinary retention. Physical Examination - Vital Signs Temperature: 98.9 F Blood Pressure: 106/61 Pulse: 78 Respirations: 18 Pulse Ox (%): 97 - Physical Exam General: Alert, In no apparent distress HEENT: Mucous membr. moist/pink Neck: Supple, JVD not distended Respiratory: Clear to auscultation bilaterally, Normal air movement Cardiovascular: No edema, Regular rate/rhythm, Normal S1 S2 Gastrointestinal: Soft and benign, Non-distended, Other (Trocar wounds with clean dressing) Musculoskeletal: No swelling Integumentary: No rashes, No cyanosis Neurological: Normal strength at 5/5 x4 extr Assessment And Plan - Current Problems (Diagnosis) (1) Acute appendicitis Current Visit: Yes Status: Acute (2) Asthma Current Visit: Yes Status: Acute (3) Pulmonary Mycobacterium avium complex (MAC) infection Current Visit: Yes Status: Acute (4) Acute urinary retention Current Visit: Yes Status: Acute - Plan Status post laparoscopic appendectomy. Patient found to have acute suppurative appendicitis. Patient had a fever yesterday. Blood cultures are pending. Continue IV Cipro and Flagyl Pain medications as needed. Diet per surgery Bronchodilators as needed. Continue Zithromax and ethambutol for pulmonary MAC. Continue Singulair for asthma. Monitor CBC to follow leukocytosis. Monitor and optimize electrolytes. Oswald catheter inserted for acute urinary retention. Start Flomax.
[2022-07-11] MEDS: TAMSULOSIN 0.4 MG SR CAP PO SCH (13:10)
[2022-07-11] MEDS: ACETAMINOPHEN 500 MG TAB PO PRN (16:07)
[2022-07-11 16:43] VITALS: BMI 23.8
[2022-07-11] MEDS: MONTELUKAST 10 MG TAB PO SCH (20:10)
[2022-07-11] MEDS: ONDANSETRON 4 MG/2 ML VIAL IV PRN (20:37)
[2022-07-12] MEDS: METRONIDAZOLE 500mg IVPB 500 MG/100 ML BAG IV SCH ×3 (01:02→16:01)
[2022-07-12] MEDS: NA CHLORIDE 0.9% 1,000 ML IV SCH ×4 (01:04→22:26)
[2022-07-12 03:10] LABS: Absolute Lymphocytes (CBC) 0.5 K/uL (0.7-4.9); Hematocrit 35.1 % (39.6-49.0); Lymphocytes % 4.5 % (15.3-44.8); MCV 88.6 fL (80-100); MPV 9.2 fL (7.6-11.3); RBC Red Blood Cell Count 3.96 M/uL (4.33-5.43)
[2022-07-12 03:29] LABS: Magnesium 2.1 mg/dL (1.6-2.4); Potassium 3.6 mEq/L (3.5-5.1)
[2022-07-12 05:05] LABS: Blood Morphology Comment NOT SEEN (NOT SEEN); Platelet Estimate ADEQ; White Blood Cell Scan OK (OK)
[2022-07-12] MEDS: METOPROLOL XL 25 MG TAB PO SCH (05:49)
[2022-07-12] MEDS ORDERED: POTASSIUM CL SA 10 MEQ TAB PO ONE (09:00)
[2022-07-12] MEDS: FLUTICASONE 50MCG NASAL SPRAY NAS SCH (09:15)
[2022-07-12] MEDS: TAMSULOSIN 0.4 MG SR CAP PO SCH (09:16)
[2022-07-12] MEDS: DULERA 100/5 (MOMETASONE/FORMOTEROL) INHALER IH SCH ×2 (09:17→22:24)
[2022-07-12] MEDS: ASPIRIN 81 MG CHEWABLE TABLET PO SCH (09:17)
[2022-07-12] MEDS: ONDANSETRON 4 MG/2 ML VIAL IV PRN ×2 (09:38→14:33)
--- NOTE | 2022-07-12 09:58 | PN ---
Date of Progress Note: 07/12/2022 Subjective: The patient is awake and alert. Pain is controlled; however, he did have an episode of nausea and vomiting. He states that his belly feels bloated. Objective: His vitals are stable. He is afebrile. Laboratory Data: White count is normal, however, he does still have a left shift. Assessment: Status post lap appy for acute appendicitis, suppurative in nature. Recommendations: Encourage ambulation, incentive spirometry. We will get an abdominal x-ray to make sure the patient does not have an ileus. We will remove the Oswald at midnight and hopefully dischar ge in 24-48 hours depending upon his x-ray findings. /MODL Voice ID: [id number] Report ID: [id number]
--- NOTE | 2022-07-12 10:42 | RAD REPORT ---
EXAM DESCRIPTION: RAD - Abdomen W Erect - 07/12/2022 10:12 am CLINICAL HISTORY: follow up status post surgery Pain COMPARISON: <Comparisons> FINDINGS: Multiple dilated and stacked small bowel loops are seen in organized fashion left abdomen suggesting mechanical small-bowel obstruction. No free air seen. No significant bony findings. IMPRESSION: Findings would favor mechanical small-bowel obstruction given the appearance and organiz ation of the dilated small bowel loops.
[2022-07-12] MEDS: CIPROFLOXACIN 400mg IV 400 MG/200 ML BAG IV SCH ×2 (10:53→22:21)
--- NOTE | 2022-07-12 12:32 | P.PN ---
Subjective Date of Service: 07/12/22 Chief Complaint: Abdominal pain Patient reports nausea and vomiting last night. He also reports diarrhea No more fever. He denies any abdominal pain. Physical Examination - Vital Signs Temperature: 98.9 F Blood Pressure: 116/64 Pulse: 84 Respirations: 16 Pulse Ox (%): 96 - Physical Exam General: Alert, In no apparent distress, Oriented x3 HEENT: Mucous membr. moist/pink Neck: JVD not distended Respiratory: Clear to auscultation bilaterally, Normal air movement Cardiovascular: No edema, Regular rate/rhythm, Normal S1 S2 Gastrointestinal: Normal bowel sounds, Soft and benign, Other (Mildly distended.) Musculoskeletal: No swelling Integumentary: No cyanosis Neurological: Normal strength at 5/5 x4 extr Assessment And Plan - Current Problems (Diagnosis) (1) Acute appendicitis Current Visit: Yes Status: Acute (2) Asthma Current Visit: Yes Status: Acute (3) Pulmonary Mycobacterium avium complex (MAC) infection Current Visit: Yes Status: Acute (4) Acute urinary retention Current Visit: Yes Status: Acute - Plan Status post laparoscopic appendectomy. Patient found to have acute suppurative appendicitis. Patient had a fever 07/11/2022. No fever over the past 24 hours. KUB shows possible mechanical bowel obstruction. General surgery is following. Further management of bowel obstruction per surgery. Keep n.p.o. Blood cultures: No growth to date. Urine culture: No growth. Leukocytosis resolved. Continue IV Cipro and Flagyl Pain medications as needed. Bronchodilators as needed. Continue Zithromax and ethambutol for pulmonary MAC. Continue Singulair for asthma. Monitor CBC to follow leukocytosis. Monitor and optimize electrolytes. Oswald catheter inserted for acute urinary retention. Continue Flomax.
[2022-07-12] MEDS: ACETAMINOPHEN 500 MG TAB PO PRN (16:51)
[2022-07-12] MEDS ORDERED: ACETAMINOPHEN 650MG/RECT SUPP PR PRN (18:27)
--- NOTE | 2022-07-12 18:32 | RAD REPORT ---
EXAM DESCRIPTION: RAD - Abdomen 1 View (KUB) - 07/12/2022 6:27 pm CLINICAL HISTORY: NGT PLACEMENT Pain COMPARISON: <Comparisons> FINDINGS: Enteric tube is present in the stomach, directed cephalad.
[2022-07-12] MEDS: MONTELUKAST 10 MG TAB PO SCH (22:25)
[2022-07-12] MEDS ORDERED: DIPHENHYDRAMINE 25 MG TAB/CAP PO ONE (23:54)
[2022-07-13] MEDS: NA CHLORIDE 0.9% 1,000 ML IV SCH ×3 (00:46→20:57)
[2022-07-13] MEDS: METRONIDAZOLE 500mg IVPB 500 MG/100 ML BAG IV SCH ×2 (01:12→11:08)
[2022-07-13 03:55] LABS: Absolute Lymphocytes (CBC) 0.6 K/uL (0.7-4.9); Hematocrit 35.1 % (39.6-49.0); Lymphocytes % 5.8 % (15.3-44.8); MCV 88.6 fL (80-100); MPV 9.9 fL (7.6-11.3); RBC Red Blood Cell Count 3.96 M/uL (4.33-5.43)
[2022-07-13 04:04] LABS: Potassium 3.3 mEq/L (3.5-5.1)
[2022-07-13] MEDS: METOPROLOL XL 25 MG TAB PO SCH (05:27)
[2022-07-13] MEDS ORDERED: POTASSIUM 25 MEQ EFFERV TAB PO ONE (09:00)
--- NOTE | 2022-07-13 10:02 | PN ---
Date of Progress Note: 07/13/2022 Subjective: The patient did have nausea and vomiting. NG tube was placed. He has put out 650 cc. Since that time, he is passing gas and having bowel movements, feels much better. No nausea, vomitin g, and no abdominal pain. Laboratory Data: Reviewed. His white count is normal. There was still a slight left shift. Electr olytes reviewed as well and he has hypokalemia, which is being replaced. Assessment: Status post laparoscopic appendectomy for acute suppurative appendicitis with prolonged ileus. Recommendations: We will check the x-ray today. If it appears to be improving, we will clamp NG tub e and start the patient on sips of clear liquids and check residuals. Hopefully, the patient will be ready for discharge in a day or 2. /MODL Voice ID: [id number] Report ID: [id number]
[2022-07-13] MEDS: DULERA 100/5 (MOMETASONE/FORMOTEROL) INHALER IH SCH ×2 (11:08→21:06)
[2022-07-13] MEDS: CIPROFLOXACIN 400mg IV 400 MG/200 ML BAG IV SCH (11:08)
[2022-07-13] MEDS: FLUTICASONE 50MCG NASAL SPRAY NAS SCH (11:08)
[2022-07-13] MEDS: TAMSULOSIN 0.4 MG SR CAP PO SCH (11:09)
[2022-07-13] MEDS: ASPIRIN 81 MG CHEWABLE TABLET PO SCH (11:09)
--- NOTE | 2022-07-13 12:27 | RAD REPORT ---
EXAM DESCRIPTION: RAD - Abdomen W Erect - 07/13/2022 9:52 am CLINICAL HISTORY: ileus COMPARISON: Abdomen W Erect dated 07/12/2022 TECHNIQUE: Single AP view of the abdomen. FINDINGS: Similar pattern of moderate small-bowel distention. Greatest bowel caliber measures 4 cent imeter. No evidence of pneumatosis or free air. No suspicious calcifications. No significant bony abnormality. IMPRESSION: Stable moderate small bowel distention, suggestive of obstruction.
--- NOTE | 2022-07-13 13:02 | P.PN ---
Subjective Date of Service: 07/13/22 Chief Complaint: Abdominal pain Patient reports passing gas and having a large bowel movement. NG tube inserted yesterday for ileus He denies any abdominal pain. Physical Examination - Vital Signs Temperature: 99.2 F Blood Pressure: 142/70 Pulse: 95 Respirations: 16 Pulse Ox (%): 93 - Physical Exam General: Alert, In no apparent distress, Oriented x3 HEENT: Other (NG tube to suction) Neck: JVD not distended Respiratory: Clear to auscultation bilaterally, Normal air movement Cardiovascular: No edema, Regular rate/rhythm, Normal S1 S2 Gastrointestinal: Normal bowel sounds, Soft and benign, Non-distended, No tenderness Musculoskeletal: No swelling Integumentary: No rashes, No cyanosis Neurological: Normal strength at 5/5 x4 extr Assessment And Plan - Current Problems (Diagnosis) (1) Acute appendicitis Current Visit: Yes Status: Acute (2) Asthma Current Visit: Yes Status: Acute (3) Pulmonary Mycobacterium avium complex (MAC) infection Current Visit: Yes Status: Acute (4) Acute urinary retention Current Visit: Yes Status: Acute - Plan Status post laparoscopic appendectomy. Patient found to have acute suppurative appendicitis. Patient had a fever 07/11/2022. No fever over the past 24 hours. KUB shows possible mechanical bowel obstruction versus ileus. Patient kept n.p.o. and NG tube inserted 07/12. He had a large bowel movement and passing gas 07/13. Repeat KUB shows improvement in bowel dilatation. Dr. Hu is following and recommend tube clamping and possible removal per protocol. Blood cultures: No growth to date. Urine culture: No growth. Leukocytosis resolved. Continue IV Cipro and Flagyl Pain medications as needed. Bronchodilators as needed. Continue Zithromax and ethambutol for pulmonary MAC. Continue Singulair for asthma. Monitor and optimize electrolytes. Oswald catheter inserted for acute urinary retention. Continue Flomax.
--- NOTE | 2022-07-13 15:27 | EKG ---
Test Date: 2022-07-10 Test Time: 11:13:21 Web Operations Specialist: MB MEASUREMENT RESULTS: Intervals: Rate: 76 SD: 196 QRSD: 92 QT: 396 QTc: 445 Mcintosh: P: 66 SD: 196 QRS: -11 T: 57 INTERPRETIVE STATEMENTS: Normal sinus rhythm Normal ECG No previous ECG available for comparison Electronically Signed On 07-13-22 15:22:26 CDT by Errol Dennison
[2022-07-13] MEDS: Meropenem 1,000 MG in NA CHLORIDE 0.9% 100 ML IV SCH (17:01)
[2022-07-13] MEDS: AZITHROMYCIN 250 MG TAB PO SCH (17:01)
[2022-07-13] MEDS: ETHAMBUTOL HCL 400 MG TAB PO SCH (17:01)
[2022-07-13] MEDS: MONTELUKAST 10 MG TAB PO SCH (20:56)
[2022-07-13] MEDS: ACETAMINOPHEN 500 MG TAB PO PRN (21:02)
[2022-07-14] MEDS: Meropenem 1,000 MG in NA CHLORIDE 0.9% 100 ML IV SCH ×3 (01:01→17:31)
[2022-07-14 04:16] LABS: Magnesium 2.1 mg/dL (1.6-2.4); Potassium 3.2 mEq/L (3.5-5.1)
[2022-07-14] MEDS: NA CHLORIDE 0.9% 1,000 ML IV SCH ×4 (05:38→23:05)
[2022-07-14] MEDS: METOPROLOL XL 25 MG TAB PO SCH (05:42)
--- NOTE | 2022-07-14 07:06 | P.PN ---
Date of Service: 07/14/22 Subjective: feeling pretty good this morning febrile last night, now improved fairly regular/large BM yesterday, slightly more formed no new / worsening problems NGT to LIWS overnight with dark output ROS: 10 point ROS as noted above, otherwise negative Physical Exam: GEN: Alert, oriented, NAD. HEENT: Normal conjunctiva, sclera anicteric, NGT CV: Regular rate and rhythm, no edema Pulm: Nonlabored respirations on room air ABD: Soft, nontender, nondistended Integumentary: erythema and superficial edema of left abdominal/flank wall Neuro: normal speech / affect NGT Oswald vitals reviewed Problem List: Acute appendicitis now s/p lap appy h/o Pulmonary Mycobacterium avium complex infection Asthma Acute urinary retention Acute appendicitis s/p laparoscopic appendectomy KUB shows possible mechanical bowel obstruction versus ileus. NPO, NGT inserted 07/12 to LIWS Repeat KUB 07/12 shows improvement in bowel dilatation repeat KUB 07/[address] abdomen/pelvis 07/14 pending - r/o abscess, eval SBO/ileus if ok, clamp trials per Dr. Hu Blood cultures: NGTD, Urine culture: No growth persistent fever, possibly from cellulitis vs abscess abx switched to merrem 07/14 ID consulted Pain medication as needed Bronchodilators as needed Pulmonary Mycobacterium avium complex infection Continue Zithromax and ethambutol Asthma Continue Singulair Monitor and optimize electrolytes Acute urinary retention Oswald catheter inserted for acute urinary retention Continue Flomax void trial once GI issues resolved VTE: SCDs Code: Full Dispo: Home, ~2 days
[2022-07-14] MEDS: DULERA 100/5 (MOMETASONE/FORMOTEROL) INHALER IH SCH ×2 (08:09→20:44)
[2022-07-14] MEDS: FLUTICASONE 50MCG NASAL SPRAY NAS SCH (08:09)
[2022-07-14] MEDS: KCL 20 MEQ/100 mL IVPB 20 MEQ/100 ML BAG IV SCH ×4 (08:12→23:04)
[2022-07-14] MEDS: TAMSULOSIN 0.4 MG SR CAP PO SCH (08:12)
[2022-07-14] MEDS: ASPIRIN 81 MG CHEWABLE TABLET PO SCH (08:12)
--- NOTE | 2022-07-14 11:21 | P.CNS ---
Date of Consult: 07/14/22 Reason for Consult: Ongoing fever, prior MAC infection Chief Complaint: Abdominal pain History of Present Illness: Patient is a 67 yo male with a history of aortic valve replacement, hx pumonary MAC infection and asthma who presented to the ED with complaints of sudden abdominal pain starting from epigastric region to RLQ. ED workup revealing acute appendicitis and patient underwent laparoscopic appendectomy 07/10. Patient is currently in bed, awake and oriented x4, and daughter currently at bedside. Allergies Penicillins Allergy (Verified 07/10/22 15:25) Rash Home medications list reviewed: Yes Home Medications: Aspirin 1 tab PO DAILY 07/10/22 Azithromycin 2 tab PO M,W,F 07/10/22 Ethambutol HCl 5 tab PO M,W,F 07/10/22 Fluticasone Propion/Salmeterol [Wixela 250-50 Inhub] 2 inh PO BID 07/10/22 Fluticasone Propionate [Flovent Diskus] 2 spray PO DAILY 07/10/22 Metoprolol Succinate 1 tab PO DAILY 07/10/22 Montelukast Sodium 1 tab PO BEDTIME 07/10/22 Sulindac 2 tab PO BID 07/10/22 Vitamin B Complex [B Complex] 2 tab PO BID 07/10/22 - Past Medical/Surgical History Diabetic: No -: Asthma -: Pulmonary MAC -: Aortic valve replaced -: Knee surgeries -: GEORGE Knee S/X - Family History Father Medical History: Heart disease Mother Medical History: Stroke - Social History Alcohol use: No CD- Drugs: No Caffeine use: Yes Place of Residence: Home Review of Systems 10-point ROS is otherwise unremarkable Respiratory: Cough (some sputum) Physical Examination Temp Pulse Resp BP Pulse Ox 98.7 F 83 16 131/65 96 07/14/22 08:00 07/14/22 08:00 07/14/22 08:00 07/14/22 08:00 07/14/22 08:00 General: Alert, In no apparent distress, Oriented x3 HEENT: Atraumatic, Normocephalic Neck: Supple, JVD not distended Respiratory: Normal air movement, Diminished Cardiovascular: No edema, Normal pulses Gastrointestinal: Hypoactive, Non-distended, Other (NG tube noted), Tenderness (mild LLQ) Musculoskeletal: No clubbing, No swelling Integumentary: No rashes, No breakdown, Erythema (Left Lower Abdomen to flank), Warmth (Left lower abdomen to left flank), Other (s/p laparoscopic appendectomy LLQ surgical site with erythema and warmth extending to left flank ) Neurological: Normal speech, Normal tone, Normal affect Urinary: Oswald catheter (Draining yellow urine) Laboratory Data - Reviewed Microbiology Data - Blood cultures 07/10: No growth to date - Urine culture 07/11: No growth Imagings Data: - CT abdomen 07/10: "IMPRESSION: Findings of acute appendicitis, with adjacent inflammatory changes of the cecum and adjacent distal ileal loops. No evidence of other complications. Small airspace opacities bilaterally more confluent on the right, suggest atelectasis or early airspace disease." Conclusions/Impression: Problem List Appendicitis Hx MAC pulmonary infection Aortic valve replacement Asthma Acute urinary retention *Allergy: Penicillins * Hx Mycobacterium Avium Complex - Diagnosed about 1 year ago. Has been on Azithromycin and Ethambutol. - He sees an infectious disease and pulmonology specialists at [facility] as outpatient and reports being taken off Rifampin and steroids a few months ago. - XR Chest 07/10: "No acute cardiopulmonary process" - Sputum culture 07/14: Pending Appendicitis s/p laparoscopic appendectomy - s/p laparoscopic appendectomy on 07/10 - LLQ Erythema and warmth surrounding surgical incision site extending to left flank - Previously on Ciprofloxacin and Flagyl (07/10-07/13) - Repeat CT abdomen 07/14: Pending - Currently on Meropenem (started 07/13) Blood cultures 07/10: No growth to date Urine culture 07/11: No growth Leukocytosis improving (WBC 10.4) Currently afebrile, temp 98.7 F. Recorded low grade fevers of 99.2 and 100.9 w ithin the last 24 hours. Recommendations - Repeat CT abdomen to rule out abscess LLQ, Results pending. Continue Meropenem for now. Will adjust antibiotics as appropriate. - MAC: Continue Azithromycin and Ethambutol. Sputum culture pending - Monitor WBC and fever trends ID will follow up and monitor patient closely. Case discussed with Clarice Julian. Thank you Dr. Kilgore for consult.
--- NOTE | 2022-07-14 11:29 | PN ---
Date of Progress Note: 07/14/2022 Subjective: Patient feels clinically much better. He is passing gas. Having solid bowel movements. He has redness on his left side of his abdomen which is unchanged. Please note, patient has been o n azithromycin for a lung infection and he is still having some low-grade fevers. Objective: Vital Signs: Stable. His T-max is 99.2. Abdomen: Soft, a little distended, hypoactive bowel sounds. There is redness on the left side of th e abdomen, unchanged from yesterday. There is no peritonitis. Imaging: Abdominal x-ray, the official reading is pending but it does still show dilated loops of sm all bowel. Assessment: Status post laparoscopic appendectomy. Recommendation: I discussed the case with Dr. Kilgore. We will get a CT of the abdomen and pelvis to make sure there is no intraabdominal pathology contributing to his prolonged ileus and cellulitis on his left abdomen following which depending upon the x-ray read, we may start patient on sips of clear liquids and clamp the NG tube. I will be leaving town. Dr. Wilburn will take over the surgical ma eneida from this point on. LINNEA/KIZZY Voice ID: [id number] Report ID: [id number]
--- NOTE | 2022-07-14 11:38 | RAD REPORT ---
EXAM DESCRIPTION: RAD - Abdomen 1 View (KUB) - 07/14/2022 10:26 am CLINICAL HISTORY: r/o SBO . ileus Pain COMPARISON: Abdomen 1 View (KUB) dated 07/12/2022; Abdomen W Erect dated 07/13/2022 FINDINGS: There continues to be multiple dilated and stacked small bowel loops in the left abdomen. Enteric tube appears coiled in the stomach. No real improvement seen in the bowel gas pattern since p rior study. No free air. IMPRESSION: No real changes occurred in the appearance of the bowel gas pattern since yesterday's st udy.
--- NOTE | 2022-07-14 15:57 | RAD REPORT ---
EXAM DESCRIPTION: CT - Abdomen Pelvis W Contrast - 07/14/2022 2:33 pm CLINICAL HISTORY: eval SBO, r/o abscess COMPARISON: Abdomen Pelvis W Contrast dated 07/10/2022; Abdomen Pelvis W Contrast dated 0 TECHNIQUE: Thin cut axial CT imaging of the abdomen and pelvis was performed following intravenous a dministration of 100 mL Isovue 300. Multiplanar reformats were generated and reviewed. All CT scans are performed using dose optimization technique as appropriate and may include automated exposure control or mA/KV adjustment according to patient size. FINDINGS: Small layering bilateral pleural effusions, slightly larger on the right. The liver, spleen, and pancreas show no suspicious findings. Gallbladder and biliary tree are also wi thout suspicious finding. Symmetric renal function is seen with no hydronephrosis or suspicious renal mass. Postoperative changes of recent appendicectomy. Mild fat stranding in the right lower quadrant, likel y related to postoperative changes. Nondistended loops of bowel in this region with mild wall promine nce. Moderate distention of small bowel loops most notably in the left upper quadrant, with air-fluid levels. There is gradual progression to nondistended small bowel in the right lower quadrant. Small volume accumulation of fluid in the rectovesical space, measuring up to 4.3 x 2.0 centimeter in great est dimensions. No evidence of free air. No hernia, mass or bulky lymphadenopathy. The urinary bladde r is decompressed with Oswald catheter in place. . No suspicious bony findings. IMPRESSION: Postoperative changes of recent appendicectomy with mild residual fat stranding in the r ight lower quadrant and a small volume accumulation of fluid in the pelvis. No findings to suggest an enteric leak or abscess formation. No free air. Moderately distended small bowel loops with gradual progression to nondistended ileal loops in the ri ght lower quadrant. Slight wall thickening of the nondistended ileal loops, likely reactive. The appe arance is most suggestive of ileus rather than bowel obstruction. Small bilateral pleural effusions.
[2022-07-14] MEDS: HYDROCODONE/APAP 7.5/325 MG TAB PO PRN (20:33)
[2022-07-14] MEDS: MONTELUKAST 10 MG TAB PO SCH (20:33)
[2022-07-15] MEDS ORDERED: Meropenem 1000 MG/VIAL IV ONE (01:35)
[2022-07-15] MEDS: Meropenem 1,000 MG in NA CHLORIDE 0.9% 100 ML IV SCH ×3 (01:52→18:35)
[2022-07-15 03:39] LABS: Absolute Lymphocytes (CBC) 0.9 K/uL (0.7-4.9); Lymphocytes % 11.6 % (15.3-44.8); MCV 89.2 fL (80-100); MPV 8.7 fL (7.6-11.3); RBC Red Blood Cell Count 3.59 M/uL (4.33-5.43)
[2022-07-15 04:02] LABS: Potassium 3.6 mEq/L (3.5-5.1)
[2022-07-15] MEDS: METOPROLOL XL 25 MG TAB PO SCH (06:54)
--- NOTE | 2022-07-15 07:14 | P.PN ---
Date of Service: 07/15/22 Subjective: size of redness in LLQ decreased, but slight increased redness in color; increased swelling states he feels slightly more bloated in belly after PO contrast BM are slightly more formed ambulating around nursing station ROS: 10 point ROS as noted above, otherwise negative Physical Exam: GEN: Alert, oriented, NAD. HEENT: Normal conjunctiva, sclera anicteric, NGT CV: Regular rate and rhythm, no edema Pulm: Nonlabored respirations on room air ABD: Soft, nontender, nondistended Integumentary: erythema and superficial edema of left abdominal/flank wall Neuro: normal speech / affect NGT Oswald vitals reviewed Problem List: Acute appendicitis now s/p lap appy cellulitis h/o Pulmonary Mycobacterium avium complex infection Asthma, chronic Acute urinary retention Acute appendicitis now s/p lap appy cellulitis s/p laparoscopic appendectomy KUB: possible mechanical bowel obstruction vs ileus. NPO, NGT inserted 07/12 to LIWS Repeat KUB 07/12 shows improvement in bowel dilatation repeat KUB 07/14 - no real change from 07/[address] abdomen/pelvis 07/14 - The appearance is most suggestive of ileus rather than bowel obstruction more BM 07/15-07/16 NGT clamp trial, sips of clears 07/15 Blood cultures: NGTD, Urine culture: No growth fever curve improved abx switched to merrem 07/14 ID consulted felt secondary to skin involvement, no abscess seen on CT 07/14 Pain medication as needed Bronchodilators as needed Pulmonary Mycobacterium avium complex infection Continue Zithromax and ethambutol Asthma, chronic Continue Singulair Monitor and optimize electrolytes Acute urinary retention Oswald catheter inserted for acute urinary retention denies prior issue Continue Flomax void trial once GI issues resolved VTE: SCDs Code: Full Dispo: Home, ~2-3 days
--- NOTE | 2022-07-15 09:35 | P.PN ---
Date of Service: 07/15/22 Chief Complaint: Abdominal pain Subjective: No new changes. Improving. Patient in bed, awake and fully oriented. at bedside. Denies any new complaints at this time. No acute events reported overnight. Physical Examination Temp Pulse Resp BP Pulse Ox 98.9 F 84 15 126/64 95 07/15/22 04:00 07/15/22 06:54 07/15/22 04:00 07/15/22 06:54 07/15/22 04:00 General: Alert, In no apparent distress, Oriented x4 HEENT: Atraumatic, Normocephalic Neck: Supple, JVD not distended Respiratory: Normal air movement, slightly diminished Cardiovascular: No edema, Normal pulses Gastrointestinal: Hypoactive, Non-distended, NG tube clamped, Mild tenderness at surgical incision/cellulitis Musculoskeletal: No clubbing, No swelling Integumentary: No rashes, No breakdown. Erythema, warmth and swelling of left lower abdominal area near surgical incision extending to left flank slightly improving from yesterday. Neurological: Normal speech, Normal tone, Normal affect Studies Laboratory Data - Reviewed Microbiology Data - Blood cultures 07/10: No growth to date - Urine culture 07/11: No growth Imagings Data: - CT abdomen 07/10: "IMPRESSION: Findings of acute appendicitis, with adjacent inflammatory changes of the cecum and adjacent distal ileal loops. No evidence of other complications. Small airspace opacities bilaterally more confluent on the right, suggest atelectasis or early airspace disease." - CT Abdomen/Pelvis with contrast 07/14: "Postoperative changes of recent appendicectomy with mild residual fat stranding in the right lower quadrant and a small volume accumulation of fluid in the pelvis. No findings to suggest an enteric leak or abscess formation. No free air. Moderately distended small bowel loops with gradual progression to nondistended ileal loops in the right lower quadrant. Slight wall thickening of the nondistended ileal loops, likely reactive. The appearance is most suggestive of ileus rather than bowel obstruction. Small bilateral pleural effusions." Medications List Reviewed: Yes Assessment and Plan Problem List Appendicitis Hx MAC pulmonary infection Aortic valve replacement Asthma Mild PCM Ileus Cellulitis *Allergy: Penicillins * Hx Mycobacterium Avium Complex - He sees an infectious disease and pulmonology specialists at [facility] as outpatient. - Currently on Azithromycin and Ethambutol. - XR Chest 07/10: "No acute cardiopulmonary process" - Sputum culture 07/14: Pending Appendicitis s/p laparoscopic appendectomy - s/p laparoscopic appendectomy on 07/10 - LLQ Erythema and warmth lateral to surgical incision site extending to left flank, slightly improving. - CT abdomen/pelvis 07/14: No abscess - Previously on Ciprofloxacin and Flagyl (07/10-07/13) - Currently on Meropenem (started 07/13) Blood cultures 07/10: No growth to date Urine culture 07/11: No growth Leukocytosis improving (WBC 7.8) Afebrile Recommendations - Cellulitis: Continue Meropenem for now. If worsening signs of infection, may consider adding Vancomycin. Will re-evaluate tomorrow. Continue to Monitor for worsening erythema/swelling - MAC: Continue Azithromycin and Ethambutol. Sputum culture pending - Monitor WBC and fever trends ID will follow up and monitor patient closely. Case discussed with Catie Julian
[2022-07-15] MEDS: KCL 20 MEQ/100 mL IVPB 20 MEQ/100 ML BAG IV SCH ×2 (09:38→12:47)
[2022-07-15] MEDS: TAMSULOSIN 0.4 MG SR CAP PO SCH (09:39)
[2022-07-15] MEDS: NA CHLORIDE 0.9% 1,000 ML IV SCH ×3 (09:39→18:35)
[2022-07-15] MEDS: ASPIRIN 81 MG CHEWABLE TABLET PO SCH (09:39)
[2022-07-15] MEDS: DULERA 100/5 (MOMETASONE/FORMOTEROL) INHALER IH SCH (09:41)
[2022-07-15] MEDS: FLUTICASONE 50MCG NASAL SPRAY NAS SCH (09:41)
[2022-07-15] MEDS: AZITHROMYCIN 250 MG TAB PO SCH (18:34)
[2022-07-15] MEDS: ETHAMBUTOL HCL 400 MG TAB PO SCH (18:34)
[2022-07-16] MEDS: DULERA 100/5 (MOMETASONE/FORMOTEROL) INHALER IH SCH ×3 (00:01→22:00)
[2022-07-16] MEDS: MONTELUKAST 10 MG TAB PO SCH ×2 (00:01→22:00)
[2022-07-16] MEDS: Meropenem 1,000 MG in NA CHLORIDE 0.9% 100 ML IV SCH ×3 (00:01→17:28)
[2022-07-16] MEDS: NA CHLORIDE 0.9% 1,000 ML IV SCH ×3 (02:08→22:01)
[2022-07-16 04:11] LABS: Absolute Lymphocytes (CBC) 0.9 K/uL (0.7-4.9); Hematocrit 31.6 % (39.6-49.0); Lymphocytes % 10.7 % (15.3-44.8); MCV 88.8 fL (80-100); MPV 8.9 fL (7.6-11.3); RBC Red Blood Cell Count 3.56 M/uL (4.33-5.43)
[2022-07-16 04:20] LABS: Albumin 2.2 g/dL (3.4-5.0); Bilirubin Total 0.5 mg/dL (0.2-1.0); Magnesium 1.8 mg/dL (1.6-2.4); Potassium 3.7 mEq/L (3.5-5.1); Protein, Total 5.2 g/dL (6.4-8.2)
[2022-07-16] MEDS ORDERED: MAGNESIUM SULFATE 1 gm IVPB 1 GM/100 ML BAG IV ONE (05:00)
[2022-07-16] MEDS: METOPROLOL XL 25 MG TAB PO SCH (05:12)
[2022-07-16] MEDS ORDERED: KCL 20 MEQ/100 mL IVPB 20 MEQ/100 ML BAG IV SCH (07:00)
[2022-07-16] MEDS ORDERED: POLYVINYL ALCOHOL 1.4% 15 ML EACH EYE PRN (07:05)
--- NOTE | 2022-07-16 07:19 | P.PN ---
Date of Service: 07/16/22 Subjective: Feeling much better this afternoon NGT and miller both removed today no significant change to redness in LLQ, swelling has gotten worse tolerating PO, +BM ROS: 10 point ROS as noted above, otherwise negative Physical Exam: GEN: Alert, oriented, NAD. HEENT: Normal conjunctiva, sclera anicteric CV: Regular rate and rhythm, no edema Pulm: Nonlabored respirations on room air ABD: Soft, non-distended Integumentary: erythema and superficial edema of left abdominal/flank wall Neuro: normal speech / affect vitals reviewed Problem List: Acute appendicitis now s/p lap appy cellulitis of abd wall h/o Pulmonary Mycobacterium avium complex infection Asthma, chronic Acute urinary retention Acute appendicitis now s/p lap appy cellulitis s/p laparoscopic appendectomy KUB: possible mechanical bowel obstruction vs ileus. NPO, NGT inserted 07/12 to LIWS gradually improved CT abdomen/pelvis 07/14 - The appearance is most suggestive of ileus rather than bowel obstruction NGT removed 07/16, diet advanced Blood cultures: NGTD, Urine culture: No growth fever curve improved abx switched to merrem 07/14 ID consulted felt secondary to skin involvement, no abscess seen on CT 07/14 erythema area improved, however more edematous, discussed with ID, add Vanc .25 Pain medication as needed Bronchodilators as needed Pulmonary Mycobacterium avium complex infection Continue Zithromax and ethambutol Asthma, chronic Continue Singulair Monitor and optimize electrolytes Acute urinary retention Miller catheter inserted for acute urinary retention - DC'd 07/16 denies prior issue Continue Flomax VTE: SCDs Code: Full Dispo: Home, ~2-3 days pending further improvement, oral abx vs picc line
[2022-07-16] MEDS: ASPIRIN 81 MG CHEWABLE TABLET PO SCH (08:12)
[2022-07-16] MEDS: TAMSULOSIN 0.4 MG SR CAP PO SCH (08:12)
[2022-07-16] MEDS: FLUTICASONE 50MCG NASAL SPRAY NAS SCH (08:13)
[2022-07-16] MEDS ORDERED: NA CHLORIDE 0.9% 100 ML ONE (08:14)
--- NOTE | 2022-07-16 08:56 | RAD REPORT ---
EXAM DESCRIPTION: RAD - Abdomen 1 View (KUB) - 07/16/2022 7:47 am CLINICAL HISTORY: f/u ileus vs sbo COMPARISON: Abdomen 1 View (KUB) dated 07/14/2022; Abdomen 1 View (KUB) dated 07/12/2022 TECHNIQUE: Single AP view of the abdomen. FINDINGS: Mild improvement of small bowel dilation in the upper abdomen. Largest caliber measures 5. 5 cm. No air-fluid levels, free air, or pneumatosis. No suspicious calcifications. No significant bony abnormality. IMPRESSION: Mild improvement of the degree of upper abdominal small bowel dilation.
--- NOTE | 2022-07-16 09:46 | P.PN ---
Date of Service: 07/16/22 Chief Complaint: Abdominal pain Subjective: Patient in bed, aA&Ox4. Breathing comfortably on room air. at bedside. Denies any new complaints at this time. No acute events reported overnight. Physical Examination Temp Pulse Resp BP Pulse Ox 99.1 F 74 16 156/71 H 94 07/16/22 08:00 07/16/22 08:00 07/16/22 08:00 07/16/22 08:00 07/16/22 08:00 General: Alert, In no apparent distress, Oriented x4 HEENT: Atraumatic, Normocephalic Neck: Supple, JVD not distended Respiratory: Normal air movement, slightly diminished Cardiovascular: No edema, Normal pulses Gastrointestinal: Hypoactive, Non-distended, NG tube clamped, cellulitis/edema/erythema of left lower abdomen-left flank Musculoskeletal: No clubbing, No swelling. Moves all extremities. Integumentary: Erythema, warmth and swelling of left lower abdominal wall lateral to surgical incision extending to left flank Neurological: Normal speech, Normal tone, Normal affect Studies Laboratory Data - Reviewed Microbiology Data - Blood cultures 07/10: No growth to date - Urine culture 07/11: No growth Imagings Data: - CT abdomen 07/10: "IMPRESSION: Findings of acute appendicitis, with adjacent inflammatory changes of the cecum and adjacent distal ileal loops. No evidence of other complications. Small airspace opacities bilaterally more confluent on the right, suggest atelectasis or early airspace disease." - CT Abdomen/Pelvis with contrast 07/14: "Postoperative changes of recent appendicectomy with mild residual fat stranding in the right lower quadrant and a small volume accumulation of fluid in the pelvis. No findings to suggest an enteric leak or abscess formation. No free air. Moderately distended small bowel loops with gradual progression to nondistended ileal loops in the right lower quadrant. Slight wall thickening of the nondistended ileal loops, likely reactive. The appearance is most suggestive of ileus rather than bowel obstruction. Small bilateral pleural effusions." - XR KUB 07/16: "Mild improvement of the degree of upper abdominal small bowel dilation." Medications List Reviewed: Yes Assessment and Plan Problem List Appendicitis Hx MAC pulmonary infection Aortic valve replacement Asthma Mild PCM Ileus Cellulitis *Allergy: Penicillins * Hx Mycobacterium Avium Complex - Patient sees an infectious disease and pulmonology specialists at [facility] - Currently on Azithromycin and Ethambutol - XR Chest 07/10: "No acute cardiopulmonary process" - Sputum culture 07/14: Pending Appendicitis s/p laparoscopic appendectomy Cellulitis abdominal wall - s/p laparoscopic appendectomy on 07/10 - Previously on Ciprofloxacin and Flagyl (07/10-07/13) - Increasing erythema, swelling and warmth lateral to surgical incision site extending to left flank. - CT abdomen/pelvis 07/14: No abscess - Currently on Meropenem (started 07/13) Ileus - NGT clamped. - KUB 07/16 showing "Mild improvement of the degree of upper abdominal small bowel dilation." - Management per general surgery/hospitalist - Bowel movement today 07/16 Blood cultures 07/10: No growth to date Urine culture 07/11: No growth to date No Leukocytosis Low grade fever 99.1. Recommendations - Cellulitis: Continue Meropenem for now. Consider adding Vancomycin. - Monitor for worsening signs of infection, WBC and fever trends, increasing erythema/swelling - MAC: Continue Azithromycin and Ethambutol - Monitor WBC and fever trends Supportive care and nutritional support as needed ID will follow up and monitor patient closely. Case discussed with Catie Julian
[2022-07-16] MEDS ORDERED: VANCOMYCIN 1.5 GM in NA CHLORIDE 0.9% 500 ML IVPB SCH (21:00)
[2022-07-16] MEDS: VANCOMYCIN 1.25 GM in NA CHLORIDE 0.9% 250 ML IVPB SCH (21:00)
[2022-07-16] MEDS ORDERED: VANCOMYCIN 500 MG/VIAL ONE (21:44)
[2022-07-16] MEDS ORDERED: NA CHLORIDE 0.9% 250 ML ONE (21:44)
[2022-07-16] MEDS ORDERED: VANCOMYCIN 1 GM/VIAL ONE (21:44)
[2022-07-16] MEDS: ENSURE CLEAR 200 ML CAN PO SCH (22:14)
[2022-07-17] MEDS: NA CHLORIDE 0.9% 1,000 ML IV SCH ×2 (00:46→08:22)
[2022-07-17] MEDS: Meropenem 1,000 MG in NA CHLORIDE 0.9% 100 ML IV SCH ×3 (01:39→16:46)
[2022-07-17 03:27] LABS: MCV 87.3 fL (80-100); MPV 8.2 fL (7.6-11.3); RBC Red Blood Cell Count 3.78 M/uL (4.33-5.43)
[2022-07-17 03:28] LABS: Absolute Lymphocytes (CBC) 0.9 K/uL (0.7-4.9)
[2022-07-17 03:29] LABS: Magnesium 1.7 mg/dL (1.6-2.4); Potassium 3.3 mEq/L (3.5-5.1)
[2022-07-17] MEDS: ACETAMINOPHEN 500 MG TAB PO PRN (04:47)
[2022-07-17] MEDS: METOPROLOL XL 25 MG TAB PO SCH (05:38)
--- NOTE | 2022-07-17 07:17 | P.PN ---
Date of Service: 07/17/22 Subjective: feels swelling of left abdomen is slightly worse, more firm, not necessarily more painful tolerating PO, urinating without issue, +BM no nausea, +afebrile ROS: 10 point ROS as noted above, otherwise negative Physical Exam: GEN: Alert, oriented, NAD. HEENT: Normal conjunctiva, sclera anicteric CV: Regular rate and rhythm, no edema Pulm: Nonlabored respirations on room air ABD: Soft, non-distended Integumentary: erythema and superficial edema of left abdominal/flank wall, mild tenderness, +induration, no fluctuant mass/abscess appreciated Neuro: normal speech / affect vitals reviewed Problem List: Acute appendicitis now s/p lap appy cellulitis of abd wall h/o Pulmonary Mycobacterium avium complex infection Asthma, chronic Acute urinary retention Acute appendicitis now s/p lap appy cellulitis s/p laparoscopic appendectomy post-op ileus s/p NGT (removed 07/16) now tolerating liquids; slowly advance diet as tolerated Blood cultures: No growth, Urine culture: No growth Sputum culture (07/14): Psuedomonas Aeruginosa patient asymptomatic CXR ordered afebrile for several days (last fever: 07/13) abx switched to merrem (07/13) ID consulted felt secondary to skin involvement, no abscess seen on CT (07/14) erythema area improved, however more edematous, discussed with ID, added Vanc (07/16) added Flagyl (07/17) per ID recommendations Pain medication as needed Bronchodilators as needed Pulmonary Mycobacterium avium complex infection Continue Zithromax and ethambutol Asthma, chronic Continue Singulair Monitor and optimize electrolytes Acute urinary retention Oswald catheter inserted for acute urinary retention - DC'd (07/16) denies prior issue voiding without issue Continue Flomax VTE: SCDs, ambulatory Code: Full Dispo: Home, ~3 days pending further improvement, oral abx vs picc line
[2022-07-17] MEDS ORDERED: MAGNESIUM SULFATE 1 gm IVPB 1 GM/100 ML BAG IV ONE (08:00)
[2022-07-17] MEDS ORDERED: POTASSIUM 25 MEQ EFFERV TAB PO ONE (08:00)
[2022-07-17] MEDS ORDERED: Meropenem 1000 MG/VIAL IV ONE (08:22)
[2022-07-17] MEDS: ASPIRIN 81 MG CHEWABLE TABLET PO SCH (08:23)
[2022-07-17] MEDS ORDERED: NA CHLORIDE 0.9% 100 ML ONE (08:23)
[2022-07-17] MEDS: FLUTICASONE 50MCG NASAL SPRAY NAS SCH (08:24)
[2022-07-17] MEDS: TAMSULOSIN 0.4 MG SR CAP PO SCH (08:24)
[2022-07-17] MEDS: ENSURE CLEAR 200 ML CAN PO SCH ×2 (08:24→21:25)
[2022-07-17] MEDS: DULERA 100/5 (MOMETASONE/FORMOTEROL) INHALER IH SCH ×2 (08:24→21:15)
[2022-07-17] MEDS: VANCOMYCIN 1.25 GM in NA CHLORIDE 0.9% 250 ML IVPB SCH ×2 (08:29→21:15)
--- NOTE | 2022-07-17 11:44 | RAD REPORT ---
EXAM DESCRIPTION: Mauro Single View07/17/2022 11:34 am CLINICAL HISTORY: Cough COMPARISON: July 10, 2022 FINDINGS: The lungs appear clear of acute infiltrate. The heart is normal size. Small bilateral ple ural effusions Post surgical changes involve the chest
[2022-07-17] MEDS ORDERED: POTASSIUM CL SA 10 MEQ TAB PO ONE (15:02)
[2022-07-17] MEDS: METRONIDAZOLE 500mg IVPB 500 MG/100 ML BAG IV SCH (16:46)
[2022-07-17] MEDS: AZITHROMYCIN 250 MG TAB PO SCH (16:47)
[2022-07-17] MEDS: ETHAMBUTOL HCL 400 MG TAB PO SCH (16:47)
--- NOTE | 2022-07-17 20:08 | PN ---
Date of Progress Note: 07/17/2022 Subjective: I am covering for Dr. Hu. He did an appendix on him several days ago. The patient h as 2 problems, acute appendicitis and also an abdominal wall abscess on the left side. After the jermaine salvador, the patient did have a postop ileus. He is improving from that. NG tube was removed yesterday . Diet was started. He is tolerating diet. He is passing flatus. Objective: Abdomen: The abdominal wall abscess is a large one, it is about 20 x 10 cm. Today about 15 x 10 cm. It is starting to mature in the left lower quadrant area away from the trocar. The kimberlee ology of that is unknown since we do not have any incision in the area of the abscess. May be part o f the process of the appendix may be a problem on its own. It is still indurated, is still hard, but there is no fluctuance seen. Extremities: Good capillary refill. Laboratory Data: WBC count is 7.2, hemoglobin of 11.4. Potassium is 3.2. Plan: Palpable abdominal area cellulitis, although better, is still having some induration present. The previous studies did not show any fluid collection in that area. Once again, it has been severa l days since last imaging. In order for us to see if we have to do an I and D of that area, we might have to do an ultrasound or a CAT scan. I am going to review that with the primary doctor to see wh ich way is available over the weekend. If there is no fluid collection, then we have a point and he can go home with p.o. antibiotics and follow up with us in our office. RAJNI/KIZZY Voice ID: [id number] Report ID: [id number]
[2022-07-17] MEDS: MONTELUKAST 10 MG TAB PO SCH (21:15)
--- NOTE | 2022-07-17 22:24 | PN ---
Subjective: The patient is lying in bed. No new acute event. Chart reviewed. Objective: Vital Signs: Reviewed. Lungs: Basal crackles. Heart: S1, S2 regular. Abdomen: Soft, nontender. Bowel sounds present. Extremities: No edema. Skin: Erythematous changes noted around abdominal wall, better than before. Laboratory Data: WBC 7.2, hemoglobin 11.4, and platelets are 350. BUN of 5, creatinine 0.6. Assessment And Plan: Status post appendectomy for appendicitis; ileus, improving; abdominal wall joe lulitis; small bilateral pleural effusion; and history of Mycobacterium avium complex pulmonary infec tion. Continue current treatment with meropenem and vancomycin. We will follow the patient as luis eduardo PAYNE/KIZZY Voice ID: [id number] Report ID: [id number]
[2022-07-18 03:19] LABS: Bicarbonate 26 mEq/L (21-32); Glomerular Filtration Rate 103 ml/min (=/>90); Glucose Level 135 mg/dL (74-106); Potassium 3.5 mEq/L (3.5-5.1); Sodium Level 135 mEq/L (136-145)
[2022-07-18 03:20] LABS: BUN Blood Urea Nitrogen < 3 mg/dL (7-18)
[2022-07-18] MEDS: METRONIDAZOLE 500mg IVPB 500 MG/100 ML BAG IV SCH ×3 (04:03→17:17)
[2022-07-18] MEDS: Meropenem 1,000 MG in NA CHLORIDE 0.9% 100 ML IV SCH ×3 (04:12→17:17)
--- NOTE | 2022-07-18 07:06 | P.PN ---
Date of Service: 07/18/22 Subjective: able to tolerate dinner yesterday with no abdominal pain/discomfort; +increased flatus afterwards feels swelling and redness has improved, remains hard/tight no nausea / vomiting remains afebrile ROS: 10 point ROS as noted above, otherwise negative Physical Exam: GEN: Alert, oriented, NAD. HEENT: Normal conjunctiva, sclera anicteric CV: Regular rate and rhythm, no edema Pulm: Nonlabored respirations on room air ABD: Soft, non-distended Integumentary: erythema and superficial edema of left abdominal/flank wall, mild tenderness, +induration, no fluctuant mass/abscess appreciated Neuro: normal speech / affect vitals reviewed Problem List: Acute appendicitis now s/p lap appy cellulitis of abd wall h/o Pulmonary Mycobacterium avium complex infection Asthma, chronic Acute urinary retention Acute appendicitis now s/p lap appy cellulitis s/p laparoscopic appendectomy post-op ileus s/p NGT (removed 07/16) now tolerating soft diet advanced 07/17 evening Blood cultures: No growth, Urine culture: No growth Sputum culture (07/14): Psuedomonas Aeruginosa patient asymptomatic CXR (07/17): Small bilateral pleural effusions as seen before, no consolidation afebrile for several days (last fever: 07/13) abx switched to merrem (07/13) ID consulted felt secondary to skin involvement, no abscess seen on CT (07/14) discussed with ID, added Vanc (07/16) added Flagyl (07/17) per ID recommendations Abdominal u/s (07/18): ordered to determine if I&D of affected area is needed (07/18): erythema area improved, less edematous, indurated Pulmonary Mycobacterium avium complex infection Continue Zithromax and ethambutol (home, chronic meds) Asthma, chronic Continue Singulair Monitor and optimize electrolytes Acute urinary retention Oswald catheter inserted for acute urinary retention - DC'd (07/16) denies prior issue, voiding without issue since removal Continue Flomax VTE: SCDs, ambulatory Code: Full Dispo: Home, ~2-3 days pending further improvement, oral abx vs picc line possible I&D
[2022-07-18] MEDS: METOPROLOL XL 25 MG TAB PO SCH (07:18)
[2022-07-18] MEDS: ENSURE CLEAR 200 ML CAN PO SCH ×2 (09:00→20:21)
[2022-07-18] MEDS: FLUTICASONE 50MCG NASAL SPRAY NAS SCH (09:00)
[2022-07-18] MEDS ORDERED: POTASSIUM CL SA 10 MEQ TAB PO ONE (09:00)
[2022-07-18] MEDS: ASPIRIN 81 MG CHEWABLE TABLET PO SCH (09:29)
[2022-07-18] MEDS: DULERA 100/5 (MOMETASONE/FORMOTEROL) INHALER IH SCH ×2 (09:29→20:12)
[2022-07-18] MEDS: TAMSULOSIN 0.4 MG SR CAP PO SCH (09:34)
[2022-07-18] MEDS: VANCOMYCIN 1.25 GM in NA CHLORIDE 0.9% 250 ML IVPB SCH ×2 (09:36→20:11)
--- NOTE | 2022-07-18 12:45 | RAD REPORT ---
EXAM DESCRIPTION: US - Abdomen Exam Limited - 07/18/2022 10:21 am CLINICAL HISTORY: abdominal wall ultrasound COMPARISON: Abdomen Pelvis W Contrast dated 07/14/2022 TECHNIQUE: Sonographic grayscale and color flow images of the left flank were obtained. FINDINGS: Ill-defined hypoechoic heterogeneous collection seen in the subcutaneous soft tissues exte nding to the muscles of the anterolateral abdominal wall, measuring 5.9 x 2.9 x 3.7 centimeter in gre atest dimensions. Linear tract measuring 5 millimeter in thickness extends from this region towards t he incision/skin drew. Subcutaneous edema and overlying skin thickening are noted in that region. IMPRESSION: Inflammatory changes in the skin and subcutaneous tissue, concerning for cellulitis. Heterogeneous deeper subcutaneous soft tissue fluid collection measuring up to 5.9 centimeter, may re flecting seroma. Superimposed infection/phlegmonous changes cannot be entirely excluded.
--- NOTE | 2022-07-18 14:21 | PN ---
Reason For This Evaluation: 1.Status post appendectomy by Dr. Hu. 2.Abdominal wall cellulitis on the left side of the abdomen. 3.Ileus. Subjective: Patient is doing better. The NG tube was removed. No nausea, no vomiting. Tolerating diet, passing flatus, good bowel movement. Objective: Vital Signs: Afebrile. Abdomen: Soft and depressible. Bowel sounds are positive. Patient still has a persistent celluliti s of the left lower quadrant. A lot better than before. Less swelling, less erythema. There is no evidence of clear fluctuance, but since the area is delineating to the lower abdomen in his soft area of the abdomen, ultrasound was requested. Diagnostic Data: The ultrasound is ill-defined, hypoechoic, heterogeneous collection seen in the sub cutaneous soft tissue extending to the muscle of the anterolateral abdominal wall measuring about 5.9 x 2.9 cm. Linear tract measuring 5 mm in thickness extending to the region toward the incision and skin drew on the left lower quadrant. Subcutaneous edema involving the skin thickening in the reg ion seen. Assessment: A 67-year-old patient status post appendectomy and subsequent abdominal wall abscess. Jeffrey Hu is out of town at this moment. He asked me to cover his patient. He is improving with IV a ntibiotics. With a 5.9 cm fluid collection, obviously, he could raise the question if he can do it w balbir cabral I and Jeffrey. I will discuss that with him and we might have to take him to do incision and drainage of that area, so he can impro ve his condition. RAJNI/KIZZY Voice ID: [id number] Report ID: [id number]
[2022-07-18] MEDS: MONTELUKAST 10 MG TAB PO SCH (20:12)
[2022-07-19] MEDS: Meropenem 1,000 MG in NA CHLORIDE 0.9% 100 ML IV SCH ×3 (01:09→17:53)
[2022-07-19] MEDS: METRONIDAZOLE 500mg IVPB 500 MG/100 ML BAG IV SCH ×3 (01:11→17:50)
[2022-07-19 03:10] LABS: Hematocrit 30.9 % (39.6-49.0); Lymphocytes % 16.3 % (15.3-44.8); MCV 87.2 fL (80-100); MPV 8.5 fL (7.6-11.3); RBC Red Blood Cell Count 3.55 M/uL (4.33-5.43)
[2022-07-19 03:29] LABS: C-Reactive Protein 82.4 mg/L (<3.00); Potassium 3.9 mEq/L (3.5-5.1)
[2022-07-19] MEDS: METOPROLOL XL 25 MG TAB PO SCH (05:48)
--- NOTE | 2022-07-19 07:01 | P.PN ---
Date of Service: 07/19/22 Subjective: feels better / slight improvement of abdominal wall feels area is smaller in size, redness/swelling improved otherwise no new / worsening problems afebrile ROS: 10 point ROS as noted above, otherwise negative Physical Exam: GEN: Alert, oriented, NAD. HEENT: Normal conjunctiva, sclera anicteric CV: Regular rate and rhythm, no edema Pulm: Nonlabored respirations on room air ABD: Soft, non-distended Integumentary: erythema and superficial edema of left abdominal/flank wall, +induration Neuro: normal speech / affect vitals reviewed Problem List: Acute appendicitis now s/p lap appy cellulitis of abd wall h/o Pulmonary Mycobacterium avium complex infection Asthma, chronic Acute urinary retention (resolved) Acute appendicitis now s/p lap appy cellulitis of abd wall s/p laparoscopic appendectomy post-op ileus - resolved; required NGT/bowel rest/IVF for a few days; s/p NGT (removed 07/16) now tolerating soft diet advanced 07/17 evening Blood cultures: No growth, Urine culture: No growth Sputum culture (07/14): Psuedomonas Aeruginosa patient asymptomatic CXR (07/17): Small bilateral pleural effusions as seen before, no consolidation afebrile (last fever: 07/13) abx switched to merrem (07/13) ID consulted felt secondary to skin involvement, no abscess seen on CT (07/14) discussed with ID, added Vanc (07/16) added Flagyl (07/17) per ID recommendations Abdominal u/s (07/18): "Inflammatory changes in the skin concerning for cellulitis" "Heterogeneous deeper subcutaneous soft tissue fluid collection measuring up to 5.9 centimeter, may reflecting seroma" NPO for I&D of abscess (07/19) Pulmonary Mycobacterium avium complex infection Continue Zithromax and ethambutol (home, chronic meds) Asthma, chronic Continue Singulair Monitor and optimize electrolytes Acute urinary retention (resolved) secondary to appendicitis / ileus Oswald catheter inserted for acute urinary retention - DC'd (07/16) denies prior issue, voiding without issue since removal Continue Flomax VTE: ambulatory Code: Full Dispo: Home, ~2 days pending further improvement, I&D planned for today 07/19
[2022-07-19] MEDS ORDERED: KCL 20 MEQ/100 mL IVPB 20 MEQ/100 ML BAG IV SCH (08:00)
[2022-07-19] MEDS: ENSURE CLEAR 200 ML CAN PO SCH ×2 (08:31→20:23)
[2022-07-19] MEDS: ASPIRIN 81 MG CHEWABLE TABLET PO SCH (08:31)
[2022-07-19] MEDS: TAMSULOSIN 0.4 MG SR CAP PO SCH (08:31)
[2022-07-19] MEDS: DULERA 100/5 (MOMETASONE/FORMOTEROL) INHALER IH SCH ×2 (08:44→20:25)
[2022-07-19] MEDS: FLUTICASONE 50MCG NASAL SPRAY NAS SCH (08:46)
[2022-07-19] MEDS: VANCOMYCIN 1.25 GM in NA CHLORIDE 0.9% 250 ML IVPB SCH ×2 (10:45→20:24)
[2022-07-19] MEDS ORDERED: Ringers Lactate 1,000 ML IV ONE (10:53)
[2022-07-19] MEDS ORDERED: propofoL 200 MG/20 ML VIAL IV ONE (11:01)
[2022-07-19] MEDS ORDERED: ONDANSETRON 4 MG/2 ML VIAL ONE (11:02)
[2022-07-19] MEDS ORDERED: MIDAZOLAM HCL 2 MG/2 ML INJ ONE (11:06)
[2022-07-19] MEDS ORDERED: FENTANYL CITR 100 MCG/2 ML ONE (11:06)
[2022-07-19] MEDS ORDERED: ROCURONIUM 50 MG/5 ML VIAL IV ONE (11:07)
[2022-07-19] MEDS ORDERED: LIDOCAINE 2% MPF 5 ML VIAL ONE (11:07)
--- NOTE | 2022-07-19 12:00 | P.BOP ---
Preoperative diagnosis: abdominal wall complex abscess Postoperative diagnosis: same Primary procedure: Incision and drainage of abdominal wall complex abscess [id number] Estimated blood loss: <10cc Specimen: culture Findings: abscess Anesthesia: General Complications: None Drain(s): Other (nugauze packing) Transferred to: Recovery Room Condition: Good
[2022-07-19] MEDS ORDERED: HYDROCODONE/APAP 5/325 MG TAB PO PRN (12:22)
[2022-07-19] MEDS ORDERED: HYDROMORPHONE HCL 1 MG/ML INJ ONE (12:30)
--- NOTE | 2022-07-19 13:54 | OP ---
Date of Procedure: 07/19/2022 Surgeon: Urbano Wilburn MD Preoperative Diagnosis: Abdominal wall complex abscess. Postoperative Diagnosis: Abdominal wall complex abscess. Procedure: Incision and drainage of abdominal wall complex abscess, 13 x 4 x 2 cm. Estimated Blood Loss: Less than 10 cc. Specimen: Culture. Finding: Abscess. Anesthesia: General plus local. Complications: None. Packing: An entire bottle of Nu Gauze 1 inch size. We packed the entire 5 yard in the bottle. Complications: None. Indications: This is the case of a -[id number] patient who comes to the hospital for appende ctomy about a week ago. Dr. Hu did the appendectomy. He is out of town for family reasons, so he asked me to take care of the patient with an abscess on the abdominal wall. We gave him antibiotics for few days, not improved, so we have to offer him incision and drainage once we have an ultrasound showing a fluid collection. He was okay with me doing the procedure the second time with I and D of abscess. From the appendix standpoint, he is improving. He is tolerating diet, passing flatus. Benefits, alternatives, and risks of incision and drainage were fully explained which includ e, but not limited to infection, bleeding, damage to adjacent structures, anesthesia complication, no nhealing wound, [place], and even . He also understands this may not relieve any symptoms. He might need more than one surgical intervention. He understood, signed the consent. The area of concern w as marked by me and the patient in the holding room. Description Of Procedure: The patient was brought to the operating room, placed in supine position. Anesthesia was done without complication. Abdominal area was prepped and draped in sterile fashion. Local anesthesia was applied followed by sharp incision of the skin in the area where we have more fluctuance. We also removed the drew from the left lower quadrant incision. This cavity connecte d to incision in that area so we have a counter incision on the area, where we have more fluctuance s een, and then, we got the abscess cavity, complex multiple loculations carefully irrigated, opened ea ch one of them, and then, we proceeded to pack with 5 yards of a 1-inch Nu Gauze over the area. Hemo stasis was obtained before closure. Cultures were obtained at beginning. The patient tolerated the procedure well. The patient was sent to recovery in stable condition. RAJNI/KIZZY Voice ID: [id number] Report ID: [id number]
[2022-07-19] MEDS: ACETAMINOPHEN 500 MG TAB PO PRN (15:02)
[2022-07-19] MEDS: CODEINE 30MG/APAP 300MG TAB PO PRN ×2 (17:49→23:14)
[2022-07-19] MEDS: MONTELUKAST 10 MG TAB PO SCH (20:25)
[2022-07-20] MEDS: Meropenem 1,000 MG in NA CHLORIDE 0.9% 100 ML IV SCH ×3 (00:33→18:25)
[2022-07-20] MEDS: METRONIDAZOLE 500mg IVPB 500 MG/100 ML BAG IV SCH ×3 (00:34→18:25)
[2022-07-20 03:35] LABS: Hematocrit 31.4 % (39.6-49.0); Lymphocytes % 11.8 % (15.3-44.8); MCV 86.7 fL (80-100); MPV 8.8 fL (7.6-11.3); RBC Red Blood Cell Count 3.62 M/uL (4.33-5.43)
[2022-07-20] MEDS: METOPROLOL XL 25 MG TAB PO SCH (05:27)
--- NOTE | 2022-07-20 06:51 | P.PN ---
Date of Service: 07/20/22 Subjective: had a rough night yesterday, feeling alright today had some abdominal pain last night; thinks was gas pains, relieved after flatus low grade temp yesterday 99.7, down to 99.2 this morning otherwise no new / worsening problems ROS: 10 point ROS as noted above, otherwise negative Physical Exam: GEN: Alert, oriented, NAD. HEENT: Normal conjunctiva, sclera anicteric CV: Regular rate and rhythm, no edema Pulm: Nonlabored respirations on room air ABD: Soft, non-distended Integumentary: dressing in place of abdominal/flank wall abscess Neuro: normal speech / affect vitals reviewed Problem List: Acute appendicitis now s/p lap appy cellulitis of abd wall; infected seroma; now s/o I&D (07/19) h/o Pulmonary Mycobacterium avium complex infection Asthma, chronic Acute urinary retention (resolved) Acute appendicitis now s/p lap appy cellulitis of abd wall; infected seroma; now s/o I&D (07/19) s/p laparoscopic appendectomy post-op ileus - resolved; required NGT/bowel rest/IVF for a few days; s/p NGT (removed 07/16) now tolerating soft diet advanced (07/17) evening Blood cultures: No growth, Urine culture: No growth Sputum culture (07/14): Psuedomonas Aeruginosa patient asymptomatic CXR (07/17): Small bilateral pleural effusions as seen before, no consolidation abx switched to merrem (07/13) due to ongoing fevers afebrile (last fever: 07/13) ID consulted felt secondary to skin involvement, no abscess seen on CT (07/14) discussed with ID, added Vanc (07/16), subsequently added flagyl 07/17 due to worsening abd wall swelling/erythema Abdominal u/s (07/18): "Inflammatory changes in the skin concerning for cellulitis" "Heterogeneous deeper subcutaneous soft tissue fluid collection measuring up to 5.9 centimeter, may reflecting seroma" General surgery consulted s/p I&D of abdominal wall complex abscess [id number] (07/19) low grade temp (07/19 pm) wound culture: NGTD monitor another day, ~48hrs after I&D, had low grade temp last night, f/u cultures will discuss with ID, for oral option on dc in next 1-2 days Pulmonary Mycobacterium avium complex infection Continue Zithromax and ethambutol (home, chronic meds) Asthma, chronic Continue Singulair Monitor and optimize electrolytes Acute urinary retention (resolved) secondary to appendicitis / ileus Oswald catheter inserted for acute urinary retention - DC'd (07/16) denies prior issue, voiding without issue since removal Continue Flomax Code: Full Dispo: Home, ~1 day pending further improvement, oral vs IV abx
--- NOTE | 2022-07-20 09:42 | P.PN ---
Date of Service: 07/20/22 Chief Complaint: Abdominal pain Subjective: Underwent incision and drainage of abdominal wall abscess yesterday 07/19. Dressing saturated with serosanguinous fluid. Pt in bed, A&Ox 4, NAD. at bedside. Patient denies any complaints at this time. Physical Examination Temp Pulse Resp BP Pulse Ox 99.2 F 85 18 123/76 94 07/20/22 08:00 07/20/22 08:00 07/20/22 08:00 07/20/22 08:00 07/20/22 08:00 General: Alert, In no apparent distress, Oriented x4 HEENT: Atraumatic, Normocephalic Neck: Supple, JVD not distended Respiratory: Normal air movement, slightly diminished Cardiovascular: No edema, Normal pulses Gastrointestinal: Normal bowel sounds. I&D of abdominal wall abscess surgical site with compression dressing at this time. Musculoskeletal: No clubbing, No swelling. Moves all extremities. Integumentary: No rashes, no breakdown Neurological: Normal speech, Normal tone, Normal affect Studies Laboratory Data - Reviewed Microbiology Data - Blood cultures 07/10: No growth to date - Urine culture 07/11: No growth Imagings Data: - CT abdomen 07/10: "IMPRESSION: Findings of acute appendicitis, with adjacent inflammatory changes of the cecum and adjacent distal ileal loops. No evidence of other complications. Small airspace opacities bilaterally more confluent on the right, suggest atelectasis or early airspace disease." - CT Abdomen/Pelvis with contrast 07/14: "Postoperative changes of recent appendicectomy with mild residual fat stranding in the right lower quadrant and a small volume accumulation of fluid in the pelvis. No findings to suggest an enteric leak or abscess formation. No free air. Moderately distended small bowel loops with gradual progression to nondistended ileal loops in the right lower quadrant. Slight wall thickening of the nondistended ileal loops, likely reactive. The appearance is most suggestive of ileus rather than bowel obstruction. Small bilateral pleural effusions." - XR KUB 07/16: "Mild improvement of the degree of upper abdominal small bowel dilation." - Abdominal Ultrasound 07/18: "Inflammatory changes in the skin and subcutaneous tissue, concerning for cellulitis. Heterogeneous deeper subcutaneous soft tissue fluid collection measuring up to 5.9 centimeter, may reflecting seroma. Superimposed infection/phlegmonous changes cannot be entirely excluded." Medications List Reviewed: Yes Assessment and Plan Problem List Appendicitis Hx MAC pulmonary infection Aortic valve replacement Asthma Mild PCM Ileus Cellulitis *Allergy: Penicillins * Hx Mycobacterium Avium Complex - Patient sees an infectious disease and pulmonology specialists at [facility]. On Azithromycin and Ethambutol - XR Chest 07/10: "No acute cardiopulmonary process" - Sputum culture 07/14: Pseudomonas aeruginosa. - Asymptomatic - XR Chest 07/17: "The lungs appear clear of acute infiltrate. The heart is normal size. Small bilateral pleural effusions." Appendicitis s/p laparoscopic appendectomy Cellulitis and Abscess abdominal wall - s/p laparoscopic appendectomy on 07/10 - Previously on Ciprofloxacin and Flagyl (07/10-07/13) - Increasing erythema, swelling and warmth lateral to surgical incision site extending to left flank. - Abdominal ultrasound 07/18 showing subcutaneous soft tissue fluid collection - s/p Incision and drainage of abdominal wall complex abscess on 07/19 by . - Currently on Meropenem (07/13), Vancomycin (07/16) and Flagyl (07/17) No Leukocytosis Afebrile. Recommendations - Cellulitis/Abscess of abdominal wall: s/p I&D yesterday. Continue current antibiotics for now. May consider Cipro PO and Flagyl PO upon discharge - Wound care per surgery team. - Monitor for worsening signs of infection, WBC and fever trends, increasing erythema/swelling - MAC: On Azithromycin and Ethambutol - Monitor WBC and fever trends Supportive care and nutritional support as needed ID will follow up and monitor patient closely. Case discussed with Catie Julian
[2022-07-20] MEDS: VANCOMYCIN 1.25 GM in NA CHLORIDE 0.9% 250 ML IVPB SCH ×2 (10:25→20:47)
[2022-07-20] MEDS: ASPIRIN 81 MG CHEWABLE TABLET PO SCH (10:26)
[2022-07-20] MEDS: ENSURE CLEAR 200 ML CAN PO SCH ×2 (10:26→20:53)
[2022-07-20] MEDS: DULERA 100/5 (MOMETASONE/FORMOTEROL) INHALER IH SCH ×2 (10:26→20:45)
[2022-07-20] MEDS: TAMSULOSIN 0.4 MG SR CAP PO SCH (10:26)
[2022-07-20] MEDS: FLUTICASONE 50MCG NASAL SPRAY NAS SCH (10:27)
[2022-07-20] MEDS: CODEINE 30MG/APAP 300MG TAB PO PRN (14:55)
[2022-07-20] MEDS: AZITHROMYCIN 250 MG TAB PO SCH (18:25)
[2022-07-20] MEDS: ETHAMBUTOL HCL 400 MG TAB PO SCH (18:25)
[2022-07-20] MEDS: MONTELUKAST 10 MG TAB PO SCH (20:45)
[2022-07-21] MEDS: METRONIDAZOLE 500mg IVPB 500 MG/100 ML BAG IV SCH ×2 (00:24→08:05)
[2022-07-21] MEDS: Meropenem 1,000 MG in NA CHLORIDE 0.9% 100 ML IV SCH ×2 (00:25→08:30)
[2022-07-21 04:03] LABS: Absolute Lymphocytes (CBC) 0.9 K/uL (0.7-4.9); Hematocrit 34.7 % (39.6-49.0); Lymphocytes % 9.2 % (15.3-44.8); MCV 87.1 fL (80-100); MPV 8.6 fL (7.6-11.3); RBC Red Blood Cell Count 3.99 M/uL (4.33-5.43)
[2022-07-21] MEDS: METOPROLOL XL 25 MG TAB PO SCH (06:00)
[2022-07-21] MEDS: TAMSULOSIN 0.4 MG SR CAP PO SCH (08:03)
[2022-07-21] MEDS: ASPIRIN 81 MG CHEWABLE TABLET PO SCH (08:03)
[2022-07-21] MEDS: DULERA 100/5 (MOMETASONE/FORMOTEROL) INHALER IH SCH (08:04)
[2022-07-21] MEDS ORDERED: NA CHLORIDE 0.9% 100 ML ONE (08:29)
[2022-07-21] MEDS: ENSURE CLEAR 200 ML CAN PO SCH (08:31)
[2022-07-21] MEDS: FLUTICASONE 50MCG NASAL SPRAY NAS SCH (09:00)
[2022-07-21] MEDS: VANCOMYCIN 1.25 GM in NA CHLORIDE 0.9% 250 ML IVPB SCH (09:36)
--- NOTE | 2022-07-21 09:42 | P.PN ---
Date of Service: 07/21/22 Chief Complaint: Abdominal pain Subjective: No new changes. s/p I&D of abdominal wall abscess on 07/19. Improving. Pt in bed, A&Ox 4, NAD. at bedside. Patient denies any new complaints at this time. Physical Examination Temp Pulse Resp BP Pulse Ox 98.8 F 80 18 101/59 L 94 07/21/22 08:00 07/21/22 08:00 07/21/22 08:00 07/21/22 08:00 07/21/22 08:00 General: Alert, In no apparent distress, Oriented x4 HEENT: Atraumatic, Normocephalic Neck: Supple, JVD not distended Respiratory: Normal air movement, slightly diminished Cardiovascular: No edema, Normal pulses Gastrointestinal: Normal bowel sounds. I&D of abdominal wall abscess surgical site with compression dressing at this time. Musculoskeletal: No clubbing, No swelling. Moves all extremities. Integumentary: No rashes, no breakdown Neurological: Normal speech, Normal tone, Normal affect Studies Laboratory Data - Reviewed Microbiology Data - Blood cultures 07/10: No growth to date - Urine culture 07/11: No growth Imagings Data: - CT abdomen 07/10: "IMPRESSION: Findings of acute appendicitis, with adjacent inflammatory changes of the cecum and adjacent distal ileal loops. No evidence of other complications. Small airspace opacities bilaterally more confluent on the right, suggest atelectasis or early airspace disease." - CT Abdomen/Pelvis with contrast 07/14: "Postoperative changes of recent appendicectomy with mild residual fat stranding in the right lower quadrant and a small volume accumulation of fluid in the pelvis. No findings to suggest an enteric leak or abscess formation. No free air. Moderately distended small bowel loops with gradual progression to nondistended ileal loops in the right lower quadrant. Slight wall thickening of the nondistended ileal loops, likely reactive. The appearance is most suggestive of ileus rather than bowel obstruction. Small bilateral pleural effusions." - XR KUB 07/16: "Mild improvement of the degree of upper abdominal small bowel dilation." - Abdominal Ultrasound 07/18: "Inflammatory changes in the skin and subcutaneous tissue, concerning for cellulitis. Heterogeneous deeper subcutaneous soft tissue fluid collection measuring up to 5.9 centimeter, may reflecting seroma. Superimposed infection/phlegmonous changes cannot be entirely excluded." Medications List Reviewed: Yes Assessment and Plan Problem List Appendicitis Hx MAC pulmonary infection Aortic valve replacement Asthma Mild PCM Ileus Cellulitis *Allergy: Penicillins * Hx Mycobacterium Avium Complex - Patient sees an infectious disease and pulmonology specialists at [facility]. On Azithromycin and Ethambutol - XR Chest 07/10: "No acute cardiopulmonary process" - Sputum culture 07/14: Pseudomonas aeruginosa. Asymptomatic. XR Chest 07/17: "The lungs appear clear of acute infiltrate. The heart is normal size. Small bilateral pleural effusions." Appendicitis s/p laparoscopic appendectomy Cellulitis and Abscess abdominal wall - s/p laparoscopic appendectomy on 07/10 - Previously on Ciprofloxacin and Flagyl (07/10-07/13) - Increasing erythema, swelling and warmth lateral to surgical incision site extending to left flank. - Abdominal ultrasound 07/18 showing subcutaneous soft tissue fluid collection - s/p Incision and drainage of abdominal wall complex abscess on 07/[address]Mart tejada. - Currently on Meropenem (07/13), Vancomycin (07/16) and Flagyl (07/17) No Leukocytosis Afebrile. Recommendations - Cellulitis/Abscess of abdominal wall: s/p I&D 07/19. Switch to Ciprofloxacin PO plus Flagyl PO upon discharge. - Continue wound care per surgery team. Monitor for worsening signs of infection. Follow up at wound care center in 1 week. - MAC: On Azithromycin and Ethambutol Supportive care and nutritional support as needed ID will follow patient as needed. Case discussed with Catie Julian
[2022-07-21 10:58] VITALS: O2SAT 93
[2022-07-21] MEDS ORDERED: HYDROCODONE/APAP 5/325 MG TAB PO ONE (11:45)
[2022-07-21 12:15] VITALS: BP 109/63; TEMP 98.9
--- NOTE | 2022-07-21 12:54 | P.DS ---
Admission Date: 07/10/22 Discharge Date: 07/21/22 Disposition: DC HOME/HOME HEALTH CARE Discharge Condition: FAIR Reason for Admission: Abdominal pain - Problems (1) Acute appendicitis Status: Acute (2) Asthma Status: Acute (3) Pulmonary Mycobacterium avium complex (MAC) infection Status: Acute (4) Acute urinary retention Status: Acute Brief History of Present Illness: 67-year-old gentleman with a history of aortic valve replacement, asthma, history of pulmonary MAC presented to the emergency department due to sudden onset abdominal pain which started in the epigastrium and moved to the right lower quadrant, associated with vomiting. Patient vomited 4 times. No fever, no diarrhea. Pain became severe and patient presented to the ED where CT scan demonstrated acute appendicitis with inflamed cecum. General surgery Dr. Hu was contacted who recommended emergent surgery. Patient admitted for further management. Hospital Course: Diagnosis Acute appendicitis s/p lap appendectomy cellulitis of abd wall; infected seroma; now s/o I&D (07/19) h/o Pulmonary Mycobacterium avium complex infection Asthma, chronic Acute urinary retention (resolved) Acute appendicitis now s/p lap appy cellulitis of abd wall; infected seroma; now s/o I&D (07/19) s/p laparoscopic appendectomy Patient developed post-op ileus requiring NGT/bowel rest/IVF for a few days; postop ileus resolved, NG tube was removed. now tolerating soft diet advanced (07/17) evening Blood cultures: No growth, Urine culture: No growth Sputum culture (07/14): Psuedomonas Aeruginosa patient asymptomatic CXR (07/17): Small bilateral pleural effusions as seen before, no consolidation abx switched to merrem (07/13) due to ongoing fevers afebrile (last fever: 07/13) ID consulted felt secondary to skin involvement, no abscess seen on CT (07/14) discussed with ID, added Vanc (07/16), subsequently added flagyl 07/17 due to worsening abd wall swelling/erythema Abdominal u/s (07/18): "Inflammatory changes in the skin concerning for cellulitis" "Heterogeneous deeper subcutaneous soft tissue fluid collection measuring up to 5.9 centimeter, may reflecting seroma" General surgery saw patient. s/p I&D of abdominal wall complex abscess [id number] (07/19) low grade temp (07/19 pm) wound culture: NGTD. Patient overall clinically improved. Wound is packed with gauze. Infectious disease recommended Cipro and Flagyl as outpatient. Follow-up with Dr. Hu within 1 week. Pulmonary Mycobacterium avium complex infection Continued Zithromax and ethambutol (home, chronic meds) Asthma, chronic Continued Singulair Acute urinary retention (resolved) secondary to appendicitis / ileus Oswald catheter inserted for acute urinary retention. Acute urinary retention resolved and Oswald catheter removed. He has been voiding without issue since removal Patient placed on Flomax. Vital Signs/Physical Exam: Temp Pulse Resp BP Pulse Ox 98.9 F 77 18 109/63 96 07/21/22 12:00 07/21/22 12:00 07/21/22 12:00 07/21/22 12:00 07/21/22 12:00 General: Alert, In no apparent distress, Oriented x3 HEENT: Mucous membr. moist/pink Neck: JVD not distended Respiratory: Clear to auscultation bilaterally, Normal air movement Cardiovascular: No edema, Regular rate/rhythm, Normal S1 S2 Gastrointestinal: Normal bowel sounds, Soft and benign, Non-distended Musculoskeletal: No swelling Integumentary: Other (left lower quadrant surgical wound, packed with guaze.) Neurological: Normal strength at 5/5 x4 extr Laboratory Data at Discharge: WBC 10.00 thou/uL (4.3-10.9) 07/21/22 02:40 Hgb 11.8 g/dL (13.6-17.9) L D 07/21/22 02:40 Hct 34.7 % (39.6-49.0) L 07/21/22 02:40 Plt Count 486 thou/uL (152-406) H 07/21/22 02:40 PT 11.5 SECONDS (9.5-12.5) 07/10/22 11:15 INR 1.05 07/10/22 11:15 Sodium 132 mEq/L (136-145) L 07/21/22 02:40 Potassium 4.0 mEq/L (3.5-5.1) 07/21/22 02:40 BUN 9 mg/dL (7-18) 07/21/22 02:40 Creatinine 0.68 mg/dL (0.70-1.30) L 07/21/22 02:40 Glucose 105 mg/dL (74-106) 07/21/22 02:40 Phosphorus 2.8 mg/dL (2.5-4.9) 07/11/22 02:44 Magnesium 2.0 mg/dL (1.6-2.4) 07/18/22 02:42 Total Bilirubin 0.5 mg/dL (0.2-1.0) 07/16/22 02:30 AST 23 U/L (15-37) 07/16/22 02:30 ALT 18 U/L (16-61) 07/16/22 02:30 Alkaline Phosphatase 48 U/L (45-117) 07/16/22 02:30 Lipase 36 U/L (13-75) 07/10/22 11:15 Home Medications: Aspirin 1 tab PO DAILY 07/10/22 Azithromycin 2 tab PO M,W,F 07/10/22 Ethambutol HCl 5 tab PO M,W,F 07/10/22 Fluticasone Propion/Salmeterol [Wixela 250-50 Inhub] 2 inh PO BID 07/10/22 Fluticasone Propionate [Flovent Diskus] 2 spray PO DAILY 07/10/22 Metoprolol Succinate 1 tab PO DAILY 07/10/22 Montelukast Sodium 1 tab PO BEDTIME 07/10/22 Vitamin B Complex [B Complex] 2 tab PO BID 07/10/22 Ciprofloxacin HCl 500 mg PO BID 7 Days #14 tab 07/21/22 Ensure Clear 237 ml PO BID #30 can 07/21/22 Ensure High Protein 237 ml PO BID 30 Days #60 can 07/21/22 Hydrocodone 5/APAP 325 [[place] 5/325] 1 tab PO Q6H PRN #20 tab 07/21/22 Tamsulosin [Flomax] 0.4 mg PO DAILY 30 Days #30 cap 07/21/22 metroNIDAZOLE [Metronidazole] 500 mg PO Q8H 7 Days #21 tab 07/21/22 New Medications: Ciprofloxacin HCl 500 mg PO BID 7 Days #14 tab Ensure Clear 237 ml PO BID #30 can Ensure High Protein 237 ml PO BID 30 Days #60 can Tamsulosin [Flomax] 0.4 mg PO DAILY 30 Days #30 cap metroNIDAZOLE [Metronidazole] 500 mg PO Q8H 7 Days #21 tab Hydrocodone 5/APAP 325 [[place] 5/325] 1 tab PO Q6H PRN #20 tab PRN Reason: Pain Diet: AHA Activity: Ad marylu Followup: NONE,NONE [Primary Care Provider] - Micah Hu MD [ACTIVE - CAN ADMIT] - 1 Week Time spent managing pt's care (in minutes): 40
--- NOTE | 2022-07-21 13:14 | PN ---
Date of Progress Note: 07/21/2022 Diagnosis: Status post I and D of abdominal wall abscess. Subjective: Doing well. No complaint. Erythema is less. Induration is less. Objective: Chest: Clear. Abdomen: Soft and depressible. Intact surgical site. Extremities: Good capillary refill. Plan: Send home on antibiotics by mouth with Home Health. Follow up in Dr. Wilburn and Dr. Mayte miller n the future. We [facility] from now Wednesday , call for appointment. RAJNI/KIZZY Voice ID: [id number] Report ID: [id number]
[2022-07-21] MEDS ORDERED: ENSURE HIGH PROTEIN 237 ML CAN PO SCH (21:00)
--- NOTE | 2022-07-27 14:31 | CON ---
Date of Consultation: 07/16/2022 Reason For Consultation: This patient was seen on 07/16 for consult for abdominal wall abscess. History Of Present Illness: This is the case of a 67-year-old patient, has a laparoscopic appendecto my recently. The surgeon is out of town at this moment. I was covering for the patient and noticed the patient to have abdominal wall abscess versus hematoma versus seroma. The primary doctor consult ed me for that problem. From the surgical standpoint, the patient is improving, tolerating diet, but even though they gave him antibiotics, this abdominal wall collection has not improved. Please refe r for my notes and from Dr. Hu's notes from previous report. Allergies: INCLUDE PENICILLINS. Medications: Reviewed. Social History: He does not smoke. He does not drink alcohol. Family History: Unremarkable. Review of Systems: The patient has some nausea. Has an NG tube in place that was removed recently and started on diet. The patient has abdominal wall fullness in the left side with erythema, increased temperature. Physical Examination: General: The patient is awake, alert. HEENT: Pupils are equal and reactive. Anicteric. Neck: Supple. Chest: Clear. Heart: S1, S2. Abdomen: Soft and depressible. There is left lower quadrant area of cellulitis present. There is n o fluctuance felt today, although we just have to see if this area is going to mature into an abscess or not. Extremities: Good capillary refill. Laboratory Data: Blood work reviewed. Plan: We are going to continue the antibiotics. If this induration develops into a mature into an a bscess, then we will proceed with an I and D. Ultrasound or imaging could be done also trying to see if this area is maturing. Previous CT scan did not show any big collection in that area. RAJNI/KIZZY Voice ID: [id number] Report ID: [id number]
== END 2022-07-21 14:12 | disposition home health service (06) | DRG 342 ==
LOC: ER 10:56 → ERHOLD 15:09 → 2ND 17:08
PROVIDERS: ADMIT Internal Medicine; ATTEND Internal Medicine
PROC: 0DTJ4ZZ Resection of Appendix, Percutaneous Endoscopic Approach (ICD-10-PCS; principal; 2022-07-10 16:30)
PROC: 0T9B70Z Drainage of Bladder with Drainage Device, Via Natural or Artificial Opening (ICD-10-PCS; 2022-07-17)
PROC: 0J980ZZ Drainage of Abdomen Subcutaneous Tissue and Fascia, Open Approach (ICD-10-PCS; 2022-07-19)
DX: K35.80 Unspecified acute appendicitis (principal); A31.0 Pulmonary mycobacterial infection; E44.0 Moderate protein-calorie malnutrition; J90 Pleural effusion, not elsewhere classified; K91.89 Other postprocedural complications and disorders of digestive system; K56.7 Ileus, unspecified; T81.40XA Infection following a procedure, unspecified, initial encounter; L03.311 Cellulitis of abdominal wall; T81.41XA Infection following a procedure, superficial incisional surgical site, initial encounter; L02.211 Cutaneous abscess of abdominal wall; J45.909 Unspecified asthma, uncomplicated; I10 Essential (primary) hypertension; R33.9 Retention of urine, unspecified; E87.6 Hypokalemia; Y83.6 Removal of other organ (partial) (total) as the cause of abnormal reaction of the patient, or of later complication, without mention of misadventure at the time of the procedure; Y92.239 Unspecified place in hospital as the place of occurrence of the external cause; Z68.23 Body mass index [BMI] 23.0-23.9, adult; Z95.2 Presence of prosthetic heart valve
CPT/HCPCS: 36415; 71045; 74018; 74019; 74177; 76705; 80048; 80053; 80076; 80202; 81001; 81003; 83690; 83735; 83880; 84100; 84132; 84484; 85025; 85610; 86140; 87040; 87070; 87075; 87077; 87086; 87088; 87186; 87205; 88304; 93005; 94010; 99285; J0694; J0744; J1170; J2001; J2185; J2250; J2370; J2405; J2704; J2710; J3010; J3475; J3480; J3535; J7030; J7040; J7050; J7120; J7613; Q9967